=== PATIENT | female | born 1950 | race Caucasian/White ===

== ENCOUNTER 2019-06-26 20:49 | Emergency (ER) | payer MEDICARE, OTHER ==
[~2019-06-26] VITALS: Ht 152.4 cm; Wt 104.5 kg
[2019-06-26] MEDS ORDERED: fentaNYL INJECTION 100 MCG/2 ML AMP IVP STA (21:10)
--- NOTE | 2019-06-26 21:13 | ED Chest Pain ---
General Chief Complaint: Chest Pain Stated Complaint: CP Source: patient History of Present Illness Date Seen by Provider: Jun 26, 2019 Time Seen by Provider: 20:58 Initial Comments 69-year-old female presenting with complaints of epigastric pain going into her back and chest. She states this feels similar to when she has had cardiac symptoms in the past. She had a four-vessel bypass in 2003 and 2 years ago she had 2 stents placed. She denies having any sweating or nausea with this. She had some shortness of breath with exertion. The pain came on at 7:15 and was constant until after arriving here in the emergency department. She tried taking 3 nitroglycerin at home without any effect on the pain. She did not take any additional aspirin she takes it in the morning. She denies doing anything at home when the pain came on. She states that she was just sitting watching TV. She has not been coughing or doing anything strenuous recently. She has had no injury or fall. Nothing made the pain better or worse. Allergies and Home Medications Allergies Coded Allergies: midazolam (Unverified Allergy, Unknown, MAKE PT HYPER AND ANXIOUS, 05/28/14) Patient Home Medication List Home Medication List Reviewed: Yes Review of Systems Review of Systems Constitutional: No chills, No dizziness, No fever, No malaise EENTM: No Symptoms Reported Respiratory: Denies Orthopnea; SOA With Exertion; Denies Stridor, Denies Wheezing Cardiovascular: See HPI, Chest Pain (sharp epigastric pain going into her chest and back); Denies Irregular Heart Rate, Denies Lightheadedness, Denies Palpitations, Denies Syncope Gastrointestinal: Abdominal Pain (epigastric abdominal pain going into her chest and back); Denies Nausea, Denies Vomiting Genitourinary: No Symptoms Reported Musculoskeletal: no symptoms reported Skin: no symptoms reported Psychiatric/Neurological: No Symptoms Reported Past Uhqbkhk-Ykwlvf-Wqtexi Hx Past Med/Social Hx: Reviewed Nursing Past Med/Soc Hx Past Medical History Cardiac (x2 stents placed 2016), CABG (x4 vessel bypass in 2003) Cardiac: Yes Cardiomyopathy, Coronary Artery Disease, High Cholesterol, Hypertension Physical Exam Vital Signs Vital Signs - First Documented Capillary Refill : Height, Weight, BMI Height: 5'1.00" Weight: 245lbs. oz. 111.453107oc; BMI Method: General Appearance: No Apparent Distress, WD/WN, Obese HEENT: Pharynx Normal Neck: Non Tender, Supple; No Carotid Bruit, No JVD Respiratory: Chest Non Tender, Lungs Clear, Normal Breath Sounds, No Accessory Muscle Use, No Respiratory Distress Cardiovascular: Regular Rate, Rhythm, Normal Peripheral Pulses Gastrointestinal: No Pulsatile Mass, Non Tender, Soft Extremity: Normal Capillary Refill, No Calf Tenderness, No Pedal Edema Neurologic/Psychiatric: Alert, Oriented x3, Normal Mood/Affect Skin: Normal Color, Warm/Dry Progress/Results/Core Measures Results/Orders Lab Results Laboratory Tests Test 06/26/19 21:10 06/26/19 23:05 Range/Units White Blood Count 4.4 4.3-11.0 10^3/uL Red Blood Count 3.46 L 4.35-5.85 10^6/uL Hemoglobin 10.8 L 11.5-16.0 G/DL Hematocrit 33 L 35-52 % Mean Corpuscular Volume 95 80-99 FL Mean Corpuscular Hemoglobin 31 25-34 PG Mean Corpuscular Hemoglobin Concent 33 32-36 G/DL Red Cell Distribution Width 14.8 H 10.0-14.5 % Platelet Count 215 130-400 10^3/uL Mean Platelet Volume 9.3 7.4-10.4 FL Neutrophils (%) (Auto) 44 42-75 % Lymphocytes (%) (Auto) 45 H 12-44 % Monocytes (%) (Auto) 9 0-12 % Eosinophils (%) (Auto) 2 0-10 % Basophils (%) (Auto) 1 0-10 % Neutrophils # (Auto) 1.9 1.8-7.8 X 10^3 Lymphocytes # (Auto) 2.0 1.0-4.0 X 10^3 Monocytes # (Auto) 0.4 0.0-1.0 X 10^3 Eosinophils # (Auto) 0.1 0.0-0.3 10^3/uL Basophils # (Auto) 0.0 0.0-0.1 10^3/uL Prothrombin Time 12.7 12.2-14.7 SEC INR Comment 0.9 0.8-1.4 Activated Partial Thromboplast Time 26 24-35 SEC Sodium Level 137 135-145 MMOL/L Potassium Level 4.5 3.6-5.0 MMOL/L Chloride Level 99 98-107 MMOL/L Carbon Dioxide Level 27 21-32 MMOL/L Anion Gap 11 5-14 MMOL/L Blood Urea Nitrogen 23 H 7-18 MG/DL Creatinine 1.52 H 0.60-1.30 MG/DL Estimat Glomerular Filtration Rate 34 BUN/Creatinine Ratio 15 Glucose Level 111 H 70-105 MG/DL Calcium Level 9.3 8.5-10.1 MG/DL Corrected Calcium 9.5 8.5-10.1 MG/DL Total Bilirubin 0.2 0.1-1.0 MG/DL Aspartate Amino Transf (AST/SGOT) 10 5-34 U/L Alanine Aminotransferase (ALT/SGPT) 7 0-55 U/L Alkaline Phosphatase 79 40-136 U/L Troponin I < 0.30 < 0.30 <0.30 NG/ML Pro-B-Type Natriuretic Peptide 855.6 H <75.0 PG/ML Total Protein 6.8 6.4-8.2 GM/DL Albumin 3.7 3.2-4.5 GM/DL My Orders Orders - ASHLEY HESS MD Cbc With Automated Diff (06/26/19 20:56) Comprehensive Metabolic Panel (06/26/19 20:56) Troponin I Fs (06/26/19 20:56) Continuous Ekg Monitoring (06/26/19 20:56) Ekg Tracing (06/26/19 20:56) Ed Iv/Invasive Line Start (06/26/19 20:56) Chest 1 View Ap/Pa Only (06/26/19 20:58) Probnp Fs (06/26/19 21:09) Protime With Inr (06/26/19 21:09) Partial Thromboplastin Time (06/26/19 21:09) Fentanyl Injection (Sublimaze Injection (06/26/19 21:10) Oxygen-Administer 07,19 (06/26/19 21:10) Troponin I Fs (06/26/19 22:53) Vital Signs/I&O 06/26/19 06/26/19 21:09 21:09 Temp 36.3 Pulse 68 Resp 13 B/P (MAP) 169/69 (102) Pulse Ox 95 O2 Delivery Room Air Room Air Progress Progress Note #1: Progress Note Obtain basic labs and chest x-ray with an electrocardiogram. The e lectrocardiogram did not show any acute ST elevation but she did have a right bundle-branch block. There was no prior tracing available for comparison. Will give a dose of fentanyl to try and help with her pain. Since she had already tried nitroglycerin at home and it was not helping as well as she had aspirin will defer using these. Progress Note #2: Progress Note Chest x-ray shows cardiomegaly without effusions or infiltrate. There is signs of chronic renal insufficiency with a creatinine of 1.5 on her chemistry. Her initial troponin is less than 0.3 her BNP is slightly elevated at 855. Her pain was resolved with the fentanyl and rest. Will repeat the troponin at 2 hours and see if there is any change. This would be over 4 hours since initial onset of symptoms. Progress Note #3: Progress Note Repeat troponin is still less than 0.3. Patient continues to be comfortable without any recurrent symptoms. Counseled on options of transfer for cardiology evaluation this weekend versus follow-up with Dr. Powers during the week. This is all provided she has no recurrent symptoms or problems over the weekend. She opted to call Dr. Powers on Saturday and check back with him. If she has further problems or concerns then she will call this weekend about being seen again. Counseled to either call 911 or return immediately if she has recurrent or worsening symptoms. Initial ECG Impression Date: Jun 26, 2019 Initial ECG Impression Time: 20:57 Initial ECG Rate: 63 Initial ECG Rhythm: Normal Sinus Initial ECG Comparisson: No Previous ECG Available Comment Sinus rhythm with a heart rate is 63 bpm. WA interval of 226 ms. There is a right bundle-branch block present. QT interval 478 ms and QT corrected interval 490 ms. There is no acute ST elevation. No prior tracing immediately available for comparison. Diagnostic Imaging Diagonstic Imaging: Xray Plain Films/CT/US/NM/MRI: chest Comments NAME: LORI IRELAND [facility] REC#: [id number] PT STATUS: REG ER : 1950 PHYSICIAN: ASHLEY HESS MD ADMIT DATE: 06/26/19/ER FS Draft POSDate of Exam:06/26/19 CHEST 1 VIEW AP/PA ONLY INDICATION: Chest pain. EXAMINATION: Portable erect AP chest at 9:10 p.m. COMPARISON: There are no prior studies available for comparison. FINDINGS: This exam is less than optimal due to the patient's body habitus. The heart is enlarged and there are sternotomy wires and surgical clips evident. The lungs are generally clear. There is no sign of failure, pneumonia or a pleural effusion. The mediastinum is not widened. The osseous structures are intact. IMPRESSION: There is cardiomegaly and evidence of prior cardiac surgery. There is no sign of an acute cardiopulmonary abnormality, however. Dictated on workstation # [id number] Dict: 06/26/192132 Trans: 06/26/192135 [facility] [id number] Interpreted by: JAJA FARIAS MD Electronically signed by: Departure Impression Primary Impression: Chest pain of unknown etiology Additional Impression: Epigastric pain Disposition: HOME, SELF-CARE Condition: Improved Departure-Patient Inst. Decision time for Depature: 23:56 Referrals: CRUZ WOOD MD (PCP) Primary Care Physician Patient Instructions: Chest Pain (DC), Chest Pain That Is Not Caused by the Heart (DC) Add. Discharge Instructions: Your tests tonight do not show the heart as the cause of the pain. You may need to have other testing with Dr. Powers from [facility] and should call him on Saturday to see if he wants to have you move up your appointment from August. If you have recurrent pain or more problems over the weekend then call 911 or return to the Emergency Department. All discharge instructions reviewed with patient and/or family. Voiced understanding. ASHLEY HESS MD Jun 26, 2019 21:13 POS
[2019-06-26 21:15] LABS: BASOPHILS % (AUTO) 1 % (0-10); EOSINOPHILS # (AUTO) 0.1 10^3/uL (0.0-0.3); EOSINOPHILS % (AUTO) 2 % (0-10); HEMATOCRIT 33 % (35-52); HEMOGLOBIN 10.8 G/DL (11.5-16.0); LYMPHOCYTES % (AUTO) 45 % (12-44); MEAN CORPUSCULAR HEMOGLOBIN 31 PG (25-34); MEAN CORPUSCULAR HGB CONC 33 G/DL (32-36); MEAN CORPUSCULAR VOLUME 95 FL (80-99); MEAN PLATELET VOLUME 9.3 FL (7.4-10.4); MONOCYTES # (AUTO) 0.4 X 10^3 (0.0-1.0); MONOCYTES % (AUTO) 9 % (0-12); NEUTROPHILS # (AUTO) 1.9 X 10^3 (1.8-7.8); NEUTROPHILS % (AUTO) 44 % (42-75); PLATELET COUNT 215 10^3/uL (130-400); RED CELL DISTRIBUTION WIDTH 14.8 % (10.0-14.5); WHITE BLOOD COUNT 4.4 10^3/uL (4.3-11.0)
[2019-06-26 21:35] LABS: INR 0.9 (0.8-1.4); PROTHROMBIN TIME PATIENT 12.7 SEC (12.2-14.7)
[2019-06-26 21:36] LABS: CARBON DIOXIDE 27 MMOL/L (21-32); CHLORIDE 99 MMOL/L (98-107); POTASSIUM 4.5 MMOL/L (3.6-5.0); SODIUM 137 MMOL/L (135-145)
--- NOTE | 2019-06-26 21:36 | Diagnostic Imaging Report ---
INDICATION: Chest pain. EXAMINATION: Portable erect AP chest at 9:10 p.m. COMPARISON: There are no prior studies available for comparison. FINDINGS: This exam is less than optimal due to the patient's body habitus. The heart is enlarged and there are sternotomy wires and surgical clips evident. The lungs are generally clear. There is no sign of failure, pneumonia or a pleural effusion. The mediastinum is not widened. The osseous structures are intact. IMPRESSION: There is cardiomegaly and evidence of prior cardiac surgery. There is no sign of an acute cardiopulmonary abnormality, however. Dictated by: Dictated on workstation # [id number]
[2019-06-26 21:37] LABS: ALANINE AMINOTRANSFERASE 7 U/L (0-55); ALBUMIN 3.7 GM/DL (3.2-4.5); ALKALINE PHOSPHATASE 79 U/L (40-136); BILIRUBIN,TOTAL 0.2 MG/DL (0.1-1.0); BUN/CREATININE RATIO 15; CALCIUM 9.3 MG/DL (8.5-10.1); CREATININE SERUM 1.52 MG/DL (0.60-1.30); GFR ESTIMATED 34; GLUCOSE 111 MG/DL (70-105); TOTAL PROTEIN 6.8 GM/DL (6.4-8.2)
[2019-06-27 00:03] VITALS: BP 120/68
== END 2019-06-27 00:03 | disposition home or self-care (01) ==
LOC: EDUNIT# 20:49 → ER FS 20:51
DX: R07.9 Chest pain, unspecified (principal); R10.13 Epigastric pain; I10 Essential (primary) hypertension; E78.00 Pure hypercholesterolemia, unspecified; I25.10 Atherosclerotic heart disease of native coronary artery without angina pectoris; Z88.8 Allergy status to other drugs, medicaments and biological substances; Z95.1 Presence of aortocoronary bypass graft; Z95.5 Presence of coronary angioplasty implant and graft
CPT/HCPCS: 36415; 71045; 80053; 83880; 84484; 85025; 85610; 85730; 93005; 96374

== ENCOUNTER → 2019-10-19 | Outpatient (CLI) | payer MEDICARE, MEDICAID ==
[2019-10-19 11:08] LABS: BUN/CREATININE RATIO 15; CARBON DIOXIDE 27 MMOL/L (21-32); CHLORIDE 98 MMOL/L (98-107); CREATININE SERUM 1.69 MG/DL (0.60-1.30); POTASSIUM 4.7 MMOL/L (3.6-5.0); SODIUM 137 MMOL/L (135-145)
[2019-10-19 11:09] LABS: ALANINE AMINOTRANSFERASE 7 U/L (0-55); ALKALINE PHOSPHATASE 70 U/L (40-136); BILIRUBIN,TOTAL 0.3 MG/DL (0.1-1.0); CALCIUM 9.8 MG/DL (8.5-10.1); GFR ESTIMATED > 60; GLUCOSE 203 MG/DL (70-105)
[2019-10-19 11:10] LABS: ALBUMIN 3.8 GM/DL (3.2-4.5)
[2019-10-19 11:15] LABS: HEMOGLOBIN 11.4 G/DL (11.5-16.0); MEAN CORPUSCULAR HEMOGLOBIN 33 PG (25-34); WHITE BLOOD COUNT 3.1 10^3/uL (4.3-11.0)
[2019-10-19 11:16] LABS: EOSINOPHILS % (AUTO) 2 % (0-10); HEMATOCRIT 35 % (35-52); LYMPHOCYTES % (AUTO) 40 % (12-44); MEAN CORPUSCULAR HGB CONC 33 G/DL (32-36); MEAN CORPUSCULAR VOLUME 103 FL (80-99); MEAN PLATELET VOLUME 9.3 FL (7.4-10.4); MONOCYTES % (AUTO) 4 % (0-12); NEUTROPHILS % (AUTO) 54 % (42-75); PLATELET COUNT 208 10^3/uL (130-400); RED CELL DISTRIBUTION WIDTH 13.8 % (10.0-14.5)
[2019-10-19 11:17] LABS: BASOPHILS % (AUTO) 0 % (0-10); EOSINOPHILS # (AUTO) 0.1 10^3/uL (0.0-0.3); LYMPHOCYTES # (AUTO) 1.2 X 10^3 (1.0-4.0); MONOCYTES # (AUTO) 0.1 X 10^3 (0.0-1.0); NEUTROPHILS # (AUTO) 1.7 X 10^3 (1.8-7.8)
--- NOTE | 2019-10-19 11:43 | Diagnostic Imaging Report ---
PROCEDURE: CT chest, abdomen, and pelvis without contrast. TECHNIQUE: Multiple contiguous axial images were obtained through the chest, abdomen, and pelvis without the use of intravenous contrast. Auto Exposure Controls were utilized during the CT exam to meet ALARA standards for radiation dose reduction. INDICATION: Hodgkin's lymphoma. COMPARISON: No prior studies are available for comparison. CT CHEST: A right chest wall port has the tip in the SVC. There are changes of median sternotomy. No axillary lymphadenopathy is detected. Mediastinal and hilar evaluation is limited without intravenous contrast, but no gross abnormality is seen. There is no pericardial or pleural fluid identified. No pulmonary infiltrates, nodules, or masses are identified. Kyphoplasty changes in the lower thoracic spine are noted. IMPRESSION: Unremarkable noncontrast CT of the chest. CT ABDOMEN AND PELVIS: No discrete liver mass is detected. Gallbladder appears to be surgically absent. No biliary ductal dilatation is seen. Pancreas and spleen are unremarkable. No adrenal mass is detected. No calculi within the kidneys are identified. There is no hydronephrosis. Aorta is heavily calcified but non-aneurysmal. No central retroperitoneal or mesenteric lymphadenopathy is identified. No definite inguinal or iliac lymphadenopathy is identified. Unopacified bladder is unremarkable. The small and large bowel loops are normal in caliber. There is some diverticulosis of the sigmoid but no evidence of acute diverticulitis. There is no bowel obstruction. No free fluid or fluid collection is identified. There are postop changes of posterior instrumented fusion at the L5-S1 level. There are postop changes in the anterior lower abdominal wall. IMPRESSION: 1. Uncomplicated diverticulosis. 2. No evidence of abdominal or pelvic lymphadenopathy. No acute feature is detected. Dictated by: Dictated on workstation # [id number]
== END ==
LOC: RAD FS 10:20
PROVIDERS: ATTEND Internal Medicine Hematology & Oncology
DX: C81.18 Nodular sclerosis Hodgkin lymphoma, lymph nodes of multiple sites (principal); K57.30 Diverticulosis of large intestine without perforation or abscess without bleeding; Z95.828 Presence of other vascular implants and grafts
CPT/HCPCS: 36415; 71250; 74176; 80053; 83615; 85025

== ENCOUNTER 2019-11-28 07:52 | Emergency (ER) | payer MEDICARE, MEDICAID ==
--- OUTSIDE RECORDS SUMMARY | 2019-11-28 07:58 | XMS REPORT | Continuity of Care Document ---
Author Organization Unknown Address Unknown Phone Unavailable Allergies Active Description Code Type Severity Reaction Onset Reported/Identified Relationship to Patient Clinical Status Yes midazolam [id number] Drug Allergy Unknown MAKE PT HYPER A 05/28/2014 Medications There is no data. Problems Date Dx Coded Attending Type Code Diagnosis Diagnosed By 05/28/2014 JOSE RUFFIN MD Ot 278. 01 MORBID OBESITY 05/28/2014 JOSE RUFFIN MD Ot 721. 3 LUMBOSACRAL SPONDYLOSIS 05/28/2014 JOSE RUFFIN MD Ot V58. 69 OT MED,LT,CURRENT USE 05/28/2014 JOSE RUFFIN MD Ot V85. 42 BODY MASS INDEX 45.0-49.9, ADULT 12/28/2014 JOSE RUFFIN MD Ot 721. 2 12/28/2014 JOSE RUFFIN MD Ot 786. 50 12/29/2014 CONSUELO NAVARRO, KIT Ot 201. 90 06/14/2015 SHAIKH MELANIE, SHEREE Ot N18.3 06/27/2019 ASHLEY HESS MD Ot E78.0 0 PURE HYPERCHOLESTEROLEMIA, UNSPECIFIED 06/27/2019 ASHLEY HESS MD Ot I10 ESSENTIAL (PRIMARY) HYPERTENSION 06/27/2019 ASHLEY HESS MD, Ot I25.1 0 ATHSCL HEART DISEASE OF [place] CORONARY 06/27/2019 ASHLEY HESS MD Ot R07.9 CHEST PAIN, UNSPECIFIED 06/27/2019 ASHLYE HESS MD Ot R10.1 3 EPIGASTRIC PAIN 06/27/2019 ASHLEY HESS MD, Ot Z88.8 ALLERGY STATUS TO OT DRUG/MEDS/BIOL SUB 06/27/2019 ASHLEY HESS MD Ot Z95.1 PRESENCE OF AORTOCORONARY BYPASS GRAFT 06/27/2019 ASHLEY HESS MD, Ot Z95.5 PRESENCE OF CORONARY ANGIOPLASTY IMPLANT 06/27/2019 JOSE RUFFIN MD Ot 721. 2 THORACIC SPONDYLOSIS 06/27/2019 JOSE RUFFIN MD Ot 786. 50 CHEST PAIN NOS 06/27/2019 CONSUELO NAVARRO, KIT Ot 201. 90 [place] DIS UNSPEC EXTRANODAL SOLID O 06/27/2019 SHEREE SANTANA MD Ot N18.3 CHRONIC KIDNEY DISEASE, STAGE 3 (MODERAT 06/29/2019 ASHLEY HESS MD Ot E78.0 0 PURE HYPERCHOLESTEROLEMIA, UNSPECIFIED 06/29/2019 ASHLEY HESS MD Ot I10 ESSENTIAL (PRIMARY) HYPERTENSION 06/29/2019 ASHLEY HESS MD Ot I25.1 0 ATHSCL HEART DISEASE OF [place] CORONARY 06/29/2019 ASHLEY HESS MD Ot R07.9 CHEST PAIN, UNSPECIFIED 06/29/2019 ASHLEY HESS MD Ot R10.1 3 EPIGASTRIC PAIN 06/29/2019 ASHLEY HESS MD Ot Z88.8 ALLERGY STATUS TO OTH DRUG/MEDS/BIOL SUB 06/29/2019 ASHLEY HESS MD Ot Z95.1 PRESENCE OF AORTOCORONARY BYPASS GRAFT 06/29/2019 ASHLEY HESS MD Ot Z95.5 PRESENCE OF CORONARY ANGIOPLASTY IMPLANT 07/01/2019 CONSUELO NAVARRO, KIT Ot 201. 90 [place] DIS UNSPEC EXTRANODAL SOLID O 07/01/2019 OJSE RUFFIN MD Ot 721. 2 THORACIC SPONDYLOSIS 07/01/2019 JOSE RUFFIN MD Ot 786. 50 CHEST PAIN NOS 07/01/2019 CONSUELO NAVARRO, KIT Ot 201. 90 [place] DIS UNSPEC EXTRANODAL SOLID O 07/01/2019 SHEREE SANTANA MD Ot N18.3 CHRONIC KIDNEY DISEASE, STAGE 3 (MODERAT 07/22/2019 JOSE RUFFIN MD Ot 721. 2 THORACIC SPONDYLOSIS 07/22/2019 JOSE RUFFIN MD Ot 786. 50 CHEST PAIN NOS 07/22/2019 CONSUELO NAVARRO, KIT Ot 201. 90 [place] DIS UNSPEC EXTRANODAL SOLID O 07/22/2019 SHEREE SANTANA MD Ot N18.3 CHRONIC KIDNEY DISEASE, STAGE 3 (MODERAT 07/23/2019 ASHLEY HESS MD Ot E78.0 0 PURE HYPERCHOLESTEROLEMIA, UNSPECIFIED 07/23/2019 ASHLEY HESS MD Ot I10 ESSENTIAL (PRIMARY) HYPERTENSION 07/23/2019 ASHLEY HESS MD, Ot I25.1 0 ATHSCL HEART DISEASE OF [place] CORONARY 07/23/2019 ASHLEY HESS MD Ot R07.9 CHEST PAIN, UNSPECIFIED 07/23/2019 ASHLEY HESS MD Ot R10.1 3 EPIGASTRIC PAIN 07/23/2019 ASHLEY HESS MD Ot Z88.8 ALLERGY STATUS TO OT DRUG/MEDS/BIOL SUB 07/23/2019 ASHLEY HESS MD Ot Z95.1 PRESENCE OF AORTOCORONARY BYPASS GRAFT 07/23/2019 ASHLEY HESS MD Ot Z95.5 PRESENCE OF CORONARY ANGIOPLASTY IMPLANT 10/19/2019 CONSUELO NAVARRO, KIT Ot 201. 90 [place] DIS UNSPEC EXTRANODAL SOLID O 10/19/2019 SHAIKH MELANIE, SHEREE Ot N18.3 CHRONIC KIDNEY DISEASE, STAGE 3 (MODERAT 10/19/2019 CONSUELO NAVARRO, KIT Ot 201. 90 [place] DIS UNSPEC EXTRANODAL SOLID O 10/19/2019 SHAIKH MELANIE, SHEREE Ot N18.3 CHRONIC KIDNEY DISEASE, STAGE 3 (MODERAT 10/19/2019 CONSUELO NAVARRO, KIT Ot 201. 90 [place] DIS UNSPEC EXTRANODAL SOLID O 10/19/2019 SHAIKH MELANIE, SHEREE Ot N18.3 CHRONIC KIDNEY DISEASE, STAGE 3 (MODERAT 10/21/2019 DAKOTA CORDERO MDM Ot 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 [place] LYMPHOMA, LYMP 10/21/2019 DAKOTA CORDERO MDM Ot K57. 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 [place] LYMPHOMA, LYMP 11/03/2019 REID CORDERO MDSIM Ot K57. 30 DVRTCLOS OF LG INT W/O PERFORATION OR AB 11/03/2019 REID CORDERO MDSIM Ot Z95.828 PRESENCE OF OTHER VASCULAR IMPLANTS AND Procedures There is no data. Results Test Result Range LIPID PANEL - 10/08/18 09:12 CHOLESTEROL, TOTAL 201 mg/dL <200 HDL CHOLESTEROL 46 mg/dL >50 TRIGLYCERIDES 212 mg/dL <150 LDL-CHOLESTEROL 122 mg/dL (calc) NRG CHOL/HDLC RATIO 4.4 (calc) <5.0 NON HDL CHOLESTEROL 155 mg/dL (calc) <13 0 CMP - 10/08/18 09:12 GLUCOSE 279 mg/dL 65-99 UREA NITROGEN (BUN) 24 mg/dL 7-25 CREATININE 1.45 mg/dL 0.50-0.99 eGFR NON-AFR. [place] R[place] 37 mL/min/1.73m2 > OR = 60 eGFR 43 mL/min/1.73m2 > OR = 60 BUN/CREATININE RATIO 17 (calc) 6-22 SODIUM 135 mmol/L 135-146 POTASSIUM 4.5 mmol/L 3.5-5.3 CHLORIDE 98 mmol/L 98-110 CARBON DIOXIDE 26 mmol/L 20-32 CALCIUM 9.2 mg/dL 8.6-10.4 PROTEIN, TOTAL 6.6 g/dL 6.1-8.1 ALBUMIN 3.8 g/dL 3.6-5.1 GLOBULIN 2.8 g/dL (calc) 1.9-3.7 ALBUMIN/GLOBULIN RATIO 1.4 (calc) 1.0-2. 5 BILIRUBIN, TOTAL 0.3 mg/dL 0.2-1.2 ALKALINE PHOSPHATASE 83 U/L 33-130 AST 9 U/L 10-35 ALT 7 U/L 6-29 A1C - 10/08/18 09:12 HEMOGLOBIN A1c 8.5 % of total Hgb <5.7 SPECIMEN INTEGRITY COMPROMISED - 9 09:12 SPECIMEN INTEGRITY COMPROMISED NR CULTURE, URINE - 11/19/18 13:56 CULTURE, URINE, ROUTINE SEE NOTE NRG A1C - 01/28/19 01:15 HEMOGLOBIN A1c 8.6 % of total Hgb <5.7 A1C - 06/08/19 08:13 HEMOGLOBIN A1c 9.1 % of total Hgb <5.7 Complete blood count (CBC) with automate d white blood cell (WBC) differential - 06/26/19 21:10 Blood leukocytes automated count (number/volume) 4.4 10*3/uL 4.3-11.0 Blood erythrocytes automated count (number/volume) 3.46 10*6/uL 4.35-5.85 Venous blood hemoglobin measurement (mass/volume) 10.8 g/dL 11.5-16.0 Blood hematocrit (volume fraction) 33 % 35-52 Automated erythrocyte mean corpuscular volume 95 [ foz_us] 80-99 Automated erythrocyte mean corpuscular h emoglobin (mass per erythrocyte) 31 pg 25-34 Automated erythrocyte mean corpuscular h emoglobin concentration measurement (mass/volume) 33 g/dL 32-36 Automated erythrocyte distribution width ratio 14. 8 % 10.0- 14.5 Automated blood platelet count (count/volume) 215 10*3/uL 130-400 Automated blood platelet mean volume measurement 9.3 [foz_us] 7.4-10.4 Automated blood neutrophils/100 leukocytes 44 % 42-75 Automated blood lymphocytes/100 leukocytes 45 % 12-44 Blood monocytes/100 leukocytes 9 % 0-12 Automated blood eosinophils/100 leukocytes 2 % 0-10 Automated blood basophils/100 leukocytes 1 % 0-10 Blood neutrophils automated count (number/volume) 1.9 10*3 1.8-7.8 Blood lymphocytes automated count (number/volume) 2.0 10*3 1.0-4.0 Blood monocytes automated count (number/volume) 0. 4 10*3 0.0-1.0 Automated eosinophil count 0.1 10*3/uL 0 .0-0.3 Automated blood basophil count (count/volume) 0.0 10*3/uL 0.0-0.1 PT panel in platelet poor plasma by coag ulation assay - 06/26/19 21:10 Prothrombin time (PT) in platelet poor plasma by coagu lation assay 12.7 s 12.2-14.7 INR in platelet poor plasma or blood by coagulation as say 0.9 0.8-1.4 Activated partial thromboplastin time (a PTT) in platelet poor plasma bycoagulation assay - 06/26/19 21:10 Activated partial thromboplastin time (a PTT) in platelet poor plasma bycoagulation assay 26 s 24-35 Comprehensive metabolic panel - 06/26/19 21:10 Serum or plasma sodium measurement (moles/volume) 137 mmol/L 135-145 Serum or plasma potassium measurement (moles/volume) 4.5 mmol/L 3.6-5.0 Serum or plasma chloride measurement (moles/volume) 99 mmol/L 98-107 Carbon dioxide 27 mmol/L 21-32 Serum or plasma anion gap determination (moles/volume) 11 mmol/L 5-14 Serum or plasma urea nitrogen measurement (mass/volume ) 23 mg/dL 7-18 Serum or plasma creatinine measurement (mass/volume) 1.52 mg/dL 0.60-1.30 Serum or plasma urea nitrogen/creatinine mass ratio 15 NRG Serum or plasma creatinine measurement w ith calculation of estimated glomerular filtration rate 34 NRG Serum or plasma glucose measurement (mass/volume) 111 mg/dL 70-105 Serum or plasma calcium measurement (mass/volume) 9.3 mg/dL 8.5-10.1 Serum or plasma total bilirubin measurement (mass/volu me) 0.2 mg/dL 0.1-1.0 Serum or plasma alkaline phosphatase lachelle surement (enzymatic activity/volume) 79 U/L 40-136 Serum or plasma aspartate aminotransfera se measurement (enzymatic activity/volume) 10 U/L 5-34 Serum or plasma alanine aminotransferase measurement (enzymatic activity/volume) 7 U/L 0-55 Serum or plasma protein measurement (mass/volume) 6.8 g/dL 6.4-8.2 Serum or plasma albumin measurement (mass/volume) 3.7 g/dL 3.2-4.5 CALCIUM CORRECTED 9.5 mg/dL 8.5-10.1 TROPONIN I FS - 06/26/19 21:10 TROPONIN I FS < 0.30 <0.30 PROBNP FS - 06/26/19 21:10 PROBNP FS 855.6 pg/mL <75.0 TROPONIN I FS - 06/26/19 23:05 TROPONIN I FS < 0.30 <0.30 [facility] - 09/09/19 08:09 GLUCOSE 275 mg/dL 65-99 UREA NITROGEN (BUN) 28 mg/dL 7-25 CREATININE 1.56 mg/dL 0.50-0.99 eGFR NON-AFR. [place] R[place] 34 mL/min/1.73m2 > OR = 60 eGFR 39 mL/min/1.73m2 > OR = 60 BUN/CREATININE RATIO 18 (calc) 6-22 SODIUM 135 mmol/L 135-146 POTASSIUM 4.5 mmol/L 3.5-5.3 CHLORIDE 99 mmol/L 98-110 CARBON DIOXIDE 31 mmol/L 20-32 CALCIUM 9.3 mg/dL 8.6-10.4 PROTEIN, TOTAL 6.4 g/dL 6.1-8.1 ALBUMIN 3.8 g/dL 3.6-5.1 GLOBULIN 2.6 g/dL (calc) 1.9-3.7 ALBUMIN/GLOBULIN RATIO 1.5 (calc) 1.0-2. 5 BILIRUBIN, TOTAL 0.4 mg/dL 0.2-1.2 ALKALINE PHOSPHATASE 85 U/L 33-130 AST 9 U/L 10-35 ALT 6 U/L 6-29 C-PEPTIDE, SERUM - 09/24/19 12:17 C-PEPTIDE 1.48 ng/mL 0.80-3.85 Comprehensive metabolic panel - 10/19/19 10:29 Serum or plasma sodium measurement (moles/volume) 137 mmol/L 135-145 Serum or plasma potassium measurement (moles/volume) 4.7 mmol/L 3.6-5.0 Serum or plasma chloride measurement (moles/volume) 98 mmol/L 98-107 Carbon dioxide 27 mmol/L 21-32 Serum or plasma anion gap determination (moles/volume) 12 mmol/L 5-14 Serum or plasma urea nitrogen measurement (mass/volume ) 26 mg/dL 7-18 Serum or plasma creatinine measurement (mass/volume) 1.69 mg/dL 0.60-1.30 Serum or plasma urea nitrogen/creatinine mass ratio 15 NRG Serum or plasma creatinine measurement w ith calculation of estimated glomerular filtration rate > NRG Serum or plasma glucose measurement (mass/volume) 203 mg/dL 70-105 Serum or plasma calcium measurement (mass/volume) 9.8 mg/dL 8.5-10.1 Serum or plasma total bilirubin measurement (mass/volu me) 0.3 mg/dL 0.1-1.0 Serum or plasma alkaline phosphatase lachelle surement (enzymatic activity/volume) 70 U/L 40-136 Serum or plasma aspartate aminotransfera se measurement (enzymatic activity/volume) 9 U/L 5-34 Serum or plasma alanine aminotransferase measurement (enzymatic activity/volume) 7 U/L 0-55 Serum or plasma protein measurement (mass/volume) 7.0 g/dL 6.4-8.2 Serum or plasma albumin measurement (mass/volume) 3.8 g/dL 3.2-4.5 CALCIUM CORRECTED 10.0 mg/dL 8.5-10.1 Complete blood count (CBC) with automate d white blood cell (WBC) differential - 10/19/19 10:29 Blood leukocytes automated count (number/volume) 3.1 10*3/uL 4.3-11.0 Blood erythrocytes automated count (number/volume) 3.41 10*6/uL 4.35-5.85 Venous blood hemoglobin measurement (mass/volume) 11.4 g/dL 11.5-16.0 Blood hematocrit (volume fraction) 35 % 35-52 Automated erythrocyte mean corpuscular volume 103 [foz_us] 80-99 Automated erythrocyte mean corpuscular h emoglobin (mass per erythrocyte) 33 pg 25-34 Automated erythrocyte mean corpuscular h emoglobin concentration measurement (mass/volume) 33 g/dL 32-36 Automated erythrocyte distribution width ratio 13. 8 % 10.0- 14.5 Automated blood platelet count (count/volume) 208 10*3/uL 130-400 Automated blood platelet mean volume measurement 9.3 [foz_us] 7.4-10.4 Automated blood neutrophils/100 leukocytes 54 % 42-75 Automated blood lymphocytes/100 leukocytes 40 % 12-44 Blood monocytes/100 leukocytes 4 % 0-12 Automated blood eosinophils/100 leukocytes 2 % 0-10 Automated blood basophils/100 leukocytes 0 % 0-10 Blood neutrophils automated count (number/volume) 1.7 10*3 1.8-7.8 Blood lymphocytes automated count (number/volume) 1.2 10*3 1.0-4.0 Blood monocytes automated count (number/volume) 0. 1 10*3 0.0-1.0 Automated eosinophil count 0.1 10*3/uL 0 .0-0.3 Automated blood basophil count (count/volume) 0.0 10*3/uL 0.0-0.1 Serum ragweed IgE antibody assay - 10/18 10:29 Serum ragweed IgE antibody assay 237 U/L 125-220 Encounters ACCT No. Visit Date/Time Discharge Status Pt. Type Provider Facility Loc./Unit Complaint [id number] 09/13/2019 11:50:00 09/13/2019 23:59: 59 [facility] Outpatient SHANON STAPLETON [facility] [id number] 09/24/2019 08:30:00 Document Registration [id number] 09/09/2019 08:15:00 Document Registration [id number] 06/08/2019 08:00:00 Document Registration [id number] 01/28/2019 10:20:00 Document Registration [id number] 11/19/2018 13:30:00 Document Registration [id number] 10/08/2018 10:15:00 Document Registration [id number] 10/19/2019 10:20:00 020 23:59:59 CLS Outpatient KIT CORDERO MD [facility] LAB FS 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 [id number] 06/26/2019 20:51:00 019 00:03:00 DIS Emergency JIMENA NAVARRO, ASHLEY Reyes [facility] ER FS CP [id number] 06/01/2015 13:01:00 015 23:59:59 CLS Outpatient SHEREE SANTANA MD [facility] RAD RENAL INSUFFICIENCY STA GE 3 [id number] 12/28/2014 09:19:00 015 23:59:59 CLS Outpatient KIT CORDERO MD [facility] RAD [place] LYMPHOMA [id number] 05/28/2014 10:50:00 014 11:58:00 DIS Outpatient JOSE RUFFIN MD [facility] CARD LUMBAR SPONDOLOYSIS [id number] 04/27/2014 15:10:00 014 23:59:59 CLS Outpatient JOSE RUFFIN MD [facility] RAD THORACIC SPINE PAIN,TEN DERNESS TO PALPATION [place] [id number] 09/29/2018 10:42:07 9 23:59:59 DIS Outpatient KIT CORDERO [facility] ASHLEY RAD [place] lymphoma
[2019-11-28] MEDS ORDERED: NITROGLYCERIN 0.4 MG SL TABS BTL 25'S SL PRN (08:00)
--- NOTE | 2019-11-28 08:13 | ED Cardiac General ---
History of Present Illness General Chief Complaint: Chest Pain Stated Complaint: CHEST PAIN Nursing Triage Note: Brought in by EMS for chest pain that started at 0600 this morning in epigastric area and back. Is also having shortness of breath. Pain is rated at 10/10. Has hx of quadruple bypass and CHF. Did not take nitro prior to arrival. Has been unable to sleep lying flat for the past 2 days. Source: patient, EMS Exam Limitations: no limitations History of Present Illness Date Seen by Provider: Nov 28, 2019 Time Seen by Provider: 08:00 Initial Comments Onset of CP this morning @ 0600. Woke her up from sleep. Pain is sharp and in her lower central chest without radiation. Associated soa without nausea. No recent illness or risk factors for C-19 PMHx signif for CAD w CABG. Occasionally takes a NTG for CP, last about 8 months ago. Cardio care @ [facility] in [place], Dr Powers. Allergies and Home Medications Allergies Coded Allergies: midazolam (Unverified Allergy, Unknown, MAKE PT HYPER AND ANXIOUS, 05/28/14) Patient Home Medication List Home Medication List Reviewed: Yes Review of Systems Review of Systems Constitutional: see HPI; No chills, No diaphoresis, No dizziness, No fever, No malaise, No weakness EENTM: No Symptoms Reported Respiratory: See HPI; Denies Cough, Denies Orthopnea; Shortness of Air; Denies Stridor, Denies Wheezing Cardiovascular: See HPI, Chest Pain; Denies Edema, Denies Irregular Heart Rate, Denies Lightheadedness, Denies Palpitations, Denies Syncope Gastrointestinal: No Symptoms Reported; Denies Abdominal Pain, Denies Nausea, Denies Poor Appetite Musculoskeletal: see HPI; No back pain Past [id number]-Ecmghr Hx Past Med/Social Hx: Reviewed Nursing Past Med/Soc Hx Patient Social History 2nd Hand Smoke Exposure: No Recent Foreign Travel: No Contact w/Someone Who Travel: No Recent Infectious Disease Expo: No Recent Hopitalizations: No Seasonal Allergies Seasonal Allergies: No Past Medical History Surgeries: Yes Cardiac, CABG Respiratory: No Cardiac: Yes Cardiomyopathy, Coronary Artery Disease, High Cholesterol, Hypertension Neurological: No Genitourinary: No Gastrointestinal: No Musculoskeletal: Yes Degenerate Disk Disease Endocrine: Yes Diabetes, Insulin dep HEENT: Yes Cataract Cancer: Yes Lymphoma Psychosocial: No Integumentary: No Blood Disorders: No Physical Exam Vital Signs Vital Signs - First Documented 11/28/19 11/28/19 07:58 09:33 Temp 36.4 Pulse 76 Resp 16 B/P (MAP) 139/58 (85) Pulse Ox 97 Capillary Refill : Less Than 3 Seconds Height, Weight, BMI Height: 5'1.00" Weight: 245lbs. oz. 111.346150qe; 44.00 BMI Method: General Appearance: No Apparent Distress, WD/WN HEENT: Normal ENT Inspection Neck: Normal Inspection, Non Tender, Supple Respiratory: Chest Non Tender, Lungs Clear, Normal Breath Sounds Cardiovascular: Regular Rate, Rhythm, No Edema, No Gallop, No JVD, No Murmur, Normal Peripheral Pulses Gastrointestinal: Normal Bowel Sounds, Non Tender, Soft Extremity: Normal Capillary Refill, Normal Inspection, Non Tender, No Calf Tenderness, No Pedal Edema Neurologic/Psychiatric: Alert, Oriented x3, No Motor/Sensory Deficits, Normal Mood/Affect Skin: Normal Color, Warm/Dry Progress/Results/Core Measures Results/Orders Lab Results Laboratory Tests Test 11/28/19 08:05 Range/Units White Blood Count 1.0 *L 4.3-11.0 10^3/uL Red Blood Count 2.67 L 4.35-5.85 10^6/uL Hemoglobin 9.3 L 11.5-16.0 G/DL Hematocrit 27 L 35-52 % Mean Corpuscular Volume 102 H 80-99 FL Mean Corpuscular Hemoglobin 35 H 25-34 PG Mean Corpuscular Hemoglobin Concent 34 32-36 G/DL Red Cell Distribution Width 14.4 10.0-14.5 % Platelet Count 81 L 130-400 10^3/uL Mean Platelet Volume 9.4 7.4-10.4 FL Neutrophils (%) (Auto) 21 L 42-75 % Lymphocytes (%) (Auto) 75 H 12-44 % Monocytes (%) (Auto) 3 0-12 % Eosinophils (%) (Auto) 1 0-10 % Basophils (%) (Auto) 0 0-10 % Neutrophils # (Auto) 0.2 L 1.8-7.8 X 10^3 Lymphocytes # (Auto) 0.7 L 1.0-4.0 X 10^3 Monocytes # (Auto) 0.0 0.0-1.0 X 10^3 Eosinophils # (Auto) 0.0 0.0-0.3 10^3/uL Basophils # (Auto) 0.0 0.0-0.1 10^3/uL Sodium Level 140 135-145 MMOL/L Potassium Level 4.3 3.6-5.0 MMOL/L Chloride Level 101 98-107 MMOL/L Carbon Dioxide Level 27 21-32 MMOL/L Anion Gap 12 5-14 MMOL/L Blood Urea Nitrogen 24 H 7-18 MG/DL Creatinine 1.51 H 0.60-1.30 MG/DL Estimat Glomerular Filtration Rate 34 BUN/Creatinine Ratio 16 Glucose Level 281 H 70-105 MG/DL Calcium Level 9.2 8.5-10.1 MG/DL Corrected Calcium 9.6 8.5-10.1 MG/DL Total Bilirubin 0.2 0.1-1.0 MG/DL Aspartate Amino Transf (AST/SGOT) 11 5-34 U/L Alanine Aminotransferase (ALT/SGPT) 7 0-55 U/L Alkaline Phosphatase 83 40-136 U/L Troponin I < 0.30 <0.30 NG/ML Pro-B-Type Natriuretic Peptide 901.2 H <75.0 PG/ML Total Protein 6.5 6.4-8.2 GM/DL Albumin 3.5 3.2-4.5 GM/DL My Orders Orders - TAYLORVENSTTOYA POE DO Ed Iv/Invasive Line Start (11/28/19 08:00) Cbc With Automated Diff (11/28/19 08:00) Comprehensive Metabolic Panel (11/28/19 08:00) Troponin I Fs (11/28/19 08:00) Chest 1 View Ap/Pa Only (11/28/19 08:00) Ekg Tracing (11/28/19 08:00) Probnp Fs (11/28/19 08:00) Nitroglycerin 0.4 Mg Btl 25's (Nitrostat (11/28/19 08:00) Ns Iv 1000 Ml (Sodium Chloride 0.9%) (11/28/19 08:45) Acetaminophen Tablet (Tylenol Tablet) (11/28/19 08:45) Medications Given in ED Current Medications Medications Dose Ordered Sig/Matthew Route Start Time Stop Time Status Last Admin Dose Admin Acetaminophen 1,000 mg ONCE ONCE PO 11/28/19 08:45 11/28/19 08:46 DC 11/28/19 08:41 1,000 MG Nitroglycerin 0.4 mg NEEDED PRN SL 11/28/19 08:00 11/28/19 08:10 0.4 MG Vital Signs/I&O 11/28/19 11/28/19 07:58 09:33 Temp 36.4 36.3 Pulse 76 71 Resp 16 16 B/P (MAP) 139/58 (85) 110/55 Pulse Ox 97 Blood Pressure Mean: 85 Progress Progress Note : Time: 08:55 Progress Note CP improved from 05/21 to 02/18 p 2 sl-NTG Initial ECG Impression Time: 08:00 Initial ECG Rhythm: Normal Sinus Initial ECG Intervals: Normal Initial ECG Comparisson: No Previous ECG Available Comment RBBB Diagnostic Imaging Diagonstic Imaging: Xray Plain Films/CT/US/NM/MRI: chest Comments Date of Exam:11/28/19 CHEST 1 VIEW AP/PA ONLY INDICATION: Mid chest pain and epigastric pain. Time of exam 8:12 AM Correlation is made with prior chest 06/26/2019. Changes of median sternotomy and CABG are noted. Lungs appear to be clear. The pulmonary vascularity is normal. No effusion or pneumothorax is identified. IMPRESSION: No acute cardiopulmonary process is detected. Dictated on workstation # [id number] Dict: 11/[birth year]26 Trans: 11/28/19 0831 [facility] [id number] Interpreted by: JORDAN RAWLS MD Electronically signed by: Departure Impression Primary Impression: Chest pain Qualified Codes: R07.9 - Chest pain, unspecified Additional Impressions: Pancytopenia History of lymphoma Disposition: SHT-TRM HOSP Condition: Improved Transfer Transfer Reason: Exceeds level of care Time Spoke to Accepting Phy: 09:00 Transfer Progress Notes Called [facility] @ 0900, spoke to Dr Lopez (Cardio) who accepts for transfer. Plans to take to label remover if still having CP on arrival. Plans to keep briefly due to pancytopenia and high risk of shannon illness. Explain ed Hx of Lymphoma in remission. Sees Hem/Onc from [place], Method of Transfer: EMS Departure-Patient Inst. Referrals: [facility] (PCP) Primary Care Physician SHANON STAPLETON APRN (Family) Primary Care Physician TOYA AVALOS DO Nov 28, 2019 08:13
[2019-11-28 08:20] LABS: BASOPHILS % (AUTO) 0 % (0-10); EOSINOPHILS % (AUTO) 1 % (0-10); HEMATOCRIT 27 % (35-52); HEMOGLOBIN 9.3 G/DL (11.5-16.0); LYMPHOCYTES # (AUTO) 0.7 X 10^3 (1.0-4.0); LYMPHOCYTES % (AUTO) 75 % (12-44); MEAN CORPUSCULAR HEMOGLOBIN 35 PG (25-34); MEAN CORPUSCULAR HGB CONC 34 G/DL (32-36); MEAN CORPUSCULAR VOLUME 102 FL (80-99); MEAN PLATELET VOLUME 9.4 FL (7.4-10.4); MONOCYTES % (AUTO) 3 % (0-12); NEUTROPHILS # (AUTO) 0.2 X 10^3 (1.8-7.8); NEUTROPHILS % (AUTO) 21 % (42-75); PLATELET COUNT 81 10^3/uL (130-400); RED CELL DISTRIBUTION WIDTH 14.4 % (10.0-14.5)
--- NOTE | 2019-11-28 08:31 | Diagnostic Imaging Report ---
INDICATION: Mid chest pain and epigastric pain. Time of exam 8:12 AM Correlation is made with prior chest 06/26/2019. Changes of median sternotomy and CABG are noted. Lungs appear to be clear. The pulmonary vascularity is normal. No effusion or pneumothorax is identified. IMPRESSION: No acute cardiopulmonary process is detected. Dictated by: Dictated on workstation # [id number]
[2019-11-28 08:44] LABS: POTASSIUM 4.3 MMOL/L (3.6-5.0); SODIUM 140 MMOL/L (135-145)
[2019-11-28 08:45] LABS: ALANINE AMINOTRANSFERASE 7 U/L (0-55); ALBUMIN 3.5 GM/DL (3.2-4.5); ALKALINE PHOSPHATASE 83 U/L (40-136); BILIRUBIN,TOTAL 0.2 MG/DL (0.1-1.0); BUN/CREATININE RATIO 16; CALCIUM 9.2 MG/DL (8.5-10.1); CARBON DIOXIDE 27 MMOL/L (21-32); CHLORIDE 101 MMOL/L (98-107); CREATININE SERUM 1.51 MG/DL (0.60-1.30); GFR ESTIMATED 34; GLUCOSE 281 MG/DL (70-105); TOTAL PROTEIN 6.5 GM/DL (6.4-8.2)
[2019-11-28] MEDS ORDERED: ACETAMINOPHEN 500 MG TAB (TYLENOL) PO ONE (08:45)
[2019-11-28] MEDS ORDERED: NS IV 1000 ML 1,000 ML IV SCH (08:45)
[2019-11-28 09:33] VITALS: BP 110/55
== END 2019-11-28 10:17 | disposition short-term general hospital (02) ==
LOC: EDUNIT# 07:52 → ER FS 07:53
DX: R07.89 Other chest pain (principal); D61.818 Other pancytopenia; I11.0 Hypertensive heart disease with heart failure; I50.9 Heart failure, unspecified; E11.9 Type 2 diabetes mellitus without complications; Z85.79 Personal history of other malignant neoplasms of lymphoid, hematopoietic and related tissues; Z88.8 Allergy status to other drugs, medicaments and biological substances; Z95.1 Presence of aortocoronary bypass graft
CPT/HCPCS: 36415; 71045; 80053; 83880; 84484; 85025; 93005

== ENCOUNTER 2020-01-03 13:51 | Observation (INO) | payer MEDICARE, MEDICAID ==
[~2020-01-03] VITALS: Ht 154.9 cm; Wt 100.7 kg
[2020-01-03 14:34] LABS: BASOPHILS % (AUTO) 1 % (0-10); EOSINOPHILS % (AUTO) 1 % (0-10); LYMPHOCYTES % (AUTO) 86 % (12-44); MEAN CORPUSCULAR HGB CONC 36 G/DL (32-36); MEAN CORPUSCULAR VOLUME 95 FL (80-99); MONOCYTES % (AUTO) 6 % (0-12); NEUTROPHILS # (AUTO) 0.1 X 10^3 (1.8-7.8); NEUTROPHILS % (AUTO) 6 % (42-75); RED CELL DISTRIBUTION WIDTH 17.9 % (10.0-14.5)
[2020-01-03 14:35] LABS: LYMPHOCYTES # (AUTO) 1.4 X 10^3 (1.0-4.0); MONOCYTES # (AUTO) 0.1 X 10^3 (0.0-1.0)
[2020-01-03 14:38] LABS: WHITE BLOOD COUNT 1.6 10^3/uL (4.3-11.0)
[2020-01-03 14:39] LABS: HEMATOCRIT 16 % (35-52); HEMOGLOBIN 5.7 G/DL (11.5-16.0); MEAN CORPUSCULAR HEMOGLOBIN 34 PG (25-34); PLATELET COUNT 29 10^3/uL (130-400)
--- NOTE | 2020-01-03 15:00 | NUR ---
Spoke with pt dgt "Mia" with pt's permission. Updated on lab findings and plan for an observation admit. Pt consents to go to [place] [facility] to get blood transfusion and be where she has her oncologist. 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
[2020-01-03 15:04] LABS: BUN/CREATININE RATIO 25; CALCIUM 8.8 MG/DL (8.5-10.1); CARBON DIOXIDE 24 MMOL/L (21-32); CHLORIDE 99 MMOL/L (98-107); CREATININE SERUM 1.89 MG/DL (0.60-1.30); GFR ESTIMATED 27; GLUCOSE 242 MG/DL (70-105); POTASSIUM 4.6 MMOL/L (3.6-5.0); SODIUM 133 MMOL/L (135-145)
[2020-01-03 15:05] LABS: ALANINE AMINOTRANSFERASE 9 U/L (0-55); ALBUMIN 3.3 GM/DL (3.2-4.5); ALKALINE PHOSPHATASE 66 U/L (40-136); BILIRUBIN,TOTAL 0.3 MG/DL (0.1-1.0)
[2020-01-03 15:07] LABS: BACTERIA,URINE TRACE /HPF; BILIRUBIN,URINE NEGATIVE (NEGATIVE); CLARITY,URINE CLEAR; COLOR,URINE YELLOW; GLUCOSE, URINE (UA) TRACE (NEGATIVE); KETONES,URINE NEGATIVE (NEGATIVE); LEUKOCYTE ESTERASE ,URINE NEGATIVE (NEGATIVE); NITRITE,URINE NEGATIVE (NEGATIVE); PROTEIN,URINE NEGATIVE (NEGATIVE); WBC,URINE 0-2 /HPF
[2020-01-03 15:15] LABS: BAND NEUTROPHILS 3 %; BASOPHILS % (MANUAL) 1 %; EOSINOPHILS % (MANUAL) 0 %; LYMPHOCYTES % (MANUAL) 88 %; MICROCYTOSIS 1+; MONOCYTES % (MANUAL) 2 %; NEUTROPHILS % (MANUAL) 6 %; PLATELET ESTIMATE DECREASED
--- NOTE | 2020-01-03 15:26 | ED General ---
General Chief Complaint: General Problems/Pain Stated Complaint: LETHARGY History of Present Illness Date Seen by Provider: January 03, 2020 Time Seen by Provider: 15:21 Initial Comments Patient presenting to emergency department for evaluation of generalized weakness and lethargy and fatigue since getting her last dose of chemotherapy several days ago. She denies any pain fevers chills nausea vomiting or other systemic symptoms. She is being treated by Dr. Miranda with chemotherapy for leukemia. She says she was told that the emotional not make her feel poorly so she is quite surprised that she feels this week and tired. She denies any black or bloody stools. She is in no obvious distress with normal vital signs. Allergies and Home Medications Allergies Coded Allergies: midazolam (Unverified Allergy, Unknown, MAKE PT HYPER AND ANXIOUS, 05/28/14) Patient Home Medication List Home Medication List Reviewed: Yes Review of Systems Review of Systems Constitutional: dizziness, malaise, weakness EENTM: no symptoms reported Respiratory: no symptoms reported Cardiovascular: no symptoms reported Gastrointestinal: no symptoms reported Genitourinary: no symptoms reported Musculoskeletal: no symptoms reported Skin: no symptoms reported Psychiatric/Neurological: No Symptoms Reported All Other Systems Reviewed Negative Unless Noted: Yes Past Wnkjvzb-Fuiuxe-Frsjwd Hx Patient Social History 2nd Hand Smoke Exposure: No Recent Hopitalizations: No Seasonal Allergies Seasonal Allergies: No Past Medical History Surgeries: Yes (heel spur; bartholin cyst; carpal tunnel; hernia; cataract; back) Appendectomy, Cardiac, CABG, Coronary Stent, Gallbladder, Hysterectomy, Orthopedic Respiratory: No Cardiac: Yes (chf; quadruple bypass) Cardiomyopathy, Coronary Artery Disease, High Cholesterol, Hypertension Neurological: No Genitourinary: No Gastrointestinal: Yes Gastroesophageal Reflux Musculoskeletal: Yes Degenerate Disk Disease Endocrine: Yes Diabetes, Insulin dep HEENT: Yes Cataract Cancer: Yes Lymphoma Psychosocial: Yes Anxiety, Depression Integumentary: No Blood Disorders: No Physical Exam Vital Signs Capillary Refill : Height, Weight, BMI Height: 5'1.00" Weight: 245lbs. oz. 111.042937ps; 44.00 BMI Method: General Appearance: No Apparent Distress HEENT: PERRL/EOMI Neck: Supple Respiratory: No Respiratory Distress Cardiovascular: Regular Rate, Rhythm Gastrointestinal: Non Tender, Soft Back: Normal Inspection Extremity: Normal Capillary Refill Neurologic/Psychiatric: Alert, Oriented x3 Skin: Warm/Dry Progress/Results/Core Measures Suspected Sepsis SIRS Temperature: Pulse: Respiratory Rate: Laboratory Tests 01/03/20 14:30: White Blood Count 1.6L Blood Pressure / Mean: Laboratory Tests 01/03/20 14:30: Creatinine 1.89H, Platelet Count 29*L, Total Bilirubin 0.3 Results/Orders Lab Results Laboratory Tests Test 01/03/20 14:30 01/03/20 14:50 Range/Units White Blood Count 1.6 L 4.3-11.0 10^3/uL Red Blood Count 1.67 L 4.35-5.85 10^6/uL Hemoglobin 5.7 #*L 11.5-16.0 G/DL Hematocrit 16 *L 35-52 % Mean Corpuscular Volume 95 80-99 FL Mean Corpuscular Hemoglobin 34 25-34 PG Mean Corpuscular Hemoglobin Concent 36 32-36 G/DL Red Cell Distribution Width 17.9 H 10.0-14.5 % Platelet Count 29 *L 130-400 10^3/uL Mean Platelet Volume 11.0 H 7.4-10.4 FL Neutrophils (%) (Auto) 6 L 42-75 % Lymphocytes (%) (Auto) 86 H 12-44 % Monocytes (%) (Auto) 6 0-12 % Eosinophils (%) (Auto) 1 0-10 % Basophils (%) (Auto) 1 0-10 % Neutrophils # (Auto) 0.1 L 1.8-7.8 X 10^3 Lymphocytes # (Auto) 1.4 1.0-4.0 X 10^3 Monocytes # (Auto) 0.1 0.0-1.0 X 10^3 Eosinophils # (Auto) 0.0 0.0-0.3 10^3/uL Basophils # (Auto) 0.0 0.0-0.1 10^3/uL Neutrophils % (Manual) 6 % Lymphocytes % (Manual) 88 % Monocytes % (Manual) 2 % Eosinophils % (Manual) 0 % Basophils % (Manual) 1 % Band Neutrophils 3 % Platelet Estimate DECREASED Microcytosis 1+ Macrocytosis 1+ Sodium Level 133 L 135-145 MMOL/L Potassium Level 4.6 3.6-5.0 MMOL/L Chloride Level 99 98-107 MMOL/L Carbon Dioxide Level 24 21-32 MMOL/L Anion Gap 10 5-14 MMOL/L Blood Urea Nitrogen 48 H 7-18 MG/DL Creatinine 1.89 H 0.60-1.30 MG/DL Estimat Glomerular Filtration Rate 27 BUN/Creatinine Ratio 25 Glucose Level 242 H 70-105 MG/DL Calcium Level 8.8 8.5-10.1 MG/DL Corrected Calcium 9.4 8.5-10.1 MG/DL Total Bilirubin 0.3 0.1-1.0 MG/DL Aspartate Amino Transf (AST/SGOT) 8 5-34 U/L Alanine Aminotransferase (ALT/SGPT) 9 0-55 U/L Alkaline Phosphatase 66 40-136 U/L Troponin I < 0.30 <0.30 NG/ML Total Protein 6.0 L 6.4-8.2 GM/DL Albumin 3.3 3.2-4.5 GM/DL Urine Color YELLOW Urine Clarity CLEAR Urine pH 6.0 5-9 Urine Specific [place] 1.010 L 1.016-1.022 Urine Protein NEGATIVE NEGATIVE Urine Glucose (UA) TRACE H NEGATIVE Urine Ketones NEGATIVE NEGATIVE Urine Nitrite NEGATIVE NEGATIVE Urine Bilirubin NEGATIVE NEGATIVE Urine Urobilinogen 0.2 < = 1.0 MG/DL Urine Leukocyte Esterase NEGATIVE NEGATIVE Urine RBC (Auto) NEGATIVE NEGATIVE Urine RBC NONE /HPF Urine WBC 0-2 /HPF Urine Squamous Epithelial Cells 10-25 H /HPF Urine Crystals NONE /LPF Urine Bacteria TRACE /HPF Urine Casts NONE /LPF Urine Mucus NEGATIVE /LPF Urine Culture Indicated NO My Orders Orders - ANITA FAY DO Cbc With Automated Diff (01/03/20 14:01) Comprehensive Metabolic Panel (01/03/20 14:01) Ua Culture If Indicated (01/03/20 14:01) Troponin I Fs (01/03/20 14:01) Ekg Tracing (01/03/20 14:01) Iv/Invasive Line Insertion .IV start (01/03/20 14:01) Magnesium (01/03/20 14:01) Manual Differential (01/03/20 14:30) Vital Signs/I&O Capillary Refill : Progress Note : Progress Note Patient has pancytopenia with her white blood cells and platelets near her baseline however her hemoglobin has dropped approximately 2 points from her new baseline around 7.5. Her hemoglobin of 5.7 is likely causing the majority of her symptoms. Patient said she feel poorly so told her the dose immediate treatment option is to have her transferred to [facility] to have her transfused 2 units of blood and have her blood rechecked to make sure her blood counts are improving. She accepted this treatment options she'll be transferred to [facility] in stable condition with 2 units of PRBCs ordered. Departure Impression Primary Impression: Symptomatic anemia Additional Impressions: Pancytopenia Leukemia Disposition: ADMITTED INPATIENT Condition: Stable Transfer Transfer Reason: Exceeds level of care Transfer Facility: [facility], accepted by [facility] Method of Transfer: EMS Departure-Patient Inst. Referrals: [facility] (PCP) Primary Care Physician SHANON STAPLETON APRN (Family) Primary Care Physician ANITA FAY DO January 03, 2020 15:26
--- NOTE | 2020-01-03 16:40 | NUR ---
EMS notified of patient transfer request and this is pending as EMS is already out of county with another transfer. Will be up to ER with the other unit is back in service.
--- NOTE | 2020-01-03 18:20 | NUR ---
LORI IRELAND admitted to room 407-1, with an admitting diagnosis of ANEMIA, on 01/03/20 from [facility] via [facility], accompanied by EMS. LORI IRELAND introduced to surroundings, call light, bed controls, phone, TV, temperature control, lights, meal times, smoking policy, visitor policy, side rail policy, bathrooms and showers. Patient Rights given to patient in the handbook. LORI IRELAND verbalizes understanding that [facility] is not responsible for the loss or damage to any personal effects or valuables that are kept in the patients possession during their hospitalization. The following Patient Care Plans were discussed with the PATIENT: Discharge Planning, ANEMIA and KNOWLEDGE DEFICIT. LORI IRELAND verbalizes understanding of Interdisciplinary Patient Education. Patient and/or family were informed about the Rapid Response Team and its purpose.
--- NOTE | 2020-01-03 18:30 | NUR ---
CALLED [facility]. THE PATIENT'S HOME MEDICATION LIST THAT IS NOT IN THE PAPERWORK PACKET STATED BY ED ROSE DELAROSA. THEY WILL FAX IT TO US.
[2020-01-03 18:33] VITALS: BP 166/74
[2020-01-03] MEDS ORDERED: NS IV 500 ML 500 ML IV SCH (18:45)
--- NOTE | 2020-01-03 19:38 | NUR ---
REPORT GIVEN TO ROSE [facility]. HE WILL RECONCILE THE PATIENT'S HOME MEDICATIONS WHEN HE RECEIVES THE LIST AND RESTART THE MEDICATIONS ORDERED BY DR. NOLAN. HE WILL ALSO CALL TO GET AN ACCUCHECK ORDER.
--- NOTE | 2020-01-03 19:57 | NUR ---
PATIENT HOME MED. LIST RECEIVED. MEDICATIONS UPDATED IN MED. REC.
[2020-01-03 20:08] VITALS: BP 166/74
[2020-01-03] MEDS ORDERED: ACYC400T PO (20:31)
[2020-01-03] MEDS ORDERED: CEFU250T80 PO (20:31)
[2020-01-03] MEDS ORDERED: ISOS20TA73 PO (20:31)
[2020-01-03] MEDS ORDERED: SIMV10TA26 PO (20:31)
[2020-01-03] MEDS ORDERED: CITA20TA9 PO (20:31)
[2020-01-03] MEDS ORDERED: CARV6.252 PO (20:31)
[2020-01-03] MEDS ORDERED: ALPR0.5T7 PO (20:31)
[2020-01-03] MEDS ORDERED: POSA100T2 PO (20:31)
[2020-01-03] MEDS ORDERED: GABA300S2 PO (20:31)
[2020-01-03] MEDS ORDERED: ALLO300T2 PO (20:31)
[2020-01-03] MEDS ORDERED: NF-VITD400 PO (20:32)
[2020-01-03] MEDS ORDERED: ONDA8TAB6 PO (20:32)
[2020-01-03] MEDS ORDERED: CYAN-41 PO (20:32)
[2020-01-03] MEDS ORDERED: VENE100T PO (20:32)
--- NOTE | 2020-01-03 20:39 | NUR ---
HOME MEDICATIONS STARTED PER ORDER, HOLDING ANY ANTICOAGULANTS AND BLOOD THINNERS. ALSO, RECEIVED ORDERS FOR ACHS ACCUCHECKS WITH SLIDING SCALE INSULIN PER DR. NOLAN. PATIENT STATES THAT SHE TAKES LANTUS 21 UNITS IN THE MORNING AND HS. SUBSTITUTED LEVEMIR 21 UNITS BID PER ORDER. DIET CHANGED FROM REGULAR TO 45 CHO PER ORDER.
[2020-01-03] MEDS ORDERED: NON-FORMULARY MEDICATION 1 EA EA (Ondansetron HCl (Zofran) 8 MG) PO PRN (20:45)
[2020-01-03] MEDS ORDERED: ALPRAZolam 0.5 MG (XANAX) TAB PO PRN (20:45)
[2020-01-03] MEDS ORDERED: GABAPENTIN 300 MG PO SCH (21:00)
[2020-01-03] MEDS ORDERED: SIMvastatin 10 MG (ZOCOR) TAB PO SCH (21:00)
[2020-01-03] MEDS ORDERED: NS IV 500 ML 500 ML ONE (21:15)
[2020-01-03 21:36] VITALS: BP 137/63
[2020-01-03] MEDS ORDERED: ONDANSETRON 4 MG (ZOFRAN) ORAL DISSOLVE TAB PO PRN (21:45)
[2020-01-03 21:58] VITALS: BP 132/60
[2020-01-03] MEDS: ACYCLOVIR 400 MG TABLET (ZOVIRAX) PO SCH (22:07)
[2020-01-03] MEDS: CARVEDILOL 6.25 MG (COREG) TAB PO SCH (22:07)
[2020-01-03] MEDS: CEFUROXIME AXETIL 250 MG PO SCH (22:07)
[2020-01-03 23:37] VITALS: BP 148/65
[2020-01-03 23:47] VITALS: BP 148/65
--- NOTE | 2020-01-03 23:53 | NUR ---
FIRST BAG OF PRBCS IS FINISHED. ORDERED H&H PER PROTOCOL BEFORE ADMINISTERING SECOND BAG.
--- NOTE | 2020-01-04 01:10 | NUR ---
HEMOGLOBIN CAME BACK AT 9.0, SECOND BAG OF BLOOD HELD PER LAB PROTOCOL.
[2020-01-04 04:05] VITALS: BP 142/68
[2020-01-04 05:06] LABS: BASOPHILS % (AUTO) 1 % (0-10); EOSINOPHILS % (AUTO) 0 % (0-10); HEMATOCRIT 26 % (35-52); HEMOGLOBIN 8.9 G/DL (11.5-16.0); LYMPHOCYTES # (AUTO) 1.4 X 10^3 (1.0-4.0); LYMPHOCYTES % (AUTO) 81 % (12-44); MEAN CORPUSCULAR HEMOGLOBIN 31 PG (25-34); MEAN CORPUSCULAR HGB CONC 34 G/DL (32-36); MEAN CORPUSCULAR VOLUME 90 FL (80-99); MEAN PLATELET VOLUME 9.5 FL (7.4-10.4); MONOCYTES # (AUTO) 0.2 X 10^3 (0.0-1.0); MONOCYTES % (AUTO) 13 % (0-12); NEUTROPHILS # (AUTO) 0.1 X 10^3 (1.8-7.8); NEUTROPHILS % (AUTO) 5 % (42-75); RED CELL DISTRIBUTION WIDTH 20.4 % (10.0-14.5); WHITE BLOOD COUNT 1.7 10^3/uL (4.3-11.0)
[2020-01-04] MEDS: CEFUROXIME AXETIL 250 MG PO SCH (05:07)
[2020-01-04 05:11] LABS: PLATELET COUNT 29 10^3/uL (130-400)
[2020-01-04 05:21] LABS: ALBUMIN 3.2 GM/DL (3.2-4.5); POTASSIUM 4.5 MMOL/L (3.6-5.0)
[2020-01-04 05:22] LABS: CALCIUM 8.6 MG/DL (8.5-10.1)
[2020-01-04 05:23] LABS: TOTAL PROTEIN 6.4 GM/DL (6.4-8.2)
[2020-01-04 05:25] LABS: BILIRUBIN,TOTAL 0.4 MG/DL (0.1-1.0)
[2020-01-04 05:27] LABS: CREATININE SERUM 1.83 MG/DL (0.60-1.30)
[2020-01-04] MEDS: inSUlin ASPART (NovoLOG) 1 UNIT/0.01 ML (CHARGE PER UNIT) SC SCH ×2 (05:29→11:50)
[2020-01-04 08:00] VITALS: BP 123/74
[2020-01-04] MEDS ORDERED: CEFDINIR 300 MG (OMNICEF) CAP PO SCH (09:00)
[2020-01-04] MEDS ORDERED: POSACONAZOLE 100 MG PO SCH (09:00)
[2020-01-04] MEDS ORDERED: ALLOPURINOL 300 MG (ZYLOPRIM) TAB PO SCH (09:00)
[2020-01-04] MEDS ORDERED: CYANOCOBALAMIN 1,000 MCG (VITAMIN B-12) TABLET PO SCH (09:00)
[2020-01-04] MEDS ORDERED: GABAPENTIN 300 MG (NEURONTIN) CAP PO SCH (09:00)
[2020-01-04] MEDS ORDERED: VENETOCLAX 100 MG PO SCH (09:00)
[2020-01-04] MEDS ORDERED: VITAMIN D3 10 MCG (400 UNITS) TABLET PO SCH (09:00)
[2020-01-04] MEDS ORDERED: ISOSORBIDE MONONITRATE 30 MG (IMDUR) TAB PO SCH (09:00)
[2020-01-04] MEDS: ACYCLOVIR 400 MG TABLET (ZOVIRAX) PO SCH (09:35)
[2020-01-04] MEDS: CARVEDILOL 6.25 MG (COREG) TAB PO SCH (09:35)
[2020-01-04 12:00] VITALS: BP 123/74
--- NOTE | 2020-01-04 15:59 | Short Stay Summary ---
History of Present Illness History of Present Illness Reason for visit/HPI 69 yo female came to ER due to excessive fatigue, hardly able to stay awake. She has leukemia and is undergoing chemotherapy. She has required transfusion previously and was found to have hemoglobin 5.7. She received one unit and felt much better this am, denies dizziness with ambulating to bathroom. She is to see cancer center tomorrow. Date of Admission January 03, 2020 at 15:51 Date of Discharge January 04, 2020 at 12:00 Time Seen by Provider: 10:08 Attending Physician Rajani Ogden MD Admitting Physician [facility] Consult Allergies and Home Medications Allergies Coded Allergies: midazolam (Unverified Allergy, Unknown, MAKE PT HYPER AND ANXIOUS, 05/28/14) Home Medications Acyclovir 400 Mg Tablet, 400 MG PO BID, (Reported) Allopurinol 300 Mg Tablet, 300 MG PO DAILY, (Reported) Alprazolam 0.5 Mg Tablet, 0.5 MG PO TID PRN for ANXIETY, (Reported) Carvedilol 6.25 Mg Tablet, 6.25 MG PO BID, (Reported) Cefuroxime Axetil 250 Mg Tablet, 250 MG PO BID, (Reported) Citalopram Hydrobromide 20 Mg Tablet, 20 MG PO DAILY, (Reported) Cyanocobalamin (Vitamin B-12) 1,000 Mcg Tablet, 1,000 MCG PO DAILY, (Reported) Gabapentin 300 Mg/6 Ml Solution, 300 MG PO BID, (Reported) Isosorbide Mononitrate 20 Mg Tablet, 30 MG PO DAILY, (Reported) Ondansetron HCl 8 Mg Tablet, 8 MG PO Q8H PRN for NAUSEA-1ST LINE, (Reported) Posaconazole 100 Mg Tablet.dr, 100 MG PO DAILY, (Reported) Simvastatin 10 Mg Tablet, 10 MG PO HS, (Reported) Venetoclax 100 Mg Tablet, 100 MG PO DAILY, (Reported) Vitamin D 10 Mcg Tablet, 1,000 UNITS PO DAILY, (Reported) Patient Home Medication List Home Medication List Reviewed: Yes Past Lqluihh-Rwevpi-Burnxg Hx Patient Social History Alcohol Use: Denies Use Recreational Drug Use: No 2nd Hand Smoke Exposure: No Recent Foreign Travel: No Contact w/other who traveled: No Recent Hopitalizations: No Recent Infectious Disease Expo: No Immunizations Up To Date Date of Pneumonia Vaccine: Mar 12, 2019 Seasonal Allergies Seasonal Allergies: No Surgeries Yes (heel spur; bartholin cyst; carpal tunnel; hernia; cataract; back) Appendectomy, Cardiac, CABG, Coronary Stent, Gallbladder, Hysterectomy, Orthopedic Respiratory No Cardiovascular Yes (chf; quadruple bypass) Cardiomyopathy, Coronary Artery Disease, High Cholesterol, Hypertension Neurological No Reproductive System : No Genitourinary No Gastrointestinal Yes Gastroesophageal Reflux Musculoskeletal Yes Degenerate Disk Disease Endocrine History of Endocrine Disorders: Yes Endocrine Disorders: Diabetes, Insulin dep HEENT History of HEENT Disorders: Yes HEENT Disorders: Cataract Cancer Yes Lymphoma Did You Recieve Any Treatments: Yes Type of Treatment: Chemotherapy Psychosocial History of Psychiatric Problem: Yes Behavioral Health Disorders: Anxiety, Depression Integumentary History of Skin or Integumenta: No Blood Transfusions History of Blood Disorders: No Family Medical History Family Hx: Cardiovascular disease 19 FATHER 19 MOTHER G8 BROTHER Diabetes mellitus 19 FATHER G8 BROTHER Hypertension 19 FATHER 19 MOTHER Neoplasm G8 BROTHER (lung cancer- from) Review of Systems Constitutional: No fever EENTM: No nose congestion, No throat pain Respiratory: No cough, No short of breath Cardiovascular: No chest pain Gastrointestinal: No abdominal pain, No constipation, No diarrhea, No nausea, No vomiting Genitourinary: No dysuria Musculoskeletal: No joint pain Skin: No rash Physical Exam Vital Signs Vital Signs - First Documented 01/03/20 01/03/20 13:51 20:00 Temp 37.2 Pulse 83 Resp 20 B/P (MAP) 145/65 (91) Pulse Ox 94 O2 Delivery Room Air O2 Flow Rate 2.00 Capillary Refill : Less Than 3 Seconds Height, Weight, BMI Height: 5'1.00" Weight: 245lbs. oz. 111.895370ow; 41.96 BMI Method: General Appearance: No Apparent Distress, WD/WN Respiratory: Lungs Clear, Normal Breath Sounds Cardiovascular: Regular Rate, Rhythm, No Murmur Gastrointestinal: Normal Bowel Sounds, Non Tender Extremity: No Pedal Edema Neurologic/Psychiatric: Alert, Normal Mood/Affect Skin: Normal Color, Warm/Dry Clinical Quality Measures DVT/VTE Risk/Contraindication: Risk Factor Score Per Nursin RFS Level Per Nursing on Admit: 4+=Very High Contraindications-Pharm: Other *list below* Contraindications-Mechi: Other *list below* Short Stay Diagnosis Discharge Diagnosis-Short Stay Admission Diagnosis: Anemia Pancytopenia Leukemia on chemotherapy Acute on chronic renal insufficiency CAD DMII HTN Final Discharge Diagnosis: Anemia Pancytopenia Leukemia on chemotherapy Acute on chronic renal insufficiency CAD DMII HTN Conclusion Labs Laboratory Tests 01/03/20 21:08: Glucometer 134H 01/04/20 01:14: Hemoglobin 9.0#L, Hematocrit 26L 01/04/20 04:36: Hemoglobin 8.9L, Hematocrit 26L, White Blood Count 1.7L, Red Blood Count 2.90L, Mean Corpuscular Volume 90, Mean Corpuscular Hemoglobin 31, Mean Corpuscular Hemoglobin Concent 34, Red Cell Distribution Width 20.4H, Platelet Count 29*L, Mean Platelet Volume 9.5, Neutrophils (%) (Auto) 5L, Lymphocytes (%) (Auto) 81H, Monocytes (%) (Auto) 13H, Eosinophils (%) (Auto) 0, Basophils (%) (Auto) 1, Neutrophils # (Auto) 0.1L, Lymphocytes # (Auto) 1.4, Monocytes # (Auto) 0.2, Eosinophils # (Auto) 0.0, Basophils # (Auto) 0.0, Sodium Level 135, Potassium Level 4.5, Chloride Level 103, Carbon Dioxide Level 24, Anion Gap 8, Blood Urea Nitrogen 37H, Creatinine 1.83H, Estimat Glomerular Filtration Rate 28, BUN/Creatinine Ratio 20, Glucose Level 115H, Calcium Level 8.6, Corrected Calcium 9.2, Total Bilirubin 0.4, Aspartate Amino Transf (AST/SGOT) 12, Alanine Aminotransferase (ALT/SGPT) 7, Alkaline Phosphatase 56, Total Protein 6.4, Albumin 3.2 01/04/20 11:16: Glucometer 167H Conclusion/Plan Significant improvement after transfusion, will follow up tomorrow with cancer center. Copy Copies To 1: Nina Bhat BETHANY N MD January 04, 2020 15:59
== END 2020-01-04 12:00 | disposition home or self-care (01) ==
LOC: EDUNIT# 13:51 → ER FS 13:51 → 4TH 15:51
PROVIDERS: ADMIT Internal Medicine; ATTEND Family Medicine
DX: D61.818 Other pancytopenia (principal); C85.90 Non-Hodgkin lymphoma, unspecified, unspecified site; E11.22 Type 2 diabetes mellitus with diabetic chronic kidney disease; N18.9 Chronic kidney disease, unspecified; I12.9 Hypertensive chronic kidney disease with stage 1 through stage 4 chronic kidney disease, or unspecified chronic kidney disease; R53.1 Weakness; I25.10 Atherosclerotic heart disease of native coronary artery without angina pectoris; I42.9 Cardiomyopathy, unspecified; E78.00 Pure hypercholesterolemia, unspecified; K21.9 Gastro-esophageal reflux disease without esophagitis; F41.9 Anxiety disorder, unspecified; F32.9 Major depressive disorder, single episode, unspecified; Z79.899 Other long term (current) drug therapy; Z88.8 Allergy status to other drugs, medicaments and biological substances; Z90.89 Acquired absence of other organs; Z95.1 Presence of aortocoronary bypass graft; Z90.710 Acquired absence of both cervix and uterus; Z80.1 Family history of malignant neoplasm of trachea, bronchus and lung
CPT/HCPCS: 36415; 36430; 80053; 81000; 82962; 83735; 84484; 85007; 85014; 85018; 85025; 85027; 86850; 86900; 86901; 86920; 93005; G0378

== ENCOUNTER 2020-01-11 16:10 | Inpatient (IN) | payer MEDICARE, MEDICAID ==
[2020-01-11] VITALS (11 sets, daily range): BP systolic 99–124; BP diastolic 50–79
[~2020-01-11] VITALS: Ht 154.9 cm; Wt 102.5 kg
[~2020-01-11 16:10] MED LIST changes: -ALPR0.5T PO; -INSU100I10 SC; -INSU100I14 SC
[2020-01-11] MEDS ORDERED: NS IV 1000 ML 1,000 ML IV SCH ×2 (16:15→18:45)
--- NOTE | 2020-01-11 16:23 | ED Syncope ---
General Stated Complaint: SINKABLE EPISODE Source of Information: EMS History of Present Illness Date Seen by Provider: Jan 11, 2020 Time Seen by Provider: 16:10 Initial Comments The patient is a 69-year-old female brought in by EMS for evaluation of un responsiveness after a syncopal episode at home. The patient has a history of leukemia (AML), is currently receiving chemotherapy, and received a platelet transfusion earlier today. Her oncologist is Dr. Thurman. When EMS arrived the patient was completely unresponsive and on the way to the hospital she woke up and started answering questions. She has no specific complaints at this time but is still very fatigued. When EMS arrived the patient was saturating approximately 83% on room air which quickly improved with a facemask. Symptoms Prior to Episode: Unknown Loss of Consciousness: Prolonged (Minutes) Allergies and Home Medications Allergies Coded Allergies: midazolam (Unverified Allergy, Unknown, MAKE PT HYPER AND ANXIOUS, 05/28/14) Home Medications Acyclovir 400 Mg Tablet, 400 MG PO BID, (Reported) Allopurinol 300 Mg Tablet, 300 MG PO DAILY, (Reported) Alprazolam 0.5 Mg Tablet, 0.5 MG PO TID PRN for ANXIETY, (Reported) Carvedilol 6.25 Mg Tablet, 6.25 MG PO BID, (Reported) Cefuroxime Axetil 250 Mg Tablet, 250 MG PO BID, (Reported) Citalopram Hydrobromide 20 Mg Tablet, 20 MG PO DAILY, (Reported) Cyanocobalamin (Vitamin B-12) 1,000 Mcg Tablet, 1,000 MCG PO DAILY, (Reported) Gabapentin 300 Mg/6 Ml Solution, 300 MG PO BID, (Reported) Isosorbide Mononitrate 20 Mg Tablet, 30 MG PO DAILY, (Reported) Ondansetron HCl 8 Mg Tablet, 8 MG PO Q8H PRN for NAUSEA-1ST LINE, (Reported) Posaconazole 100 Mg Tablet.dr, 100 MG PO DAILY, (Reported) Simvastatin 10 Mg Tablet, 10 MG PO HS, (Reported) Venetoclax 100 Mg Tablet, 100 MG PO DAILY, (Reported) Vitamin D 10 Mcg Tablet, 1,000 UNITS PO DAILY, (Reported) Patient Home Medication List Home Medication List Reviewed: Yes Review of Systems Constitutional: no symptoms reported EENTM: no symptoms reported Respiratory: no symptoms reported Cardiovascular: syncope Gastrointestinal: no symptoms reported Genitourinary: no symptoms reported Musculoskeletal: no symptoms reported Skin: no symptoms reported Psychiatric/Neurological: No Symptoms Reported All Other Systems Reviewed Negative Unless Noted: Yes Past Vtcmbtv-Iflxra-Mqbozg Hx Past Med/Social Hx: Reviewed Nursing Past Med/Soc Hx Patient Social History 2nd Hand Smoke Exposure: No Recent Hopitalizations: No Immunizations Up To Date Date of Pneumonia Vaccine: Mar 12, 2019 Seasonal Allergies Seasonal Allergies: No Past Medical History Surgeries: Yes (heel spur; bartholin cyst; carpal tunnel; hernia; cataract; back) Appendectomy, Cardiac, CABG, Coronary Stent, Gallbladder, Hysterectomy, Orthopedic Respiratory: No Cardiac: Yes (chf; quadruple bypass) Cardiomyopathy, Coronary Artery Disease, High Cholesterol, Hypertension Neurological: No Genitourinary: No Gastrointestinal: Yes Gastroesophageal Reflux Musculoskeletal: Yes Degenerate Disk Disease Endocrine: Yes Diabetes, Insulin dep HEENT: Yes Cataract Cancer: Yes Lymphoma Did You Recieve Any Treatments: Yes What Type of Treatment Did You: Chemotherapy Psychosocial: Yes Anxiety, Depression Integumentary: No Blood Disorders: No Family Medical History Cardiovascular disease 19 FATHER 19 MOTHER G8 BROTHER Diabetes mellitus 19 FATHER G8 BROTHER Hypertension 19 FATHER 19 MOTHER Neoplasm G8 BROTHER (lung cancer- from) Physical Exam Vital Signs Vital Signs - First Documented 01/11/20 16:20 Temp 36.2 Pulse 119 Resp 31 B/P (MAP) 124/61 (82) Pulse Ox 100 O2 Delivery Non Rebreather O2 Flow Rate 15.00 Capillary Refill : Height, Weight, BMI Height: 5'1.00" Weight: 245lbs. oz. 111.612345nx; 41.96 BMI Method: General Appearance: Obese, Other (opens eyes spontaneously at first, later with commands) HEENT: PERRL/EOMI, Pharynx Normal Neck: Normal Inspection, Supple Cardiovascular: Regular Rate, Rhythm, No Edema, No Murmur, Normal Peripheral Pulses Respiratory: Normal Breath Sounds, No Accessory Muscle Use, No Respiratory Distress Gastrointestinal: Normal Bowel Sounds, Non Tender, Soft Extremities: Normal Capillary Refill, Non Tender Neurologic/Psychiatric: Alert, Oriented x3, No Motor/Sensory Deficits, Normal Mood/Affect Cranial Nerves: PERRL Skin: Warm/Dry, Pallor, Petechia Focused Exam Lactate Level 01/11/20 16:20: Lactic Acid Level 3.42*H Lactic Acid Level Laboratory Tests Test 01/11/20 16:20 Lactic Acid Level 3.42 MMOL/L (0.50-2.00) *H Progress/Results/Core Measures Results/Orders Lab Results Laboratory Tests Test 01/11/20 16:20 01/11/20 16:30 01/11/20 17:12 Range/Units White Blood Count 0.8 *L 4.3-11.0 10^3/uL Red Blood Count 2.28 L 4.35-5.85 10^6/uL Hemoglobin 7.0 L 11.5-16.0 G/DL Hematocrit 21 L 35-52 % Mean Corpuscular Volume 91 80-99 FL Mean Corpuscular Hemoglobin 31 25-34 PG Mean Corpuscular Hemoglobin Concent 34 32-36 G/DL Red Cell Distribution Width 19.5 H 10.0-14.5 % Platelet Count 9 *L 130-400 10^3/uL Mean Platelet Volume 7.4-10.4 FL Neutrophils (%) (Auto) 48 42-75 % Lymphocytes (%) (Auto) 27 12-44 % Monocytes (%) (Auto) 23 H 0-12 % Eosinophils (%) (Auto) 0 0-10 % Basophils (%) (Auto) 2 0-10 % Neutrophils # (Auto) 0.4 L 1.8-7.8 X 10^3 Lymphocytes # (Auto) 0.2 L 1.0-4.0 X 10^3 Monocytes # (Auto) 0.2 0.0-1.0 X 10^3 Eosinophils # (Auto) 0.0 0.0-0.3 10^3/uL Basophils # (Auto) 0.0 0.0-0.1 10^3/uL Prothrombin Time 14.1 12.2-14.7 SEC INR Comment 1.1 0.8-1.4 Activated Partial Thromboplast Time 23 L 24-35 SEC Sodium Level 127 L 135-145 MMOL/L Potassium Level 5.1 H 3.6-5.0 MMOL/L Chloride Level 90 L 98-107 MMOL/L Carbon Dioxide Level 19 L 21-32 MMOL/L Anion Gap 18 H 5-14 MMOL/L Blood Urea Nitrogen 38 H 7-18 MG/DL Creatinine 1.89 H 0.60-1.30 MG/DL Estimat Glomerular Filtration Rate 27 BUN/Creatinine Ratio 20 Glucose Level 245 H 70-105 MG/DL Lactic Acid Level 3.42 *H 0.50-2.00 MMOL/L Calcium Level 8.4 L 8.5-10.1 MG/DL Corrected Calcium 9.4 8.5-10.1 MG/DL Magnesium Level 1.6 1.6-2.4 MG/DL Total Bilirubin 0.5 0.1-1.0 MG/DL Aspartate Amino Transf (AST/SGOT) 14 5-34 U/L Alanine Aminotransferase (ALT/SGPT) 9 0-55 U/L Alkaline Phosphatase 70 40-136 U/L Troponin I < 0.30 <0.30 NG/ML Pro-B-Type Natriuretic Peptide 1037.0 H <75.0 PG/ML Total Protein 5.3 L 6.4-8.2 GM/DL Albumin 2.8 L 3.2-4.5 GM/DL Blood Gas Puncture Site RT RADIAL Blood Gas Patient Temperature 36.2 Arterial Blood pH 7.42 7.37-7.43 Arterial Blood Partial Pressure CO2 32 L 35-45 MMHG Arterial Blood Partial Pressure O2 220 H 79-93 MMHG Arterial Blood HCO3 21 L 23-27 MMOL/L Arterial Blood Total CO2 21.8 21.0-31.0 MMOL/L Arterial Blood Oxygen Saturation 100 94-100 % Arterial Blood Base Excess -2.9 L -2.5-2.5 MMOL/L Mynor Test YES-POS Blood Gas Ventilator Setting NO Blood Gas Inspired Oxygen 15 L O2 - NRB My Orders Orders - JOHN PAUL WEBBER DO Arterial Blood Gas (01/11/20 16:13) Cbc With Automated Diff (01/11/20 16:13) Comprehensive Metabolic Panel (01/11/20 16:13) Magnesium (01/11/20 16:13) Protime With Inr (01/11/20 16:13) Partial Thromboplastin Time (01/11/20 16:13) Ua Culture If Indicated (01/11/20 16:13) Blood Culture (01/11/20 16:13) Probnp Fs (01/11/20 16:13) Lactic Acid Analyzer (01/11/20 16:13) Chest 1 View Ap/Pa Only (01/11/20 16:13) Ct Head Wo (01/11/20 16:13) Ns Iv 1000 Ml (Sodium Chloride 0.9%) (01/11/20 16:15) Ekg Tracing (01/11/20 16:15) Continuous Ekg Monitoring (01/11/20 16:15) Troponin I Fs (01/11/20 16:15) Ammonia (01/11/20 16:20) Creatine Kinase (01/11/20 16:20) Vital Signs/I&O 01/11/20 16:20 Temp 36.2 Pulse 119 Resp 31 B/P (MAP) 124/61 (82) Pulse Ox 100 O2 Delivery Non Rebreather O2 Flow Rate 15.00 Progress Progress Note : Progress Note @1702 - the patient has several critical lab values. Her WBC count is 0.83 down from 2.0. Her hemoglobin is 7.0 down from 8.2. Her platelet count is 9 down from 12. And her lactic acid is 3.4. Explained to the patient by concerns and she agrees with the plan to be admitted. @1725 - Dr. Zhang accepts the ICU admission at [facility] at this time. Comment EKG@1614 - Normal sinus rhythm, rate of 79, left axis deviation is present, right bundle-branch block is present, no acute ischemic findings noted, no STEMI, reviewed and interpreted by myself Diagnostic Imaging Diagonstic Imaging: Xray Comments [facility]. [place], [place] NAME: LORI IRELAND Maria Del Carmen [facility] REC#: [id number] PT STATUS: REG ER : 1950 PHYSICIAN: JOHN PAUL WEBBER DO ADMIT DATE: 01/11/20/ER FS Draft Date of Exam:01/11/20 CHEST 1 VIEW AP/PA ONLY INDICATION: Syncope. Portable chest at 04:35 p.m. FINDINGS: There are postop changes from CABG surgery. There is suboptimal inspiration. Right IJ Port-A-Cath tip projects over the SVC. There is mild vascular congestion. IMPRESSION: Pulmonary vascular congestion may be partly related to shallow inspiration. There are no infiltrates, effusions, or pneumothoraces. Dictated on workstation # [id number] Dict: 01/11/201702 Trans: 01/11/201705 [id number] Interpreted by: STACI IBARRA MD Electronically signed by: Critical Care Note Critical Care Start Time: 17:00 Stop Time: 17:40 Total Time (minutes) 40 Progress Interpretation of lab and imaging tests, cardiopulmonary response to treatments, consultation with other provider, management of hypoxia, management of hyponatremia Departure Communication (Admissions) Time/Spoke to Admitting Phy: 17:30 Dr. Zhang accepts the ICU admission at [facility] Impression Primary Impression: Pancytopenia Additional Impressions: AML (acute myeloid leukemia) Fatigue Syncope Hyponatremia Elevated lactic acid level Symptomatic anemia Disposition: ADMITTED INPATIENT Condition: Critical Admissions Decision to Admit Reason: Admit from ER (General) Decision to Admit/Date: Jan 11, 2020 Time/Decision to Admit Time: 17:35 Departure-Patient Inst. Referrals: [facility] (PCP) Primary Care Physician SHANON STAPLETON APRN (Family) Primary Care Physician JOHN PAUL WEBBER DO Jan 11, 2020 16:22
[2020-01-11 16:56] LABS: INR 1.1 (0.8-1.4); PROTHROMBIN TIME PATIENT 14.1 SEC (12.2-14.7)
[2020-01-11 16:57] LABS: HEMATOCRIT 21 % (35-52); MEAN CORPUSCULAR HEMOGLOBIN 31 PG (25-34); MEAN CORPUSCULAR HGB CONC 34 G/DL (32-36); MEAN CORPUSCULAR VOLUME 91 FL (80-99); PLATELET COUNT 9 10^3/uL (130-400); RED CELL DISTRIBUTION WIDTH 19.5 % (10.0-14.5); WHITE BLOOD COUNT 0.8 10^3/uL (4.3-11.0)
[2020-01-11 16:58] LABS: BASOPHILS % (AUTO) 2 % (0-10); EOSINOPHILS % (AUTO) 0 % (0-10); LYMPHOCYTES # (AUTO) 0.2 X 10^3 (1.0-4.0); LYMPHOCYTES % (AUTO) 27 % (12-44); MONOCYTES # (AUTO) 0.2 X 10^3 (0.0-1.0); MONOCYTES % (AUTO) 23 % (0-12); NEUTROPHILS # (AUTO) 0.4 X 10^3 (1.8-7.8); NEUTROPHILS % (AUTO) 48 % (42-75)
[2020-01-11 17:03] LABS: ABG BASE EXCESS -2.9 MMOL/L (-2.5-2.5); ABG OXYGEN SATURATION 100 % (94-100); ABG PCO2 32 MMHG (35-45); ABG PH 7.42 (7.37-7.43); ABG PO2 220 MMHG (79-93); ABG TCO2 21.8 MMOL/L (21.0-31.0)
[2020-01-11 17:04] LABS: ALLENS TEST YES-POS; INSPIRED O2 15 L O2 - NRB; PATIENT TEMP 36.2; VENTILATOR NO
--- NOTE | 2020-01-11 17:06 | Diagnostic Imaging Report ---
INDICATION: Syncope. Portable chest at 04:35 p.m. FINDINGS: There are postop changes from CABG surgery. There is suboptimal inspiration. Right IJ Port-A-Cath tip projects over the SVC. There is mild vascular congestion. IMPRESSION: Pulmonary vascular congestion may be partly related to shallow inspiration. There are no infiltrates, effusions, or pneumothoraces. Dictated by: Dictated on workstation # [id number]
--- NOTE | 2020-01-11 17:06 | Diagnostic Imaging Report ---
PROCEDURE: CT head without contrast. TECHNIQUE: Multiple contiguous axial images were obtained through the brain without the use of intravenous contrast. Auto Exposure Controls were utilized during the CT exam to meet ALARA standards for radiation dose reduction. DATE: January 11, 2020. COMPARISON: None. INDICATION: 69-year-old female, syncopal episode. FINDINGS: The ventricles and cerebral spinal fluid spaces are of normal size and configuration for the patient's age. There is no mass effect or midline shift. There is no acute intracranial hemorrhage. There is no abnormal extra-axial fluid collection. The visualized portions of the paranasal sinuses, mastoid air cells and middle ears are well aerated. IMPRESSION: 1. No identified acute intracranial abnormality. Dictated by: Dictated on workstation # [id number]
[2020-01-11 17:16] LABS: BUN/CREATININE RATIO 20; CARBON DIOXIDE 19 MMOL/L (21-32); CHLORIDE 90 MMOL/L (98-107); CREATININE SERUM 1.89 MG/DL (0.60-1.30); GFR ESTIMATED 27; GLUCOSE 245 MG/DL (70-105); POTASSIUM 5.1 MMOL/L (3.6-5.0); SODIUM 127 MMOL/L (135-145)
[2020-01-11 17:17] LABS: ALANINE AMINOTRANSFERASE 9 U/L (0-55); ALBUMIN 2.8 GM/DL (3.2-4.5); ALKALINE PHOSPHATASE 70 U/L (40-136); BILIRUBIN,TOTAL 0.5 MG/DL (0.1-1.0); CALCIUM 8.4 MG/DL (8.5-10.1); MAGNESIUM 1.6 MG/DL (1.6-2.4); TOTAL PROTEIN 5.3 GM/DL (6.4-8.2)
[2020-01-11 17:31] LABS: COLOR,URINE YELLOW
[2020-01-11 17:32] LABS: AMORPHOUS SEDIMENT,UR LARGE AMOR URATES /LPF; BACTERIA,URINE NEGATIVE /HPF; BILIRUBIN,URINE NEGATIVE (NEGATIVE); CLARITY,URINE SLIGHTLY CLOUDY; GLUCOSE, URINE (UA) TRACE (NEGATIVE); KETONES,URINE NEGATIVE (NEGATIVE); LEUKOCYTE ESTERASE ,URINE NEGATIVE (NEGATIVE); NITRITE,URINE NEGATIVE (NEGATIVE); PH,URINE 5.5 (5-9); PROTEIN,URINE 1+ (NEGATIVE); RBC,URINE 0-2 /HPF
[2020-01-11] MEDS ORDERED: NS IV 500 ML 500 ML IV SCH (18:21)
[2020-01-11] MEDS ORDERED: diphenhydrAMINE 25 MG TAB (BENADRYL) PO PRN (18:30)
[2020-01-11] MEDS ORDERED: ACETAMINOPHEN 500 MG TAB (TYLENOL) PO PRN (18:30)
[2020-01-11] MEDS ORDERED: MELATONIN 3 MG TABLET PO PRN (18:30)
[2020-01-11] MEDS ORDERED: ACETAMINOPHEN 325 MG TABLET PO PRN (18:30)
[2020-01-11] MEDS ORDERED: ONDANSETRON 4 MG (ZOFRAN) ORAL DISSOLVE TAB PO PRN (18:30)
[2020-01-11] MEDS ORDERED: HYDROcodone/APAP 5 MG/325 MG (LORTAB) TAB PO PRN (18:30)
[2020-01-11] MEDS ORDERED: LOPERAMIDE 2 MG (IMODIUM) TABLET PO PRN (18:30)
[2020-01-11] MEDS ORDERED: diphenhydrAMINE 50 MG/ML INJ (BENADRYL) IVP PRN (18:30)
[2020-01-11] MEDS ORDERED: ALPRAZolam 0.25 MG (XANAX) TAB PO PRN (18:30)
[2020-01-11] MEDS ORDERED: DOCUSATE SODIUM 100 MG (COLACE) CAP PO PRN (18:30)
[2020-01-11] MEDS ORDERED: CALCIUM CARBONATE 500 MG (TUMS) TAB.CHEW PO PRN (18:30)
[2020-01-11] MEDS ORDERED: ONDANSETRON 4 MG/2 ML (SDV) Z0FRAN IVP PRN (18:30)
[2020-01-11] MEDS ORDERED: RT-ALBUTEROL SULF 2.5 MG/3 ML PRE-MIX VIAL INH PRN (19:30)
--- NOTE | 2020-01-11 19:30 | NUR ---
This RN spoke to Patient daughter Mia Servin at this time. Patient daughter reports caring for her mom in her home for the last two weeks. Patient daughter wishes to set up a password at this time. Updated of patient report this RN received from EMS.
--- NOTE | 2020-01-11 19:50 | NUR ---
LORI IRELAND admitted to room CU6-1, with an admitting diagnosis of pancytopenia, symptomatic anemia, syncope, AML, on 01/11/[address] [facility], accompanied by EMS.LORI IRELAND introduced to surroundings, call light, bed controls, phone, TV, temperature control, lights, meal times, smoking policy, visitor policy, side rail policy, bathrooms and showers. Patient Rights given to patient in the handbook. LORI IRELAND verbalizes understanding that [facility] is not responsible for the loss or damage to any personal effects or valuables that are kept in the patients possession during their hospitalization. The following Patient Care Plans were discussed with the patient: Discharge Planning, pain,medication, and room orientation. LORI IRELAND verbalizes understanding of Interdisciplinary Patient Education. Patient and/or family were informed about the Rapid Response Team and its purpose.
[2020-01-11] MEDS ORDERED: CATHETER FLUSH 10 ML SYR IV PRN (20:15)
[2020-01-11] MEDS ORDERED: VANCOMYCIN INJECTION 1,000 MG in NS (IVPB) 250 ML IV SCH (20:45)
[2020-01-11] MEDS: NS IV 1000 ML 1,000 ML IV SCH (20:59)
[2020-01-11] MEDS: SENNA W/DOCUSATE (SENOKOT S) TABLET PO SCH (21:00)
[2020-01-11 21:19] LABS: AMMONIA 38 UMOL/L (11-32)
[2020-01-11] MEDS ORDERED: VANCOMYCIN 1000 MG/VIAL ONE (21:26)
[2020-01-11] MEDS ORDERED: NS (IVPB) 250 ML ONE (21:27)
[2020-01-11 21:28] LABS: CREATINE KINASE 54 U/L (29-168)
[2020-01-11] MEDS: CEFEPIME INJECTION 2,000 MG in WATER (STERILE) FOR INJECTION 20 ML IV SCH (21:47)
--- NOTE | 2020-01-11 22:00 | NUR ---
Patient update given via telephone to patient daughter Annelise Mckeon..
[2020-01-12] VITALS (33 sets, daily range): BP systolic 116–144; BP diastolic 51–79
[2020-01-12] MEDS: NS IV 1000 ML 1,000 ML IV SCH ×3 (01:44→12:07)
[2020-01-12 03:48] LABS: EOSINOPHILS % (AUTO) 0 % (0-10); MEAN CORPUSCULAR HEMOGLOBIN 31 PG (25-34); MEAN CORPUSCULAR HGB CONC 34 G/DL (32-36); MEAN CORPUSCULAR VOLUME 91 FL (80-99); MEAN PLATELET VOLUME 9.5 FL (7.4-10.4); MONOCYTES # (AUTO) 2.2 X 10^3 (0.0-1.0); MONOCYTES % (AUTO) 62 % (0-12); PLATELET COUNT 45 10^3/uL (130-400); RED CELL DISTRIBUTION WIDTH 20.2 % (10.0-14.5); WHITE BLOOD COUNT 3.5 10^3/uL (4.3-11.0)
[2020-01-12 03:53] LABS: HEMATOCRIT 19 % (35-52); HEMOGLOBIN 6.5 G/DL (11.5-16.0)
[2020-01-12 03:54] LABS: BASOPHILS # (AUTO) 0.8 10^3/uL (0.0-0.1); BASOPHILS % (AUTO) 10 % (0-10); LYMPHOCYTES % (AUTO) 28 % (12-44); NEUTROPHILS % (AUTO) 0 % (42-75)
[2020-01-12 04:06] LABS: ALBUMIN 2.7 GM/DL (3.2-4.5)
[2020-01-12 04:07] LABS: CALCIUM 7.5 MG/DL (8.5-10.1)
[2020-01-12 04:08] LABS: TOTAL PROTEIN 5.1 GM/DL (6.4-8.2)
[2020-01-12] MEDS: POTASSIUM CL 10MEQ/50ML IVPB 50 ML IV SCH (04:08)
[2020-01-12] MEDS: KCL 20 MEQ TAB (K-DUR) PO SCH (04:08)
[2020-01-12 04:10] LABS: BILIRUBIN,TOTAL 0.4 MG/DL (0.1-1.0)
[2020-01-12 04:12] LABS: PHOSPHORUS 4.5 MG/DL (2.3-4.7)
[2020-01-12 04:15] LABS: MAGNESIUM 1.7 MG/DL (1.6-2.4)
--- NOTE | 2020-01-12 05:07 | Pulmonary Consultation ---
History of Present Illness History of Present Illness Date Seen by Provider: Jan 12, 2020 Time Seen by Provider: 05:02 Date of Admission History of Present Illness 69yo with hx of AML presented to ED via EMS secondary to syncope. She was found to have severe pancytopenia. She follows with Dr. Thurman. When EMS arrived the patient was completely unresponsive and on the way to the hospital she woke up and started answering questions. She was also found to be hypoxic at 83%. Allergies and Home Medications Allergies Coded Allergies: midazolam (Unverified Allergy, Unknown, MAKE PT HYPER AND ANXIOUS, 05/28/14) Home Medications Acyclovir 400 Mg Tablet, 400 MG PO BID, (Reported) Allopurinol 300 Mg Tablet, 300 MG PO DAILY, (Reported) Alprazolam 0.5 Mg Tablet, 0.5 MG PO TID PRN for ANXIETY, (Reported) Carvedilol 6.25 Mg Tablet, 6.25 MG PO BID, (Reported) Cefuroxime Axetil 250 Mg Tablet, 250 MG PO BID, (Reported) Citalopram Hydrobromide 20 Mg Tablet, 20 MG PO DAILY, (Reported) Cyanocobalamin (Vitamin B-12) 1,000 Mcg Tablet, 1,000 MCG PO DAILY, (Reported) Gabapentin 300 Mg/6 Ml Solution, 300 MG PO BID, (Reported) Isosorbide Mononitrate 20 Mg Tablet, 30 MG PO DAILY, (Reported) Ondansetron HCl 8 Mg Tablet, 8 MG PO Q8H PRN for NAUSEA-1ST LINE, (Reported) Posaconazole 100 Mg Tablet.dr, 100 MG PO DAILY, (Reported) Simvastatin 10 Mg Tablet, 10 MG PO HS, (Reported) Venetoclax 100 Mg Tablet, 100 MG PO DAILY, (Reported) Vitamin D 10 Mcg Tablet, 1,000 UNITS PO DAILY, (Reported) Past Rpjrecq-Bsefha-Sxwvpp Hx Past Med/Social Hx: Reviewed Nursing Past Med/Soc Hx Patient Social History Alcohol Use: Denies Use Recreational Drug Use: No Smoking Status: Never a Smoker 2nd Hand Smoke Exposure: No Recent Foreign Travel: No Contact w/Someone Who Travel: No Recent Infectious Disease Expo: No Recent Hopitalizations: No Physical Abuse: No Sexual Abuse: No Mistreated: No Fear: No Immunizations Up To Date Date of Pneumonia Vaccine: Mar 12, 2019 Seasonal Allergies Seasonal Allergies: No Past Medical History Surgeries: Yes (heel spur; bartholin cyst; carpal tunnel; hernia; cataract; back) Appendectomy, Cardiac, CABG, Coronary Stent, Gallbladder, Hysterectomy, Orthope dic Respiratory: No Cardiac: Yes (chf; quadruple bypass) Cardiomyopathy, Coronary Artery Disease, High Cholesterol, Hypertension Neurological: No : No Genitourinary: No Gastrointestinal: Yes Gastroesophageal Reflux Musculoskeletal: Yes Degenerate Disk Disease Endocrine: Yes Diabetes, Insulin dep HEENT: Yes Cataract Cancer: Yes Lymphoma Did You Recieve Any Treatments: Yes What Type of Treatment Did You: Chemotherapy Psychosocial: Yes Anxiety, Depression Integumentary: No Blood Disorders: No Family Medical History Cardiovascular disease 19 FATHER 19 MOTHER G8 BROTHER Diabetes mellitus 19 FATHER G8 BROTHER Hypertension 19 FATHER 19 MOTHER Neoplasm G8 BROTHER (lung cancer- from) Review of Systems Time Seen by Provider: 05:12 Sepsis Event Evaluation Height, Weight, BMI Height: 5'1.00" Weight: 245lbs. oz. 111.120633ah; 42.17 BMI Method: Exam Exam Vital Signs Date Time Temp Pulse Resp B/P (MAP) Pulse Ox O2 Delivery O2 Flow Rate FiO2 01/12/20 04:48 37.9 77 22 117/58 98 Nasal Cannula 1.00 01/12/20 04:47 Nasal Cannula 1.00 01/12/20 04:34 37.7 79 21 125/60 99 Nasal Cannula 2.00 01/12/20 03:35 37.1 Nasal Cannula 2.00 01/12/20 03:30 98 Nasal Cannula 2.00 01/12/20 01:41 37.6 86 23 137/66 100 Nasal Cannula 2.00 01/12/20 00:30 36.9 92 22 127/73 100 Nasal Cannula 2.00 01/11/20 23:20 100 Nasal Cannula 2.00 01/11/20 23:04 37.2 100 26 104/64 100 Nasal Cannula 2.00 01/11/20 23:02 37.5 Nasal Cannula 2.00 01/11/20 23:00 101 104/64 (77) 92 Nasal Cannula 2.00 01/11/20 22:55 37.5 Nasal Cannula 2.00 01/11/20 22:50 37.5 101 24 121/71 100 Nasal Cannula 2.00 01/11/20 22:00 103 29 124/79 (94) 100 Nasal Cannula 2.00 01/11/20 21:12 01/11/20 21:06 Nasal Cannula 2.00 01/11/20 21:00 105 16 112/50 (70) 98 Nasal Cannula 4.00 01/11/20 20:45 105 12 116/62 (80) 99 Nasal Cannula 4.00 01/11/20 20:30 105 10 122/65 (84) 100 Nasal Cannula 4.00 01/11/20 20:15 106 26 122/61 (81) 100 Nasal Cannula 4.00 01/11/20 20:00 106 27 99/51 (67) 100 Nasal Cannula 4.00 01/11/20 19:56 107 01/11/20 19:55 37.4 106 119/61 (80) 100 Nasal Cannula 4.00 01/11/20 19:50 100 Nasal Cannula 4.00 01/11/20 19:15 38.1 108 25 100/58 98 01/11/20 19:01 36.2 119 100 15 01/11/20 17:43 38.1 01/11/20 16:20 36.2 119 31 124/61 (82) 100 Non Rebreather 15.00 I & O 01/12/20 07:00 Intake Total 3645 ml Output Total 450 ml Balance 3195 ml Height & Weight Height: 5'1.00" Weight: 245lbs. oz. 111.826120ap; 42.17 BMI Method: General Appearance: Obese, Other HEENT: PERRL/EOMI, Pharynx Normal Neck: Normal Inspection, Supple Respiratory: Normal Breath Sounds, No Accessory Muscle Use, No Respiratory Distress Cardiovascular: Regular Rate, Rhythm, No Edema, No Murmur, Normal Peripheral Pulses Capillary Refill: Less Than 3 Seconds Extremity: Normal Capillary Refill, Non Tender Neurologic/Psychiatric: Alert, Oriented x3, No Motor/Sensory Deficits, Normal Mood/Affect Skin: Warm/Dry, Pallor, Petechia Results Lab Laboratory Tests 01/11/20 16:20 01/12/20 03:40 Assessment/Plan Assessment/Plan Sepsis -Continue Vanco cefepime -Waddell cultures are pending -Check urine strep and legionella Ag -MRSA nasal swab is pending -COVID is pending -Influenza negative -check RVP Pancytopenia -Monitor -Oncology is following Anemia -S/P 1unit of PRBC thrombocytopenia -S/p 1 unit of platlets Acute renal failure -Continue IVF at 125NS Hx of AML Hyponatremia Metabolic lactic acidosis -Monitor ZAKI RIVERO DO Jan 12, 2020 05:07
[2020-01-12] MEDS: MAGNESIUM 1 GM/100 ML IVPB 100 ML IV SCH (05:37)
[2020-01-12] MEDS: inSUlin ASPART (NovoLOG) 1 UNIT/0.01 ML (CHARGE PER UNIT) SC SCH ×4 (05:54→20:34)
[2020-01-12] MEDS: PANTOPRAZOLE 40 MG (PROTONIX) VIAL IV SCH ×2 (08:18→20:34)
[2020-01-12] MEDS: CEFEPIME INJECTION 2,000 MG in WATER (STERILE) FOR INJECTION 20 ML IV SCH ×2 (08:18→20:34)
[2020-01-12] MEDS: SENNA W/DOCUSATE (SENOKOT S) TABLET PO SCH ×2 (08:18→20:34)
--- NOTE | 2020-01-12 09:12 | History & Physical-Hospitalist ---
History of Present Illness HPI/Chief Complaint CC: Severe anemia with altered mental status HPI: This is a 69yoWF of [facility] who sees Dr. Thurman for anemia and AML who p resented to the [facility] with altered mental status found to have sodium level of 127, white count 0.9 and Hgb in the 7 range. She was admitted given 1 unit of blood and 1 unit of platelets, she was swabbed for COVID-[address] Garber was notified, creatinine remains at 2.0, sodium level 129, but white count at 3.5. At this current time, Pt is in isolation, all PPE placed before seen by this examiner. Source: patient Exam Limitations: no limitations Date Seen 01/12/20 Time Seen by a Provider: 10:00 Attending Physician Maribel Zhang DO [facility] [place], Referring Physician Date of Admission Jan 11, 2020 at 17:40 Home Medications & Allergies Home Medications Reviewed patient Home Medication Reconciliation performed by pharmacy medication reconciliations spa technician and/or nursing. Patients Allergies have been reviewed. Allergies Allergies Coded Allergies midazolam (Unverified Allergy, Unknown, MAKE PT HYPER AND ANXIOUS, 05/28/14) Past Axyqomj-Gurjqi-Giwmqg Hx Past Med/Social Hx: Reviewed Nursing Past Med/Soc Hx, Reviewed and Corrections made Patient Social History Marrital Status: single Employed/Student: retired Alcohol Use: Denies Use Recreational Drug Use: No Smoking Status: Never a Smoker 2nd Hand Smoke Exposure: No Recent Foreign Travel: No Contact w/other who traveled: No Recent Hopitalizations: No Recent Infectious Disease Expo: No Immunizations Up To Date Date of Pneumonia Vaccine: Mar 12, 2019 Seasonal Allergies Seasonal Allergies: No Past Medical History Surgeries: Appendectomy, Cardiac, CABG, Coronary Stent, Gallbladder, Hysterectomy, Orthopedic Cardiac: Cardiomyopathy, Coronary Artery Disease, High Cholesterol, Hypertension : No Gastrointestinal: Gastroesophageal Reflux Musculoskeletal: Degenerate Disk Disease Endocrine: Diabetes, Insulin dep HEENT: Cataract Cancer: Leukemia, Lymphoma Did You Recieve Any Treatments: Yes What Type of Treatment Did You: Chemotherapy Psychosocial: Anxiety, Depression History of Blood Disorders: No Family History Cardiovascular disease 19 FATHER 19 MOTHER G8 BROTHER Diabetes mellitus 19 FATHER G8 BROTHER Hypertension 19 FATHER 19 MOTHER Neoplasm G8 BROTHER (lung cancer- from) Review of Systems Constitutional: see HPI, malaise, weakness Psychiatric/Neurological: Other (confusion) Physical Exam Physical Exam Vital Signs Vital Signs - First Documented 01/11/20 01/11/20 16:20 19:01 Temp 36.2 Pulse 119 Resp 31 B/P (MAP) 124/61 (82) Pulse Ox 100 O2 Delivery Non Rebreather O2 Flow Rate 15.00 FiO2 15 Capillary Refill : Less Than 3 Seconds Height, Weight, BMI Height: 5'1.00" Weight: 245lbs. oz. 111.200981kw; 42.17 BMI Method: General Appearance: No Apparent Distress, Chronically ill, Obese Eyes: Right Eye Normal Inspection, Right Eye PERRL HEENT: PERRL/EOMI, Normal ENT Inspection, Pharynx Normal, Moist Mucous Membranes Neck: Full Range of Motion, Normal Inspection, Non Tender Respiratory: Chest Non Tender, Lungs Clear, No Respiratory Distress, Decreased Breath Sounds Cardiovascular: Regular Rate, Rhythm, No Edema, No Gallop, No JVD, No Murmur, Normal Peripheral Pulses Gastrointestinal: Normal Bowel Sounds, No Organomegaly, No Pulsatile Mass, Non Tender, Soft Back: Normal Inspection, No CVA Tenderness, No Vertebral Tenderness Extremity: Normal Capillary Refill, Normal Inspection, Normal Range of Motion, Non Tender, No Calf Tenderness, No Pedal Edema Neurologic/Psychiatric: Alert, Oriented x3, No Motor/Sensory Deficits, Normal Mood/Affect, Disoriented Skin: Normal Color, Warm/Dry Lymphatic: No Adenopathy Results Results/Procedures Labs Laboratory Tests 01/11/20 16:20 01/12/20 03:40 01/12/20 17:55 Patient resulted labs reviewed. Assessment/Plan Admission Diagnosis Assessment: AMS Severe anemia requiring transfusions Severe thrombocytopenia requiring platelet transfusion AML Hyponatremia Plan: Supportive care COVID-[address] Thurman Admission Status: Inpatient Order (span 2 midnights) Reason for Inpatient Admission: severe anemia with aml Diagnosis/Problems Diagnosis/Problems (1) Symptomatic anemia Status: Acute (2) AML (acute myeloid leukemia) Status: Acute (3) Elevated lactic acid level Status: Acute (4) Syncope Status: Acute (5) Pancytopenia Status: Acute (6) Hyponatremia Status: Acute (7) History of lymphoma Status: Acute Clinical Quality Measures DVT/VTE Risk/Contraindication: Risk Factor Score Per Nursin RFS Level Per Nursing on Admit: 4+=Very High Contraindications-Pharm: Other *list below* Other: low platelets MARIBEL ZHANG DO Jan 12, 2020 09:12
[2020-01-12] MEDS ORDERED: VANCOMYCIN INJECTION 0.1 MG in NS (IVPB) 250 ML IV SCH (11:15)
--- NOTE | 2020-01-12 11:29 | NUR ---
PTD VANCOMYCIN LABS: SCR 2 PLAN: PATIENT RECEIVED VANCOMYCIN 1 GRAM DOSE ON 01/10 @ 0517, WE WILL GIVE VANCOMYCIN 15MG/KG (1,500MG) [id number] AND CHECK A TROUGH LEVEL PRIOR TO 3RD DOSE 01/12 @ 1600. HOLD IF LEVEL IS GREATER THAN 20.
--- NOTE | 2020-01-12 11:35 | NUR ---
Spoke with pts RN who stated she would advise of Supervising Producer availability for pt via telephone and also for pts family.
--- NOTE | 2020-01-12 12:13 | Diagnostic Imaging Report ---
INDICATION: PICC line placement. TECHNIQUE/COMPARISON: A frontal chest was obtained at 11:47 AM and compared to 01/11/2020. FINDINGS: There is cardiomegaly and post sternotomy change. There is no focal infiltrate, pneumothorax, or pleural fluid. The Port-A-Cath is unchanged. There is a new right-sided PICC line with the tip overlying the right atrium. I would suggest pulling it back about 4 cm for distal SVC placement. IMPRESSION: Cardiomegaly with post sternotomy change and no focal infiltrate. New right-sided PICC line tip overlies the right atrium, recommend pulling it back about 4 cm for distal SVC placement. Previous Port-A-Cath is unchanged. Dictated by: Dictated on workstation # [id number]
[2020-01-12] MEDS ORDERED: CEFU250T80 PO (14:57)
[2020-01-12] MEDS ORDERED: ALPR0.5T PO (14:57)
[2020-01-12] MEDS ORDERED: INSU100I10 SC (14:57)
[2020-01-12] MEDS ORDERED: INSU100I14 SC (14:57)
--- NOTE | 2020-01-12 15:13 | NUR ---
Received social service consult from Dr. Zhang as pt's two daughters wanting to discuss continued care options as their Mom has been living with Mia but she works two jobs and is now recognizing that pt needs 23 hour supervision. Discussed Home and Community Based Services, [facility] home, Home Health care options and assisted living options. Pt's daughter would like DPOA for health care decsions discussed with pt and paper work completed. Will follow.
--- NOTE | 2020-01-12 15:36 | NUR ---
SPOKE WITH THE PATIENTS DAUGHTER FABIENNE- THERE WAS A MED LIST ATTACHED TO THE CHART ALSO, WE WENT THRU THE LIST AND THE EXT MED HISTORY OVER THE PHONE TO COMPLETE THE MED REC CLOPIDOGREL 75MG - PT IS NO LONGER TAKING THIS MEDICATION OTC MEDS: VIT D VIT B12 FABIENNE WAS CONCERNED ABOUT THE PT CONTINUING THE VENCLEXTA 100MG. I LET HER KNOW WE DID NOT CARRY THAT MEDICATION BUT THAT I WOULD FIND OUT WHAT THE PLAN IS FROM HER NURSE. I SPOKE WITH JAMES AND SHE INDICATED TO HAVE FABIENNE BRING IT IN THEN WE CAN GET ORDERS TO CONTINUE THE HOME MED. I REACHED BACK OUT TO FABIENNE TO LET HER KNOW SHE SHOULD BRING IT IN
[2020-01-12] MEDS ORDERED: VANCOMYCIN 1500 MG/NS 500 ML IVPB IV SCH ×2 (17:00)
[2020-01-12 18:04] LABS: HEMOGLOBIN 7.2 G/DL (11.5-16.0)
[2020-01-13] VITALS (19 sets, daily range): BP systolic 129–177; BP diastolic 46–99
[2020-01-13] MEDS: NS IV 1000 ML 1,000 ML IV SCH (01:58)
[2020-01-13 03:44] LABS: HEMATOCRIT 23 % (35-52); MEAN CORPUSCULAR HEMOGLOBIN 31 PG (25-34); MEAN CORPUSCULAR HGB CONC 34 G/DL (32-36); MEAN CORPUSCULAR VOLUME 89 FL (80-99); MEAN PLATELET VOLUME 11.2 FL (7.4-10.4); RED CELL DISTRIBUTION WIDTH 17.1 % (10.0-14.5)
[2020-01-13 03:45] LABS: POTASSIUM 4.2 MMOL/L (3.6-5.0)
[2020-01-13 03:46] LABS: CALCIUM 7.3 MG/DL (8.5-10.1)
[2020-01-13 03:50] LABS: PLATELET COUNT 22 10^3/uL (130-400); WHITE BLOOD COUNT 1.1 10^3/uL (4.3-11.0)
[2020-01-13 03:51] LABS: CREATININE SERUM 1.52 MG/DL (0.60-1.30)
[2020-01-13 03:54] LABS: MAGNESIUM 1.7 MG/DL (1.6-2.4)
[2020-01-13] MEDS: inSUlin ASPART (NovoLOG) 1 UNIT/0.01 ML (CHARGE PER UNIT) SC SCH ×4 (03:57→21:21)
[2020-01-13] MEDS: MAGNESIUM 1 GM/100 ML IVPB 100 ML IV SCH ×3 (03:57→07:56)
[2020-01-13] MEDS: KCL 20 MEQ TAB (K-DUR) PO SCH (03:57)
[2020-01-13] MEDS: POTASSIUM CL 10MEQ/50ML IVPB 50 ML IV SCH (03:57)
[2020-01-13 04:13] LABS: ANISOCYTOSIS SLIGHT; ATYPICAL LYMPHOCYTES 16 %; LYMPHOCYTES % (MANUAL) 42 %; MONOCYTES % (MANUAL) 34 %; NEUTROPHILS % (MANUAL) 8 %
--- NOTE | 2020-01-13 05:22 | Pulmonary Progress Note ---
Subjective Date Seen by a Provider: Jan 13, 2020 Time Seen by a Provider: 05:20 Subjective/Events-last exam Pt appears to be doing better. Sepsis Event Evaluation Height, Weight, BMI Height: 5'1.00" Weight: 245lbs. oz. 111.279193vr; 42.17 BMI Method: Focused Exam Lactate Level 01/11/20 16:20: Lactic Acid Level 3.42*H 01/11/20 18:40: Lactic Acid Level 1.55 Exam Exam Vital Signs Date Time Temp Pulse Resp B/P (MAP) Pulse Ox O2 Delivery O2 Flow Rate FiO2 01/13/20 04:00 Nasal Cannula 1.00 01/13/20 03:26 36.4 67 22 157/72 100 Nasal Cannula 1.00 01/13/20 02:08 36.4 70 21 140/59 100 Nasal Cannula 1.00 01/13/20 01:54 36.4 69 18 133/55 100 Nasal Cannula 1.00 01/13/20 01:00 67 01/13/20 00:00 Nasal Cannula 1.00 01/12/20 23:00 36.9 65 24 143/56 100 Nasal Cannula 1.00 01/12/20 21:08 95 Nasal Cannula 2.00 01/12/20 20:56 36.8 68 16 131/55 Nasal Cannula 1.00 01/12/20 20:39 36.0 67 19 137/59 100 Nasal Cannula 1.00 01/12/20 20:00 Nasal Cannula 1.00 01/12/20 19:00 69 01/12/20 18:00 68 12 130/62 (84) 100 Nasal Cannula 1.00 01/12/20 17:00 67 14 138/73 (94) 100 Nasal Cannula 1.00 01/12/20 16:00 67 24 134/65 (88) 100 Nasal Cannula 1.00 01/12/20 16:00 97 Nasal Cannula 1.00 01/12/20 15:00 68 28 128/59 (82) 99 Nasal Cannula 1.00 01/12/20 14:00 73 18 133/76 (95) 100 Nasal Cannula 1.00 01/12/20 13:00 75 01/12/20 13:00 74 26 130/54 (79) 100 Nasal Cannula 1.00 01/12/20 12:00 67 28 132/79 (96) 99 Nasal Cannula 1.00 01/12/20 12:00 97 Nasal Cannula 1.00 01/12/20 11:00 72 20 135/64 (87) 98 Nasal Cannula 1.00 01/12/20 10:00 73 20 138/63 (88) 98 Nasal Cannula 1.00 01/12/20 09:00 75 20 138/63 (88) 98 Nasal Cannula 1.00 01/12/20 08:00 97 Nasal Cannula 1.00 01/12/20 08:00 75 23 116/55 (75) 97 Nasal Cannula 1.00 01/12/20 07:52 37.7 75 14 131/62 96 Nasal Cannula 1.00 01/12/20 07:30 37.7 01/12/20 07:25 76 01/12/20 07:00 74 39 131/62 (85) 98 Nasal Cannula 1.00 01/12/20 06:50 98 Nasal Cannula 1.00 01/12/20 06:00 78 24 125/57 (79) 97 Nasal Cannula 1.00 01/12/20 05:30 37.5 78 22 123/58 98 Nasal Cannula 1.00 I & O 01/13/20 07:00 Intake Total 2120 ml Output Total 2750 ml Balance -630 ml Height & Weight Height: 5'1.00" Weight: 245lbs. oz. 111.965172ox; 42.17 BMI Method: General Appearance: No Apparent Distress, Chronically ill, Obese HEENT: PERRL/EOMI, Normal ENT Inspection, Pharynx Normal, Moist Mucous Membranes Neck: Full Range of Motion, Normal Inspection, Non Tender Respiratory: Chest Non Tender, Lungs Clear, No Respiratory Distress, Decreased Breath Sounds Cardiovascular: Regular Rate, Rhythm, No Edema, No Gallop, No JVD, No Murmur, Normal Peripheral Pulses Capillary Refill: Less Than 3 Seconds Extremity: Normal Capillary Refill, Normal Inspection, Normal Range of Motion, Non Tender, No Calf Tenderness, No Pedal Edema Neurologic/Psychiatric: Alert, Oriented x3, No Motor/Sensory Deficits, Normal Mood/Affect, Disoriented Skin: Normal Color, Warm/Dry Lymphatic: No Adenopathy Results Lab Laboratory Tests 01/11/20 16:20 01/12/20 03:40 01/12/20 17:55 01/13/20 03:28 Assessment/Plan Assessment/Plan Sepsis -Continue Vanco cefepime -[place] cultures are pending -Check urine strep and legionella Ag -MRSA nasal swab is pending -COVID is neg -D/C isolation -Influenza negative -check RVP Pancytopenia -Monitor -Oncology is following Anemia -S/P 1unit of PRBC thrombocytopenia -S/p 1 unit of platlets Acute renal failure - IVF Hx of AML Hyponatremia Metabolic lactic acidosis -Monitor ZAKI RIVERO DO Jan 13, 2020 05:22
--- NOTE | 2020-01-13 07:12 | Diagnostic Imaging Report ---
INDICATION: Dyspnea. Comparison with 01/12/2020. FINDINGS: Cardiomegaly with postsurgical changes again noted. Right jugular line remains unchanged in position. Right PICC line has been repositioned with tip at the cavoatrial junction. The lungs are well-aerated and clear. Heart is mildly enlarged with median sternotomy changes. No pneumothorax or pleural effusion. IMPRESSION: Satisfactory repositioning of right PICC line. Chest is otherwise unchanged Dictated by: Dictated on workstation # [id number]
[2020-01-13] MEDS: SENNA W/DOCUSATE (SENOKOT S) TABLET PO SCH ×2 (07:56→21:22)
[2020-01-13] MEDS: CEFEPIME INJECTION 2,000 MG in WATER (STERILE) FOR INJECTION 20 ML IV SCH ×2 (07:56→21:20)
[2020-01-13] MEDS: PANTOPRAZOLE 40 MG (PROTONIX) VIAL IV SCH (07:56)
--- NOTE | 2020-01-13 09:24 | Progress Note - Hospitalist ---
Subjective HPI/CC On Admission Date Seen by Provider: Jan 13, 2020 Time Seen by Provider: 09:00 CC: Severe anemia with altered mental status HPI: This is a 69yoWF of [facility] who sees Dr. Thurman for anemia and AML who presented to the [place] ER with altered mental status found to have sodium level of 127, white count 0.9 and Hgb in the 7 range. She was admitted given 1 unit of blood and 1 unit of platelets, she was swabbed for COVID-[address] Garber was notified, creatinine remains at 2.0, sodium level 129, but white count at 3.5. At this current time, Pt is in isolation, all PPE placed before seen by this examiner. Subjective/Events-last exam Pt doing pretty well Dr. Thurman will see her today WC 1.1, Hgb 8.0, Platelet count 22 Pt received 1 unit of blood and 1 unit of platelets last night Transferring to 4th floor PT and OT and rehab will be put in Creatinine down to 1.5 from 2 Sodium level 134 Social work consult for additional care at home Syncopal episodes could very well continue considering her AML status Covid-19 swab was negative Doesn't have much of an appetite for nutrition Review of Systems General: Fatigue Pulmonary: Dyspnea Neurological: Weakness Focused Exam Lactate Level 01/11/20 16:20: Lactic Acid Level 3.42*H 01/11/20 18:40: Lactic Acid Level 1.55 Objective Exam Vital Signs Vital Signs Date Time Temp Pulse Resp B/P (MAP) Pulse Ox O2 Delivery O2 Flow Rate FiO2 01/13/20 15:54 36.2 67 20 177/75 (109) 100 Nasal Cannula 1.00 01/11/20 19:01 15 Capillary Refill : Less Than 3 Seconds General Appearance: No Apparent Distress, WD/WN, Chronically ill, Obese Respiratory: Chest Non Tender, Lungs Clear, Normal Breath Sounds, No Accessory Muscle Use, No Respiratory Distress Gastrointestinal: Normal Bowel Sounds, No Organomegaly, No Pulsatile Mass, Non Tender, Soft Neurologic/Psychiatric: Alert, Oriented x3, No Motor/Sensory Deficits, Normal Mood/Affect, Motor Weakness (generalized weakness all extremities) Results/Procedures Lab Laboratory Tests 01/13/20 03:28 Patient resulted labs reviewed. Assessment/Plan Assessment and Plan Assess & Plan/Chief Complaint Assessment: AMS Severe anemia requiring transfusions Severe thrombocytopenia requiring platelet transfusion AML Hyponatremia Neutropenia requiring broad spectrum abx now DC Lorna Plan: Supportive care COVID-[address] Olman ASKEW Vanc PT OT IRF Diagnosis/Problems Diagnosis/Problems (1) Symptomatic anemia Status: Acute (2) AML (acute myeloid leukemia) Status: Acute (3) Elevated lactic acid level Status: Acute (4) Syncope Status: Acute (5) Pancytopenia Status: Acute (6) Hyponatremia Status: Acute (7) History of lymphoma Status: Acute Clinical Quality Measures DVT/VTE Risk/Contraindication: Risk Factor Score Per Nursin RFS Level Per Nursing on Admit: 4+=Very High Contraindications-Pharm: Other *list below* Other: low platelets MONTSERRAT HUANG DO Jan 13, 2020 09:24
[2020-01-13] MEDS ORDERED: ALPRAZolam 0.5 MG (XANAX) TAB PO PRN (10:00)
[2020-01-13] MEDS ORDERED: ONDANSETRON 4 MG (ZOFRAN) ORAL DISSOLVE TAB PO PRN (10:30)
--- NOTE | 2020-01-13 11:09 | Physical Therapy Evaluation ---
PT Evaluation-General Medical Diagnosis Admission Date Jan 11, 2020 at 17:40 Medical Diagnosis: weakness Onset Date: Jan 11, 2020 Therapy Diagnosis Therapy Diagnosis: impaired mobility, strength, endurance Height/Weight Height (Feet): 5 Height (Inches): 1.00 Weight (Pounds): 245 Precautions Precautions/Isolations: Chemo Precautions, Fall Prevention, Standard Precautions Referral Physician: Maribel Zhang DO Reason for Referral: Evaluation/Treatment Medical History Additional Medical History Past Medical History Surgeries: Appendectomy, Cardiac, CABG, Coronary Stent, Gallbladder, Hysterectomy, Orthopedic Cardiac: Cardiomyopathy, Coronary Artery Disease, High Cholesterol, Hypertension : No Gastrointestinal: Gastroesophageal Reflux Musculoskeletal: Degenerate Disk Disease Endocrine: Diabetes, Insulin dep HEENT: Cataract Cancer: Leukemia, Lymphoma Did You Recieve Any Treatments: Yes What Type of Treatment Did You: Chemotherapy Psychosocial: Anxiety, Depression Reviewed History: Yes Social History Current Living Status: Children Entry Into Home: Stairs With Railing PT Steps Into Home: 4 Prior Prior Level of Function SCALE: Activities may be completed with or without assistive devices. 6-Cbwywulmyd-kqykuld completes the activity by him/herself with no assistance from a helper. 5-Set-up or Clean-up Assistance-helper sets up or cleans up; patient completes activity. [place] assists only prior to or following the activity. 4-Supervision or Touching Assistance-helper provides verbal cues and/or touching/steadying and/or contact guard assistance as patient completes activity. Assistance may be provided throughout the activity or intermittently. 3-Partial/Moderate Assistance-helper does LESS THAN HALF the effort. [place] lifts, holds or supports trunk or limbs, but provides less than half the effort. 2-Substantial/Maximal Assistance-helper does MORE THAN HALF the effort. [place] lifts or holds trunk or limbs and provides more than half the effort. 0-Ysfwurqzo-rkqozv does ALL the effort. Patient does none of the effort to complete the activity. Or, the assistance of 2 or more helpers is required for the patient to complete the activity. If activity was not attempted, code reason: 7-Patient Refused. 9-Not Applicable-not attempted and the patient did not perform the activity before the current illness, exacerbation or injury. 10-Not Attempted due to Environmental Limitations-(lack of equipment, weather restraints, etc.). 88-Not Attempted due to Medical Conditions or Safety Concerns. Bed Mobility: 6 Transfers (B,C,W/C): 6 Gait: 6 Stairs: 6 Indoor Mobility (Ambulation): Independent Stairs: Independent PT Evaluation-Current Subjective Patient in bed pre tx, agrees to PT, has no complaints of pain. Patient has had a BM in bed and requires max assist for cleaning. Pt/Family Goals to be independent at home Objective Patient Orientation: Person, Place, Situation Attachments: Oxygen, Banks Catheter, IV ROM/Strength ROM Lower Extremities WNL Strength Lower Extremities 4+/5 gross BLE Sensory Hearing: Functional Sensation Right Lower Extremit: Intact Sensation Left Lower Extremity: Intact Transfers Roll Left to Right (QC): 6 Lying to Sitting/Side of Bed(Q: 4 Sit to Stand (QC): 4 Chair/Tkk-rm-Gjaes Xfer(QC): 4 CGA Gait Does the Patient Walk?: Yes Mode of Locomotion: Walk Anticipated Mode of Locomotion: Walk Walk 10 feet (QC): 4 Distance: 20' Gait Assistive Device: FWW Comments/Gait Description CGA, slow but steady ambulation Balance Sitting Static: Normal Sitting Dynamic: Normal Standing Static: Normal Standing Dynamic: Normal Treatment BLE seated exercises x20 (AP, LAQ), patient educated on the use of ankle pumps for DVT prevention Assessment/Needs Patient has impaired mobility, strength, endurance. Patient in recliner post tx with nurse call, phone, tray, legs elevated, daughter in room. Rehab Potential: Fair PT Detention Goals Adoption Specialist Goals PT Adoption Specialist Goals Time Frame: Jan 20, 2020 Roll Left & Right (QC): 6 Sit to Lying (QC): 6 Lying-Sitting on Side/Bed(QC): 6 Sit to Stand (QC): 6 Chair/Ohj-md-Qinyn Xfer(QC): 6 Walk 10 feet (QC): 6 Walk 50ft with 2 Turns (QC): 6 Walk 150 ft (QC): 6 1 Step (curb) (QC): 6 4 Steps (QC): 6 PT Plan Problem List Problem List: Activity Tolerance, Functional Strength, Safety, Balance, Gait, Transfer, Bed Mobility Treatment/Plan Treatment Plan: Continue Plan of Care Treatment Plan: Bed Mobility, Education, Functional Activity Chiara, Functional Strength, Gait, Safety, Therapeutic Exercise, Transfers Treatment Duration: Jan 20, 2020 Frequency: 6 times per week Estimated Hrs Per Day: .25 hour per day Patient and/or Family Agrees t: Yes Safety Risks/Education Patient Education: Gait Training, Transfer Techniques, Correct Positioning, Safety Issues Teaching Recipient: Patient Teaching Methods: Demonstration, Discussion Response to Teaching: Reinforcement Needed Discharge Recommendations Plan Patient will perform bed mobility and transfer training, balance and endurance training, functional strengthening, stair training, gait training, and edu cation, to improve functional mobility and independence at home. Therapy Discharge Recommendati: Home & Family Time/GCodes Time In: 1036 Time Out: 1056 Total Billed Treatment Time: 20 Total Billed Treatment 1 visit NITIN Howard' RASTA WEBSTER PT Jan 13, 2020 11:09
--- NOTE | 2020-01-13 11:15 | Occupational Therapy Eval ---
OT Evaluation-General/PLF Medical Diagnosis Admission Date Jan 11, 2020 at 17:40 Medical Diagnosis: AMS/severe anemia Onset Date: Jan 11, 2020 Therapy Diagnosis Therapy Diagnosis: Weakness Height/Weight Height (Feet): 5 Height (Inches): 1.00 Weight (Pounds): 245 Precautions Precautions/Isolations: Chemo Precautions, Fall Prevention, Standard Precautions Weight Bear Status Weight Bearing Restriction: Weight Bearing/Tolerated Referral Physician: Dr. Zhang Referral Reason: Activity Tolerance, Self Care, Evaluation/Treatment, Strengthening/ROM Medical History Pertinent Medical History: CAD Additional Medical History Anemia, AML, CABG. coronary stent, hysterectomy Reviewed History: Yes Social History Home: Single Level Current Living Status: Children Entry Into Home: Stairs With Railing Steps Into Home: 3 ADL-Prior Level of Function SCALE: Activities may be completed with or without assistive devices. 2-Jyyslbdoeo-cszaojv completes the activity by him/herself with no assistance from a helper. 5-Set-up or Clean-up Assistance-helper sets up or cleans up; patient completes activity. [place] assists only prior to or following the activity. 4-Supervision or Touching Assistance-helper provides verbal cues and/or touching/steadying and/or contact guard assistance as patient completes activity. Assistance may be provided throughout the activity or intermittently. 3-Partial/Moderate Assistance-helper does LESS THAN HALF the effort. [place] lifts, holds or supports trunk or limbs, but provides less than half the effort. 2-Substantial/Maximal Assistance-helper does MORE THAN HALF the effort. [place] lifts or holds trunk or limbs and provides more than half the effort. 5-Oddsnpaqo-gtmovw does ALL the effort. Patient does none of the effort to com plete the activity. Or, the assistance of 2 or more helpers is required for the patient to complete the activity. If activity was not attempted, code reason: 7-Patient Refused. 9-Not Applicable-not attempted and the patient did not perform the activity before the current illness, exacerbation or injury. 10-Not Attempted due to Environmental Limitations-(lack of equipment, weather restraints, etc.). 88-Not Attempted due to Medical Conditions or Safety Concerns. ADL PLOF Comments Pt. currently lives with daughter. States that she is independent with daily tasks prior to this hospitalization. Pt. uses a walker at home. Self Care: Independent Functional Cognition: Independent DME/Equipment: Shower DME/Equipment Comments Pt. uses walker OT Current Status Subjective No pain reported. Pt. states that she feels "good" after she gets up in the chair. Appearance Pt. in bed. Daughter in room. Pt. agrees to work with therapy. Mental Status/Objective Patient Orientation: Person, Place, Time, Situation Current Glasses/Contacts: Yes Upper Extremity ROM WFL ADL-Treatment On/Off Footwear (QC): 4 (SBA seated on side of bed.) Toileting Hygiene (QC): 1 Other Treatments Pt. seen by OT/PT due to need of skilled assist x 2. Pt. has been in bed due to anemia and while awaiting testing results. Pt. is cleared to work with therapy by nursing. Pt. transfers supine-sit with min assist. PT facilitates transfers while OT facilitates ADL skills. Pt. able to don slipper socks while seated. Pt. stands at bedside with CGA and is incontinent of bowel. Pt. unaware that she is incontinent. OT facilitates pt. cleansing gallito area herself. Pt. unable to reach and clean effectively. OT does this for her and changes padding. Pt. is able to ambulate to door and back to bed with walker and CGA. Pt. agrees to transfer to chair and is able to sit with CGA. All needs met. Education OT Patient Education: Correct positioning, Modified ADL techniques, Progress toward Goal/Update tx plan, Purpose of tx/functional activities, Reviewed precautions, Rehab process, Transfer techniques Teaching Recipient: Patient Teaching Methods: Demonstration, Discussion Response to Teaching: Verbalize Understanding, Return Demonstration OT Crew Leader/Control Room Operator Goals Longterm Goals Time Frame: Jan 27, 2020 Eating (QC): 6 Oral Hygiene (QC): 6 Toileting Hygiene (QC): 4 Shower/Bathe Self (QC): 4 Upper Body Dressing (QC): 5 Lower Body Dressing (QC): 4 On/Off Footwear (QC): 4 Additional Goals: 1-Demonstrate ADL Tasks, 2-Verbalize Understanding, 3-ImproveStrength/Chiara 1=Demonstrate adherence to instructed precautions during ADL tasks. 2=Patient will verbalize/demonstrate understanding of assistive devices/modifications for ADL. 3=Patient will improve strength/tolerance for activity to enable patient to perform ADL's. OT Education/Plan Problem List/Assessment Assessment: Decreased Activ Tolerance, Impaired I ADL's, Impaired Self-Care Skills Discharge Recommendations Plan/Recommendations: Continue POC Therapy Discharge Recommendati: Home & Family Treatment Plan/Plan of Care Treatment,Training & Education: Yes Patient would benefit from OT for education, treatment and training to promote independence in ADL's, mobility, safety and/or upper extremity function for ADL's. Plan of Care: ADL Retraining, Functional Mobility, UE Funct Exercise/Act Treatment Duration: Jan 27, 2020 Frequency: 5 times per week Estimated Hrs Per Day: .25 hour per day Agreement: Yes Rehab Potential: Good Time/GCodes Start Time: 10:36 Stop Time: 10:56 Total Time Billed (hr/min): 20 Billed Treatment Time 1, EVM Co-treatment with PT. Please see above note for designated roles. Untimed leandra. JILLIAN WISDOM OT Jan 13, 2020 11:14
[2020-01-13] MEDS: VITAMIN D3 10 MCG (400 UNITS) TABLET PO SCH (11:16)
[2020-01-13] MEDS: GABAPENTIN 300 MG (NEURONTIN) CAP PO SCH ×2 (11:16→21:20)
[2020-01-13] MEDS: ACYCLOVIR 400 MG TABLET (ZOVIRAX) PO SCH ×2 (11:16→21:20)
[2020-01-13] MEDS: CYANOCOBALAMIN 1,000 MCG (VITAMIN B-12) TABLET PO SCH (11:17)
[2020-01-13] MEDS: ALLOPURINOL 300 MG (ZYLOPRIM) TAB PO SCH (11:17)
[2020-01-13] MEDS: CARVEDILOL 6.25 MG (COREG) TAB PO SCH ×2 (11:17→21:20)
[2020-01-13] MEDS: ISOSORBIDE MONONITRATE 30 MG (IMDUR) TAB PO SCH (11:17)
--- NOTE | 2020-01-13 11:54 | NUR ---
IRF Evaluation Order received to evaluate patient for the ARU. Chart review complete and findings discussed with Dr. Zhang - patient accepted. It is noted patient's primary insurance provider is [facility]; therefore, prior authorization will need to be obtained prior to admission. Prior authorization process initiated and clinical information submitted to [facility], for determination. Will continue to follow. Thank you for this referral.
--- NOTE | 2020-01-13 12:29 | Progress Note ---
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 Patient was seen at [facility] and recommended treatment with Vidaza and Venetoclax. Patient started first cycle in mid December 2019 and is continuing on daily Venetoclax at 100 mg. She is also on prophylactic antiviral and antifungal medications daily. Patient admitted to the hospital with the sudden weakness and near passing out spell. Workup negative so far with all cultures negative. She has pancytopenia and is transfusion dependent for PRBCs and platelets. 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 GFR has improved with hydration after hospitalization. I advised her to push oral fluids while at home and to measure how much she is drinking daily. Continue current care as you're doing and discharged home when stable from medical standpoint. Continue outpatient labs on MWF schedule with transfusion as needed. Patient is scheduled for repeat bone marrow examination on 01/27/2020 at [facility]. She has a follow-up visit at the cancer center on 02/01/2020 and was instructed to keep this. Focused Exam Lactate Level 01/11/20 16:20: Lactic Acid Level 3.42*H 01/11/20 18:40: Lactic Acid Level 1.55 WILVER ESTRELLA Jan 13, 2020 12:29
[2020-01-13] MEDS ORDERED: PATIENT MAY USE OWN MED,SINGLE MED PO SCH (12:45)
--- NOTE | 2020-01-13 13:30 | NUR ---
TRANSFERRED FROM ICU TO ROOM 402. ALERT AND COOPERATIVE. SKIN PALE AND DRY. O2 ON AT 1 L PER N/C. SALINE LOCK TO RIGHT HAND. RIGHT UPPER PICC LINE WITH MOD AMT DRIED BLOODY DRAIANGE NOTED. MULTIPLE BRUISES SCATTERED.
--- NOTE | 2020-01-13 14:05 | NUR ---
RD ASSESSMENT PMHx: cardiomyopathy; CAD; HTN; hypercholesterolemia; GERD; DM; CA(leukemia,lymphoma) PT INTERACTION: Pt was awake and pleasant during nutrition assessment. Pt states current appetite is not good, and has been this way for about a month. Note avg PO intake 38% x2meal, per chart review. Pt states trying to follow a low-CHO diet at home, and has no issues with chewing/swallowing food. Pt states no recent issues with nausea, vomiting, or constipation. Pt states some recent issues with diarrhea, and that she is unsure of last BM. Note pt currently on bowel regimen of senna BID, per chart review. Pt states no recent wt changes. Note unable to determine recent wt hx, per chart review. Pt states currently poor control of DM management, "mainly due to steroids and chemotherapy causing my blood glucose levels to rise." Note unable to determine recent HbA1c, per chart review. ABNORMAL NUTRITION-RELATED LAB VALUES LOW: Na 134; Ca 7.3 HIGH: BUN 27; cr 1.52; glu 115 Est. kcal needs: 7448-7574 kcal | 15-18 kcal/kg Est. Pro needs: 92-103 g Pro | 0.8-1.0 g Pro/kg PES STATEMENT: Inadequate oral intake (NI-2.1) related to loss of appetite | diarrhea as evidenced by pt interview | avg PO intake 38% x2meal INTERVENTION: Continue with current diet order of Regular diet. Pt may benefit from consistent CHO restriction if blood glucose levels become elevated. Add Glucerna (vary) to meals TID, for increased kcal intake. Provies 220 kcal and 10 g Pro per serving. Offered DM education, but pt declined at this time. Will attempt to offer again prior to discharge. Will continue to follow and reassess as pt needs, intake, and status change. MONITOR/EVALUATE: PO Intake; Plan of Care; Hydration Status; Weight Status; Lab Values Lisandra Campa, MS, RD, LD
--- NOTE | 2020-01-13 15:34 | Physician Query Clarification ---
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 Mccollum? If you agree, please document in Progress Notes or Discharge Summary. 1. Yes; will document Sepsis present on admission in the Progress Notes 2. No; will continue to document Symptomatic anemia in the Progress Notes 3. Other; will document explanation of clinical findings 4. Clinically undetermined; no explanation for clinical findings Please remember a lack of response to the above will prompt a phone page by CDI/coding staff In responding to this query, please exercise your independent professional judgment. The purpose of this communication is to more accurately reflect the complexity of your patients condition. The fact that a question is asked does not imply that any particular answer is desired or expected. Thank you for timely response to this clarification. Kristel Cordero, MSN, RN RN Specialist-Clinical Doc Improvement CD -Health Info Mgmt Operations [address] [facility] t: [phone] | f: [phone] If you are unable to reach me at my extension, I may be working from home. Please contact me at [phone] PHYSICIAN RESPONSE: Based on the clinical findings in the record, please respond to the query above on this document as an addendum. Physician Response: Physician Response yes If you have questions please contact: Counter Tacker: Ext: Thank you for your time and cooperation. Clinical Animal Trainer/Counter Tacker This is a permanent part of the medical record KRISTEL CORDERO Jan 13, 2020 15:34 MONTSERRAT HUANG DO Jan 13, 2020 19:19"
--- NOTE | 2020-01-13 15:38 | Physician Query Clarification ---
"Physician Query-General Query to Physician: The medical record reflects the following clinical scenario: History/Risk factors: AML, Anemia Clinical Findings: Admission RR 31 remained 20-30s, On !5L 02 on admission Treatment: Continuous 02, Titrating and Breathing RX Question: What condition best reflects the above clinical scenario? Please document response in the Progress notes or Discharge Summary. 1. Acute Respiratory Failure 2. Symptomatic anemia (as currently documented) 3. Other , with explanation of the clinical findings 4. Clinically undetermined, no explanation for the clinical findings Please remember a lack of response to the above will prompt a phone page by CDI/coding staff In responding to this query, please exercise your independent professional judgment. The purpose of this communication is to more accurately reflect the complexity of your patients condition. The fact that a question is asked does not imply that any particular answer is desired or expected. Thank you for timely response to this clarification. Kristel Brady, MSN, RN RN Specialist-Clinical Doc Improvement CD -Health Info Mgmt Operations [address] [facility] t: [phone] | f: [phone] If you are unable to reach me at my extension, I may be working from home. Please contact me at [phone] PHYSICIAN RESPONSE: Based on the clinical findings in the record, please respond to the query above on this document as an addendum. Physician Response: Physician Response 2 If you have questions please contact: Blind Slat Stapling Machine Operator: Ext: Thank you for your time and cooperation. Clinical Purification Director/Blind Slat Stapling Machine Operator This is a permanent part of the medical record KRISTEL BRADY Jan 13, 2020 15:38 MONTSERRAT HUANG DO Jan 13, 2020 19:19"
--- NOTE | 2020-01-13 15:40 | Physician Query Clarification ---
"Physician Query-General Query to Physician: The medical record reflects the following clinical scenario: History/Risk factors: AML, Recent Chemo(list no more than 2) Clinical Findings: pancytopenia Treatment: Infusion of 4 blood products since admission, Monitoring Question: What condition best reflects the above clinical scenario? Please document response in the Progress notes or Discharge Summary. 1. Pancytopenia due to chemotherapy 2. Pancytopenia (as currently documented) 3. Other , with explanation of the clinical findings 4. Clinically undetermined, no explanation for the clinical findings Please remember a lack of response to the above will prompt a phone page by CDI/coding staff In responding to this query, please exercise your independent professional judgment. The purpose of this communication is to more accurately reflect the complexity of your patients condition. The fact that a question is asked does not imply that any particular answer is desired or expected. Thank you for timely response to this clarification. Kristel Brady, MSN, RN RN Specialist-Clinical Doc Improvement CD -Health Info Mgmt Operations [address] [facility] t: [phone] | f: [phone] If you are unable to reach me at my extension, I may be working from home. Please contact me at [phone] PHYSICIAN RESPONSE: Based on the clinical findings in the record, please respond to the query above on this document as an addendum. Physician Response: Physician Response 2 If you have questions please contact: Card Painter: Ext: Thank you for your time and cooperation. Clinical Outside Repairer Special/Card Painter This is a permanent part of the medical record KRISTEL BRADY Jan 13, 2020 15:40 MONTSERRAT HUANG DO Jan 13, 2020 19:20"
--- NOTE | 2020-01-13 15:46 | NUR ---
Pt signed DPOA for Healthcare paperwork giving her daughter Mia primary DPOA and her sister Annelise bryan. Family working on obtaining [facility] Community [facility] to assist in care at home.Copy of DPOA for health care decisions placed in pt chart and copies given to Annelise.
[2020-01-13] MEDS ORDERED: TROUGH ORDER-PHARMACY XX ONE ×2 (16:00)
[2020-01-13] MEDS: VENETOCLAX PO SCH (16:17)
--- NOTE | 2020-01-13 16:31 | NUR ---
C/O OF PAIN IN RIGHT UPPER PICC LINE. RATES PAIN 05/21. STATES "IT'S HURT EVER SINCE THEY PUT IT IN." [facility] GIVEN PO. ICE PACK TO RIGHT UPPER ARM AND PUT RIGHT ARM ON A PILLOW. SL. BLOODY DRAINAGE ON PICC LINE DRESSING. NO FIRMNESS OR REDNESS AT SITE OF PICC LINE.
--- NOTE | 2020-01-13 17:30 | NUR ---
PT. STATES HER RIGHT ARM ARM IS FEELING BETTER. NO ACTIVE BLEEDING NOTED.
[2020-01-13] MEDS ORDERED: CEFEPIME 2 GM (MAXIPIME) VIAL ONE (21:09)
[2020-01-13] MEDS ORDERED: WATER (STERILE) FOR INJECTION 20 ML ONE (21:09)
[2020-01-13] MEDS: SIMvastatin 10 MG (ZOCOR) TAB PO SCH (21:20)
[2020-01-14] VITALS (11 sets, daily range): BP systolic 146–180; BP diastolic 64–79
[2020-01-14] MEDS: inSUlin ASPART (NovoLOG) 1 UNIT/0.01 ML (CHARGE PER UNIT) SC SCH ×4 (05:29→21:14)
[2020-01-14] MEDS: ISOSORBIDE MONONITRATE 30 MG (IMDUR) TAB PO SCH (06:24)
[2020-01-14 06:34] LABS: HEMATOCRIT 23 % (35-52); HEMOGLOBIN 7.8 G/DL (11.5-16.0); MEAN CORPUSCULAR HEMOGLOBIN 30 PG (25-34); MEAN CORPUSCULAR HGB CONC 34 G/DL (32-36); MEAN CORPUSCULAR VOLUME 88 FL (80-99); RED CELL DISTRIBUTION WIDTH 16.7 % (10.0-14.5)
[2020-01-14 06:38] LABS: WHITE BLOOD COUNT 0.9 10^3/uL (4.3-11.0)
[2020-01-14 06:42] LABS: PLATELET COUNT 9 10^3/uL (130-400)
--- NOTE | 2020-01-14 06:53 | NUR ---
NOTIFIED DR ESTRELLA OF CRITICAL LAB RESULTS. ORDERED ONE UNIT OF PLATELETS
--- NOTE | 2020-01-14 06:56 | Progress Note - Hospitalist ---
Subjective HPI/CC On Admission Date Seen by Provider: Jan 14, 2020 Time Seen by Provider: 09:30 CC: Severe anemia with altered mental status HPI: This is a 69yoWF of [facility] who sees Dr. Thurman for anemia and AML who presented to the [place] ER with altered mental status found to have sodium level of 127, white count 0.9 and Hgb in the 7 range. She was admitted given 1 unit of blood and 1 unit of platelets, she was swabbed for COVID-[address] Garber was notified, creatinine remains at 2.0, sodium level 129, but white count at 3.5. At this current time, Pt is in isolation, all PPE placed before seen by this examiner. Subjective/Events-last exam White count 0.9 Hgb 7.8 Platelet count 9,000 Awaiting insurance approval from [employer] for inpatient rehab Will discontinue catheter today Bowels are moving Eating and drinking Overall doing much better but still very weak Has an appointment at on January 26 to evaluate bone marrow to see if the chemotherapy is working Review of Systems General: Fatigue Focused Exam Lactate Level Objective Exam Vital Signs Vital Signs Date Time Temp Pulse Resp B/P (MAP) Pulse Ox O2 Delivery O2 Flow Rate FiO2 01/14/20 20:06 36.8 79 18 180/70 (106) 100 Nasal Cannula 2.00 01/14/20 10:56 21 Capillary Refill : Less Than 3 Seconds General Appearance: No Apparent Distress, WD/WN, Chronically ill, Obese Respiratory: Chest Non Tender, Lungs Clear, Normal Breath Sounds, No Accessory Muscle Use, No Respiratory Distress Cardiovascular: Regular Rate, Rhythm, No Edema, No Gallop, No JVD, No Murmur, Normal Peripheral Pulses Neurologic/Psychiatric: Alert, Oriented x3, No Motor/Sensory Deficits, Normal Mood/Affect Results/Procedures Lab Laboratory Tests 01/14/20 06:23 Patient resulted labs reviewed. Assessment/Plan Assessment and Plan Assess & Plan/Chief Complaint Assessment: AMS Severe anemia requiring transfusions Severe thrombocytopenia requiring platelet transfusion AML Hyponatremia Neutropenia requiring broad spectrum abx s/p DC Vanc Plan: Supportive care COVID-19 swab negative Transfuse prn Consult Dr Thurman appreciated DC Vanc PT OT IRF? Diagnosis/Problems Diagnosis/Problems (1) Symptomatic anemia Status: Acute (2) AML (acute myeloid leukemia) Status: Acute (3) Elevated lactic acid level Status: Acute (4) Syncope Status: Acute (5) Pancytopenia Status: Acute (6) Hyponatremia Status: Acute (7) History of lymphoma Status: Acute Clinical Quality Measures DVT/VTE Risk/Contraindication: Risk Factor Score Per Nursin RFS Level Per Nursing on Admit: 4+=Very High Contraindications-Pharm: Other *list below* Other: low platelets MONTSERRAT HUANG DO Jan 14, 2020 06:56
[2020-01-14 06:59] LABS: ALBUMIN 2.5 GM/DL (3.2-4.5); BILIRUBIN,TOTAL 0.5 MG/DL (0.1-1.0); CALCIUM 7.6 MG/DL (8.5-10.1); CREATININE SERUM 1.28 MG/DL (0.60-1.30); POTASSIUM 4.3 MMOL/L (3.6-5.0)
[2020-01-14] MEDS ORDERED: NS IV 500 ML 500 ML IV PRN (07:45)
[2020-01-14 08:14] LABS: LYMPHOCYTES % (MANUAL) 61 %; MONOCYTES % (MANUAL) 22 %; NEUTROPHILS % (MANUAL) 5 %
[2020-01-14 08:15] LABS: ANISOCYTOSIS SLIGHT; ATYPICAL LYMPHOCYTES 12 %; BASOPHILS % (MANUAL) 0 %; EOSINOPHILS % (MANUAL) 0 %
[2020-01-14] MEDS ORDERED: POSACONAZOLE 300 MG PO SCH (09:00)
[2020-01-14] MEDS: CARVEDILOL 6.25 MG (COREG) TAB PO SCH ×2 (10:23→21:13)
[2020-01-14] MEDS: GABAPENTIN 300 MG (NEURONTIN) CAP PO SCH ×2 (10:23→21:13)
[2020-01-14] MEDS: ALLOPURINOL 300 MG (ZYLOPRIM) TAB PO SCH (10:23)
[2020-01-14] MEDS: VITAMIN D3 10 MCG (400 UNITS) TABLET PO SCH (10:23)
[2020-01-14] MEDS: SENNA W/DOCUSATE (SENOKOT S) TABLET PO SCH ×3 (10:23→21:16)
[2020-01-14] MEDS: VENETOCLAX PO SCH (10:24)
[2020-01-14] MEDS: CYANOCOBALAMIN 1,000 MCG (VITAMIN B-12) TABLET PO SCH (10:24)
[2020-01-14] MEDS: ACYCLOVIR 400 MG TABLET (ZOVIRAX) PO SCH ×2 (10:24→21:13)
[2020-01-14] MEDS: CEFEPIME INJECTION 2,000 MG in WATER (STERILE) FOR INJECTION 20 ML IV SCH ×2 (10:45→21:13)
--- NOTE | 2020-01-14 11:18 | Physical Therapy Daily Note ---
PT Daily Note-Current Subjective Patient states she feels she is at her baseline and agrees to PT. Patient reports she desires to return to home this week. Pain Numeric Pain Scale: 0-No Pain Location: No Pain Reported Mental Status Patient Orientation: Normal For Age Attachments: IV Transfers SCALE: Activities may be completed with or without assistive devices. 1-Hqgtbjzvdj-odrcyxv completes the activity by him/herself with no assistance f rom a helper. 5-Set-up or Clean-up Assistance-helper sets up or cleans up; patient completes activity. Redford assists only prior to or following the activity. 4-Supervision or Touching Assistance-helper provides verbal cues and/or touching/steadying and/or contact guard assistance as patient completes activity. Assistance may be provided throughout the activity or intermittently. 3-Partial/Moderate Assistance-helper does LESS THAN HALF the effort. Redford lifts, holds or supports trunk or limbs, but provides less than half the effort. 2-Substantial/Maximal Assistance-helper does MORE THAN HALF the effort. Redford lifts or holds trunk or limbs and provides more than half the effort. 0-Ohpixquys-mlgknn does ALL the effort. Patient does none of the effort to complete the activity. Or, the assistance of 2 or more helpers is required for the patient to complete the activity. If activity was not attempted, code reason: 7-Patient Refused. 9-Not Applicable-not attempted and the patient did not perform the activity before the current illness, exacerbation or injury. 10-Not Attempted due to Environmental Limitations-(lack of equipment, weather restraints, etc.). 88-Not Attempted due to Medical Conditions or Safety Concerns. Roll Left & Right (QC): 6 Lying to Sitting/Side of Bed(Q: 6 Sit to Stand (QC): 6 Chair/Tcy-ee-Cptyo Xfer(QC): 6 Gait Training Does the Patient Walk?: Yes Distance: 800' Walk 10 feet (QC): 6 Walk 50 ft with 2 Turns(QC): 6 Walk 150 ft (QC): 6 Gait Assistive Device: FWW safe and functional with no deviation Assessment Daughter present end of treatment and states patient is at her PLOF. Patient has FWW at home for use PRN. Patient is highly motivated with progress and feeling better. PT Longterm Goals Imaging Engineer Goals PT Imaging Engineer Goals Time Frame: Jan 20, 2020 Roll Left & Right (QC): 6 Sit to Lying (QC): 6 Lying-Sitting on Side/Bed(QC): 6 Sit to Stand (QC): 6 Chair/Xyv-tl-Wlxuf Xfer(QC): 6 Walk 10 feet (QC): 6 Walk 50ft with 2 Turns (QC): 6 Walk 150 ft (QC): 6 1 Step (curb) (QC): 6 4 Steps (QC): 6 PT Plan Treatment/Plan Treatment Plan: Continue Plan of Care Treatment Plan: Bed Mobility, Education, Functional Activity Chiara, Functional Strength, Gait, Safety, Therapeutic Exercise, Transfers Treatment Duration: Jan 20, 2020 Frequency: 6 times per week Estimated Hrs Per Day: .25 hour per day Patient and/or Family Agrees t: Yes Discharge Recommendations Therapy Discharge Recommendati: Home & Family Time/GCodes Time In: 1025 Time Out: 1036 Total Billed Treatment Time: 11 Total Billed Treatment 1 visit FA 11 min ARELIS POWERS PT Jan 14, 2020 11:18
--- NOTE | 2020-01-14 14:04 | NUR ---
IRF Received denial for admission from [facility]. Dr. Thurman unavailable to complete jgyg-wc-saju, if willing. Notified BRENDA Swartz of denial. Sheridan states patient likely interested in appealing the determination. Kenna in UR notified of patient's wishes. [facility] called to confirm option to appeal - this sports book writer provided confirmation. According to [facility] [place], a letter will be faxed with appeal instructions. Will continue to follow. Addendum: 01/14/20 at 1609 by MITA ZELAYA SS Met with patient and daughter to discuss appeal process. Denial letter provided. Daughter called the "fast appeal" line as this sports book writer was in the room. [facility] sales representative jewelry stated patient/patient's daughter will receive a call within 48 hours to complete appeal process. Will continue to follow.
--- NOTE | 2020-01-14 14:29 | Occupational Ther Daily Note ---
OT Current Status-Daily Note Subjective No pain reported. Appearance Pt. up in chair. Agrees to work with OT. Mental Status/Objective Patient Orientation: Person, Place, Time, Situation ADL-Treatment Therapy Code Descriptions/Definitions Functional Jessamine Measure: 0=Not Assessed/NA 4=Minimal Assistance 1=Total Assistance 5=Supervision or Setup 2=Maximal Assistance 6=Modified Jessamine 3=Moderate Assistance 7=Complete IndependenceSCALE: Activities may be completed with or without assistive devices. 1-Zzvmyafuma-ovpoiew completes the activity by him/herself with no assistance from a helper. 5-Set-up or Clean-up Assistance-helper sets up or cleans up; patient completes activity. Sandwich assists only prior to or following the activity. 4-Supervision or Touching Assistance-helper provides verbal cues and/or touching/steadying and/or contact guard assistance as patient completes activity. Assistance may be provided throughout the activity or intermittently. 3-Partial/Moderate Assistance-helper does LESS THAN HALF the effort. Sandwich lifts, holds or supports trunk or limbs, but provides less than half the effort. 2-Substantial/Maximal Assistance-helper does MORE THAN HALF the effort. Sandwich lifts or holds trunk or limbs and provides more than half the effort. 5-Zpmvzfmaz-vlawrj does ALL the effort. Patient does none of the effort to complete the activity. Or, the assistance of 2 or more helpers is required for the patient to complete the activity. If activity was not attempted, code reason: 7-Patient Refused. 9-Not Applicable-not attempted and the patient did not perform the activity before the current illness, exacerbation or injury. 10-Not Attempted due to Environmental Limitations-(lack of equipment, weather restraints, etc.). 88-Not Attempted due to Medical Conditions or Safety Concerns. On/Off Footwear: 5 Toileting Hygiene (QC): 1 Toilet Transfer (QC): 4 (SBA) Other Treatment Pt. up in chair. Daughter in room. Pt. agrees to work with OT. Pt. has already had shower this date, and states that it fatigued her. Pt. is able to doff/don slipper socks after set up. Pt. stood at side of chair with SBA for approximately 4 minutes. Pt. began to become incontinent of stool. Pt. ambulated to toilet in bathroom. Pt. attempted to cleanse gallito area, but unable to do so due to toilet hat. OT cleanse pt. Pt. able to ambulate approximately 800 feet with walker and SBA. Ambulated back to room. Transferred to chair and all needs met. Daughter conveys that she is concerned about pt going home due to steps. This was reported to PT. Education OT Patient Education: Correct positioning, Modified ADL techniques, Progress toward Goal/Update tx plan, Purpose of tx/functional activities, Reviewed precautions, Rehab process, Transfer techniques Teaching Recipient: Patient, Family Teaching Methods: Demonstration, Discussion Response to Teaching: Verbalize Understanding, Return Demonstration OT Teacher Private Goals Teacher Private Goals Time Frame: Jan 27, 2020 Eating (QC): 6 Oral Hygiene (QC): 6 Toileting Hygiene (QC): 4 Shower/Bathe Self (QC): 4 Upper Body Dressing (QC): 5 Lower Body Dressing (QC): 4 On/Off Footwear (QC): 4 Additional Goals: 1-Demonstrate ADL Tasks, 2-Verbalize Understanding, 3- ImproveStrength/Chiara 1=Demonstrate adherence to instructed precautions during ADL tasks. 2=Patient will verbalize/demonstrate understanding of assistive devices/modifications for ADL. 3=Patient will improve strength/tolerance for activity to enable patient to perform ADL's. OT Education/Plan Problem List/Assessment Assessment: Decreased Activ Tolerance, Impaired I ADL's, Impaired Self-Care Skills Discharge Recommendations Plan/Recommendations: Continue POC Therapy Discharge Recommendati: Post Acute OT Treatment Plan/Plan of Care Treatment,Training & Education: Yes Patient would benefit from OT for education, treatment and training to promote independence in ADL's, mobility, safety and/or upper extremity function for ADL's. Plan of Care: ADL Retraining, Functional Mobility, UE Funct Exercise/Act Treatment Duration: Jan 27, 2020 Frequency: 5 times per week Estimated Hrs Per Day: .25 hour per day Agreement: Yes Rehab Potential: Good Time/GCodes Start Time: 13:35 Stop Time: 14:04 Total Time Billed (hr/min): 29 Billed Treatment Time 1, ADL x 15minutes, FA x 14minutes JILLIAN WISDOM OT Jan 14, 2020 14:29
--- NOTE | 2020-01-14 16:36 | NUR ---
Pt's appeal of insurance denial for transfer to our Acute Rehab is pending. Met with pt and her daughter Mia who is also her DPOA. They will pursue intermediate home placement if denial stands as pt would be unable to manage in her home alone nor does she feel that her family can provide her adequate care at this time. will follow and assist.
--- NOTE | 2020-01-14 17:32 | NUR ---
PATIENT HAVING SHARP HEADACHE PAINS THAT ARE NOT LASTING LONG - DAUGHTER REQUESTED FOR THIS NURSE TO NOTIFY PHYSICIAN
[2020-01-14] MEDS: SIMvastatin 10 MG (ZOCOR) TAB PO SCH (21:13)
[2020-01-14] MEDS: ZINC OXIDE 40% (Butt Paste MAX/Desitin) 57 gm TOP SCH (21:14)
[2020-01-15] VITALS (9 sets, daily range): BP systolic 138–184; BP diastolic 67–83
[2020-01-15 05:57] LABS: HEMATOCRIT 23 % (35-52); MEAN CORPUSCULAR HEMOGLOBIN 31 PG (25-34); MEAN CORPUSCULAR HGB CONC 35 G/DL (32-36); MEAN CORPUSCULAR VOLUME 89 FL (80-99); RED CELL DISTRIBUTION WIDTH 16.4 % (10.0-14.5)
[2020-01-15 06:10] LABS: PLATELET COUNT 10 10^3/uL (130-400); WHITE BLOOD COUNT 0.8 10^3/uL (4.3-11.0)
[2020-01-15 06:19] LABS: ALBUMIN 2.7 GM/DL (3.2-4.5); BILIRUBIN,TOTAL 0.4 MG/DL (0.1-1.0); CALCIUM 8.4 MG/DL (8.5-10.1); CREATININE SERUM 1.21 MG/DL (0.60-1.30); POTASSIUM 4.1 MMOL/L (3.6-5.0); TOTAL PROTEIN 5.4 GM/DL (6.4-8.2)
[2020-01-15] MEDS: ISOSORBIDE MONONITRATE 30 MG (IMDUR) TAB PO SCH (06:40)
[2020-01-15] MEDS: inSUlin ASPART (NovoLOG) 1 UNIT/0.01 ML (CHARGE PER UNIT) SC SCH ×4 (06:40→20:39)
[2020-01-15 06:52] LABS: ATYPICAL LYMPHOCYTES 10 %; LYMPHOCYTES % (MANUAL) 55 %; METAMYELOCYTES % 10 %; MONOCYTES % (MANUAL) 15 %; NEUTROPHILS % (MANUAL) 10 %; PLATELET ESTIMATE 10
[2020-01-15 06:53] LABS: ANISOCYTOSIS MODERATE; POLYCHROMASIA SLIGHT
[2020-01-15] MEDS: GABAPENTIN 300 MG (NEURONTIN) CAP PO SCH ×2 (08:53→21:22)
[2020-01-15] MEDS: VENETOCLAX PO SCH (08:53)
[2020-01-15] MEDS: ACYCLOVIR 400 MG TABLET (ZOVIRAX) PO SCH ×2 (08:53→21:22)
[2020-01-15] MEDS: VITAMIN D3 10 MCG (400 UNITS) TABLET PO SCH (08:53)
[2020-01-15] MEDS: CEFEPIME INJECTION 2,000 MG in WATER (STERILE) FOR INJECTION 20 ML IV SCH ×2 (08:53→21:22)
[2020-01-15] MEDS: ALLOPURINOL 300 MG (ZYLOPRIM) TAB PO SCH (08:53)
[2020-01-15] MEDS: ZINC OXIDE 40% (Butt Paste MAX/Desitin) 57 gm TOP SCH ×2 (08:54→21:22)
[2020-01-15] MEDS: CYANOCOBALAMIN 1,000 MCG (VITAMIN B-12) TABLET PO SCH (08:59)
[2020-01-15] MEDS: CARVEDILOL 6.25 MG (COREG) TAB PO SCH ×2 (08:59→21:23)
[2020-01-15] MEDS: SENNA W/DOCUSATE (SENOKOT S) TABLET PO SCH ×2 (09:14→20:59)
--- NOTE | 2020-01-15 11:08 | Occupational Ther Daily Note ---
OT Current Status-Daily Note Subjective Pt seen in recliner chair, nursing and daughter present. Pt agrees to OT tx session, states already walked this date. pt states no pain, good amount of energy. Pt's daughter reports post-therapy and showering yesterday pt had limited energy. Mental Status/Objective Patient Orientation: Normal For Age ADL-Treatment Therapy Code Descriptions/Definitions Functional [place] Measure: 0=Not Assessed/NA 4=Minimal Assistance 1=Total Assistance 5=Supervision or Setup 2=Maximal Assistance 6=Modified [place] 3=Moderate Assistance 7=Complete IndependenceSCALE: Activities may be completed with or without assistive devices. 1-Sxenszmiof-lviejwf completes the activity by him/herself with no assistance from a helper. 5-Set-up or Clean-up Assistance-helper sets up or cleans up; patient completes activity. [place] assists only prior to or following the activity. 4-Supervision or Touching Assistance-helper provides verbal cues and/or touching/steadying and/or contact guard assistance as patient completes activity. Assistance may be provided throughout the activity or intermittently. 3-Partial/Moderate Assistance-helper does LESS THAN HALF the effort. [place] lifts, holds or supports trunk or limbs, but provides less than half the effort. 2-Substantial/Maximal Assistance-helper does MORE THAN HALF the effort. [place] lifts or holds trunk or limbs and provides more than half the effort. 0-Eixbpocaa-vuypxc does ALL the effort. Patient does none of the effort to complete the activity. Or, the assistance of 2 or more helpers is required for the patient to complete the activity. If activity was not attempted, code reason: 7-Patient Refused. 9-Not Applicable-not attempted and the patient did not perform the activity before the current illness, exacerbation or injury. 10-Not Attempted due to Environmental Limitations-(lack of equipment, weather restraints, etc.). 88-Not Attempted due to Medical Conditions or Safety Concerns. Eating (QC): 6 Shower/Bathe Self (QC): 7 Other Treatment Pt denies ADLs on this date. Agrees to theraband ex in sit/ stance. Pt educated on energy conservation and maintenance of energy. Pt completes HEP with min cues and demonstration of exercises. Pt stands to complete exercises at 2WW level with good energy and no LOB. Completes 5/5 exercises with 10-15 reps bilaterally. Pt then agrees to walking halls, walks up/ down [place] with 2WW with fair energy and no LOB/ breaks. pt returns to room, all needs met, call light in reach, returns to recliner with legs elevated. Daughter present. Education OT Patient Education: Correct positioning, Exercise program, Home exercise program, Progress toward Goal/Update tx plan, Purpose of tx/functional activities Teaching Recipient: Patient Teaching Methods: Demonstration, Handout, Discussion Response to Teaching: Verbalize Understanding, Return Demonstration OT Examination Scorer Goals Examination Scorer Goals Time Frame: Jan 27, 2020 Eating (QC): 6 Oral Hygiene (QC): 6 Toileting Hygiene (QC): 4 Shower/Bathe Self (QC): 4 Upper Body Dressing (QC): 5 Lower Body Dressing (QC): 4 On/Off Footwear (QC): 4 Additional Goals: 1-Demonstrate ADL Tasks, 2-Verbalize Understanding, 3- ImproveStrength/Chiara 1=Demonstrate adherence to instructed precautions during ADL tasks. 2=Patient will verbalize/demonstrate understanding of assistive devices/modifications for ADL. 3=Patient will improve strength/tolerance for activity to enable patient to perform ADL's. OT Education/Plan Problem List/Assessment Assessment: Decreased Activ Tolerance, Impaired I ADL's, Impaired Self-Care Skills Discharge Recommendations Plan/Recommendations: Continue POC Therapy Discharge Recommendati: Scheduled Assistance, Post Acute OT Treatment Plan/Plan of Care Treatment,Training & Education: Yes Patient would benefit from OT for education, treatment and training to promote independence in ADL's, mobility, safety and/or upper extremity function for ADL's. Plan of Care: ADL Retraining, Functional Mobility, UE Funct Exercise/Act Treatment Duration: Jan 27, 2020 Frequency: 5 times per week Estimated Hrs Per Day: .25 hour per day Agreement: Yes Rehab Potential: Good Time/GCodes Start Time: 09:15 Stop Time: 09:42 Total Time Billed (hr/min): 27 Billed Treatment Time 1, EX 2 (27) MARIAELENA URIBE OTR Jan 15, 2020 11:08
[2020-01-15 11:28] LABS: RSV PCR TEST Not Detected (Not Detected)
--- NOTE | 2020-01-15 11:38 | Physical Therapy Daily Note ---
PT Daily Note-Current Subjective Pt is up in the bedside chair, agreeable to treatment. Mental Status Patient Orientation: Person, Place, Time, Situation Transfers SCALE: Activities may be completed with or without assistive devices. 2-Oikrzqoiem-znrvkda completes the activity by him/herself with no assistance from a helper. 5-Set-up or Clean-up Assistance-helper sets up or cleans up; patient completes activity. [place] assists only prior to or following the activity. 4-Supervision or Touching Assistance-helper provides verbal cues and/or touching/steadying and/or contact guard assistance as patient completes activity. Assistance may be provided throughout the activity or intermittently. 3-Partial/Moderate Assistance-helper does LESS THAN HALF the effort. [place] lifts, holds or supports trunk or limbs, but provides less than half the effort. 2-Substantial/Maximal Assistance-helper does MORE THAN HALF the effort. [place] lifts or holds trunk or limbs and provides more than half the effort. 0-Xqtbxeuvq-asmnaw does ALL the effort. Patient does none of the effort to complete the activity. Or, the assistance of 2 or more helpers is required for the patient to complete the activity. If activity was not attempted, code reason: 7-Patient Refused. 9-Not Applicable-not attempted and the patient did not perform the activity before the current illness, exacerbation or injury. 10-Not Attempted due to Environmental Limitations-(lack of equipment, weather restraints, etc.). 88-Not Attempted due to Medical Conditions or Safety Concerns. Roll Left & Right (QC): 6 Sit to Lying (QC): 6 Lying to Sitting/Side of Bed(Q: 6 Sit to Stand (QC): 6 Chair/Xyx-yp-Ealgf Xfer(QC): 6 Gait Training Does the Patient Walk?: Yes Distance: 400ft Walk 10 feet (QC): 6 Walk 50 ft with 2 Turns(QC): 6 Walk 150 ft (QC): 6 Gait Assistive Device: FWW Stair Training #of Steps: 12 1 Step (curb) (QC): 6 4 Steps (QC): 6 12 Steps (QC): 6 Stairs: Pattern: Reciprocal Treatments Performed stair training, including managing the door to/from the stairwell. She used the (R) hand rail on ascent and the (L) on descent to replicate her home situation. Assessment Current Status: Good Progress Excellent stability and safety awareness throughout the treatment today. 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 Residential Goals 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 Time Frame: Jan 20, 2020 Roll Left & Right (QC): 6 Sit to Lying (QC): 6 Lying-Sitting on Side/Bed(QC): 6 Sit to Stand (QC): 6 Chair/Gap-mc-Cggxa Xfer(QC): 6 Walk 10 feet (QC): 6 Walk 50ft with 2 Turns (QC): 6 Walk 150 ft (QC): 6 1 Step (curb) (QC): 6 4 Steps (QC): 6 PT Plan Treatment/Plan Treatment Plan: Continue Plan of Care Treatment Plan: Bed Mobility, Education, Functional Activity Chiara, Functional Strength, Gait, Safety, Therapeutic Exercise, Transfers Treatment Duration: Jan 20, 2020 Frequency: 6 times per week Estimated Hrs Per Day: .25 hour per day Patient and/or Family Agrees t: Yes Time/GCodes Time In: 0825 Time Out: 0840 Total Billed Treatment Time: 15 Total Billed Treatment 1, gt 15 MICKEY LATHAM PT Jan 15, 2020 11:38
[2020-01-15] MEDS ORDERED: NS IV 500 ML 500 ML IV NR (12:13)
--- NOTE | 2020-01-15 12:25 | Progress Note - Hospitalist ---
Subjective HPI/CC On Admission Date Seen by Provider: Jan 15, 2020 Time Seen by Provider: 12:00 CC: Severe anemia with altered mental status HPI: This is a 69yoWF of [facility] who sees Dr. Thurman for anemia and AML who presented to the [place] ER with altered mental status found to have sodium level of 127, white count 0.9 and Hgb in the 7 range. She was admitted given 1 unit of blood and 1 unit of platelets, she was swabbed for COVID-[address] Garber was notified, creatinine remains at 2.0, sodium level 129, but white count at 3.5. At this current time, Pt is in isolation, all PPE placed before seen by this examiner. Subjective/Events-last exam Patient says she feels a little bit better today. platelet count is 10,000. She has multiple petechiae but no new sites of bleeding other than a slightly bloody nose. Discussed with Dr. Miranda who requests continued transfusion. Review of Systems Neurological: Weakness Objective Exam Vital Signs Vital Signs Date Time Temp Pulse Resp B/P (MAP) Pulse Ox O2 Delivery O2 Flow Rate FiO2 01/15/20 19:48 37.2 84 18 184/73 (110) 100 Nasal Cannula 01/15/20 10:26 2.00 01/14/20 10:56 21 Capillary Refill : Less Than 3 Seconds General Appearance: Chronically ill HEENT: Pale Conjunctivae (R) Neck: Non Tender, Limited Range of Motion Respiratory: Chest Non Tender, Lungs Clear, Normal Breath Sounds, No Accessory Muscle Use, No Respiratory Distress Cardiovascular: Regular Rate, Rhythm, No Gallop, No Murmur Gastrointestinal: Soft Extremity: Pedal Edema Results/Procedures Lab Laboratory Tests 01/15/20 05:50 Patient resulted labs reviewed. Assessment/Plan Assessment and Plan Assess & Plan/Chief Complaint Pancytopenia Severe thrombocytopenia requiring platelet transfusion AML Hyponatremia-resolved Neutropenia requiring antibiotic antiviral and antifungal prophylaxis Dehydration resolved Clinical Quality Measures DVT/VTE Risk/Contraindication: Risk Factor Score Per Nursin RFS Level Per Nursing on Admit: 4+=Very High Contraindications-Pharm: Other *list below* Other: low platelets SALO MARIE MD Jan 15, 2020 12:25
--- NOTE | 2020-01-15 13:51 | NUR ---
IRF In partnership with patient and daughter, call made to [employer] to check status of fast appeal. According to [employer] territory service representative the appeal has yet to be processed. The territory service representative stated she would place the fast appeal into a "critical" status; meaning as soon as the claim number is calculated they will process the fast appeal. CM/SS notified. Will continue to follow.
--- NOTE | 2020-01-15 20:45 | NUR ---
Dr Oseguera notified of concerns of HS dose of Levermir with running lower tonight and her am low results this am. 12 units of Levermir to be given instead ordered for tonight
[2020-01-15] MEDS: SIMvastatin 10 MG (ZOCOR) TAB PO SCH (21:22)
[2020-01-16 04:55] VITALS: BP 160/65
[2020-01-16 05:26] LABS: HEMATOCRIT 21 % (35-52); HEMOGLOBIN 7.1 G/DL (11.5-16.0); MEAN CORPUSCULAR HEMOGLOBIN 30 PG (25-34); MEAN CORPUSCULAR HGB CONC 33 G/DL (32-36); MEAN CORPUSCULAR VOLUME 89 FL (80-99); RED CELL DISTRIBUTION WIDTH 16.6 % (10.0-14.5)
[2020-01-16 05:28] LABS: PLATELET COUNT 6 10^3/uL (130-400); WHITE BLOOD COUNT 0.7 10^3/uL (4.3-11.0)
[2020-01-16 05:39] LABS: POTASSIUM 4.3 MMOL/L (3.6-5.0)
[2020-01-16 05:40] LABS: CALCIUM 8.6 MG/DL (8.5-10.1)
[2020-01-16 05:45] LABS: CREATININE SERUM 1.32 MG/DL (0.60-1.30)
[2020-01-16] MEDS: inSUlin ASPART (NovoLOG) 1 UNIT/0.01 ML (CHARGE PER UNIT) SC SCH ×2 (06:13→11:14)
[2020-01-16] MEDS: ISOSORBIDE MONONITRATE 30 MG (IMDUR) TAB PO SCH (06:31)
[2020-01-16 07:11] VITALS: BP 146/64
--- NOTE | 2020-01-16 07:22 | NUR ---
PT IS IN NO RESPIRATORY DISTRESS. PT DENIES ANY SOB. WILL CONTINUE TO MONITOR Addendum: 01/16/20 at 0723 by GABY LOPEZ RT Amended: Links added.
[2020-01-16] MEDS: VITAMIN D3 10 MCG (400 UNITS) TABLET PO SCH (08:59)
[2020-01-16] MEDS: VENETOCLAX PO SCH (08:59)
[2020-01-16] MEDS: ALLOPURINOL 300 MG (ZYLOPRIM) TAB PO SCH (08:59)
[2020-01-16] MEDS: GABAPENTIN 300 MG (NEURONTIN) CAP PO SCH (08:59)
[2020-01-16] MEDS: CARVEDILOL 6.25 MG (COREG) TAB PO SCH (08:59)
[2020-01-16] MEDS: CEFEPIME INJECTION 2,000 MG in WATER (STERILE) FOR INJECTION 20 ML IV SCH (08:59)
[2020-01-16] MEDS: CYANOCOBALAMIN 1,000 MCG (VITAMIN B-12) TABLET PO SCH (08:59)
[2020-01-16] MEDS: ACYCLOVIR 400 MG TABLET (ZOVIRAX) PO SCH (09:00)
[2020-01-16] MEDS: ZINC OXIDE 40% (Butt Paste MAX/Desitin) 57 gm TOP SCH (09:00)
[2020-01-16] MEDS: SENNA W/DOCUSATE (SENOKOT S) TABLET PO SCH (09:01)
[2020-01-16 12:10] VITALS: BP 146/64
--- NOTE | 2020-01-16 12:15 | NUR ---
IRF Received notification from patient's daughter, Mia, that the fast appeal was completed and the denial overturned. Mia has provided this verse writer with the authorization number established by [employer]. Patient to admit to ARU, 01/16/20.
[2020-01-16 12:25] VITALS: BP 183/86
--- NOTE | 2020-01-16 12:51 | Discharge Summary ---
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 Garber Discharge Physical Exam Allergies: Coded Allergies: midazolam (Unverified Allergy, Unknown, MAKE PT HYPER AND ANXIOUS, 05/28/14) Vitals & I&Os Vital Signs Date Time Temp Pulse Resp B/P (MAP) Pulse Ox O2 Delivery O2 Flow Rate FiO2 01/16/20 12:10 36.7 71 18 146/64 96 Room Air 01/16/20 07:32 2.00 01/14/20 10:56 21 General Appearance: Obese HEENT: Normal ENT Inspection Respiratory: Chest Non Tender, Lungs Clear, Normal Breath Sounds, No Accessory Muscle Use, No Respiratory Distress Cardiovascular: Regular Rate, Rhythm, No Edema, No Gallop, No JVD, No Murmur, Normal Peripheral Pulses Gastrointestinal: Normal Bowel Sounds, Non Tender, Soft Extremity: Normal Inspection, Non Tender, Other (multiple ecchymosis) Skin: Ecchymosis, Pallor Neurologic/Psychiatric: Alert, Oriented x3, No Motor/Sensory Deficits, Normal Mood/Affect Hospital Course Was the Problem List Reviewed?: Yes patient was admitted with a syncopal episode and pancytopenia. She was found to have a low sodium and a slightly elevated potassium. The patient had recently had chemotherapy for her AML and has had persistent pancytopenia and is transfusion dependent on platelets. The patient has been maintained on this hospitalization on antibacterial medications antifungal and antiviral. She has been somewhat weak and is being transferred to rehabilitation for physical therapy and strengthening. COVID-19 was negative and blood cultures were negative as well. Labs (last 24 hrs) Laboratory Tests 01/15/20 15:27: Glucometer 227H 01/15/20 20:31: Glucometer 147H 01/16/20 04:55: White Blood Count 0.7*L, Red Blood Count 2.40L, Hemoglobin 7.1L, Hematocrit 21L, Mean Corpuscular Volume 89, Mean Corpuscular Hemoglobin 30, Mean Corpuscular Hemoglobin Concent 33, Red Cell Distribution Width 16.6H, Platelet Count 6*L, Mean Platelet Volume , Neutrophils (%) (Auto) , Lymphocytes (%) (Auto) , Monocytes (%) (Auto) , Eosinophils (%) (Auto) , Basophils (%) (Auto) , Neutrophils # (Auto) , Lymphocytes # (Auto) , Monocytes # (Auto) , Eosinophils # (Auto) , Basophils # (Auto) , Sodium Level 137, Potassium Level 4.3, Chloride Level 105, Carbon Dioxide Level 23, Anion Gap 9, Blood Urea Nitrogen 23H, Creatinine 1.32H, Estimat Glomerular Filtration Rate 40, BUN/Creatinine Ratio 17, Glucose Level 155H, Calcium Level 8.6 01/16/20 10:28: Glucometer 346H Microbiology 01/11/20 Blood Culture - Preliminary, Resulted No growth 01/11/20 MRSA Screen - Final, Complete MRSA not isolated Patient resulted labs reviewed. Pending Labs Laboratory Tests 01/16/20 04:55: White Blood Count 0.7, Red Blood Count 2.40, Hemoglobin 7.1, Hematocrit 21, Mean Corpuscular Volume 89, Mean Corpuscular Hemoglobin 30, Mean Corpuscular Hemoglobin Concent 33, Red Cell Distribution Width 16.6, Platelet Count 6, Mean Platelet Volume , Neutrophils (%) (Auto) , Lymphocytes (%) (Auto) , Monocytes (%) (Auto) , Eosinophils (%) (Auto) , Basophils (%) (Auto) , Neutrophils # (Auto) , Lymphocytes # (Auto) , Monocytes # (Auto) , Eosinophils # (Auto) , Basophils # (Auto) , Sodium Level 137, Potassium Level 4.3, Chloride Level 105, Carbon Dioxide Level 23, Anion Gap 9, Blood Urea Nitrogen 23, Creatinine 1.32, Estimat Glomerular Filtration Rate 40, BUN/Creatinine Ratio 17, Glucose Level 155, Calcium Level 8.6 01/16/20 10:28: Glucometer 346 Imaging: Reviewed Imaging Report Discussion & Recommendations Discharge Planning: <30 minutes discharge planning Discharge Home Medications: Active Scripts Active Reported Novolog Flexpen (Insulin Aspart) 300 Units/3 Ml Solution Units SC PER SLIDING SCALE Lantus Solostar (Insulin Glargine,Hum.rec.anlog) 100 Unit/1 Ml Insuln.pen 24 Units SC BID Xanax (Alprazolam) 0.5 Mg Tablet 0.5 Mg PO TID PRN Cefuroxime (Cefuroxime Axetil) 250 Mg Tablet 250 Mg PO BID Zofran (Ondansetron HCl) 8 Mg Tablet 8 Mg PO Q8H PRN Venclexta (Venetoclax) 100 Mg Tablet 100 Mg PO DAILY TAKE WITH FOOD Vitamin D3 (Vitamin D) 10 Mcg Tablet 1,000 Units PO DAILY Vitamin B-12 (Cyanocobalamin (Vitamin B-12)) 1,000 Mcg Tablet 1,000 Mcg PO DAILY Citalopram HBr (Citalopram Hydrobromide) 20 Mg Tablet 20 Mg PO DAILY Isosorbide Mononitrate 20 Mg Tablet 30 Mg PO DAILY Carvedilol 6.25 Mg Tablet 6.25 Mg PO BID Acyclovir 400 Mg Tablet 400 Mg PO BID Posaconazole 100 Mg Tablet.dr 300 Mg PO DAILY TAKE WITH FOOD TAKES 3 (100MG) TABS Allopurinol 300 Mg Tablet 300 Mg PO DAILY Simvastatin 10 Mg Tablet 10 Mg PO HS Gabapentin 300 Mg/6 Ml Solution 300 Mg PO BID Condition at discharge guarded Instructions to patient/family Please see electronic discharge instructions given to patient. Clinical Quality Measures DVT/VTE Risk/Contraindication: Risk Factor Score Per Nursin RFS Level Per Nursing on Admit: 4+=Very High Contraindications-Pharm: Other *list below* Other: low platelets Copy Copies To 1: [facility]/SALO LEYVA MD Jan 16, 2020 12:51
--- NOTE | 2020-01-16 13:36 | NUR ---
DISCHARGED TO IRF REPORT GIVEN TO RAHEL ROSE
[2020-01-16 14:56] VITALS: BP 156/81
== END 2020-01-16 13:35 | DRG 872 ==
LOC: EDUNIT# 16:10 → ER FS 16:11 → ICU 17:40 → 4TH 01-13 13:23
PROVIDERS: ADMIT Internal Medicine; ATTEND Internal Medicine
DX: A41.9 Sepsis, unspecified organism (principal); D61.818 Other pancytopenia; C92.00 Acute myeloblastic leukemia, not having achieved remission; E87.2 Acidosis; N17.9 Acute kidney failure, unspecified; E87.1 Hypo-osmolality and hyponatremia; I42.9 Cardiomyopathy, unspecified; C85.90 Non-Hodgkin lymphoma, unspecified, unspecified site; Z68.41 Body mass index [BMI] 40.0-44.9, adult; R09.02 Hypoxemia; I11.0 Hypertensive heart disease with heart failure; I50.9 Heart failure, unspecified; I25.10 Atherosclerotic heart disease of native coronary artery without angina pectoris; E11.9 Type 2 diabetes mellitus without complications; E78.00 Pure hypercholesterolemia, unspecified; D69.6 Thrombocytopenia, unspecified; E86.0 Dehydration; K21.9 Gastro-esophageal reflux disease without esophagitis; E66.9 Obesity, unspecified; F41.9 Anxiety disorder, unspecified; F32.9 Major depressive disorder, single episode, unspecified; Z95.5 Presence of coronary angioplasty implant and graft; Z95.1 Presence of aortocoronary bypass graft; Z79.4 Long term (current) use of insulin; Z79.899 Other long term (current) drug therapy; Z20.828 Contact with and (suspected) exposure to other viral communicable diseases
CPT/HCPCS: 36415; 36569; 70450; 71045; 76937; 80048; 80053; 81000; 82140; 82550; 82805; 82962; 83605; 83735; 83880; 84100; 84484; 85007; 85014; 85018; 85025; 85027; 85049; 85610; 85730; 86769; 86850; 86900; 86901; 86920; 87040; 87081; 87449; 87631; 87635; 87804; 87899; 93005; 94760; 96360; 96361

== ENCOUNTER → 2020-01-11 | Outpatient (CLI) | payer MEDICARE, MEDICAID ==
[~2020-01-11] MED LIST: ACYC400T PO; ALLO300T2 PO; ALPR0.5T PO; ALPR0.5T7 PO; CARV6.252 PO; CEFU250T80 PO; CITA20TA9 PO; CYAN-41 PO; GABA300S2 PO; INSU100I10 SC; INSU100I14 SC; ISOS20TA73 PO; NF-VITD400 PO; ONDA8TAB6 PO; POSA100T2 PO; SIMV10TA26 PO; VENE100T PO
[2020-01-11 09:11] LABS: HEMATOCRIT 25 % (35-52); HEMOGLOBIN 8.2 G/DL (11.5-16.0); MEAN CORPUSCULAR HEMOGLOBIN 31 PG (25-34); MEAN CORPUSCULAR VOLUME 95 FL (80-99)
[2020-01-11 09:12] LABS: MEAN CORPUSCULAR HGB CONC 33 G/DL (32-36); RED CELL DISTRIBUTION WIDTH 19.6 % (10.0-14.5)
[2020-01-11 09:14] LABS: PLATELET COUNT 12 10^3/uL (130-400)
[2020-01-11 09:15] LABS: BASOPHILS % (AUTO) 0 % (0-10); EOSINOPHILS % (AUTO) 1 % (0-10); LYMPHOCYTES % (AUTO) 32 % (12-44); MONOCYTES % (AUTO) 48 % (0-12); NEUTROPHILS # (AUTO) 0.1 X 10^3 (1.8-7.8)
[2020-01-11 09:16] LABS: LYMPHOCYTES # (AUTO) 0.7 X 10^3 (1.0-4.0); NEUTROPHILS % (AUTO) 4 % (42-75)
[2020-01-11 09:36] LABS: CREATININE SERUM 1.83 MG/DL (0.60-1.30); POTASSIUM 4.8 MMOL/L (3.6-5.0)
[2020-01-11 09:38] LABS: ALBUMIN 2.6 GM/DL (3.2-4.5); BILIRUBIN,TOTAL 0.3 MG/DL (0.1-1.0); CALCIUM 8.7 MG/DL (8.5-10.1); TOTAL PROTEIN 5.4 GM/DL (6.4-8.2)
[2020-01-11 15:32] LABS: URIC ACID 2.7 MG/DL (2.6-7.2)
== END ==
LOC: LAB FS 08:25
PROVIDERS: ATTEND Internal Medicine Hematology & Oncology
DX: C92.00 Acute myeloblastic leukemia, not having achieved remission (principal)
CPT/HCPCS: 36415; 80053; 84550; 85025

== ENCOUNTER 2020-01-16 12:12 | Inpatient (IN) | payer MEDICARE, MEDICAID ==
[~2020-01-16] VITALS: Ht 154.9 cm; Wt 102.8 kg
[~2020-01-16 12:12] MED LIST changes: +ALPR0.5T PO; +INSU100I10 SC; +INSU100I14 SC
[2020-01-16] MEDS ORDERED: guaiFENesin/CODEINE (ROBITUSSIN AC) 10ML UDC PO PRN (12:45)
[2020-01-16] MEDS ORDERED: BISACODYL 10 MG SUPP (DULCOLAX) PR PRN (12:45)
[2020-01-16] MEDS ORDERED: CALCIUM CARBONATE 500 MG (TUMS) TAB.CHEW PO PRN ×2 (12:45→14:45)
[2020-01-16] MEDS ORDERED: ONDANSETRON 4 MG (ZOFRAN) ORAL DISSOLVE TAB PO PRN ×2 (12:45→14:45)
[2020-01-16] MEDS ORDERED: diphenhydrAMINE 25 MG TAB (BENADRYL) PO PRN ×2 (12:45→14:45)
[2020-01-16] MEDS ORDERED: MELATONIN 3 MG TABLET PO PRN ×2 (12:45→14:45)
[2020-01-16] MEDS ORDERED: ALPRAZolam 0.25 MG (XANAX) TAB PO PRN (12:45)
[2020-01-16] MEDS ORDERED: FLEET ENEMA ADULT 1 EA BTL PR PRN (12:45)
[2020-01-16] MEDS ORDERED: LOPERAMIDE 2 MG (IMODIUM) TABLET PO PRN (12:45)
[2020-01-16] MEDS ORDERED: DOCUSATE SODIUM 100 MG (COLACE) CAP PO PRN ×2 (12:45→14:45)
[2020-01-16] MEDS ORDERED: LACTULOSE SYRUP 10GM/15ML (ENULOSE) 30ML UDC PO PRN (12:45)
--- NOTE | 2020-01-16 13:50 | NUR ---
LORI IRELAND admitted to room 230, with an admitting diagnosis of CHEMOTHERAPY NEUROPATHY, on 01/16/20 from [facility]TH FLOOR via WHEELCHAIR, accompanied by THERAPY. LORI IRELAND introduced to surroundings, call light, bed controls, phone, TV, temperature control, lights, meal times, smoking policy, visitor policy, side rail policy, bathrooms and showers. Patient Rights given to patient in the handbook. LORI IRELAND verbalizes understanding that [facility] is not responsible for the loss or damage to any personal effects or valuables that are kept in the patient's possession during their hospitalization. The following Patient Care Plans were discussed with the PATIENT: Discharge Planning, SELF CARE DEFICIT, ACTIVITY INTOLERANCE, and KNOWLEDGE DEFICIT: ANEMIA. LORI IRELAND verbalizes understanding of Interdisciplinary Patient Education. Patient received Patient Rights Booklet, which includes Privacy Act Statement and Data Collection Information Summary.
--- OUTSIDE RECORDS SUMMARY | 2020-01-16 14:10 | XMS REPORT | Continuity of Care Document ---
Author Organization Unknown Address Unknown Phone Unavailable Allergies Active Description Code Type Severity Reaction Onset Reported/Identified Relationship to Patient Clinical Status Yes midazolam [id number] Drug Allergy Unknown MAKE PT HYPER A [...] Ot I25.1 0 ATHSCL HEART DISEASE OF [place] CORONARY 06/27/2019 ASHLEY HESS MD Ot R07.9 CHEST PAIN, UNSPECIFIED 06/27/2019 ASHLEY HESS MD Ot R10.1 3 EPIGASTRIC [...] Ot I25.1 0 ATHSCL HEART DISEASE OF [place] CORONARY 06/29/2019 ASHLEY HESS MD Ot R07.9 [...] [place] DIS UNSPEC EXTRANODAL SOLID O 07/01/2019 JOSE RUFFIN MD Ot 721. 2 THORACIC [...] Ot I25.1 0 ATHSCL HEART DISEASE OF [place] CORONARY 07/23/2019 ASHLEY HESS MD Ot R07.9 [...] CHRONIC KIDNEY DISEASE, STAGE 3 (MODERAT 10/21/2019 REID CORDERO MDSIM Ot 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 [place] LYMPHOMA, LYMP 10/21/2019 CONSUELO NAVARRO KIT Ot K57. 30 DVRTCLOS OF LG INT W/O PERFORATION OR AB 10/21/2019 CONSUELO NAVARRO KIT Ot Z95.828 PRESENCE OF OTHER VASCULAR IMPLANTS AND 11/03/2019 CONSUELO NAVARRO KIT Ot 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/O PERFORATION OR AB 11/03/2019 CONSUELO NAVARRO KIT Ot Z95.828 PRESENCE OF OTHER VASCULAR IMPLANTS AND 11/28/2019 ROVENSTINE DOTOYA Ot D61.818 OTHER PANCYTOPENIA 11/28/2019 ROVENSTINE DO, TOYA L Ot E11.9 TYPE 2 DIABETES MELLITUS WITHOUT COMPLIC 11/28/2019 ROVENSTINE DO, TOYA L Ot I11.0 HYPERTENSIVE HEART DISEASE WITH HEART FA 11/28/2019 ROVENSTINE DO, TOYA L Ot I50.9 HEART FAILURE, UNSPECIFIED 11/28/2019 ROVENSTINE DO, TOYA L Ot R07.89 OTHER CHEST PAIN 11/28/2019 ROVENSTINE DO, TOYA L Ot R07.9 CHEST PAIN, UNSPECIFIED 11/28/2019 ROVENSTINE DO, TOYA L Ot Z85.79 PRSNL HX OF MALIG NEOPLM OF [place], HE 11/28/2019 ROVENSTINE DO, TOYA L Ot Z88.8 ALLERGY STATUS TO OTH DRUG/MEDS/BIOL SUB 11/28/2019 ROVENSTINE DO, TOYA L Ot Z95.1 PRESENCE OF AORTOCORONARY BYPASS GRAFT 12/01/2019 ROVENSTINE DO, TOYA L Ot D61.818 OTHER PANCYTOPENIA 12/01/2019 ROVENSTINE DO, TOYA L Ot E11.9 TYPE 2 DIABETES MELLITUS WITHOUT COMPLIC 12/01/2019 ROVENSTINE DO, TOYA L Ot I11.0 HYPERTENSIVE HEART DISEASE WITH HEART FA 12/01/2019 ROVENSTINE DO, TOYA L Ot I50.9 HEART FAILURE, UNSPECIFIED 12/01/2019 ROVENSTINE DO, TOYA L Ot R07.89 OTHER CHEST PAIN 12/01/2019 ROVENSTINE DO, TOYA L Ot R07.9 CHEST PAIN, UNSPECIFIED 12/01/2019 ROVENSTINE DO, TOYA L Ot Z85.79 PRSNL HX OF MALIG NEOPLM OF [place], HE 12/01/2019 ROVENSTINE DO, TOYA L Ot Z88.8 ALLERGY STATUS TO OTH DRUG/MEDS/BIOL SUB 12/01/2019 ROVENSTINE DO, TOYA L Ot Z95.1 PRESENCE OF AORTOCORONARY BYPASS GRAFT 12/01/2019 ROVENSTINE DO, TOYA L Ot D61.818 OTHER PANCYTOPENIA 12/01/2019 ROVENSTINE DO, TOYA L Ot E11.9 TYPE 2 DIABETES MELLITUS WITHOUT COMPLIC 12/01/2019 ROVENSTINE DO, TOYA L Ot I11.0 HYPERTENSIVE HEART DISEASE WITH HEART FA 12/01/2019 ROVENSTINE DO, TOYA Lock Ot I50.9 HEART FAILURE, UNSPECIFIED 12/01/2019 ROVENSTINE DO, TOYA Lock Ot R07.89 OTHER CHEST PAIN 12/01/2019 ROVENSTINE DO, TOYA Lock Ot R07.9 CHEST PAIN, UNSPECIFIED 12/01/2019 ROVENSTINE DO, TOYA Lock Ot Z85.79 PRSNL HX OF MALIG NEOPLM OF [place], HE 12/01/2019 ROVENSTINE DO, TOYA Lock Ot Z88.8 ALLERGY STATUS TO OT DRUG/MEDS/BIOL SUB 12/01/2019 ROVENSTINE DO, TOYA Lock Ot Z95.1 PRESENCE OF AORTOCORONARY BYPASS GRAFT 12/31/2019 WILVER ESTRELLA Ot C92.00 ACUTE MYELOBLASTIC LEUKEMIA, NOT HAVING 12/31/2019 WILVER ESTRELLA Ot D61.818 OTHER PANCYTOPENIA 12/31/2019 WILVER ESTRELLA Ot D64.9 ANEMIA, UNSPECIFIED 12/31/2019 WILVER ESTRELLA Ot 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 90 [place] DIS UNSPEC EXTRANODAL SOLID O 01/03/2020 SHAIKH MELANIE, SHEREE Ot N18.3 CHRONIC KIDNEY DISEASE, STAGE 3 (MODERAT 01/03/2020 CONSUELO NAVARRO, KIT Ot 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 [place] LYMPHOMA, LYMP 01/03/2020 CONSUELO NAVARRO, KIT Ot K57. 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 90 [place] DIS UNSPEC EXTRANODAL SOLID O 01/03/2020 SHAIKH MELANIE, SHEREE Ot N18.3 CHRONIC KIDNEY DISEASE, STAGE 3 (MODERAT 01/03/2020 CONSUELO NAVARRO, KIT Ot 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 [place] LYMPHOMA, LYMP 01/03/2020 CONSUELO NAVARRO, KIT Ot K57. 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 90 [place] DIS UNSPEC EXTRANODAL SOLID O 01/04/2020 SHAIKH MELANIE, SHEREE Ot N18.3 CHRONIC KIDNEY DISEASE, STAGE 3 (MODERAT 01/04/2020 CONSUELO NAVARRO, KIT Ot 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 [place]MPHOMA, LYMP 01/04/2020 CONSUELO NAVARRO, KIT Ot K57. 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 01/04/2020 WILVER ESTRELLA Ot E66.9 OBESITY, UNSPECIFIED 01/04/2020 WILVER ESTRELLA Ot I12.9 HYPERTENSIVE CHRONIC KIDNEY DISEASE W ST 01/04/2020 WILVER ESTRELLA Ot I25.10 ATHSCL HEART DISEASE OF [place] CORONARY 01/04/2020 WILVER ESTRELLA Ot N18.3 CHRONIC KIDNEY DISEASE, STAGE 3 (MODERAT 01/04/2020 WILVER ESTRELLA Ot Z85.71 PERSONAL HISTORY OF [place] LYMPHOMA 01/04/2020 IRAJ DE LA TORRE MD, Ot C85.90 NON-[place] LYMPHOMA, UNSPECIFIED, UNSPE 01/04/2020 IRAJ DE LA TORRE MD Ot D61.818 OTHER PANCYTOPENIA 01/04/2020 IRAJ DE LA TORRE MD Ot 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 01/04/2020 IRAJ DE LA TORRE MD Ot E78.00 PURE HYPERCHOLESTEROLEMIA, UNSPECIFIED 01/04/2020 IRAJ DE LA TORRE MD Ot F32 .9 MAJOR DEPRESSIVE DISORDER, SINGLE EPISOD 01/04/2020 IRAJ DE LA TORRE MD, Ot F41 .9 ANXIETY DISORDER, UNSPECIFIED 01/04/2020 IRAJ DE LA TORRE MD, Ot I12 .9 HYPERTENSIVE CHRONIC KIDNEY DISEASE W ST 01/04/2020 IRAJ DE LA TORRE MD, Ot I25.10 ATHSCL HEART DISEASE OF [place] CORONARY 01/04/2020 IRAJ DE LA TORRE MD, Ot I42 .9 CARDIOMYOPATHY, UNSPECIFIED 01/04/2020 IRAJ DE LA TORRE MD, Ot K21 .9 GASTRO-ESOPHAGEAL REFLUX DISEASE WITHOUT 01/04/2020 IRAJ DE LA TORRE MD, Ot N18 .9 CHRONIC KIDNEY DISEASE, UNSPECIFIED 01/04/2020 IRAJ DE LA TORRE MD Ot R53 .1 WEAKNESS 01/04/2020 IRAJ DE LA TORRE MD, Ot Z79.899 OTHER ASSOCIATE PROFESSOR OF COMMUNICATION (CURRENT) DRUG THERAPY 01/04/2020 IRAJ DE LA TORRE MD, Ot Z80 .1 FAMILY HISTORY OF MALIG NEOPLASM OF [place] 01/04/2020 IRAJ DE LA TORRE MD, Ot Z88 .8 ALLERGY STATUS TO OT DRUG/MEDS/BIOL SUB 01/04/2020 IRAJ DE LA TORRE MD, Ot Z90.710 ACQUIRED ABSENCE OF BOTH CERVIX AND UTER 01/04/2020 IRAJ DE LA TORRE MD Ot Z90.89 ACQUIRED ABSENCE OF OTHER ORGANS 01/04/2020 IRAJ DE LA TORRE MD Ot Z95 .1 PRESENCE OF AORTOCORONARY BYPASS GRAFT 01/13/2020 SALO MARIE MD Ot A41.9 SEPSIS, UNSPECIFIED ORGANISM 01/13/2020 ASLO MARIE MD Ot C85.90 NON-[place] LYMPHOMA, UNSPECIFIED, UNSPE 01/13/2020 SALO MARIE MD Ot C92.00 ACUTE MYELOBLASTIC LEUKEMIA, NOT HAVING 01/13/2020 SALO MARIE MD Ot D61.818 OTHER PANCYTOPENIA 01/13/2020 SALO MARIE MD Ot E11.9 TYPE 2 DIABETES MELLITUS WITHOUT COMPLIC 01/13/2020 SALO MARIE MD Ot E66.9 OBESITY, UNSPECIFIED 01/13/2020 SALO MARIE MD Ot E78.00 PURE HYPERCHOLESTEROLEMIA, UNSPECIFIED 01/13/2020 SALO MARIE MD Ot E87.1 HYPO-OSMOLALITY AND HYPONATREMIA 01/13/2020 SALO MARIE MD Ot E87.2 ACIDOSIS 01/13/2020 SALO MARIE MD Ot F32.9 MAJOR DEPRESSIVE DISORDER, SINGLE EPISOD 01/13/2020 SALO MARIE MD Ot F41.9 ANXIETY DISORDER, UNSPECIFIED 01/13/2020 SALO MARIE MD Ot I11.0 HYPERTENSIVE HEART DISEASE WITH HEART FA 01/13/2020 SALO MARIE MD Ot I25.10 ATHSCL HEART DISEASE OF [place] CORONARY 01/13/2020 SALO MARIE MD Ot I42.9 CARDIOMYOPATHY, UNSPECIFIED 01/13/2020 SALO MARIE MD, Ot I50.9 HEART FAILURE, UNSPECIFIED 01/13/2020 SALO MARIE MD Ot K21.9 GASTRO-ESOPHAGEAL REFLUX DISEASE WITHOUT 01/13/2020 SALO MARIE MD Ot N17.9 ACUTE KIDNEY FAILURE, UNSPECIFIED 01/13/2020 SALO MARIE MD Ot R09.02 HYPOXEMIA 01/13/2020 SALO MARIE MD Ot Z68.41 BODY MASS INDEX (BMI) 40.0-44.9, ADULT 01/13/2020 SALO MARIE MD Ot Z79.4 CARE HOME (CURRENT) USE OF INSULIN 01/13/2020 SALO MARIE MD Ot Z79.899 OTHER ASSOCIATE PROFESSOR OF COMMUNICATION (CURRENT) DRUG THERAPY 01/13/2020 SALO AMRIE MD Ot Z95.1 PRESENCE OF AORTOCORONARY BYPASS GRAFT 01/13/2020 SALO MARIE MD Ot Z95.5 PRESENCE OF CORONARY ANGIOPLASTY IMPLANT 01/13/2020 SALO MARIE MD Ot A41.9 SEPSIS, UNSPECIFIED ORGANISM 01/13/2020 SALO MARIE MD Ot C85.90 NON-[place] LYMPHOMA, UNSPECIFIED, UNSPE 01/13/2020 SALO MARIE MD, Ot C92.00 ACUTE MYELOBLASTIC LEUKEMIA, NOT HAVING 01/13/2020 SALO MARIE MD Ot D61.818 OTHER PANCYTOPENIA 01/13/2020 SALO MARIE MD Ot E11.9 TYPE 2 DIABETES MELLITUS WITHOUT COMPLIC 01/13/2020 SALO MARIE MD Ot E66.9 OBESITY, UNSPECIFIED 01/13/2020 SALO MARIE MD Ot E78.00 PURE HYPERCHOLESTEROLEMIA, UNSPECIFIED 01/13/2020 SALO MARIE MD Ot E87.1 HYPO-OSMOLALITY AND HYPONATREMIA 01/13/2020 SALO MARIE MD Ot E87.2 ACIDOSIS 01/13/2020 SALO MARIE MD Ot F32.9 MAJOR DEPRESSIVE DISORDER, SINGLE EPISOD 01/13/2020 SALO MARIE MD Ot F41.9 ANXIETY DISORDER, UNSPECIFIED 01/13/2020 SALO MARIE MD Ot I11.0 HYPERTENSIVE HEART DISEASE WITH HEART FA 01/13/2020 SALO MARIE MD Ot I25.10 ATHSCL HEART DISEASE OF [place] CORONARY 01/13/2020 SALO MARIE MD Ot I42.9 CARDIOMYOPATHY, UNSPECIFIED 01/13/2020 SALO MARIE MD Ot I50.9 HEART FAILURE, UNSPECIFIED 01/13/2020 SALO MARIE MD Ot K21.9 GASTRO-ESOPHAGEAL REFLUX DISEASE WITHOUT 01/13/2020 SALO MARIE MD Ot N17.9 ACUTE KIDNEY FAILURE, UNSPECIFIED 01/13/2020 SALO MARIE MD Ot R09.02 HYPOXEMIA 01/13/2020 SALO MARIE MD Ot Z68.41 BODY MASS INDEX (BMI) 40.0-44.9, ADULT 01/13/2020 SALO MARIE MD Ot Z79.4 ASSOCIATE PROFESSOR OF COMMUNICATION (CURRENT) USE OF INSULIN 01/13/2020 SALO MARIE MD Ot Z79.899 OTHER CARE HOME (CURRENT) DRUG THERAPY 01/13/2020 SALO MARIE MD Ot Z95.1 PRESENCE OF AORTOCORONARY BYPASS GRAFT 01/13/2020 SALO MARIE MD Ot Z95.5 PRESENCE OF CORONARY ANGIOPLASTY IMPLANT 01/14/2020 SALO MARIE MD Ot A41.9 SEPSIS, UNSPECIFIED ORGANISM 01/14/2020 SALO MARIE MD Ot C85.90 NON-[place] LYMPHOMA, UNSPECIFIED, UNSPE 01/14/2020 SALO MARIE MD, Ot C92.00 ACUTE MYELOBLASTIC LEUKEMIA, NOT HAVING 01/14/2020 SALO MARIE MD Ot D61.818 OTHER PANCYTOPENIA 01/14/2020 SAOL MARIE MD Ot E11.9 TYPE 2 DIABETES MELLITUS WITHOUT COMPLIC 01/14/2020 SALO MARIE MD Ot E66.9 OBESITY, UNSPECIFIED 01/14/2020 SALO MARIE MD Ot E78.00 PURE HYPERCHOLESTEROLEMIA, UNSPECIFIED 01/14/2020 SALO MARIE MD Ot E87.1 HYPO-OSMOLALITY AND HYPONATREMIA 01/14/2020 SALO MARIE MD Ot E87.2 ACIDOSIS 01/14/2020 SALO MARIE MD Ot F32.9 MAJOR DEPRESSIVE DISORDER, SINGLE EPISOD 01/14/2020 SALO MARIE MD, Ot F41.9 ANXIETY DISORDER, UNSPECIFIED 01/14/2020 SALO MARIE MD Ot I11.0 HYPERTENSIVE HEART DISEASE WITH HEART FA 01/14/2020 SALO MARIE MD Ot I25.10 ATHSCL HEART DISEASE OF [place] CORONARY 01/14/2020 SALO MARIE MD Ot I42.9 CARDIOMYOPATHY, UNSPECIFIED 01/14/2020 SALO MARIE MD Ot I50.9 HEART FAILURE, UNSPECIFIED 01/14/2020 SALO MARIE MD Ot K21.9 GASTRO-ESOPHAGEAL REFLUX DISEASE WITHOUT 01/14/2020 SALO MARIE MD Ot N17.9 ACUTE KIDNEY FAILURE, UNSPECIFIED 01/14/2020 SALO MARIE MD Ot R09.02 HYPOXEMIA 01/14/2020 SALO MARIE MD Ot Z68.41 BODY MASS INDEX (BMI) 40.0-44.9, ADULT 01/14/2020 SALO MARIE MD Ot Z79.4 CARE HOME (CURRENT) USE OF INSULIN 01/14/2020 SALO MARIE MD Ot Z79.899 OTHER ASSOCIATE PROFESSOR OF COMMUNICATION (CURRENT) DRUG THERAPY 01/14/2020 SALO MARIE MD Ot Z95.1 PRESENCE OF AORTOCORONARY BYPASS GRAFT 01/14/2020 SALO MARIE MD Ot Z95.5 PRESENCE OF CORONARY ANGIOPLASTY IMPLANT 01/15/2020 SALO MARIE MD Ot A41.9 SEPSIS, UNSPECIFIED ORGANISM 01/15/2020 SALO MARIE MD Ot C85.90 NON-[place] LYMPHOMA, UNSPECIFIED, UNSPE 01/15/2020 SALO MARIE MD Ot C92.00 ACUTE MYELOBLASTIC LEUKEMIA, NOT HAVING 01/15/2020 SALO MARIE MD Ot D61.818 OTHER PANCYTOPENIA 01/15/2020 SALO MARIE MD Ot E11.9 TYPE 2 DIABETES MELLITUS WITHOUT COMPLIC 01/15/2020 SALO MARIE MD Ot E66.9 OBESITY, UNSPECIFIED 01/15/2020 SALO MARIE MD Ot E78.00 PURE HYPERCHOLESTEROLEMIA, UNSPECIFIED 01/15/2020 SALO MARIE MD Ot E87.1 HYPO-OSMOLALITY AND HYPONATREMIA 01/15/2020 SALO MARIE MD Ot E87.2 ACIDOSIS 01/15/2020 SALO MARIE MD Ot F32.9 MAJOR DEPRESSIVE DISORDER, SINGLE EPISOD 01/15/2020 SALO MARIE MD Ot F41.9 ANXIETY DISORDER, UNSPECIFIED 01/15/2020 SALO MARIE MD Ot I11.0 HYPERTENSIVE HEART DISEASE WITH HEART FA 01/15/2020 SALO MARIE MD Ot I25.10 ATHSCL HEART DISEASE OF [place] CORONARY 01/15/2020 SALO MARIE MD Ot I42.9 CARDIOMYOPATHY, UNSPECIFIED 01/15/2020 SALO MARIE MD Ot I50.9 HEART FAILURE, UNSPECIFIED 01/15/2020 SALO MARIE MD Ot K21.9 GASTRO-ESOPHAGEAL REFLUX DISEASE WITHOUT 01/15/2020 SALO MARIE MD Ot N17.9 ACUTE KIDNEY FAILURE, UNSPECIFIED 01/15/2020 SALO MARIE MD Ot R09.02 HYPOXEMIA 01/15/2020 SALO MARIE MD Ot Z68.41 BODY MASS INDEX (BMI) 40.0-44.9, ADULT 01/15/2020 SALO MARIE MD Ot Z79.4 CARE HOME (CURRENT) USE OF INSULIN 01/15/2020 SALO MARIE MD Ot Z79.899 OTHER CARE HOME (CURRENT) DRUG THERAPY 01/15/2020 SALO MARIE MD Ot Z95.1 PRESENCE OF AORTOCORONARY BYPASS GRAFT 01/15/2020 ASLO MARIE MD Ot Z95.5 PRESENCE OF CORONARY ANGIOPLASTY IMPLANT 01/15/2020 SALO MARIE MD Ot A41.9 SEPSIS, UNSPECIFIED ORGANISM 01/15/2020 SALO MARIE MD Ot C85.90 NON-[place] LYMPHOMA, UNSPECIFIED, UNSPE 01/15/2020 SALO MARIE MD Ot C92.00 ACUTE MYELOBLASTIC LEUKEMIA, NOT HAVING 01/15/2020 SALO MARIE MD Ot D61.818 OTHER PANCYTOPENIA 01/15/2020 SALO MARIE MD Ot E11.9 TYPE 2 DIABETES MELLITUS WITHOUT COMPLIC 01/15/2020 SALO MARIE MD Ot E66.9 OBESITY, UNSPECIFIED 01/15/2020 SALO MARIE MD Ot E78.00 PURE HYPERCHOLESTEROLEMIA, UNSPECIFIED 01/15/2020 SALO MARIE MD Ot E87.1 HYPO-OSMOLALITY AND HYPONATREMIA 01/15/2020 SALO MARIE MD Ot E87.2 ACIDOSIS 01/15/2020 SALO MARIE MD Ot F32.9 MAJOR DEPRESSIVE DISORDER, SINGLE EPISOD 01/15/2020 SALO MARIE MD Ot F41.9 ANXIETY DISORDER, UNSPECIFIED 01/15/2020 SALO MARIE MD Ot I11.0 HYPERTENSIVE HEART DISEASE WITH HEART FA 01/15/2020 SALO MARIE MD Ot I25.10 ATHSCL HEART DISEASE OF [place] CORONARY 01/15/2020 SALO MARIE MD Ot I42.9 CARDIOMYOPATHY, UNSPECIFIED 01/15/2020 SALO MARIE MD Ot I50.9 HEART FAILURE, UNSPECIFIED 01/15/2020 SALO MARIE MD Ot K21.9 GASTRO-ESOPHAGEAL REFLUX DISEASE WITHOUT 01/15/2020 SALO MARIE MD Ot N17.9 ACUTE KIDNEY FAILURE, UNSPECIFIED 01/15/2020 ASLO MARIE MD Ot R09.02 HYPOXEMIA 01/15/2020 SALO MARIE MD Ot Z68.41 BODY MASS INDEX (BMI) 40.0-44.9, ADULT 01/15/2020 SALO MARIE MD, Ot Z79.4 CARE HOME (CURRENT) USE OF INSULIN 01/15/2020 SALO MARIE MD, Ot Z79.899 OTHER CARE HOME (CURRENT) DRUG THERAPY 01/15/2020 SALO MARIE MD, Ot Z95.1 PRESENCE OF AORTOCORONARY BYPASS GRAFT 01/15/2020 SALO MARIE MD, Ot Z95.5 PRESENCE OF CORONARY ANGIOPLASTY IMPLANT Procedures There is no data. Results Test [...] 7-25 CREATININE 1.45 mg/dL 0.50-0.99 eGFR NON-AFR. BULGARIAN 37 mL/min/1.73m2 > OR = 60 eGFR [...] COMPROMISED - 9 09:12 SPECIMEN INTEGRITY COMPROMISED NRG CULTURE, URINE - 11/19/18 13:56 CULTURE, URINE, [...] 23:05 TROPONIN I FS < 0.30 <0.30 CMP - 09/09/19 08:09 GLUCOSE 275 mg/dL 65-99 UREA NITROGEN (BUN) 28 mg/dL 7-25 CREATININE 1.56 mg/dL 0.50-0.99 eGFR NON-AFR. BULGARIAN 34 mL/min/1.73m2 > OR = 60 eGFR [...] ragweed IgE antibody assay 237 U/L 125-220 Complete blood count (CBC) with automate d white blood cell (WBC) differential - 11/28/19 08:05 Blood leukocytes automated count (number/volume) 1.0 10*3/uL 4.3-11.0 Blood erythrocytes automated count (number/volume) 2.67 10*6/uL 4.35-5.85 Venous blood hemoglobin measurement (mass/volume) 9.3 g/dL 11.5-16.0 Blood hematocrit (volume fraction) 27 % 35-52 Automated erythrocyte mean corpuscular volume 102 [foz_us] 80-99 Automated erythrocyte mean corpuscular h emoglobin (mass per erythrocyte) 35 pg 25-34 Automated erythrocyte mean corpuscular h emoglobin concentration measurement (mass/volume) 34 g/dL 32-36 Automated erythrocyte distribution width ratio 14. 4 % 10.0- 14.5 Automated blood platelet count (count/volume) 81 1 0*3/uL 130-400 Automated blood platelet mean volume measurement 9.4 [foz_us] 7.4-10.4 Automated blood neutrophils/100 leukocytes 21 % 42-75 Automated blood lymphocytes/100 leukocytes 75 % 12-44 Blood monocytes/100 leukocytes 3 % 0-12 Automated blood eosinophils/100 leukocytes 1 % 0-10 Automated blood basophils/100 leukocytes 0 % 0-10 Blood neutrophils automated count (number/volume) 0.2 10*3 1.8-7.8 Blood lymphocytes automated count (number/volume) 0.7 10*3 1.0-4.0 Blood monocytes automated count (number/volume) 0. 0 10*3 0.0-1.0 Automated eosinophil count 0.0 10*3/uL 0 .0-0.3 Automated blood basophil count (count/volume) 0.0 10*3/uL 0.0-0.1 Comprehensive metabolic panel - 11/28/19 08:05 Serum or plasma sodium measurement (moles/volume) 140 mmol/L 135-145 Serum or plasma potassium measurement (moles/volume) 4.3 mmol/L 3.6-5.0 Serum or plasma chloride measurement (moles/volume) 101 mmol/L 98-107 Carbon dioxide 27 mmol/L 21-32 Serum or plasma anion gap determination (moles/volume) 12 mmol/L 5-14 Serum or plasma urea nitrogen measurement (mass/volume ) 24 mg/dL 7-18 Serum or plasma creatinine measurement (mass/volume) 1.51 mg/dL 0.60-1.30 Serum or plasma urea nitrogen/creatinine mass ratio 16 NRG Serum or plasma creatinine measurement w ith calculation of estimated glomerular filtration rate 34 NRG Serum or plasma glucose measurement (mass/volume) 281 mg/dL 70-105 Serum or plasma calcium measurement (mass/volume) 9.2 mg/dL 8.5-10.1 Serum or plasma total bilirubin measurement (mass/volu me) 0.2 mg/dL 0.1-1.0 Serum or plasma alkaline phosphatase lachelle surement (enzymatic activity/volume) 83 U/L 40-136 Serum or plasma aspartate aminotransfera se measurement (enzymatic activity/volume) 11 U/L 5-34 Serum or plasma alanine aminotransferase measurement (enzymatic activity/volume) 7 U/L 0-55 Serum or plasma protein measurement (mass/volume) 6.5 g/dL 6.4-8.2 Serum or plasma albumin measurement (mass/volume) 3.5 g/dL 3.2-4.5 CALCIUM CORRECTED 9.6 mg/dL 8.5-10.1 TROPONIN I FS - 11/28/19 08:05 TROPONIN I FS < 0.30 <0.30 PROBNP FS - 11/28/19 08:05 PROBNP FS 901.2 pg/mL <75.0 Complete blood count (CBC) with automate d white blood cell (WBC) differential - 01/03/20 14:30 Blood leukocytes automated count (number/volume) 1.6 10*3/uL 4.3-11.0 Blood erythrocytes automated count (number/volume) 1.67 10*6/uL 4.35-5.85 Venous blood hemoglobin measurement (mass/volume) 5.7 g/dL 11.5-16.0 Blood hematocrit (volume fraction) 16 % 35-52 Automated erythrocyte mean corpuscular volume 95 [ foz_us] 80-99 Automated erythrocyte mean corpuscular h emoglobin (mass per erythrocyte) 34 pg 25-34 Automated erythrocyte mean corpuscular h emoglobin concentration measurement (mass/volume) 36 g/dL 32-36 Automated erythrocyte distribution width ratio 17. 9 % 10.0- 14.5 Automated blood platelet count (count/volume) 29 1 0*3/uL 130-400 Automated blood platelet mean volume measurement 11.0 [foz_us] 7.4-10.4 Automated blood neutrophils/100 leukocytes 6 % 42-75 Automated blood lymphocytes/100 leukocytes 86 % 12-44 Blood monocytes/100 leukocytes 6 % 0-12 Automated blood eosinophils/100 leukocytes 1 % 0-10 Automated blood basophils/100 leukocytes 1 % 0-10 Blood neutrophils automated count (number/volume) 0.1 10*3 1.8-7.8 Blood lymphocytes automated count (number/volume) 1.4 10*3 1.0-4.0 Blood monocytes automated count (number/volume) 0. 1 10*3 0.0-1.0 Automated eosinophil count 0.0 10*3/uL 0 .0-0.3 Automated blood basophil count (count/volume) 0.0 10*3/uL 0.0-0.1 Comprehensive metabolic panel - 01/03/20 14:30 Serum or plasma sodium measurement (moles/volume) 133 mmol/L 135-145 Serum or plasma potassium measurement (moles/volume) 4.6 mmol/L 3.6-5.0 Serum or plasma chloride measurement (moles/volume) 99 mmol/L 98-107 Carbon dioxide 24 mmol/L 21-32 Serum or plasma anion gap determination (moles/volume) 10 mmol/L 5-14 Serum or plasma urea nitrogen measurement (mass/volume ) 48 mg/dL 7-18 Serum or plasma creatinine measurement (mass/volume) 1.89 mg/dL 0.60-1.30 Serum or plasma urea nitrogen/creatinine mass ratio 25 NRG Serum or plasma creatinine measurement w ith calculation of estimated glomerular filtration rate 27 NRG Serum or plasma glucose measurement (mass/volume) 242 mg/dL 70-105 Serum or plasma calcium measurement (mass/volume) 8.8 mg/dL 8.5-10.1 Serum or plasma total bilirubin measurement (mass/volu me) 0.3 mg/dL 0.1-1.0 Serum or plasma alkaline phosphatase lachelle surement (enzymatic activity/volume) 66 U/L 40-136 Serum or plasma aspartate aminotransfera se measurement (enzymatic activity/volume) 8 U/L 5-34 Serum or plasma alanine aminotransferase measurement (enzymatic activity/volume) 9 U/L 0-55 Serum or plasma protein measurement (mass/volume) 6.0 g/dL 6.4-8.2 Serum or plasma albumin measurement (mass/volume) 3.3 g/dL 3.2-4.5 CALCIUM CORRECTED 9.4 mg/dL 8.5-10.1 Magnesium - 01/03/20 14:30 Magnesium 2.0 mg/dL 1.6-2.4 Manual absolute plasma cell count - 12/11 11/29 14:30 Blood monocytes/100 leukocytes 2 % NRG Manual blood segmented neutrophils/100 leukocytes 6 % NRG Blood band neutrophils/100 leukocytes 3 % NRG Manual blood lymphocytes/100 leukocytes 88 % NRG Manual eosinophils/100 leukocytes in nose 0 % NRG Manual blood basophils/100 leukocytes 1 % NRG Blood macrocytes detection by light microscopy 1+ NRG Blood microcytes detection by light microscopy 1+ NRG Blood platelet adequacy detection by light microscopy DECREASED NRG TROPONIN I FS - 01/03/20 14:30 TROPONIN I FS < 0.30 <0.30 Complete urinalysis with reflex to cultu re - 01/03/20 14:50 Urine color determination YELLOW NRG Urine clarity determination CLEAR NR G Urine pH measurement by test strip 6.0 5-9 Specific gravity of urine by test strip 1.010 1.016-1.022 Urine protein assay by test strip, semi-quantitative NEGATIVE NEGATIVE Urine glucose detection by automated test strip TR ESMER NEGATIVE Erythrocytes detection in urine sediment by light micr oscopy NEGATIVE NEGATIVE Urine ketones detection by automated test strip NE GATIVE NEGATIVE Urine nitrite detection by test strip NEGATIVE NEGATIVE Urine total bilirubin detection by test strip NEGA TIVE NEGATIVE Urine urobilinogen measurement by automated test strip (mass/volume) 0.2 mg/dL < = 1.0 Urine leukocyte esterase detection by dipstick NEG ATIVE NEGATIVE Automated urine sediment erythrocyte cou nt by microscopy (number/high power field) NONE NRG Automated urine sediment leukocyte count by microscopy (number/high power field) [HPF] NRG Bacteria detection in urine sediment by light microsco py TRACE NRG Squamous epithelial cells detection in u rine sediment by light microscopy 10-25 NRG Crystals detection in urine sediment by light microsco py NONE NRG Casts detection in urine sediment by light microscopy NONE NRG Mucus detection in urine sediment by light microscopy NEGATIVE NRG Complete urinalysis with reflex to culture NO NRG RED CELLS LEUKO REDUCED AS1 - 01/03/20 1 9:05 RED CELLS LEUKO REDUCED AS1 T RANSFUSED 01/03/202127 NRG Blood type T Indirect antibody screen [facility] - 01/03/20 19:05 WRISTBAND NUMBER [id number] NRG ABO+Rh group BP NRG Blood group antibody screen NEGATIVE NR G Capillary blood glucose measurement by g lucometer (mass/volume) - 01/03/20 21:08 Capillary blood glucose measurement by glucometer (mas s/volume) 134 mg/dL 70-110 Whole blood hemoglobin and hematocrit [facility] - 01/04/20 01:14 Venous blood hemoglobin measurement (mass/volume) 9.0 g/dL 11.5-16.0 Blood hematocrit (volume fraction) 26 % 35-52 Complete blood count (CBC) with automate d white blood cell (WBC) differential - 01/04/20 04:36 Blood leukocytes automated count (number/volume) 1.7 10*3/uL 4.3-11.0 Blood erythrocytes automated count (number/volume) 2.90 10*6/uL 4.35-5.85 Venous blood hemoglobin measurement (mass/volume) 8.9 g/dL 11.5-16.0 Blood hematocrit (volume fraction) 26 % 35-52 Automated erythrocyte mean corpuscular volume 90 [ foz_us] 80-99 Automated erythrocyte mean corpuscular h emoglobin (mass per erythrocyte) 31 pg 25-34 Automated erythrocyte mean corpuscular h emoglobin concentration measurement (mass/volume) 34 g/dL 32-36 Automated erythrocyte distribution width ratio 20. 4 % 10.0- 14.5 Automated blood platelet count (count/volume) 29 1 0*3/uL 130-400 Automated blood platelet mean volume measurement 9.5 [foz_us] 7.4-10.4 Automated blood neutrophils/100 leukocytes 5 % 42-75 Automated blood lymphocytes/100 leukocytes 81 % 12-44 Blood monocytes/100 leukocytes 13 % 0-12 Automated blood eosinophils/100 leukocytes 0 % 0-10 Automated blood basophils/100 leukocytes 1 % 0-10 Blood neutrophils automated count (number/volume) 0.1 10*3 1.8-7.8 Blood lymphocytes automated count (number/volume) 1.4 10*3 1.0-4.0 Blood monocytes automated count (number/volume) 0. 2 10*3 0.0-1.0 Automated eosinophil count 0.0 10*3/uL 0 .0-0.3 Automated blood basophil count (count/volume) 0.0 10*3/uL 0.0-0.1 Comprehensive metabolic panel - 01/04/20 04:36 Serum or plasma sodium measurement (moles/volume) 135 mmol/L 135-145 Serum or plasma potassium measurement (moles/volume) 4.5 mmol/L 3.6-5.0 Serum or plasma chloride measurement (moles/volume) 103 mmol/L 98-107 Carbon dioxide 24 mmol/L 21-32 Serum or plasma anion gap determination (moles/volume) 8 mmol/L 5-14 Serum or plasma urea nitrogen measurement (mass/volume ) 37 mg/dL 7-18 Serum or plasma creatinine measurement (mass/volume) 1.83 mg/dL 0.60-1.30 Serum or plasma urea nitrogen/creatinine mass ratio 20 NRG Serum or plasma creatinine measurement w ith calculation of estimated glomerular filtration rate 28 NRG Serum or plasma glucose measurement (mass/volume) 115 mg/dL 70-105 Serum or plasma calcium measurement (mass/volume) 8.6 mg/dL 8.5-10.1 Serum or plasma total bilirubin measurement (mass/volu me) 0.4 mg/dL 0.1-1.0 Serum or plasma alkaline phosphatase lachelle surement (enzymatic activity/volume) 56 U/L 40-136 Serum or plasma aspartate aminotransfera se measurement (enzymatic activity/volume) 12 U/L 5-34 Serum or plasma alanine aminotransferase measurement (enzymatic activity/volume) 7 U/L 0-55 Serum or plasma protein measurement (mass/volume) 6.4 g/dL 6.4-8.2 Serum or plasma albumin measurement (mass/volume) 3.2 g/dL 3.2-4.5 CALCIUM CORRECTED 9.2 mg/dL 8.5-10.1 Capillary blood glucose measurement by g lucometer (mass/volume) - 01/04/20 11:16 Capillary blood glucose measurement by glucometer (mas s/volume) 167 mg/dL 70-110 PT panel in platelet poor plasma by coag ulation assay - 01/11/20 16:20 Prothrombin time (PT) in platelet poor plasma by coagu lation assay 14.1 s 12.2-14.7 INR in platelet poor plasma or blood by coagulation as say 1.1 0.8-1.4 Activated partial thromboplastin time (a PTT) in platelet poor plasma bycoagulation assay - 01/11/20 16:20 Activated partial thromboplastin time (a PTT) in platelet poor plasma bycoagulation assay 23 s 24-35 Complete blood count (CBC) with automate d white blood cell (WBC) differential - 01/11/20 16:20 Blood leukocytes automated count (number/volume) 0.8 10*3/uL 4.3-11.0 Blood erythrocytes automated count (number/volume) 2.28 10*6/uL 4.35-5.85 Venous blood hemoglobin measurement (mass/volume) 7.0 g/dL 11.5-16.0 Blood hematocrit (volume fraction) 21 % 35-52 Automated erythrocyte mean corpuscular volume 91 [ foz_us] 80-99 Automated erythrocyte mean corpuscular h emoglobin (mass per erythrocyte) 31 pg 25-34 Automated erythrocyte mean corpuscular h emoglobin concentration measurement (mass/volume) 34 g/dL 32-36 Automated erythrocyte distribution width ratio 19. 5 % 10.0- 14.5 Automated blood platelet count (count/volume) 9 10 *3/uL 130- 400 Automated blood neutrophils/100 leukocytes 48 % 42-75 Automated blood lymphocytes/100 leukocytes 27 % 12-44 Blood monocytes/100 leukocytes 23 % 0-12 Automated blood eosinophils/100 leukocytes 0 % 0-10 Automated blood basophils/100 leukocytes 2 % 0-10 Blood neutrophils automated count (number/volume) 0.4 10*3 1.8-7.8 Blood lymphocytes automated count (number/volume) 0.2 10*3 1.0-4.0 Blood monocytes automated count (number/volume) 0. 2 10*3 0.0-1.0 Automated eosinophil count 0.0 10*3/uL 0 .0-0.3 Automated blood basophil count (count/volume) 0.0 10*3/uL 0.0-0.1 Blood lactic acid measurement (moles/vol ume) - 01/11/20 16:20 Blood lactic acid measurement (moles/volume) 3.42 mmol/L 0.50-2.00 Comprehensive metabolic panel - 01/11/20 16:20 Serum or plasma sodium measurement (moles/volume) 127 mmol/L 135-145 Serum or plasma potassium measurement (moles/volume) 5.1 mmol/L 3.6-5.0 Serum or plasma chloride measurement (moles/volume) 90 mmol/L 98-107 Carbon dioxide 19 mmol/L 21-32 Serum or plasma anion gap determination (moles/volume) 18 mmol/L 5-14 Serum or plasma urea nitrogen measurement (mass/volume ) 38 mg/dL 7-18 Serum or plasma creatinine measurement (mass/volume) 1.89 mg/dL 0.60-1.30 Serum or plasma urea nitrogen/creatinine mass ratio 20 NRG Serum or plasma creatinine measurement w ith calculation of estimated glomerular filtration rate 27 NRG Serum or plasma glucose measurement (mass/volume) 245 mg/dL 70-105 Serum or plasma calcium measurement (mass/volume) 8.4 mg/dL 8.5-10.1 Serum or plasma total bilirubin measurement (mass/volu me) 0.5 mg/dL 0.1-1.0 Serum or plasma alkaline phosphatase lachelle surement (enzymatic activity/volume) 70 U/L 40-136 Serum or plasma aspartate aminotransfera se measurement (enzymatic activity/volume) 14 U/L 5-34 Serum or plasma alanine aminotransferase measurement (enzymatic activity/volume) 9 U/L 0-55 Serum or plasma protein measurement (mass/volume) 5.3 g/dL 6.4-8.2 Serum or plasma albumin measurement (mass/volume) 2.8 g/dL 3.2-4.5 CALCIUM CORRECTED 9.4 mg/dL 8.5-10.1 Magnesium - 01/11/20 16:20 Magnesium 1.6 mg/dL 1.6-2.4 TROPONIN I FS - 01/11/20 16:20 TROPONIN I FS < 0.30 <0.30 PROBNP FS - 01/11/20 16:20 PROBNP FS 1037.0 pg/mL <75.0 Serum or plasma creatine kinase measurem ent (enzymatic activity/volume) - 01/11/20 16:20 Serum or plasma creatine kinase measurem ent (enzymatic activity/volume) 54 U/L 29-168 Ammonia - 01/11/20 16:20 Ammonia 38 umol/L 11-32 Bacterial blood culture - 01/11/20 16:20 Bacterial blood culture NG NRG Arterial blood gas measurement - 0 16:30 Blood pCO2 32 mm[Hg] 35-45 Blood pO2 220 mm[Hg] 79-93 Arterial blood bicarbonate measurement (moles/volume) 21 mmol/L 23-27 Arterial blood base excess by calculation -2.9 mmo l/L -2.5-2.5 Arterial blood oxygen saturation measurement 100 % 94-100 * Inhaled oxygen flow rate 15 L O2 - NRB NRG Arterial blood pH measurement with patient temperature correction 7.42 7.37-7.43 Arterial blood carbon dioxide, total measurement (mole s/volume) 21.8 mmol/L 21.0-31.0 Body site RT RADIAL NRG Assessment of wrist artery patency prior to arterial p uncture YES-POS NRG Setting of ventilation mode NO NR G Measurement of body temperature 36.2 NRG Complete urinalysis with reflex to cultu re - 01/11/20 17:12 Urine color determination YELLOW NRG Urine clarity determination SLIGHTLY CLOUDY NRG Urine pH measurement by test strip 5.5 5-9 Specific gravity of urine by test strip 1.020 1.016-1.022 Urine protein assay by test strip, semi-quantitative 1+ NEGATIVE Urine glucose detection by automated test strip TR ESMER NEGATIVE Erythrocytes detection in urine sediment by light micr oscopy TRACE NEGATIVE Urine ketones detection by automated test strip NE GATIVE NEGATIVE Urine nitrite detection by test strip NEGATIVE NEGATIVE Urine total bilirubin detection by test strip NEGA TIVE NEGATIVE Urine urobilinogen measurement by automated test strip (mass/volume) 0.2 mg/dL < = 1.0 Urine leukocyte esterase detection by dipstick NEG ATIVE NEGATIVE Automated urine sediment erythrocyte cou nt by microscopy (number/high power field) [HPF] NRG Automated urine sediment leukocyte count by microscopy (number/high power field) NONE NRG Bacteria detection in urine sediment by light microsco py NEGATIVE NRG Squamous epithelial cells detection in u rine sediment by light microscopy 5-10 NRG Crystals detection in urine sediment by light microsco py PRESENT NRG Casts detection in urine sediment by light microscopy PRESENT NRG Mucus detection in urine sediment by light microscopy SMALL NRG Complete urinalysis with reflex to culture NO NRG Amorphous sediment detection in urine sediment by ligh t microscopy LARGE KANDACE URATES NRG Granular casts detection in urine sediment by light mi croscopy 5-10 NRG Influenza virus A and B antigen detectio n - 01/11/20 17:55 FLU RESULT NEGATIVE FOR INFLUENZA A AND B ANTIGENS BY IA NRG Coronavirus SARS-CoV-2 SO 2019 - 0 17:55 Coronavirus Ab [Units/volume] in Serum Negative Negative Serum or plasma lactate measurement (mol es/volume) - 01/11/20 18:40 Serum or plasma lactate measurement (moles/volume) 1.55 mmol/L 0.50-2.00 Bacterial blood culture - 01/11/20 18:40 Bacterial blood culture NG NRG PLATELET PHERESIS LR - 01/11/20 20:15 PLATELET PHERESIS LR TRANSFUS ED 01/11/20 2242 NRG RED CELLS LEUKO REDUCED AS1 - 01/11/20 2 0:15 RED CELLS LEUKO REDUCED AS1 T RANSFUSED 01/12/20 0425 NRG Blood type T Indirect antibody screen [facility] - 01/11/20 20:15 WRISTBAND NUMBER [id number] NRG ABO+Rh group BP NRG Blood group antibody screen NEGATIVE NR G Methicillin resistant Staphylococcus aur eus (MRSA) screening culture - 01/11/20 20:15 Methicillin resistant Staphylococcus aureus (MRSA) scr eening culture NEG NRG PLATELET PHERESIS LR - 01/11/20 20:15 PLATELET PHERESIS LR TRANSFUS ED 01/14/20 0816 NRG RED CELLS LEUKO REDUCED AS1 - 01/11/20 2 0:15 RED CELLS LEUKO REDUCED AS1 T RANSFUSED 01/12/20 0425 NRG Blood type T Indirect antibody screen [facility] - 01/11/20 20:15 WRISTBAND NUMBER [id number] NRG ABO+Rh group BP NRG Blood group antibody screen NEGATIVE NR G Bacterial blood culture - 01/11/20 20:57 Bacterial blood culture NG NRG Bacterial blood culture - 01/11/20 21:12 Bacterial blood culture NG NRG Complete blood count (CBC) with automate d white blood cell (WBC) differential - 01/12/20 03:40 Blood leukocytes automated count (number/volume) 3.5 10*3/uL 4.3-11.0 Blood erythrocytes automated count (number/volume) 2.13 10*6/uL 4.35-5.85 Venous blood hemoglobin measurement (mass/volume) 6.5 g/dL 11.5-16.0 Blood hematocrit (volume fraction) 19 % 35-52 Automated erythrocyte mean corpuscular volume 91 [ foz_us] 80-99 Automated erythrocyte mean corpuscular h emoglobin (mass per erythrocyte) 31 pg 25-34 Automated erythrocyte mean corpuscular h emoglobin concentration measurement (mass/volume) 34 g/dL 32-36 Automated erythrocyte distribution width ratio 20. 2 % 10.0- 14.5 Automated blood platelet count (count/volume) 45 1 0*3/uL 130-400 Automated blood platelet mean volume measurement 9.5 [foz_us] 7.4-10.4 Automated blood neutrophils/100 leukocytes 0 % 42-75 Automated blood lymphocytes/100 leukocytes 28 % 12-44 Blood monocytes/100 leukocytes 62 % 0-12 Automated blood eosinophils/100 leukocytes 0 % 0-10 Automated blood basophils/100 leukocytes 10 % 0-10 Blood neutrophils automated count (number/volume) 0.0 10*3 1.8-7.8 Blood lymphocytes automated count (number/volume) 1.0 10*3 1.0-4.0 Blood monocytes automated count (number/volume) 2. 2 10*3 0.0-1.0 Automated eosinophil count 0.0 10*3/uL 0 .0-0.3 Automated blood basophil count (count/volume) 0.8 10*3/uL 0.0-0.1 Comprehensive metabolic panel - 01/12/20 03:40 Serum or plasma sodium measurement (moles/volume) 129 mmol/L 135-145 Serum or plasma potassium measurement (moles/volume) 5.0 mmol/L 3.6-5.0 Serum or plasma chloride measurement (moles/volume) 101 mmol/L 98-107 Carbon dioxide 18 mmol/L 21-32 Serum or plasma anion gap determination (moles/volume) 10 mmol/L 5-14 Serum or plasma urea nitrogen measurement (mass/volume ) 38 mg/dL 7-18 Serum or plasma creatinine measurement (mass/volume) 2.00 mg/dL 0.60-1.30 Serum or plasma urea nitrogen/creatinine mass ratio 19 NRG Serum or plasma creatinine measurement w ith calculation of estimated glomerular filtration rate 25 NRG Serum or plasma glucose measurement (mass/volume) 194 mg/dL 70-105 Serum or plasma calcium measurement (mass/volume) 7.5 mg/dL 8.5-10.1 Serum or plasma total bilirubin measurement (mass/volu me) 0.4 mg/dL 0.1-1.0 Serum or plasma alkaline phosphatase lachelle surement (enzymatic activity/volume) 54 U/L 40-136 Serum or plasma aspartate aminotransfera se measurement (enzymatic activity/volume) 250 U/L 5-34 Serum or plasma alanine aminotransferase measurement (enzymatic activity/volume) 161 U/L 0-55 Serum or plasma protein measurement (mass/volume) 5.1 g/dL 6.4-8.2 Serum or plasma albumin measurement (mass/volume) 2.7 g/dL 3.2-4.5 CALCIUM CORRECTED 8.5 mg/dL 8.5-10.1 Serum or plasma phosphate measurement (m ass/volume) - 01/12/20 03:40 Serum or plasma phosphate measurement (mass/volume) 4.5 mg/dL 2.3-4.7 Magnesium - 01/12/20 03:40 Magnesium 1.7 mg/dL 1.6-2.4 COVID-19 IgG Only SO - 01/12/20 05:16 Coronavirus Ab [Units/volume] in Serum Negative Negative Urine Legionella pneumophila antigen ass ay - 01/12/20 05:35 Urine Legionella pneumophila antigen assay Negativ e NRG Streptococcus pneumoniae antigen detecti on - 01/12/20 05:35 Streptococcus pneumoniae antigen detection Negativ e NRG Capillary blood glucose measurement by g lucometer (mass/volume) - 01/12/20 12:01 Capillary blood glucose measurement by glucometer (mas s/volume) 201 mg/dL 70-110 Capillary blood glucose measurement by g lucometer (mass/volume) - 01/12/20 17:27 Capillary blood glucose measurement by glucometer (mas s/volume) 179 mg/dL 70-110 Whole blood hemoglobin and hematocrit pa dilshad - 01/12/20 17:55 Venous blood hemoglobin measurement (mass/volume) 7.2 g/dL 11.5-16.0 Blood hematocrit (volume fraction) 21 % 35-52 Automated blood platelet count (count/vo lume) - 01/12/20 17:55 Automated blood platelet count (count/volume) 6 10 *3/uL 130- 400 Capillary blood glucose measurement by g lucometer (mass/volume) - 01/12/20 20:27 Capillary blood glucose measurement by glucometer (mas s/volume) 229 mg/dL 70-110 Whole blood basic metabolic panel - 10/29 03:28 Serum or plasma sodium measurement (moles/volume) 134 mmol/L 135-145 Serum or plasma potassium measurement (moles/volume) 4.2 mmol/L 3.6-5.0 Serum or plasma chloride measurement (moles/volume) 107 mmol/L 98-107 Carbon dioxide 19 mmol/L 21-32 Serum or plasma anion gap determination (moles/volume) 8 mmol/L 5-14 Serum or plasma urea nitrogen measurement (mass/volume ) 27 mg/dL 7-18 Serum or plasma creatinine measurement (mass/volume) 1.52 mg/dL 0.60-1.30 Serum or plasma urea nitrogen/creatinine mass ratio 18 NRG Serum or plasma creatinine measurement w ith calculation of estimated glomerular filtration rate 34 NRG Serum or plasma glucose measurement (mass/volume) 115 mg/dL 70-105 Serum or plasma calcium measurement (mass/volume) 7.3 mg/dL 8.5-10.1 Serum or plasma phosphate measurement (m ass/volume) - 01/13/20 03:28 Serum or plasma phosphate measurement (mass/volume) 3.0 mg/dL 2.3-4.7 Magnesium - 01/13/20 03:28 Magnesium 1.7 mg/dL 1.6-2.4 Complete blood count (CBC) with automate d white blood cell (WBC) differential - 01/13/20 03:28 Blood leukocytes automated count (number/volume) 1.1 10*3/uL 4.3-11.0 Blood erythrocytes automated count (number/volume) 2.61 10*6/uL 4.35-5.85 Venous blood hemoglobin measurement (mass/volume) 8.0 g/dL 11.5-16.0 Blood hematocrit (volume fraction) 23 % 35-52 Automated erythrocyte mean corpuscular volume 89 [ foz_us] 80-99 Automated erythrocyte mean corpuscular h emoglobin (mass per erythrocyte) 31 pg 25-34 Automated erythrocyte mean corpuscular h emoglobin concentration measurement (mass/volume) 34 g/dL 32-36 Automated erythrocyte distribution width ratio 17. 1 % 10.0- 14.5 Automated blood platelet count (count/volume) 22 1 0*3/uL 130-400 Automated blood platelet mean volume measurement 11.2 [foz_us] 7.4-10.4 Automated blood neutrophils/100 leukocytes TNP 42-75 Automated blood lymphocytes/100 leukocytes TNP 12-44 Blood monocytes/100 leukocytes TNP 0-12 Automated blood eosinophils/100 leukocytes TNP 0-10 Automated blood basophils/100 leukocytes TNP 0-10 Blood neutrophils automated count (number/volume) TNP 1.8- 7.8 Blood lymphocytes automated count (number/volume) TNP 1.0- 4.0 Blood monocytes automated count (number/volume) TN P 0.0-1.0 Automated eosinophil count TNP 0.0 -0.3 Automated blood basophil count (count/volume) TNP 0.0-0.1 Manual absolute plasma cell count - 10/29 03:28 Blood monocytes/100 leukocytes 34 % NRG Manual blood segmented neutrophils/100 leukocytes 8 % NRG Manual blood lymphocytes/100 leukocytes 42 % NRG Manual blood lymphocytes variant/100 leukocytes 16 % NRG Blood anisocytosis detection by light microscopy S LIGHT NRG Capillary blood glucose measurement by g lucometer (mass/volume) - 01/13/20 11:16 Capillary blood glucose measurement by glucometer (mas s/volume) 284 mg/dL 70-110 Capillary blood glucose measurement by g lucometer (mass/volume) - 01/13/20 15:16 Capillary blood glucose measurement by glucometer (mas s/volume) 343 mg/dL 70-110 Capillary blood glucose measurement by g lucometer (mass/volume) - 01/13/20 20:28 Capillary blood glucose measurement by glucometer (mas s/volume) 305 mg/dL 70-110 Capillary blood glucose measurement by g lucometer (mass/volume) - 01/14/20 05:24 Capillary blood glucose measurement by glucometer (mas s/volume) 65 mg/dL 70-110 Complete blood count (CBC) with automate d white blood cell (WBC) differential - 01/14/20 06:23 Blood leukocytes automated count (number/volume) 0.9 10*3/uL 4.3-11.0 Blood erythrocytes automated count (number/volume) 2.58 10*6/uL 4.35-5.85 Venous blood hemoglobin measurement (mass/volume) 7.8 g/dL 11.5-16.0 Blood hematocrit (volume fraction) 23 % 35-52 Automated erythrocyte mean corpuscular volume 88 [ foz_us] 80-99 Automated erythrocyte mean corpuscular h emoglobin (mass per erythrocyte) 30 pg 25-34 Automated erythrocyte mean corpuscular h emoglobin concentration measurement (mass/volume) 34 g/dL 32-36 Automated erythrocyte distribution width ratio 16. 7 % 10.0- 14.5 Automated blood platelet count (count/volume) 9 10 *3/uL 130- 400 Automated blood platelet mean volume measurement T [employer] 7.4- 10.4 Automated blood neutrophils/100 leukocytes TNP 42-75 Automated blood lymphocytes/100 leukocytes TNP 12-44 Blood monocytes/100 leukocytes TNP 0-12 Automated blood eosinophils/100 leukocytes TNP 0-10 Automated blood basophils/100 leukocytes TNP 0-10 Blood neutrophils automated count (number/volume) TNP 1.8- 7.8 Blood lymphocytes automated count (number/volume) TNP 1.0- 4.0 Blood monocytes automated count (number/volume) TN P 0.0-1.0 Automated eosinophil count TNP 0.0 -0.3 Automated blood basophil count (count/volume) TNP 0.0-0.1 Comprehensive metabolic panel - 01/14/20 06:23 Serum or plasma sodium measurement (moles/volume) 135 mmol/L 135-145 Serum or plasma potassium measurement (moles/volume) 4.3 mmol/L 3.6-5.0 Serum or plasma chloride measurement (moles/volume) 107 mmol/L 98-107 Carbon dioxide 23 mmol/L 21-32 Serum or plasma anion gap determination (moles/volume) 5 mmol/L 5-14 Serum or plasma urea nitrogen measurement (mass/volume ) 21 mg/dL 7-18 Serum or plasma creatinine measurement (mass/volume) 1.28 mg/dL 0.60-1.30 Serum or plasma urea nitrogen/creatinine mass ratio 16 NRG Serum or plasma creatinine measurement w ith calculation of estimated glomerular filtration rate 42 NRG Serum or plasma glucose measurement (mass/volume) 85 mg/dL 70-105 Serum or plasma calcium measurement (mass/volume) 7.6 mg/dL 8.5-10.1 Serum or plasma total bilirubin measurement (mass/volu me) 0.5 mg/dL 0.1-1.0 Serum or plasma alkaline phosphatase lachelle surement (enzymatic activity/volume) 49 U/L 40-136 Serum or plasma aspartate aminotransfera se measurement (enzymatic activity/volume) 35 U/L 5-34 Serum or plasma alanine aminotransferase measurement (enzymatic activity/volume) 107 U/L 0-55 Serum or plasma protein measurement (mass/volume) 5.0 g/dL 6.4-8.2 Serum or plasma albumin measurement (mass/volume) 2.5 g/dL 3.2-4.5 CALCIUM CORRECTED 8.8 mg/dL 8.5-10.1 Manual absolute plasma cell count - 11/29 06:23 Blood monocytes/100 leukocytes 22 % NRG Manual blood segmented neutrophils/100 leukocytes 5 % NRG Manual blood lymphocytes/100 leukocytes 61 % NRG Manual eosinophils/100 leukocytes in nose 0 % NRG Manual blood basophils/100 leukocytes 0 % NRG Manual blood lymphocytes variant/100 leukocytes 12 % NRG Blood anisocytosis detection by light microscopy S LIGHT NRG Capillary blood glucose measurement by g lucometer (mass/volume) - 01/14/20 10:49 Capillary blood glucose measurement by glucometer (mas s/volume) 174 mg/dL 70-110 Capillary blood glucose measurement by g lucometer (mass/volume) - 01/14/20 15:30 Capillary blood glucose measurement by glucometer (mas s/volume) 319 mg/dL 70-110 Capillary blood glucose measurement by g lucometer (mass/volume) - 01/14/20 19:59 Capillary blood glucose measurement by glucometer (mas s/volume) 279 mg/dL 70-110 Encounters ACCT No. Visit Date/Time Discharge Status Pt. Type Provider Facility Loc./Unit Complaint [id number] 09/13/2019 11:50:00 09/13/2019 23:59: 59 [facility] Outpatient SHANON STAPLETON [facility] [id number] 09/24/2019 08:30:00 Document Registration [id number] 09/09/2019 08:15:00 Document Registration [id number] 06/08/2019 08:00:00 Document Registration [id number] 01/28/2019 10:20:00 Document Registration [id number] 11/19/2018 13:30:00 Document Registration [id number] 10/08/2018 10:15:00 Document Registration [id number] 01/11/2020 13:24:00 06/01/2 020 23:59:59 CLS Outpatient DELORES WILVER Mai [facility] ONC [id number] 01/11/2020 08:25:00 23:59:59 CLS Outpatient WILVER ESTRELLA V [facility] LAB FS ACUTE MYELOCYTIC LEUKEM IA [id number] 01/03/2020 15:51:00 12:00:00 DIS Outpatient IRAJ DE LA TORRE MD [facility] 4TH ANEMIC [id number] 11/28/2019 07:53:00 10:17:00 DIS Emergency TOYA AVALOS DO [facility] ER FS CHEST PAIN [id number] 10/19/2019 10:20:00 23:59:59 CLS Outpatient KIT CORDERO MD [facility] LAB FS 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 06/26/2019 20:51:00 019 00:03:00 DIS Emergency JIMENA NAVARRO, ASHLEY Reyes [facility] ER FS CP [id number] 06/01/2015 13:01:00 015 23:59:59 CLS Outpatient SHEREE SANTANA MD [facility] RAD RENAL INSUFFICIENCY STA GE 3 [id number] 12/28/2014 09:19:00 015 23:59:59 CLS Outpatient KIT CORDERO MD [facility] RAD HODGKINS LYMPHOMA [id number] 05/28/2014 10:50:00 014 11:58:00 DIS Outpatient JOSE RUFFIN MD [facility] CARD LUMBAR SPONDOLOYSIS [id number] 04/27/2014 15:10:00 014 23:59:59 CLS Outpatient JOSE RUFFIN MD [facility] RAD THORACIC SPINE PAIN,TEN DERNESS TO PALPATION [place] [id number] 01/11/2020 17:40:[address] Inpatient SALO MARIE MD [facility] 4TH PANCYTOPENIA,SYMPTOMATIC ANE RAUL,SYNCOPE,AML [id number] 09/29/2018 10:42:07 9 23:59:59 DIS Outpatient KIT CORDERO [facility] ASHLEY RAD radhika lymphoma
--- NOTE | 2020-01-16 14:11 | Physical Therapy Evaluation ---
PT Evaluation-General Medical Diagnosis Admission Date Jan 11, 2020 at 17:40 Medical Diagnosis: AMS/severe anemia Onset Date: Jan 11, 2020 Therapy Diagnosis Therapy Diagnosis: Impaired mobility Height/Weight Height (Feet): 5 Height (Inches): 1.00 Weight (Pounds): 245 Precautions Precautions/Isolations: Standard Precautions Referral Physician: Dr. Zhang Reason for Referral: Evaluation/Treatment Medical History Pertinent Medical History: CAD, DM Additional Medical History lumbar fusion Current History Admit due to low hemoglobin, currently receiving platelets. Reviewed History: Yes Social History Home: Single Level Current Living Status: Children Entry Into Home: Stairs With Railing PT Steps Into Home: 3 Prior Prior Level of Function SCALE: Activities may be completed with or without assistive devices. 5-Ddtckeivue-nqbkbcg completes the activity by him/herself with no assistance from a helper. 5-Set-up or Clean-up Assistance-helper sets up or cleans up; patient completes activity. Ola assists only prior to or following the activity. 4-Supervision or Touching Assistance-helper provides verbal cues and/or dwayne sharda/steadying and/or contact guard assistance as patient completes activity. Assistance may be provided throughout the activity or intermittently. 3-Partial/Moderate Assistance-helper does LESS THAN HALF the effort. Ola lifts, holds or supports trunk or limbs, but provides less than half the effort. 2-Substantial/Maximal Assistance-helper does MORE THAN HALF the effort. Ola lifts or holds trunk or limbs and provides more than half the effort. 0-Fzeoyecmg-yxeeix does ALL the effort. Patient does none of the effort to complete the activity. Or, the assistance of 2 or more helpers is required for the patient to complete the activity. If activity was not attempted, code reason: 7-Patient Refused. 9-Not Applicable-not attempted and the patient did not perform the activity before the current illness, exacerbation or injury. 10-Not Attempted due to Environmental Limitations-(lack of equipment, weather restraints, etc.). 88-Not Attempted due to Medical Conditions or Safety Concerns. Bed Mobility: 6 Transfers (B,C,W/C): 6 Gait: 6 Stairs: 6 Wheelchair Mobility: 9 Indoor Mobility (Ambulation): Independent Stairs: Independent Prior Devices Use: None PT Evaluation-Current Subjective No pain or complaints on arrival or during the evaluation. Objective Patient Orientation: Person, Place, Time, Situation Attachments: IV ROM/Strength ROM Upper Extremities WFL ROM Lower Extremities WFL Strength Upper Extremities WFL Strength Lower Extremities WFL Integumentary/Posture Bowel Incontinence: No Bladder Incontinence: No Neuromuscular (Tone, Coordination, Reflexes) Normal (B) UE and LE reflexes. Pt notes occasional altered sensation in feet. Prefers to wear shoes at all times due to altered sensation in feet. Sensory Vision: Wears Glasses Hearing: Functional Sensation Right Upper Extremit: Intact Sensation Left Upper Extremity: Intact Sensation Right Lower Extremit: Impaired Sensation Left Lower Extremity: Intact Sensation Lower Extremities Pt was able to identify sharp and dull stimuli, but reports intermittent altered sensation in the plantar surface of the (R) foot. Described as "walking on marbles." Transfers Roll Left to Right (QC): 6 Sit to Lying (QC): 6 Lying to Sitting/Side of Bed(Q: 6 Sit to Stand (QC): 6 Chair/Srm-et-Tplap Xfer(QC): 6 Toilet Transfer (QC): 6 Car Transfer (QC): 6 Gait Does the Patient Walk?: Yes Mode of Locomotion: Walk Anticipated Mode of Locomotion: Walk Walk 10 feet (QC): 6 Walk 50 ft with 2 Turns(QC): 6 Walk 150 ft (QC): 6 Walking 10ft/uneven surface-QC: 6 Distance: 250ft Gait Assistive Device: FWW Wheelchair Training Does the Pt Use a Wheelchair?: No Wheel 50 ft with 2 turns (QC): 9 Wheel 150 ft (QC): 9 Type of Wheelchair: N/A Stairs #of Steps: 1 1 Step (curb) (QC): 6 4 Steps (QC): 88 12 Steps (QC): 88 Walking Assistive Device: Walker Performed ascent/descent of 12 steps using 1 rail yesterday without assistance. Balance Sitting Static: Normal Sitting Dynamic: Normal Standing Static: Normal Standing Dynamic: Normal Picking up an Object (QC): 6 Special Test Comments Performed eyes closed on level and uneven surfaces with pt able to maintain balance (I). Assessment/Needs Pt is very high functioning with all activity. She remained stable through all activity. No signs of fatigue or instability. Rehab Potential: Good PT Building Drafter Goals Building Drafter Goals PT Correction Goals Time Frame: Jan 20, 2020 Roll Left & Right (QC): 6 Sit to Lying (QC): 6 Lying-Sitting on Side/Bed(QC): 6 Sit to Stand (QC): 6 Chair/Hey-qa-Mmslo Xfer(QC): 6 Toilet Transfer (QC): 6 Car Transfer (QC): 6 Does the Patient Walk: Yes Walk 10 feet (QC): 6 Walk 50ft with 2 Turns (QC): 6 Walk 150 ft (QC): 6 Walking 10ft on Uneven Surface: 6 1 Step (curb) (QC): 6 4 Steps (QC): 6 12 Steps (QC): 6 Picking up an Object (QC): 6 Does the Pt use WC or Scooter?: No Wheel 50 feet with 2 turns (QC: 9 Type: N/A Wheel 150 feet: 9 Type: N/A PT Plan Problem List Problem List: Activity Tolerance, Functional Strength, Balance, Gait Treatment/Plan Treatment Plan: Continue Plan of Care Treatment Plan: Bed Mobility, Education, Functional Activity Chiara, Functional Strength, Gait, Safety, Therapeutic Exercise, Transfers Treatment Duration: Jan 30, 2020 Frequency: At least 5 of 7 days/Wk (IRF) Estimated Hrs Per Day: 1.5 hours per day Patient and/or Family Agrees t: Yes Time/GCodes Time In: 1345 Time Out: 1415 Total Billed Treatment Time: 30 Total Billed Treatment 1, chuy 15, gt 15 MICKEY LATHAM PT Jan 16, 2020 14:11
[2020-01-16 14:19] VITALS: BP 199/74
--- NOTE | 2020-01-16 14:37 | PM&R Post Admission Assessment ---
PM&R HP Date of Visit: Jan 16, 2020 Time of Visit: 14:20 History of Present Illness CC: Debility from chemotherapy induced myopathy HPI: This is a very complicated 69yoWF who lives with her daughter who presents to the IRF in need of strengthening due to chemotherapy induced myopathy. She was admitted on 01/12/20 to ICU for AMS and AML flare with severe neutropenia with thrombocytopenia and anemia requiring multiple transfusions of blood and platelets since admitted by Dr Thurman direction and recs. Patient has a bone marrow scheduled with Oncology at on 01/27/20. Her insurance had denied the IRF admit and family appealed the decision and the denial was overturned so she was admitted to IRF today. BM++. Labs remain abnormal and Dr Thurman has been ordering platelets and transfusions per his expertise. She has received 2 units of blood and 4 units of platelets. see previous med-surg H&P/DC note: CC: Severe anemia with altered mental status (admit 01/12/20) HPI: This is a 69yoWF of [facility] who sees Dr. Thurman for anemia and AML who presented to the [place] ER with altered mental status found to have sodium level of 127, white count 0.9 and Hgb in the 7 range. She was admitted given 1 unit of blood and 1 unit of platelets, she was swabbed for COVID-[address] Garber was notified, creatinine remains at 2.0, sodium level 129, but white count at 3.5. At this current time, Pt is in isolation, all PPE placed before seen by this examiner. Assessment: AMS Severe anemia requiring transfusions Severe thrombocytopenia requiring platelet transfusion AML Hyponatremia Neutropenia requiring broad spectrum abx s/p DC Vanc Plan: Supportive care COVID-19 swab negative Transfuse prn Consult Dr Thurman appreciated DC Vanc and Zosyn PT OT IRF Past Hxpwywn-Uolvmp-Eibxbb Hx Past Med/Social Hx: Reviewed Nursing Past Med/Soc Hx, Reviewed and Corrections made Patient Social History Marrital Status: single Employed/Student: retired Alcohol Use: Denies Use Smoking Status: Never a Smoker 2nd Hand Smoke Exposure: No Recent Foreign Travel: No Contact w/other who traveled: No Recent Hopitalizations: No Recent Infectious Disease Expo: No Immunizations Up To Date Date of Pneumonia Vaccine: Mar 12, 2019 Seasonal Allergies Seasonal Allergies: No Past Medical History Surgeries: Appendectomy, Cardiac, CABG, Coronary Stent, Gallbladder, Hysterectomy, Orthopedic Cardiac: Cardiomyopathy, Coronary Artery Disease, High Cholesterol, Hypertension Gastrointestinal: Gastroesophageal Reflux Musculoskeletal: Degenerate Disk Disease Endocrine: Diabetes, Insulin dep HEENT: Cataract Cancer: Leukemia, Lymphoma Did You Recieve Any Treatments: Yes What Type of Treatment Did You: Chemotherapy Psychosocial: Anxiety, Depression History of Blood Disorders: No Family History Cardiovascular disease 19 FATHER 19 MOTHER G8 BROTHER Diabetes mellitus 19 FATHER G8 BROTHER Hypertension 19 FATHER 19 MOTHER Neoplasm G8 BROTHER (lung cancer- from) PM&R Allergy/Meds/Data Review Allergies Coded Allergies: midazolam (Unverified Allergy, Unknown, MAKE PT HYPER AND ANXIOUS, 05/28/14) Home Medications Scheduled Acyclovir (Acyclovir), 400 MG PO BID, (Reported) Allopurinol (Allopurinol), 300 MG PO DAILY, (Reported) Carvedilol (Carvedilol), 6.25 MG PO BID, (Reported) Cefuroxime Axetil (Cefuroxime), 250 MG PO BID, (Reported) Citalopram Hydrobromide (Citalopram HBr), 20 MG PO DAILY, (Reported) Cyanocobalamin (Vitamin B-12) (Vitamin B-12), 1,000 MCG PO DAILY, (Reported) Gabapentin (Gabapentin), 300 MG PO BID, (Reported) Insulin Aspart (Novolog Flexpen), UNITS SC PER SLIDING SCALE, (Reported) Insulin Glargine,Hum.rec.anlog (Lantus Solostar), 24 UNITS SC BID, (Reported) Isosorbide Mononitrate (Isosorbide Mononitrate), 30 MG PO DAILY, (Reported) Posaconazole (Posaconazole), 300 MG PO DAILY, (Reported) Simvastatin (Simvastatin), 10 MG PO HS, (Reported) Venetoclax (Venclexta), 100 MG PO DAILY, (Reported) Vitamin D (Vitamin D3), 1,000 UNITS PO DAILY, (Reported) Scheduled PRN Alprazolam (Xanax), 0.5 MG PO TID PRN for ANXIETY, (Reported) Ondansetron HCl (Zofran), 8 MG PO Q8H PRN for NAUSEA-1ST LINE, (Reported) Discontinued Medications Alprazolam (Alprazolam), 0.5 MG PO TID PRN for ANXIETY, (Reported) Discontinued Reason: No Longer Taking Cefuroxime Axetil (Cefuroxime), 250 MG PO BID, (Reported) Discontinued Reason: No Longer Taking Current Medications Current Medications Reviewed Review of Systems Constitutional: see HPI, malaise, weakness EENTM: no symptoms reported Respiratory: no symptoms reported Cardiovascular: no symptoms reported Gastrointestinal: no symptoms reported Genitourinary: no symptoms reported Musculoskeletal: no symptoms reported Skin: no symptoms reported Psychiatric/Neurological: Depressed All Other Systems Reviewed Negative Unless Noted: Yes Physical Exam Physical Exam Vital Signs Vital Signs - First Documented 01/16/20 14:19 Temp 36.6 Pulse 80 Resp 18 B/P (MAP) 199/74 O2 Delivery Room Air Capillary Refill : Height, Weight, BMI Height: 5'1.00" Weight: 245lbs. oz. 111.355714fe; 43.67 BMI Method: General Appearance: No Apparent Distress, WD/WN, Chronically ill, Obese Eyes: Bilateral Eye Normal Inspection, Bilateral Eye PERRL HEENT: PERRL/EOMI, Normal ENT Inspection, Pharynx Normal Neck: Full Range of Motion, Normal Inspection, Non Tender, Supple, Carotid Bruit Respiratory: Chest Non Tender, Lungs Clear, No Accessory Muscle Use, No Respiratory Distress, Decreased Breath Sounds Cardiovascular: Regular Rate, Rhythm, No Edema, No Gallop, No JVD, No Murmur, Normal Peripheral Pulses Gastrointestinal: Normal Bowel Sounds, No Organomegaly, No Pulsatile Mass, Non Tender, Soft Back: Normal Inspection, No CVA Tenderness, No Vertebral Tenderness Extremity: Normal Capillary Refill, Normal Inspection, Normal Range of Motion, Non Tender, No Calf Tenderness, No Pedal Edema Neurologic/Psychiatric: Alert, Oriented x3, No Motor/Sensory Deficits, Normal Mood/Affect, Motor Weakness (generalized all extremities) Skin: Normal Color, Warm/Dry Lymphatic: No Adenopathy PM&R Medical Assessment & Plan REHAB/MEDICAL ASSESSMENT AND PLAN: REHAB IMPAIRMENT GROUP: Chemotherapy induced myopathy ETIOLOGIC DIAGNOSIS: Chemotherapy induced myopathy The comorbidities that impact the patients function and/or functional outcome by: active and decompensated AML requiring multiple platelets transfusions along with blood transfusions, volume overload, obesity, DM REHAB PLAN: The patient is being admitted to our comprehensive inpatient rehabilitation facility and can tolerate the intensity of service consisting of at least: 180 minutes of therapy a day, 5 out of 7 days a week Rehab treatment will consist of: PT OT will focus on regaining strength from chemotherapy while platelet and blood transfusion will be required along with fall prevention in order to safely return home The patient/family has a good understanding of our discharge process and will benefit from an interdisciplinary inpatient rehabilitation program. The patient has potential to make improvement and is in need of at least two of the following multidisciplinary therapies including but not limited to physical, occupational, speech, and prosthetics and orthotics. Additionally the patient will need services from respiratory, nutritional services, wound care, psychology, etc. (Customize this to each patient). Given the patients complex condition and risk of further medical complications, rehabilitation services cannot be safely or effectively provided at a lower level of care such as a correction facility. BARRIERS TO DISCHARGE: Platelet and hemoglobin critical low levels ESTIMATED LOS: 10 days DISPOSITION: Home RELEVANT CHANGES SINCE PREADMISSION SCREENING: I have compared the patients medical and functional status at the time of the preadmission screening and there are: no changes PROGNOSIS: Good REHABILITATION GOALS: 1. PT OT will focus on regaining strength from chemotherapy while platelet and blood transfusion will be required along with fall prevention in order to safely return home All the above goals were reviewed with the patient and he/she is in agreement. By signing this document, I acknowledge that I have personally performed a full physical examination on this patient within 24 hours of admission to this inpatient rehabilitation facility and have determined the patient to be able to tolerate the above course of treatment at an intensive level for a reasonable period of time. I will be completing a detailed individualized Plan of Care for this patient by day #4 of the patients stay based upon the Preadmission Screen, the Post-Admission Evaluation, and the therapy evaluations. Admission Dx/Comorbidities: (1) Complication of chemotherapy ICD Codes: T45.1X5A - Adverse effect of antineoplastic and immunosuppressive drugs, initial encounter (2) Diabetes mellitus ICD Codes: E11.9 - Type 2 diabetes mellitus without complications (3) Hypertension ICD Codes: I10 - Essential (primary) hypertension (4) Volume overload ICD Codes: E87.70 - Fluid overload, unspecified (5) BMI 40.0-44.9, adult ICD Codes: Z68.41 - Body mass index (BMI) 40.0-44.9, adult (6) History of lymphoma Status: Acute ICD Codes: Z85.79 - Personal history of other malignant neoplasms of lymphoid, hematopoietic and related tissues (7) Pancytopenia Status: Acute ICD Codes: D61.818 - Other pancytopenia (8) anemia (9) Syncope Status: Acute ICD Codes: R55 - Syncope and collapse (10) Symptomatic anemia Status: Acute ICD Codes: D64.9 - Anemia, unspecified (11) Fatigue Status: Acute ICD Codes: R53.83 - Other fatigue (12) AML (acute myeloid leukemia) Status: Acute ICD Codes: C92.00 - Acute myeloblastic leukemia, not having achieved remission Assessment/Plan Assessment and Plan Assess & Plan/Chief Complaint Assessment: Chemotherapy induced myopathy s/p AMS due to encephalopathy admitted ICU 01/12/20 Severe anemia requiring multiple transfusions Severe thrombocytopenia requiring multiple platelet transfusions AML on chemotherapy KU Hyponatremia Neutropenia requiring broad spectrum abx s/p DC Vanc and Zosyn now COVID-19 swab negative HTN DM Obesity CAD previous CABG CRI Plan: Supportive care Transfuse prn Consult Dr Thurman appreciated PT OT IRF protocol HTN meds MONTSERRAT HUANG DO Jan 16, 2020 14:37
[2020-01-16] MEDS ORDERED: amLODIPine 5 MG (NORVASC) TAB PO NR (14:45)
[2020-01-16] MEDS ORDERED: ONDANSETRON 4 MG/2 ML (SDV) Z0FRAN IVP PRN (14:45)
[2020-01-16] MEDS ORDERED: ACETAMINOPHEN 325 MG TABLET PO PRN (14:45)
[2020-01-16] MEDS ORDERED: ACETAMINOPHEN 500 MG TAB (TYLENOL) PO PRN (14:45)
[2020-01-16] MEDS ORDERED: NS IV 500 ML 500 ML IV PRN (14:45)
[2020-01-16] MEDS ORDERED: PATIENT MAY USE OWN MED,SINGLE MED PO SCH (14:45)
[2020-01-16] MEDS ORDERED: HYDROcodone/APAP 5 MG/325 MG (LORTAB) TAB PO PRN (14:45)
[2020-01-16] MEDS ORDERED: RT-ALBUTEROL SULF 2.5 MG/3 ML PRE-MIX VIAL INH PRN (14:45)
[2020-01-16] MEDS ORDERED: cloNIDine 0.1 MG (CATAPRES) TAB PO PRN (14:45)
[2020-01-16] MEDS ORDERED: FUROSEMIDE 40 MG/4 ML INJ (LASIX) IVP NR (16:15)
[2020-01-16 16:30] VITALS: BP 145/77
[2020-01-16] MEDS: inSUlin ASPART (NovoLOG) 1 UNIT/0.01 ML (CHARGE PER UNIT) SC SCH ×2 (17:04→20:56)
--- NOTE | 2020-01-16 17:27 | NUR ---
DAUGHTER WILL BRING POSACONAZOLE FROM HOME.
[2020-01-16] MEDS: DOCUSATE SODIUM 100 MG (COLACE) CAP PO SCH (20:55)
[2020-01-16] MEDS: polyethylene glycoL POWDER 17 GM (MIRALAX) PACK PO SCH (20:56)
[2020-01-16] MEDS: SENNA W/DOCUSATE (SENOKOT S) TABLET PO SCH (20:56)
[2020-01-16] MEDS: GABAPENTIN 300 MG (NEURONTIN) CAP PO SCH (20:57)
[2020-01-16] MEDS: SIMvastatin 10 MG (ZOCOR) TAB PO SCH (20:57)
[2020-01-16] MEDS: ACYCLOVIR 400 MG TABLET (ZOVIRAX) PO SCH (20:57)
[2020-01-16] MEDS: CARVEDILOL 6.25 MG (COREG) TAB PO SCH (20:57)
[2020-01-16] MEDS: ZINC OXIDE 40% (Butt Paste MAX/Desitin) 57 gm TOP SCH (20:58)
[2020-01-16 21:00] VITALS: BP 134/74
[2020-01-16] MEDS ORDERED: SENNA W/DOCUSATE (SENOKOT S) TABLET PO SCH (21:00)
[2020-01-16] MEDS: CATHETER FLUSH 10 ML SYR IV SCH (22:00)
[2020-01-17 06:00] VITALS: BP 141/76
[2020-01-17] MEDS: CATHETER FLUSH 10 ML SYR IV SCH ×3 (06:34→20:47)
[2020-01-17] MEDS: ISOSORBIDE MONONITRATE 30 MG (IMDUR) TAB PO SCH (06:34)
[2020-01-17] MEDS: inSUlin ASPART (NovoLOG) 1 UNIT/0.01 ML (CHARGE PER UNIT) SC SCH ×4 (06:34→20:45)
[2020-01-17 06:46] LABS: HEMATOCRIT 23 % (35-52); MEAN CORPUSCULAR HEMOGLOBIN 31 PG (25-34); MEAN CORPUSCULAR HGB CONC 35 G/DL (32-36); MEAN CORPUSCULAR VOLUME 89 FL (80-99)
[2020-01-17 06:49] LABS: PLATELET COUNT 4 10^3/uL (130-400); WHITE BLOOD COUNT 0.6 10^3/uL (4.3-11.0)
[2020-01-17 07:06] LABS: ALBUMIN 2.9 GM/DL (3.2-4.5); BILIRUBIN,TOTAL 0.3 MG/DL (0.1-1.0); CALCIUM 8.7 MG/DL (8.5-10.1); CREATININE SERUM 1.37 MG/DL (0.60-1.30); POTASSIUM 3.8 MMOL/L (3.6-5.0); TOTAL PROTEIN 5.5 GM/DL (6.4-8.2)
--- NOTE | 2020-01-17 07:42 | NUR ---
BLOOD BANK STATES THAT NO PLATELETS ARE IN HOUSE. WILL BE HERE BETWEEN 10-11 AM.
[2020-01-17] MEDS: VITAMIN D3 10 MCG (400 UNITS) TABLET PO SCH (08:28)
[2020-01-17] MEDS: amLODIPine 5 MG (NORVASC) TAB PO SCH (08:29)
[2020-01-17] MEDS: CARVEDILOL 6.25 MG (COREG) TAB PO SCH ×2 (08:29→20:44)
[2020-01-17] MEDS: ACYCLOVIR 400 MG TABLET (ZOVIRAX) PO SCH ×2 (08:29→20:44)
[2020-01-17] MEDS: GABAPENTIN 300 MG (NEURONTIN) CAP PO SCH ×2 (08:29→20:44)
[2020-01-17] MEDS: ALLOPURINOL 300 MG (ZYLOPRIM) TAB PO SCH (08:29)
[2020-01-17] MEDS: DOCUSATE SODIUM 100 MG (COLACE) CAP PO SCH ×2 (08:30→21:37)
[2020-01-17] MEDS: polyethylene glycoL POWDER 17 GM (MIRALAX) PACK PO SCH ×2 (08:30→21:37)
[2020-01-17] MEDS: SENNA W/DOCUSATE (SENOKOT S) TABLET PO SCH ×2 (08:30→21:37)
[2020-01-17] MEDS: CYANOCOBALAMIN 1,000 MCG (VITAMIN B-12) TABLET PO SCH (08:30)
[2020-01-17] MEDS: VENCLEXTA 100 MG PO SCH (08:30)
[2020-01-17] MEDS: ZINC OXIDE 40% (Butt Paste MAX/Desitin) 57 gm TOP SCH ×2 (08:32→20:46)
[2020-01-17 08:33] VITALS: BP 143/75
--- NOTE | 2020-01-17 11:34 | PM&R Progress Note ---
Subjective HPI/CC On Admission Date Seen by Provider: Jan 17, 2020 Time Seen by Provider: 11:45 Subjective/Events-last exam Patient settling in well since arriving to IRF Daughter at the bedside today BM loose 1 unit of platelets given today as she had yesterday WBC 0.6 and hgb 8.0 and platelets 4k Creat 1.37 Lasix given 20mg once IV yesterday BP much improved today since IV Lasix yesterday and Norvasc ordered Conferred with RN Reviewed therapy notes Checked meds and labs Review of Systems General: Fatigue Pulmonary: Dyspnea Cardiovascular: Edema Objective Exam Vital Signs Vital Signs Date Time Temp Pulse Resp B/P (MAP) Pulse Ox O2 Delivery O2 Flow Rate FiO2 01/17/20 09:43 Room Air 01/17/20 09:20 93 01/17/20 08:33 98 143/75 (97) 01/17/20 06:00 36.5 18 3.00 Capillary Refill : Less Than 3 Seconds General Appearance: No Apparent Distress, WD/WN, Chronically ill, Obese HEENT: PERRL/EOMI, Normal ENT Inspection, Pharynx Normal Neck: Full Range of Motion, Normal Inspection, Non Tender, Supple, Carotid Bruit Respiratory: Chest Non Tender, Lungs Clear, No Accessory Muscle Use, No Respiratory Distress, Decreased Breath Sounds Cardiovascular: Regular Rate, Rhythm, No Edema, No Gallop, No JVD, No Murmur, Normal Peripheral Pulses Gastrointestinal: Normal Bowel Sounds, No Organomegaly, No Pulsatile Mass, Non Tender, Soft Back: Normal Inspection, No CVA Tenderness, No Vertebral Tenderness Extremity: Normal Capillary Refill, Normal Inspection, Normal Range of Motion, Non Tender, No Calf Tenderness, No Pedal Edema Neurologic/Psychiatric: Alert, Oriented x3, No Motor/Sensory Deficits, Normal Mood/Affect, Motor Weakness (generalized all extremities) Skin: Normal Color, Warm/Dry Lymphatic: No Adenopathy Results/Procedures Lab Laboratory Tests 01/17/20 06:30 Patient resulted labs reviewed. FIM Transfers Therapy Code Descriptions/Definitions Functional [place] Measure: 0=Not Assessed/NA 4=Minimal Assistance 1=Total Assistance 5=Supervision or Setup 2=Maximal Assistance 6=Modified [place] 3=Moderate Assistance 7=Complete IndependenceSCALE: Activities may be completed with or without assistive devices. 8-Urfbzvcjwt-kyxmska completes the activity by him/herself with no assistance from a helper. 5-Set-up or Clean-up Assistance-helper sets up or cleans up; patient completes activity. [place] assists only prior to or following the activity. 4-Supervision or Touching Assistance-helper provides verbal cues and/or dwayne sharda/steadying and/or contact guard assistance as patient completes activity. Assistance may be provided throughout the activity or intermittently. 3-Partial/Moderate Assistance-helper does LESS THAN HALF the effort. [place] lifts, holds or supports trunk or limbs, but provides less than half the effort. 2-Substantial/Maximal Assistance-helper does MORE THAN HALF the effort. [place] lifts or holds trunk or limbs and provides more than half the effort. 0-Iokbofffw-wtxsbu does ALL the effort. Patient does none of the effort to complete the activity. Or, the assistance of 2 or more helpers is required for the patient to complete the activity. If activity was not attempted, code reason: 7-Patient Refused. 9-Not Applicable-not attempted and the patient did not perform the activity b efore the current illness, exacerbation or injury. 10-Not Attempted due to Environmental Limitations-(lack of equipment, weather restraints, etc.). 88-Not Attempted due to Medical Conditions or Safety Concerns. Assessment/Plan Assessment and Plan Assess & Plan/Chief Complaint Assessment: Chemotherapy induced myopathy s/p AMS due to encephalopathy admitted ICU 01/12/20 Severe anemia requiring multiple transfusions Severe thrombocytopenia requiring multiple platelet transfusions AML on chemotherapy KU Hyponatremia Neutropenia requiring broad spectrum abx s/p DC Vanc and Zosyn now COVID-19 swab negative HTN DM Obesity CAD previous CABG CRI Plan: Supportive care Transfuse prn Consult Dr Thurman appreciated PT OT IRF protocol HTN meds (1) Complication of chemotherapy (2) Diabetes mellitus (3) Hypertension (4) Volume overload (5) BMI 40.0-44.9, adult (6) History of lymphoma Status: Acute (7) Pancytopenia Status: Acute (8) anemia (9) Syncope Status: Acute (10) Symptomatic anemia Status: Acute (11) Fatigue Status: Acute (12) AML (acute myeloid leukemia) Status: Acute MONTSERRAT HUANG DO Jan 17, 2020 11:34
[2020-01-17] MEDS ORDERED: NS IV 500 ML 500 ML ONE (11:40)
[2020-01-17 12:23] VITALS: BP 152/72
[2020-01-17] MEDS ORDERED: PATIENT MAY USE OWN MED,SINGLE MED PO SCH (12:45)
--- NOTE | 2020-01-17 12:59 | NUR ---
UNABLE TO USE TAR SINCE BLOOD BANK ID BRACELET WAS PUT ON ON FOURTH FLOOR. BLOOD BANK SAYS THIS IS OK AND JUST VERIFY AT BEDSIDE WITH SECOND RN. PLATELETS VERIFIED WITH ROSE MARCANO.
[2020-01-17] MEDS: POSACONAZOLE 100 MG TABLET PO SCH (13:07)
--- NOTE | 2020-01-17 14:22 | NUR ---
REDDENED SCABS NOTED ON CHEST THAT PATIENT STATES ARE FROM TAPE. DR. HUANG NOTIFIED WITH NEW ORDER FOR TRIPLE ANTIBIOTIC OINTMENT TO SCABS.
[2020-01-17 17:09] VITALS: BP 147/70
[2020-01-17] MEDS: SIMvastatin 10 MG (ZOCOR) TAB PO SCH (20:44)
[2020-01-17] MEDS: NEO/POLY/BAC (NEOSPORIN) OINT 15 GM TUBE TOP SCH (20:46)
[2020-01-18 05:18] VITALS: BP 126/54
[2020-01-18] MEDS: inSUlin ASPART (NovoLOG) 1 UNIT/0.01 ML (CHARGE PER UNIT) SC SCH ×4 (06:12→20:25)
[2020-01-18] MEDS: ISOSORBIDE MONONITRATE 30 MG (IMDUR) TAB PO SCH (06:35)
[2020-01-18] MEDS: CATHETER FLUSH 10 ML SYR IV SCH ×3 (06:35→20:18)
[2020-01-18 07:00] LABS: HEMATOCRIT 21 % (35-52); HEMOGLOBIN 7.4 G/DL (11.5-16.0); MEAN CORPUSCULAR HGB CONC 35 G/DL (32-36); MEAN CORPUSCULAR VOLUME 88 FL (80-99); RED CELL DISTRIBUTION WIDTH 16.3 % (10.0-14.5)
[2020-01-18 07:01] LABS: MEAN CORPUSCULAR HEMOGLOBIN 30 PG (25-34)
[2020-01-18 07:02] LABS: WHITE BLOOD COUNT 0.5 10^3/uL (4.3-11.0)
[2020-01-18 07:03] LABS: PLATELET COUNT 6 10^3/uL (130-400)
[2020-01-18 07:13] LABS: POTASSIUM 4.1 MMOL/L (3.6-5.0)
[2020-01-18 07:15] LABS: TOTAL PROTEIN 5.7 GM/DL (6.4-8.2)
[2020-01-18 07:17] LABS: BILIRUBIN,TOTAL 0.6 MG/DL (0.1-1.0)
[2020-01-18 07:19] LABS: CREATININE SERUM 1.18 MG/DL (0.60-1.30)
--- NOTE | 2020-01-18 08:42 | Physical Therapy Daily Note ---
PT Daily Note-Current Subjective Pt. in bed, getting ready to be set up on plasma IV, agrees to TRF training and in bed LE exercises. States she did not sleep well but never really does Pain Location: No Pain Reported Mental Status Patient Orientation: Normal For Age Attachments: IV flat affect , more communicative toward end of Rx Transfers SCALE: Activities may be completed with or without assistive devices. 8-Igwnunkcmi-fdqckbc completes the activity by him/herself with no assistance from a helper. 5-Set-up or Clean-up Assistance-helper sets up or cleans up; patient completes activity. [place] assists only prior to or following the activity. 4-Supervision or Touching Assistance-helper provides verbal cues and/or touching/steadying and/or contact guard assistance as patient completes activity. Assistance may be provided throughout the activity or intermittently. 3-Partial/Moderate Assistance-helper does LESS THAN HALF the effort. [place] lifts, holds or supports trunk or limbs, but provides less than half the effort. 2-Substantial/Maximal Assistance-helper does MORE THAN HALF the effort. [place] lifts or holds trunk or limbs and provides more than half the effort. 2-Tvwpynrzq-bqqujd does ALL the effort. Patient does none of the effort to complete the activity. Or, the assistance of 2 or more helpers is required for the patient to complete the activity. If activity was not attempted, code reason: 7-Patient Refused. 9-Not Applicable-not attempted and the patient did not perform the activity before the current illness, exacerbation or injury. 10-Not Attempted due to Environmental Limitations-(lack of equipment, weather restraints, etc.). 88-Not Attempted due to Medical Conditions or Safety Concerns. Roll Left & Right (QC): 6 Sit to Lying (QC): 6 Lying to Sitting/Side of Bed(Q: 6 Exercises Supine Ex: Bridging, Ankle pumps, Quad Set, Rolling, Glut sets, Lower trunk rotation, Heel Slides, Short Arc Quads, Scooting, Straight leg raise, Hip abd/add Supine Reps: 15 (x2) Seated Therapy Exercises: Ankle pumps, Long arc quads Seated Reps: 10 (x2) Treatments TRFs, rolling and ther in supine as nursing is present starting plasma etc Assessment Current Status: Good Progress pt. 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 PT Waterworks Pump Station Operator Goals Time Frame: Jan 30, 2020 Roll Left & Right (QC): 6 Sit to Lying (QC): 6 Lying-Sitting on Side/Bed(QC): 6 Sit to Stand (QC): 6 Chair/Nxh-fu-Ozfng Xfer(QC): 6 Toilet Transfer (QC): 6 Car Transfer (QC): 6 Does the Patient Walk: Yes Walk 10 feet (QC): 6 Walk 50ft with 2 Turns (QC): 6 Walk 150 ft (QC): 6 Walking 10ft on Uneven Surface: 6 1 Step (curb) (QC): 6 4 Steps (QC): 6 12 Steps (QC): 6 Picking up an Object (QC): 6 Does the Pt use WC or Scooter?: No Wheel 50 feet with 2 turns (QC: 9 Type: N/A Wheel 150 feet: 9 Type: N/A PT Plan Treatment/Plan Treatment Plan: Continue Plan of Care Treatment Duration: Jan 30, 2020 Frequency: At least 5 of 7 days/Wk (IRF) Safety Risks/Education Patient Education: Transfer Techniques, Correct Positioning, Disease Process, Safety Issues Teaching Recipient: Patient Teaching Methods: Demonstration, Discussion Response to Teaching: Verbalize Understanding, Return Demonstration Time/GCodes Time In: 800 Time Out: 845 Total Billed Treatment Time: 45 Total Billed Treatment 1,EX35m,FA10m ROBERT BUTTS SURGICAL SCHEDULER Jan 18, 2020 08:42
[2020-01-18 08:45] VITALS: BP 159/82
[2020-01-18 09:00] VITALS: BP 179/79
--- NOTE | 2020-01-18 09:00 | NUR ---
unable to use TAR, blood bank aware. platelets verified with second RN, Brice, RN
[2020-01-18] MEDS: VENCLEXTA 100 MG PO SCH (09:09)
[2020-01-18] MEDS: POSACONAZOLE 100 MG TABLET PO SCH (09:09)
[2020-01-18] MEDS: ALLOPURINOL 300 MG (ZYLOPRIM) TAB PO SCH (09:11)
[2020-01-18] MEDS: CARVEDILOL 6.25 MG (COREG) TAB PO SCH ×2 (09:11→20:17)
[2020-01-18] MEDS: ACYCLOVIR 400 MG TABLET (ZOVIRAX) PO SCH ×2 (09:11→20:17)
[2020-01-18] MEDS: amLODIPine 5 MG (NORVASC) TAB PO SCH (09:12)
[2020-01-18] MEDS: GABAPENTIN 300 MG (NEURONTIN) CAP PO SCH ×2 (09:12→20:17)
[2020-01-18] MEDS: CYANOCOBALAMIN 1,000 MCG (VITAMIN B-12) TABLET PO SCH (09:12)
[2020-01-18] MEDS: VITAMIN D3 10 MCG (400 UNITS) TABLET PO SCH (09:12)
[2020-01-18] MEDS: ZINC OXIDE 40% (Butt Paste MAX/Desitin) 57 gm TOP SCH ×2 (09:14→20:48)
[2020-01-18] MEDS: NS IV 1000 ML 1,000 ML IV SCH (09:14)
[2020-01-18] MEDS: DOCUSATE SODIUM 100 MG (COLACE) CAP PO SCH ×2 (09:14→20:16)
[2020-01-18] MEDS: polyethylene glycoL POWDER 17 GM (MIRALAX) PACK PO SCH ×2 (09:14→20:16)
[2020-01-18] MEDS: SENNA W/DOCUSATE (SENOKOT S) TABLET PO SCH ×2 (09:14→20:16)
[2020-01-18] MEDS: NEO/POLY/BAC (NEOSPORIN) OINT 15 GM TUBE TOP SCH ×2 (09:15→20:18)
[2020-01-18 09:30] VITALS: BP 153/83
--- NOTE | 2020-01-18 09:30 | NUR ---
pt voices frustration about diagnosis. voices, "I'm just going to go back to ! I wanted to come here to be closer to my kids while I did this, but I'm going to go back to ." Dr. Garber notified of pt status, he will visit @ lunchtime. will con't to monitor. Addendum: 01/18/20 at 1521 by LIANNA PURDY RN Dr Miranda discusses with pt et daughter. family trying to reach for earlier appointment than 01/27/20 appt. Pt/Family to let RN know if earlier appt made, so Dr. Miranda can discharge on appropriate day. Family to take pt to appt.
--- NOTE | 2020-01-18 09:38 | PM&R Progress Note ---
Subjective HPI/CC On Admission Date Seen by Provider: Jan 18, 2020 Time Seen by Provider: 09:45 Subjective/Events-last exam Pt very discouraged and frustrated Angry about why she can't go to so will talk to Dr. Garber in-depth White count 0.5, Hgb 7.4, PLT 6.0 Receiving one unit of platelets today Doesn't understand why she can't use her port that was placed five years ago by the doctor up in [place] that is no longer there Denies any other significant pain Buttock wound will be assessed by Dr. Omalley Conferred with RN Reviewed therapy notes Checked meds and labs Review of Systems General: Fatigue Pulmonary: Dyspnea Objective Exam Vital Signs Vital Signs Date Time Temp Pulse Resp B/P (MAP) Pulse Ox O2 Delivery O2 Flow Rate FiO2 01/18/20 18:34 Room Air 01/18/20 18:03 36.4 82 18 153/79 (103) 100 01/18/20 09:00 2.00 Capillary Refill : Less Than 3 Seconds General Appearance: No Apparent Distress, WD/WN, Chronically ill, Obese HEENT: PERRL/EOMI, Normal ENT Inspection, Pharynx Normal Neck: Full Range of Motion, Normal Inspection, Non Tender, Supple, Carotid Bruit Respiratory: Chest Non Tender, Lungs Clear, No Accessory Muscle Use, No Respiratory Distress, Decreased Breath Sounds Cardiovascular: Regular Rate, Rhythm, No Edema, No Gallop, No JVD, No Murmur, Normal Peripheral Pulses Gastrointestinal: Normal Bowel Sounds, No Organomegaly, No Pulsatile Mass, Non Tender, Soft Back: Normal Inspection, No CVA Tenderness, No Vertebral Tenderness Extremity: Normal Capillary Refill, Normal Inspection, Normal Range of Motion, Non Tender, No Calf Tenderness, No Pedal Edema Neurologic/Psychiatric: Alert, Oriented x3, No Motor/Sensory Deficits, Normal Mood/Affect, Motor Weakness (generalized all extremities) Skin: Normal Color, Warm/Dry Lymphatic: No Adenopathy Results/Procedures Lab Laboratory Tests 01/18/20 06:45 Patient resulted labs reviewed. FIM Transfers Therapy Code Descriptions/Definitions Functional Cades Measure: 0=Not Assessed/NA 4=Minimal Assistance 1=Total Assistance 5=Supervision or Setup 2=Maximal Assistance 6=Modified Cades 3=Moderate Assistance 7=Complete IndependenceSCALE: Activities may be completed with or without assistive devices. 9-Wwcjjfluwx-ouglbuu completes the activity by him/herself with no assistance f rom a helper. 5-Set-up or Clean-up Assistance-helper sets up or cleans up; patient completes activity. Mobile assists only prior to or following the activity. 4-Supervision or Touching Assistance-helper provides verbal cues and/or touching/steadying and/or contact guard assistance as patient completes activity. Assistance may be provided throughout the activity or intermittently. 3-Partial/Moderate Assistance-helper does LESS THAN HALF the effort. Mobile lifts, holds or supports trunk or limbs, but provides less than half the effort. 2-Substantial/Maximal Assistance-helper does MORE THAN HALF the effort. Mobile lifts or holds trunk or limbs and provides more than half the effort. 8-Zkkzbwcnv-tjattw does ALL the effort. Patient does none of the effort to complete the activity. Or, the assistance of 2 or more helpers is required for the patient to complete the activity. If activity was not attempted, code reason: 7-Patient Refused. 9-Not Applicable-not attempted and the patient did not perform the activity before the current illness, exacerbation or injury. 10-Not Attempted due to Environmental Limitations-(lack of equipment, weather restraints, etc.). 88-Not Attempted due to Medical Conditions or Safety Concerns. 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 admitted ICU 01/12/20 Severe anemia requiring multiple transfusions Severe thrombocytopenia requiring multiple platelet transfusions AML on chemotherapy [facility] Hyponatremia Neutropenia requiring broad spectrum abx s/p DC Vanc and Zosyn now COVID-19 swab negative HTN DM Obesity CAD previous CABG CRI Plan: Supportive care Transfuse prn Consult Dr Thurman appreciated PT OT IRF protocol HTN meds (1) Complication of chemotherapy (2) Diabetes mellitus (3) Hypertension (4) Volume overload (5) BMI 40.0-44.9, adult (6) History of lymphoma Status: Acute (7) Pancytopenia Status: Acute (8) anemia (9) Syncope Status: Acute (10) Symptomatic anemia Status: Acute (11) Fatigue Status: Acute (12) AML (acute myeloid leukemia) Status: Acute MONTSERRAT HUANG DO Jan 18, 2020 09:38
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
[2020-01-18 11:59] VITALS: BP 158/74
--- NOTE | 2020-01-18 13:12 | NUR ---
CM/SS ADMISSION Patient admitted to ARU from [facility] 01/16/20 for Chemotherapy Neuropathy. Patient and her daughter Annelise Mckeon indicate she was diagnosed in November with AML/Acute Myeloid Leukemia at [facility] and that her team there has prescribed her chemotherapy plan. Other comorbidities, in part, are history of lymphoma, DM, HTN, CAD/hx CABG, CRI. Patient has been residing with her daughter Mia Servin in [facility] since diagnosed with AML. She will return there at discharge. PCP: JAYLEEN ARREOLA [facility], Nina Bhat APRN PHARMACY: [facility] INSURANCE: [employer] DME: Has [employer]. Therapy team has recommended grab bars in shower, this will be a private pay item. BARRIERS TO DISCHARGE: Patient plans to ask Dr. Sara Thurman, Oncologist, about transferring back to [facility]. Hopeful a discussion between patient and Dr. Thurman will clear a path that physicians and patient both agree upon. Patient's journey has been difficult since November, her unrest about current care plan is distracting from ARU participation until resolved. CONTACTS: Mia Servin, Daughter [address] [place] [address] Annelise Mckeon, Daughter [address] [place] [address] Patient and daughter Annelise understand the purpose and process of the weekly patient care conference and that patient's first review will be Saturday, January 20, 2020.
[2020-01-18] MEDS: LOPERAMIDE 2 MG (IMODIUM) TABLET PO PRN (14:39)
--- NOTE | 2020-01-18 14:42 | ST Cognitive Linguistic Eval ---
Speech Evaluation-General Medical Diagnosis Chemotherapy induced myopathy; debility Onset Date: Jan 12, 2020 Therapy Diagnosis Therapy Diagnosis: Cognitive-communication Referral Referring Physician: Dr. Zhang Medical History Pertinent Medical History: CAD Reviewed History: Yes Social History Current Living Status: Children Speech PLF-Current Status Prior Level of Function Patient lived with her children where she received support as needed with her daily needs. Subjective Patient was pleasant and cooperative with the cognitive assessment. Language Eval: Auditory Comprehends Simple Yes/No Ques: Functional Indent/Objects Multiple [place]: Functional Ident/Pics in Multiple [place]: Functional Follows 1-Step Commands: Functional Follows Complex Directions: Functional Follows General Conversations: Functional Language Eval: Verbal Language Completes Spontaneous Greeting: Functional Produces Auto, Serial Info: Functional Imitates Simple Words/Phrases: Functional Word Finding: Functional Requests Basic Needs: Functional States Basic Personal Info: Functional Expresses Complex Ideas: Functional Objective Cognitive Domain Attention: WNL Memory: Mild Problem Solving: Functional Executive Functions: WNL Visuospatial Skills: WNL Composite Severity Rating: WNL Clock Drawing Severity Rating: WNL Objective Formal/Standardized Tests [facility] Status ([facility] [place]) Results 27/30, within normal range of function Oral Motor/Speech Production Within Normal Limits Impression Patient is a pleasant 69 y/o female who was admitted to the ARU due to debility secondary to chemo. Patient was given the SLUMS with a score of 27/30 obtained. This score is within the normal range of function. Patient does not require further ST services at this time. Speech Patient Assess Expression of Ideas/Wants: Expression (4) Understanding Verbal Content: Understands (4) Brief Interview-Mental Status: Yes Repetition of Three Words: Three (3) Temporal Orientation: Year: Correct (3) Temporal Orientation: Month: Accurate within 5 days(2) Temporal Orientation: Day: Correct (1) Recall : Wear to say "Sock": Yes, no cue required (2) Recall : Color: Yes, no cue required (2) Recall : Bed: Yes,after cueing (1) Memory/Recall Ability: Current season, Location of own room, That he or she is in a hsp/hsp unit Speech-Plan Patient/Family Goals Patient/Family Goals: Patient plans on returning to her prior living situation post rehab. Treatment Plan Speech Therapy Treatment Plan: Discontinue ST Treatment Duration: Jan 18, 2020 Frequency: 1 time per week Estimated Hrs Per Day: .25 hour per day Rehab Potential: Good Barriers to Learning: None identified Pt/Family Agrees to Plan: Yes Safety Risks/Education Teaching Recipient: Patient, Family Teaching Methods: Discussion Response to Teaching: Verbalize Understanding Education Topics Provided: Safety within her room and communication of wants/needs Time Speech Therapy Time In: 11:30 Speech Therapy Time Out: 11:45 Total Billed Time: 15 Billed Treatment Time 1, FRANC Melgar Jan 18, 2020 14:42
--- NOTE | 2020-01-18 14:45 | NUR ---
pt c/o loose stools X3. 1 immodium given po. will con't to monitor.
--- NOTE | 2020-01-18 14:52 | NUR ---
Pt has no advent preference. She states she is "not a quitter" and seems to be coping well. Her dtr is visiting. Nuclear Physicist offered blessing.
--- NOTE | 2020-01-18 14:57 | Occupational Ther Daily Note ---
OT Current Status-Daily Note Subjective Pt seen in recliner post-lunch. Daughter present. Pt declines pain, agrees to OT tx session Mental Status/Objective Patient Orientation: Normal For Age ADL-Treatment Therapy Code Descriptions/Definitions Functional [place] Measure: 0=Not Assessed/NA 4=Minimal Assistance 1=Total Assistance 5=Supervision or Setup 2=Maximal Assistance 6=Modified [place] 3=Moderate Assistance 7=Complete IndependenceSCALE: Activities may be completed with or without assistive devices. 3-Plyenkmanf-pmwcbsm completes the activity by him/herself with no assistance from a helper. 5-Set-up or Clean-up Assistance-helper sets up or cleans up; patient completes activity. [place] assists only prior to or following the activity. 4-Supervision or Touching Assistance-helper provides verbal cues and/or touching/steadying and/or contact guard assistance as patient completes activity. Assistance may be provided throughout the activity or intermittently. 3-Partial/Moderate Assistance-helper does LESS THAN HALF the effort. [place] lifts, holds or supports trunk or limbs, but provides less than half the effort. 2-Substantial/Maximal Assistance-helper does MORE THAN HALF the effort. [place] lifts or holds trunk or limbs and provides more than half the effort. 1-Ktsvodelx-aoyvqb does ALL the effort. Patient does none of the effort to complete the activity. Or, the assistance of 2 or more helpers is required for the patient to complete the activity. If activity was not attempted, code reason: 7-Patient Refused. 9-Not Applicable-not attempted and the patient did not perform the activity before the current illness, exacerbation or injury. 10-Not Attempted due to Environmental Limitations-(lack of equipment, weather restraints, etc.). 88-Not Attempted due to Medical Conditions or Safety Concerns. Eating (QC): 6 Lower Body Dressing (QC): 4 (SBA post-toielting.) On/Off Footwear: 5 (s/u shoe donning in recliner.) Toileting Hygiene (QC): 3 (min A post-BM hygiene. Pt able to attempt and complete without complete thorouoghness (utilizes gb to twist completely)Due to wound on bottom and butt paste application, min A required.) Toilet Transfer (QC): 4 (SUP, use of walker.) Other Treatment Pt completes sit to stand with SBA. Ambulates to gym to complete 7 min mod resistance arm bike without rest break. Pt stands at tabletop to complete bimanual UE/ reaching activity to address UE movement, endurance, and balance while reaching across body and with BUEs. Pt completes all tasks with good balance and strength. Pt agrees to walk halls/ down on 1st floor to address functional balance and endurance for ADL/ IADL tasks (nursing referred to and agrees). Pt utilizes walker throughout, walks on flat and carpeted surfaces. Requires one rest break. Pt ambulates with fair endurance, good safety. When questioned pt states she is at her baseline. Pt returns to room, utilizes bathroom- completes as above. All needs met, call light in reach, sits in recliner with daughter present. Education OT Patient Education: Correct positioning, Exercise program, Progress toward Goal/Update tx plan, Purpose of tx/functional activities, Rehab process, Safety issues Teaching Recipient: Patient Teaching Methods: Demonstration, Discussion Response to Teaching: Verbalize Understanding, Return Demonstration OT Longterm Goals Longterm Goals Time Frame: Feb 01, 2020 Eating (QC): 6 Oral Hygiene (QC): 6 Toileting Hygiene (QC): 6 Shower/Bathe Self (QC): 6 Upper Body Dressing (QC): 6 Lower Body Dressing (QC): 6 On/Off Footwear (QC): 6 Additional Goals: 1-Demonstrate ADL Tasks, 2-Verbalize Understanding, 3- ImproveStrength/Chiara 1=Demonstrate adherence to instructed precautions during ADL tasks. 2=Patient will verbalize/demonstrate understanding of assistive devices/modifications for ADL. 3=Patient will improve strength/tolerance for activity to enable patient to perform ADL's. OT Education/Plan Problem List/Assessment Assessment: Decreased Activ Tolerance, Impaired I ADL's, Impaired Self-Care Skills Discharge Recommendations Plan/Recommendations: Continue POC Therapy Discharge Recommendati: Home & Family Treatment Plan/Plan of Care Treatment,Training & Education: Yes Patient would benefit from OT for education, treatment and training to promote independence in ADL's, mobility, safety and/or upper extremity function for ADL's. Plan of Care: ADL Retraining, Caregiver Training, Functional Mobility, Group Ex ercise/Act as Ind, UE Funct Exercise/Act Treatment Duration: Feb 01, 2020 Frequency: At least 5 of 7 days/Wk (IRF) Estimated Hrs Per Day: 1.5 hours per day Agreement: Yes Rehab Potential: Good Time/GCodes Start Time: 13:30 Stop Time: 14:23 Total Time Billed (hr/min): 53 Billed Treatment Time 1, ADL, EX 3 (53) MARIAELENA URIBE OTR Jan 18, 2020 14:57
--- NOTE | 2020-01-18 15:18 | Physical Therapy Daily Note ---
PT Daily Note-Current Subjective Patient agrees to PT. She states, "I just want to go home." Mental Status Patient Orientation: Normal For Age Transfers SCALE: Activities may be completed with or without assistive devices. 1-Zibeshnvld-hcvxtwx completes the activity by him/herself with no assistance from a helper. 5-Set-up or Clean-up Assistance-helper sets up or cleans up; patient completes activity. [place] assists only prior to or following the activity. 4-Supervision or Touching Assistance-helper provides verbal cues and/or touching/steadying and/or contact guard assistance as patient completes activity. Assistance may be provided throughout the activity or intermittently. 3-Partial/Moderate Assistance-helper does LESS THAN HALF the effort. [place] lifts, holds or supports trunk or limbs, but provides less than half the effort. 2-Substantial/Maximal Assistance-helper does MORE THAN HALF the effort. [place] lifts or holds trunk or limbs and provides more than half the effort. 7-Jspfusdje-qcqlpm does ALL the effort. Patient does none of the effort to complete the activity. Or, the assistance of 2 or more helpers is required for the patient to complete the activity. If activity was not attempted, code reason: 7-Patient Refused. 9-Not Applicable-not attempted and the patient did not perform the activity before the current illness, exacerbation or injury. 10-Not Attempted due to Environmental Limitations-(lack of equipment, weather restraints, etc.). 88-Not Attempted due to Medical Conditions or Safety Concerns. Chair/Vyh-kr-Ussjv Xfer(QC): 6 Gait Training Does the Patient Walk?: Yes Distance: 800' Walk 10 feet (QC): 6 Walk 50 ft with 2 Turns(QC): 6 Walk 150 ft (QC): 6 Gait Assistive Device: FWW safe and functional with no deviation Stair Training Stair Training: Handrails/: 2 handrails #of Steps: 12 1 Step (curb) (QC): 6 4 Steps (QC): 6 12 Steps (QC): 6 Stairs: Pattern: Reciprocal (up and step to down) Assessment Patient returned to recliner with needs met. Patient is currently at independent PLOF with all gross motor skills safely and is safe to be in room ad estephanie. PT Riffler Tender Goals Longterm Goals PT Longterm Goals Time Frame: Feb 06, 2020 Roll Left & Right (QC): 6 Sit to Lying (QC): 6 Lying-Sitting on Side/Bed(QC): 6 Sit to Stand (QC): 6 Chair/Maz-tm-Mbfwn Xfer(QC): 6 Toilet Transfer (QC): 6 Car Transfer (QC): 6 Does the Patient Walk: Yes Walk 10 feet (QC): 6 Walk 50ft with 2 Turns (QC): 6 Walk 150 ft (QC): 6 Walking 10ft on Uneven Surface: 6 1 Step (curb) (QC): 6 4 Steps (QC): 6 12 Steps (QC): 6 Picking up an Object (QC): 6 Does the Pt use WC or Scooter?: No Wheel 50 feet with 2 turns (QC: 9 Wheel 150 feet: 9 PT Plan Treatment/Plan Treatment Plan: Continue Plan of Care Treatment Duration: Feb 06, 2020 Frequency: At least 5 of 7 days/Wk (IRF) Estimated Hrs Per Day: 1.5 hours per day Patient and/or Family Agrees t: Yes Time/GCodes Time In: 1500 Time Out: 151 Total Billed Treatment Time: 12 Total Billed Treatment 1 visit FA 12 min ARELIS POWERS PT Jan 18, 2020 15:18
--- NOTE | 2020-01-18 15:43 | NUR ---
"RD ASSESSMENT PMHx: cardiomyopathy; CAD; HTN; hypercholesterolemia; GERD; DM; CA(leukemia;lymphoma) PT INTERACTION: Pt was awake and pleasant during nutrition follow-up. Pt states she has been eating poorly since last assessment. Note avg PO intake 100% x2d, per chart review. Pt states no issues with nausea, vomiting, or constipation since last assessment. Pt states some issues with diarrhea since last assessment. Note last BM was 6/7, and pt currently on bowel regimen of colace BID; senna BID; and miralax BID, per chart review. Note presence of wound (gluteal cleft), per chart review. ABNORMAL NUTRITION-RELATED LAB VALUES LOW: Pro 5.7; alb 3.0 HIGH: BUN 25; glu 141 Est. kcal needs: 8552-7756 kcal | 15-18 kcal/kg Est. Pro needs: 105-126 g Pro | 1.0-1.2 g Pro/kg PES STATEMENT: Inadequate protein intake (NI-5.6.1) related to increased protein needs as evidenced by presence of wound (gluteal cleft) INTERVENTION: Continue with current diet order of Regular diet. Pt may benefit from consistent CHO restriction if blood glucose levels become elevated. Switch current nutrition supplementation order from Glucerna (vary) with meals to Ensure HP (vary) with meals TID. Ensure HP provides 160 kcal and 16 g Pro per serving, for perceived benefit to wound healing. Will continue to follow and reassess as pt needs, intake, and status change. MONITOR/EVALUATE: PO Intake; Plan of Care; Hydration Status; Weight Status; Lab Values Lisandra Campa, , RD, LD"
[2020-01-18 18:03] VITALS: BP 153/79
--- NOTE | 2020-01-18 18:27 | Progress Note ---
Standard Progress Note Progress Notes/Assess & Plan Date Seen by a Provider: Jan 18, 2020 Time Seen by a Provider: 18:21 Progress/Assessment & Plan 69-year-old female with therapy induced secondary AML diagnosed recently. She was started on chemotherapy with Vidaza and Venetoclax regimen approximately 3 weeks ago. She is taking Venetoclax 100 mg daily because of concurrent antifungal therapy as well as chronic kidney disease. She has developed significant cytopenias and is transfusion dependent for platelets and packed red blood cells. She was admitted to the hospital with a near passing out spell at home. [place] cultures were negative but she was on broad-spectrum antibiotics because of grade 4 neutropenia. This has been discontinued. She is requiring platelet transfusion almost daily. She is scheduled for a repeat bone marrow evaluation and office visit at [facility] next week. She is undergoing rehabilitation because of generalized weakness and significantly diminished performance status. Continue transfusion support as needed. Monitor CBC daily. Renal function is stable with GFR in the 40s. Will follow patient with you. WILVER ESTRELLA Jan 18, 2020 18:27
[2020-01-18] MEDS: SIMvastatin 10 MG (ZOCOR) TAB PO SCH (20:17)
[2020-01-18] MEDS: ALPRAZolam 0.5 MG (XANAX) TAB PO PRN (20:17)
[2020-01-19] VITALS (9 sets, daily range): BP systolic 114–173; BP diastolic 66–89
[2020-01-19] MEDS: ISOSORBIDE MONONITRATE 30 MG (IMDUR) TAB PO SCH (05:26)
[2020-01-19] MEDS: CATHETER FLUSH 10 ML SYR IV SCH ×3 (05:27→21:12)
[2020-01-19] MEDS: inSUlin ASPART (NovoLOG) 1 UNIT/0.01 ML (CHARGE PER UNIT) SC SCH ×4 (05:40→21:11)
--- NOTE | 2020-01-19 06:25 | PM&R Progress Note ---
Subjective HPI/CC On Admission Date Seen by Provider: Jan 19, 2020 Time Seen by Provider: 09:45 Subjective/Events-last exam Blood and platelet transfusion through picc line Port is simply not working will need replaced Bowels are moving okay Blood pressure is 113 systolic Overall doing pretty well otherwise Conferred with RN Reviewed therapy notes Checked meds and labs Review of Systems General: Fatigue Objective Exam Vital Signs Vital Signs Date Time Temp Pulse Resp B/P (MAP) Pulse Ox O2 Delivery O2 Flow Rate FiO2 01/19/20 19:23 85 157/78 (104) 01/19/20 18:36 Room Air 01/19/20 17:48 36.8 18 100 01/18/20 09:00 2.00 Capillary Refill : Less Than 3 Seconds General Appearance: No Apparent Distress, WD/WN, Chronically ill, Obese HEENT: PERRL/EOMI, Normal ENT Inspection, Pharynx Normal Neck: Full Range of Motion, Normal Inspection, Non Tender, Supple, Carotid Bruit Respiratory: Chest Non Tender, Lungs Clear, No Accessory Muscle Use, No Respiratory Distress, Decreased Breath Sounds Cardiovascular: Regular Rate, Rhythm, No Edema, No Gallop, No JVD, No Murmur, Normal Peripheral Pulses Gastrointestinal: Normal Bowel Sounds, No Organomegaly, No Pulsatile Mass, Non Tender, Soft Back: Normal Inspection, No CVA Tenderness, No Vertebral Tenderness Extremity: Normal Capillary Refill, Normal Inspection, Normal Range of Motion, Non Tender, No Calf Tenderness, No Pedal Edema Neurologic/Psychiatric: Alert, Oriented x3, No Motor/Sensory Deficits, Normal Mood/Affect, Motor Weakness (generalized all extremities) Skin: Normal Color, Warm/Dry Lymphatic: No Adenopathy Results/Procedures Lab Laboratory Tests 01/19/20 06:42 Patient resulted labs reviewed. FIM Transfers Therapy Code Descriptions/Definitions Functional [place] Measure: 0=Not Assessed/NA 4=Minimal Assistance 1=Total Assistance 5=Supervision or Setup 2=Maximal Assistance 6=Modified [place] 3=Moderate Assistance 7=Complete IndependenceSCALE: Activities may be completed with or without assistive devices. 9-Rvgrepbzft-pvjkahs completes the activity by him/herself with no assistance from a helper. 5-Set-up or Clean-up Assistance-helper sets up or cleans up; patient completes activity. [place] assists only prior to or following the activity. 4-Supervision or Touching Assistance-helper provides verbal cues and/or touching/steadying and/or contact guard assistance as patient completes activity. Assistance may be provided throughout the activity or intermittently. 3-Partial/Moderate Assistance-helper does LESS THAN HALF the effort. [place] lifts, holds or supports trunk or limbs, but provides less than half the effort. 2-Substantial/Maximal Assistance-helper does MORE THAN HALF the effort. [place] lifts or holds trunk or limbs and provides more than half the effort. 4-Qyxafyctt-duqocb does ALL the effort. Patient does none of the effort to complete the activity. Or, the assistance of 2 or more helpers is required for the patient to complete the activity. If activity was not attempted, code reason: 7-Patient Refused. 9-Not Applicable-not attempted and the patient did not perform the activity before the current illness, exacerbation or injury. 10-Not Attempted due to Environmental Limitations-(lack of equipment, weather restraints, etc.). 88-Not Attempted due to Medical Conditions or Safety Concerns. Roll Left to Right (QC): 6 Sit to Lying (QC): 6 Chair/Vgw-im-Qbfsg Xfer(QC): 6 Gait Training Does the Patient Walk?: Yes Distance: 800' Walk 10 feet (QC): 6 Walk 50 ft with 2 Turns(QC): 6 Walk 150 ft (QC): 6 Gait Assistive Device: FWW Stair Training Stair Training: Handrails/: 2 handrails #of Steps: 12 1 Step (curb) (QC): 6 4 Steps (QC): 6 12 Steps (QC): 6 Stairs: Pattern: Reciprocal (up and step to down) ADL-Treatment Eating (QC): 6 Oral Hygiene (QC): 4 Shower/Bathe Self (QC): 3 Upper Body Dressing (QC): 5 Lower Body Dressing (QC): 4 (SBA post-toielting.) On/Off Footwear (QC): 5 (s/u shoe donning in recliner.) Toileting Hygiene (QC): 3 (min A post-BM hygiene. 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 [facility] Hyponatremia Neutropenia requiring broad spectrum abx s/p DC Vanc and Zosyn now COVID-19 swab negative HTN DM Obesity CAD previous CABG CRI Port dysfunction Plan: Supportive care Transfuse prn Consult Dr Thurman appreciated PT OT IRF protocol HTN meds Replaced port (1) Complication of chemotherapy (2) Diabetes mellitus (3) Hypertension (4) Volume overload (5) BMI 40.0-44.9, adult (6) History of lymphoma Status: Acute (7) Pancytopenia Status: Acute (8) anemia (9) Syncope Status: Acute (10) Symptomatic anemia Status: Acute (11) Fatigue Status: Acute (12) AML (acute myeloid leukemia) Status: Acute MONTSERRAT HUANG DO Jan 19, 2020 06:25
--- NOTE | 2020-01-19 06:25 | Individualized Plan of Care ---
Individualized Plan of Care Rehab Nursing IPOC Order Admission Date Jan 16, 2020 at 13:55 Current Orders Orders Admission Order(Inpt,Obs,Sdc) (01/16/20 12:37) Vital Signs: Per Unit Policy ( 08,16,00 (01/16/20 12:37) Chad Jimenez 09,21 (01/16/20 12:37) Sequential Compression Device Q4H (01/16/20 12:37) Process Environmental Technician-Inpt Rehab Con (01/16/20 12:37) Rehab Nursing Orders-Ipoc (01/16/20 12:37) Physical Therapy Rehab Orders (01/16/20 12:37) Occupational Therapy Rehab Ord (01/16/20 12:37) Speech Therapy Rehab Orders (01/16/20 12:37) Cbc With Automated Diff (01/17/20 06:00) Comprehensive Metabolic Panel (01/17/20 06:00) Intake & Output 06,14,22 (01/16/20 12:37) Precautions (Aru) (01/16/20 12:37) Weekly Weight WEEK (01/16/20 12:37) Rehab-Intensity Of Therapy (01/16/20 12:37) Initiate Admission Nursing Pro .admission (01/16/20 12:37) Alprazolam Tablet (Xanax Tablet) (01/16/20 12:45) Calcium Carbonate Chew Tablet (Antacid C (01/16/20 12:45) Diphenhydramine Tablet (Benadryl Tablet) (01/16/20 12:45) Docusate Sodium Capsule (Colace Capsule) (01/16/20 21:00) Docusate Sodium Capsule (Colace Capsule) (01/16/20 12:45) Bisacodyl Suppository (Dulcolax Supposit (01/16/20 12:45) Lactulose Oral Solution (Enulose Oral So (01/16/20 12:45) Na Phos/Na Biphos Enema (Fleet Enema Patrick (01/16/20 12:45) Guaifenesin/Codeine Syrup (Robitussin Ac (01/16/20 12:45) Loperamide Tablet (Imodium Tablet) (01/16/20 12:45) Melatonin Tablet (Melatonin Tablet) (01/16/20 12:45) Polyethylene Glycol Powder Pkt (Miralax (01/16/20 21:00) Ondansetron Oral Dissolve Tab (Zofran (01/16/20 12:45) Senna S Tablet (Senokot S Tablet) (01/16/20 21:00) Vte Contraindication (01/16/20 12:37) Initiate Admission Nursing Pro .admission (01/16/20 12:37) Admission Arrival Bed Request (01/16/20 13:55) Patient Visit (01/16/20 ) Pt Eval Low Complexity (01/16/20 ) Gait Training, Ea 15 Min (01/16/20 ) Ambulate ,, (01/16/20 14:34) Sequential Compression Device Q4H (01/16/20 14:34) Dvt/Vte Risk - Notifiy Physici Q4H (01/16/20 14:34) Code/Resuscitation (01/16/20 14:31) Accucheck Achs ACHS (01/16/20 14:31) Chad Hose , (01/16/20 14:31) Vte Contraindication (01/16/20 14:31) General/Regular (01/16/20 Dinner) Glucerna (01/16/20 Dinner) (Nf) Posaconazole (01/17/20 13:00) (Nf) Venetoclax (Venclexta) (01/17/20 08:00) Alprazolam Tablet (Xanax Tablet) (01/16/20 14:45) Acetaminophen Tablet (Tylenol Tablet) (01/16/20 14:45) Acyclovir Capsule/Tablet (Zovirax Caps (01/16/20 21:00) Albuterol Pre-Mix Nebs (Rt) (Proventil (01/16/20 14:45) Allopurinol Tablet (Zyloprim Tablet) (01/17/20 09:00) Citalopram Tablet (Celexa Tablet) (01/17/20 09:00) Calcium Carbonate Chew Tablet (Antacid C (01/16/20 14:45) Carvedilol Tablet (Coreg Tablet) (01/16/20 21:00) Cholecalciferol Capsule/Tablet (Vitamin (01/17/20 09:00) Cyanocobalamin Tablet (Vitamin B-12 Tabl (01/17/20 09:00) Docusate Sodium Capsule (Colace Capsule) (01/16/20 14:45) Gabapentin Capsule/Tablet (Neurontin Cap (01/16/20 21:00) Hydrocodone/Apap 5/325 Tablet (Lortab 5 (01/16/20 14:45) Isosorbide Mononitrate Tablet (Imdur Tab (01/17/20 06:30) Loperamide Tablet (Imodium Tablet) (01/16/20 14:45) Melatonin Tablet (Melatonin Tablet) (01/16/20 14:45) Ns Iv 500 Ml (Sodium Chloride 0.9%) (01/16/20 14:45) Ondansetron Injection (Zofran Injectio (01/16/20 14:45) Ondansetron Oral Dissolve Tab (Zofran (01/16/20 14:45) Patient May Use Own Med,Single (Patient (01/16/20 14:45) Senna S Tablet (Senokot S Tablet) (01/16/20 21:00) Simvastatin Tablet (Zocor Tablet) (01/16/20 21:00) Acetaminophen Tablet/Caplet (Tylenol T (01/16/20 14:45) Diphenhydramine Tablet (Benadryl Tablet) (01/16/20 14:45) Insulin Aspart (Novolog) (Novolog (Charg (01/16/20 16:00) Insulin Determir (Per Unit) (Levemir (Pe (01/16/20 21:00) Consult Oncology/Medical (01/16/20 14:31) Mat Initiate Protocol (01/16/20 14:31) Svn Small Volume Nebulizer (01/16/20 14:31) Amlodipine Tablet (Norvasc Tablet) (01/16/20 14:45) Amlodipine Tablet (Norvasc Tablet) (01/17/20 09:00) Clonidine Tablet (Catapres Tablet) (01/16/20 14:45) Acetaminophen Tablet/Caplet (Tylenol T (01/16/20 14:45) Furosemide Injection (Lasix Injection) (01/16/20 16:15) Zinc Oxide 40% Oint 57 Gm (Mat Bu (01/16/20 21:00) Sodium Chloride Flush (Catheter Flush Sy (01/16/20 22:00) Platelet Pheresis Lr (01/17/20 07:08) Ns Iv 500 Ml (Sodium Chloride 0.9%) (01/17/20 11:40) Patient May Use Own Med,Single (Patient (01/17/20 12:45) Nursing Communication (Order) (01/17/20 13:01) Rambo/Poly/Angelic Topical Ointment (Neosporin (01/17/20 21:00) Cbc With Automated Diff (01/18/20 09:00) Comprehensive Metabolic Panel (01/18/20 09:00) Platelet Pheresis Lr (01/18/20 07:43) Ns Iv 1000 Ml (Sodium Chloride 0.9%) (01/18/20 08:15) Patient Visit (01/18/20 ) Exercise Therap, Ea 15 Min (01/18/20 ) Functional Activities, Ea 15 (01/18/20 ) Patient Visit (01/18/20 ) Patient Visit (01/18/20 ) Speech Sound Lang Comp (01/18/20 ) Ensure High Protein (01/18/20 Dinner) Cbc With Automated Diff (01/19/20 06:24) Comprehensive Metabolic Panel (01/19/20 06:24) Rehab Nursing Orders: Ongoing Assess. of Cognitive Status, Ongoing Assess. of Function Status, Bladder Management, Bladder Scan, Bladder Training, Bowel Management, Bowel Training, Disease Management & Educaiton, DVT Prophylaxis, Fall Prevention, Fluid/Electrolyte/Nutrition Mgmt, Infection Prevention, Medication Management & Education, Management of Risks & Complications, Management of Skin Intergrity, Nutrition Management, Pain Management, Patient/Family Support, Safety Management, Swallow Precautions Intensity of Therapy to be met Patient to be seen: Min.3h per day/5 of 7d PT IPOC Problem List: Activity Tolerance, Functional Strength, Safety, Balance, Gait, ROM Treatment Plan: Continue Plan of Care Treatment Duration: Feb 06, 2020 Frequency: At least 5 of 7 days/Wk (IRF) Estimated Hrs Per Day: 1.5 hours per day OT IPOC Problems: Decreased Activ Tolerance, Impaired I ADL's, Impaired Self-Care Skills OT Treatment, Training and Edu: Yes Plan of Care: ADL Retraining, Caregiver Training, Functional Mobility, Group Exercise/Act as Ind, UE Funct Exercise/Act Treatment Duration: Feb 01, 2020 Frequency: At least 5 of 7 days/Wk (IRF) Estimated Hrs Per Day: 1.[address] IPOC Speech Therapy Treatment Plan: Discontinue ST Treatment Duration: Jan 18, 2020 Frequency: 1 time per week Estimated Hrs Per Day: .25 hour per day Process Environmental Technician/Case Mgmt Process Environmental Technician/Case Managemen: Discharge Planning Dietitian/Salvage Grinder Dietitian/Salvage Grinder to monitor nutritional status and make changes and/or recommendations as needed and work with speech pathology on dietary upgrades as the occur. Physician IPOC Medical Issues being managed closely and that require the 24 hour availability of a physician: Severe AML condition requires close monitoring and frequent platelet and blood transfusions which are required for clinical stability Medical Issues: Bowel/Bladder Function, DVT Prophylaxis, Falls Precautions, Fluid/Electrolyte/Nutrition Balance, Infection Protection, Pain Management Brief Synthesis of Preadmission Screen, Post-Admission Evaluation, and Therapy Evaluations: PT OT will focus on regaining strength while receiving transfusions in order to maintain stability wile on chemotherapy in order to ultimately report in to for CA check and then DC home Medical Prognosis: Fair Anticipated Length of Stay: 7 days MONTSERRAT HUANG DO Jan 19, 2020 06:25
[2020-01-19 06:50] LABS: MEAN CORPUSCULAR HEMOGLOBIN 31 PG (25-34); MEAN CORPUSCULAR HGB CONC 34 G/DL (32-36); MEAN CORPUSCULAR VOLUME 89 FL (80-99)
[2020-01-19 06:58] LABS: HEMATOCRIT 18 % (35-52); HEMOGLOBIN 6.2 G/DL (11.5-16.0); PLATELET COUNT 7 10^3/uL (130-400)
[2020-01-19 06:59] LABS: WHITE BLOOD COUNT 0.6 10^3/uL (4.3-11.0)
[2020-01-19 07:10] LABS: BILIRUBIN,TOTAL 0.6 MG/DL (0.1-1.0); CALCIUM 9.1 MG/DL (8.5-10.1); CREATININE SERUM 1.15 MG/DL (0.60-1.30); POTASSIUM 4.3 MMOL/L (3.6-5.0); TOTAL PROTEIN 5.8 GM/DL (6.4-8.2)
[2020-01-19] MEDS ORDERED: NS IV 500 ML 500 ML IV SCH ×2 (07:30→08:00)
--- NOTE | 2020-01-19 09:46 | Physical Therapy Daily Note ---
PT Daily Note-Current Subjective Pt sitting in recliner upon arrival. Pt agrees to PT. Pt is concerned about her port not working correctly, Nurse is aware. Pain Location: No Pain Reported Mental Status Patient Orientation: Person, Place, Time, Situation Transfers SCALE: Activities may be completed with or without assistive devices. 7-Lccutlwnxv-ucxxgof completes the activity by him/herself with no assistance from a helper. 5-Set-up or Clean-up Assistance-helper sets up or cleans up; patient completes activity. [place] assists only prior to or following the activity. 4-Supervision or Touching Assistance-helper provides verbal cues and/or touching/steadying and/or contact guard assistance as patient completes activity. Assistance may be provided throughout the activity or intermittently. 3-Partial/Moderate Assistance-helper does LESS THAN HALF the effort. [place] lifts, holds or supports trunk or limbs, but provides less than half the effort. 2-Substantial/Maximal Assistance-helper does MORE THAN HALF the effort. [place] lifts or holds trunk or limbs and provides more than half the effort. 1-Lyweeaszk-aujufa does ALL the effort. Patient does none of the effort to complete the activity. Or, the assistance of 2 or more helpers is required for the patient to complete the activity. If activity was not attempted, code reason: 7-Patient Refused. 9-Not Applicable-not attempted and the patient did not perform the activity before the current illness, exacerbation or injury. 10-Not Attempted due to Environmental Limitations-(lack of equipment, weather restraints, etc.). 88-Not Attempted due to Medical Conditions or Safety Concerns. Sit to Stand (QC): 6 Toilet Transfer (QC): 6 Weight Bearing Full Weight Bearing Full Weight Bearing Gait Training Does the Patient Walk?: Yes Distance: 250' Walk 10 feet (QC): 6 Walk 50 ft with 2 Turns(QC): 6 Walk 150 ft (QC): 6 Gait Persons Needed: 1 Gait Assistive Device: FWW Wheelchair Training Does the Pt Use a Wheelchair?: No Stair Training Stair Training: Handrails/: 2 handrails #of Steps: 8 1 Step (curb) (QC): 6 4 Steps (QC): 6 Stairs: Pattern: Reciprocal Exercises Seated Therapy Exercises: Ankle pumps, Long arc quads, Hip flexion, Kicking activity, Glut set Seated Reps: 20 Treatments Pt transfers from recliner to standing then uses restroom. Pt uses restroom then ambulates in hallway. Pt ambulates 2 sets of 4 stairs as well as Seated Ex. Oncology Nurse sees pt for short time to examine port for accessibility. Pt ambulates in hallway before returning to room to rest in recliner. Pt has all needs met, call light in hand at end of Rx. Assessment Current Status: Good Progress Pt is concerned with port not being accessible. Pt seems down during Rx but is able to complete Rx well. PT Senior Clinical Data Analyst Goals Residential Goals PT Senior Clinical Data Analyst Goals Time Frame: Feb 06, 2020 Roll Left & Right (QC): 6 Sit to Lying (QC): 6 Lying-Sitting on Side/Bed(QC): 6 Sit to Stand (QC): 6 Chair/Yug-li-Uuqwu Xfer(QC): 6 Toilet Transfer (QC): 6 Car Transfer (QC): 6 Does the Patient Walk: Yes Walk 10 feet (QC): 6 Walk 50ft with 2 Turns (QC): 6 Walk 150 ft (QC): 6 Walking 10ft on Uneven Surface: 6 1 Step (curb) (QC): 6 4 Steps (QC): 6 12 Steps (QC): 6 Picking up an Object (QC): 6 Does the Pt use WC or Scooter?: No Wheel 50 feet with 2 turns (QC: 9 Wheel 150 feet: 9 PT Plan Problem List Problem List: Activity Tolerance Treatment/Plan Treatment Plan: Continue Plan of Care Treatment Duration: Feb 06, 2020 Frequency: At least 5 of 7 days/Wk (IRF) Estimated Hrs Per Day: 1.5 hours per day Patient and/or Family Agrees t: Yes Safety Risks/Education Patient Education: Correct Positioning, Safety Issues Teaching Recipient: Patient Teaching Methods: Discussion Response to Teaching: Verbalize Understanding Time/GCodes Time In: 845 Time Out: 945 Total Billed Treatment Time: 60 Total Billed Treatment 1, GT (15m), FA x2 (25m) & EX (20m) WERNER MARCOS CONE MARKER Jan 19, 2020 09:46
[2020-01-19] MEDS: ZINC OXIDE 40% (Butt Paste MAX/Desitin) 57 gm TOP SCH ×2 (10:39→19:28)
[2020-01-19] MEDS: NEO/POLY/BAC (NEOSPORIN) OINT 15 GM TUBE TOP SCH ×2 (10:39→19:28)
[2020-01-19] MEDS: NS IV 1000 ML 1,000 ML IV SCH (10:41)
[2020-01-19] MEDS: polyethylene glycoL POWDER 17 GM (MIRALAX) PACK PO SCH ×2 (10:41→19:27)
[2020-01-19] MEDS: SENNA W/DOCUSATE (SENOKOT S) TABLET PO SCH ×2 (10:41→19:27)
[2020-01-19] MEDS: DOCUSATE SODIUM 100 MG (COLACE) CAP PO SCH ×2 (10:42→19:27)
[2020-01-19] MEDS: VENCLEXTA 100 MG PO SCH (10:42)
[2020-01-19] MEDS: POSACONAZOLE 100 MG TABLET PO SCH (10:43)
[2020-01-19] MEDS: ALLOPURINOL 300 MG (ZYLOPRIM) TAB PO SCH (10:46)
[2020-01-19] MEDS: amLODIPine 5 MG (NORVASC) TAB PO SCH (10:46)
[2020-01-19] MEDS: ACYCLOVIR 400 MG TABLET (ZOVIRAX) PO SCH ×2 (10:47→19:26)
[2020-01-19] MEDS: CYANOCOBALAMIN 1,000 MCG (VITAMIN B-12) TABLET PO SCH (10:47)
[2020-01-19] MEDS: GABAPENTIN 300 MG (NEURONTIN) CAP PO SCH ×2 (10:47→19:26)
[2020-01-19] MEDS: VITAMIN D3 10 MCG (400 UNITS) TABLET PO SCH (10:47)
[2020-01-19] MEDS: CARVEDILOL 6.25 MG (COREG) TAB PO SCH ×2 (10:47→19:25)
--- NOTE | 2020-01-19 12:01 | Occupational Ther Daily Note ---
OT Current Status-Daily Note Subjective [id number]: Pt seen in bed, agrees to therapy. Nursing states low hemiglobin with no sx, pt states good energy and agrees. 120-1150 (30): Pt seen in recliner, states fatigue. Pt agrees to ex in room. Denies pain. Mental Status/Objective Patient Orientation: Normal For Age Attachments: IV ADL-Treatment Therapy Code Descriptions/Definitions Functional [place] Measure: 0=Not Assessed/NA 4=Minimal Assistance 1=Total Assistance 5=Supervision or Setup 2=Maximal Assistance 6=Modified [place] 3=Moderate Assistance 7=Complete IndependenceSCALE: Activities may be completed with or without assistive devices. 1-Zlfawvdgci-zgmgmlg completes the activity by him/herself with no assistance from a helper. 5-Set-up or Clean-up Assistance-helper sets up or cleans up; patient completes activity. [place] assists only prior to or following the activity. 4-Supervision or Touching Assistance-helper provides verbal cues and/or touching/steadying and/or contact guard assistance as patient completes activity. Assistance may be provided throughout the activity or intermittently. 3-Partial/Moderate Assistance-helper does LESS THAN HALF the effort. [place] l ifts, holds or supports trunk or limbs, but provides less than half the effort. 2-Substantial/Maximal Assistance-helper does MORE THAN HALF the effort. [place] lifts or holds trunk or limbs and provides more than half the effort. 1-Mcehanqlh-ykjioi does ALL the effort. Patient does none of the effort to complete the activity. Or, the assistance of 2 or more helpers is required for t he patient to complete the activity. If activity was not attempted, code reason: 7-Patient Refused. 9-Not Applicable-not attempted and the patient did not perform the activity before the current illness, exacerbation or injury. 10-Not Attempted due to Environmental Limitations-(lack of equipment, weather restraints, etc.). 88-Not Attempted due to Medical Conditions or Safety Concerns. Eating (QC): 6 Oral Hygiene (QC): 4 (SUP at sink.) Shower/Bathe Self (QC): 7 Upper Body Dressing (QC): 6 Lower Body Dressing (QC): 4 (SBA) On/Off Footwear: 6 (IND EOB) Other Treatment 0745: Pt completes ADLs as above EOB. Pt then ambulates to therapy gym to complete ther ex/ strengthening/ endurance ex to increase fx during ADL tasks. Pt sits EOM to complete 10# weighted bar exercises, focuse on torso and UEs. Pt stands to complete 15 min arm bike ex with min resistance to increase fx endurance. Pt able to monitor energy throughout and state desire for rest break 2x during arm bike. Pt returns to room, denies bathroom. Pt sits in recliner with all needs met, call light in reach. 1120: Pt agrees to ther ex in chair, completes 10-15 reps of UE theraband ex bilaterally to focus on functional strength/ endurance. Pt able to monitor energy, though demonstrates fatigue at end of reps, rest break taken between. Pt sits to complete in hand manipuation/ appeals board referee/ pinch strength activity with RUE shoulder movement. Pt completes for 15 min without rest break. Able to translate items between hands and reach in above-shoulder level planes to returns pegs to box. Pt left in recliner with all needs met, call light in reach. Education OT Patient Education: Correct positioning, Exercise program, Home exercise program, Modified ADL techniques, Progress toward Goal/Update tx plan Teaching Recipient: Patient Teaching Methods: Demonstration, Discussion Response to Teaching: Verbalize Understanding, Return Demonstration OT Chcf Goals Chcf Goals Time Frame: Feb 01, 2020 Eating (QC): 6 Oral Hygiene (QC): 6 Toileting Hygiene (QC): 6 Shower/Bathe Self (QC): 6 Upper Body Dressing (QC): 6 Lower Body Dressing (QC): 6 On/Off Footwear (QC): 6 Additional Goals: 1-Demonstrate ADL Tasks, 2-Verbalize Understanding, 3- ImproveStrength/[place] 1=Demonstrate adherence to instructed precautions during ADL tasks. 2=Patient will verbalize/demonstrate understanding of assistive devices/modifications for ADL. 3=Patient will improve strength/tolerance for activity to enable patient to perform ADL's. OT Education/Plan Problem List/Assessment Assessment: Decreased Activ Tolerance, Impaired I ADL's, Impaired Self-Care Skills Discharge Recommendations Plan/Recommendations: Continue POC Therapy Discharge Recommendati: Intermittent Supervision, Home & Family Treatment Plan/Plan of Care Treatment,Training & Education: Yes Patient would benefit from OT for education, treatment and training to promote independence in ADL's, mobility, safety and/or upper extremity function for ADL 's. Plan of Care: ADL Retraining, Caregiver Training, Functional Mobility, Group Exercise/Act as Ind, UE Funct Exercise/Act Treatment Duration: Feb 01, 2020 Frequency: At least 5 of 7 days/Wk (IRF) Estimated Hrs Per Day: 1.5 hours per day Agreement: Yes Rehab Potential: Good Time/GCodes Start Time: 07:45 (1120) Stop Time: 08:45 (1150) Total Time Billed (hr/min): 90 (60+30) Billed Treatment Time 0745: 1, ADL 2, EX 2 (60) 1120: 1, EX 2 (30) Total: 90 MARIAELENA URIBE OTR Jan 19, 2020 12:01
--- NOTE | 2020-01-19 14:57 | NUR ---
I COMPLETED THE MED REC ON 01-12-2020 WHEN THE PT WAS ON 4TH FLOOR NO CHANGES, NEW MEDS OR DISCONTINUATIONS AT THIS TIME
--- NOTE | 2020-01-19 15:09 | Physical Therapy Daily Note ---
PT Daily Note-Current Subjective Pt sitting in recliner upon arrival. Pt agrees to PT. Pain Location: No Pain Reported Mental Status Patient Orientation: Person, Place, Time, Situation Attachments: IV Transfers SCALE: Activities may be completed with or without assistive devices. 6-Sdgbhyudbm-uuidklz completes the activity by him/herself with no assistance from a helper. 5-Set-up or Clean-up Assistance-helper sets up or cleans up; patient completes activity. [place] assists only prior to or following the activity. 4-Supervision or Touching Assistance-helper provides verbal cues and/or touching/steadying and/or contact guard assistance as patient completes activity. Assistance may be provided throughout the activity or intermittently. 3-Partial/Moderate Assistance-helper does LESS THAN HALF the effort. [place] lifts, holds or supports trunk or limbs, but provides less than half the effort. 2-Substantial/Maximal Assistance-helper does MORE THAN HALF the effort. [place] lifts or holds trunk or limbs and provides more than half the effort. 4-Hmivcfryb-mjugxh does ALL the effort. Patient does none of the effort to complete the activity. Or, the assistance of 2 or more helpers is required for the patient to complete the activity. If activity was not attempted, code reason: 7-Patient Refused. 9-Not Applicable-not attempted and the patient did not perform the activity before the current illness, exacerbation or injury. 10-Not Attempted due to Environmental Limitations-(lack of equipment, weather restraints, etc.). 88-Not Attempted due to Medical Conditions or Safety Concerns. Weight Bearing Full Weight Bearing Full Weight Bearing Exercises Supine Ex: Ankle pumps, Quad Set, Glut sets, Heel Slides, Straight leg raise, Hip abd/add Supine Reps: 15 Seated Therapy Exercises: Ankle pumps, Long arc quads, Hip flexion, Kicking activity Seated Reps: 15 Treatments Pt completes Seated & Supine Ex from written HEP PHYSICAL CHEMISTRY TEACHER gives pt. Pt asks to transfer back to bed at end of Rx. Pt resting R sidelying at end of Rx with all needs met, call light in hand. Assessment Current Status: Good Progress Pt agains seems down about health and wants to get home. PHYSICAL CHEMISTRY TEACHER advises if needed [place] may be called. Pt declines at this time. PT Prison Goals Prison Goals PT Internet Sales Associate Goals Time Frame: Feb 06, 2020 Roll Left & Right (QC): 6 Sit to Lying (QC): 6 Lying-Sitting on Side/Bed(QC): 6 Sit to Stand (QC): 6 Chair/Hej-rk-Qrygy Xfer(QC): 6 Toilet Transfer (QC): 6 Car Transfer (QC): 6 Does the Patient Walk: Yes Walk 10 feet (QC): 6 Walk 50ft with 2 Turns (QC): 6 Walk 150 ft (QC): 6 Walking 10ft on Uneven Surface: 6 1 Step (curb) (QC): 6 4 Steps (QC): 6 12 Steps (QC): 6 Picking up an Object (QC): 6 Does the Pt use WC or Scooter?: No Wheel 50 feet with 2 turns (QC: 9 Wheel 150 feet: 9 PT Plan Problem List Problem List: Activity Tolerance Treatment/Plan Treatment Plan: Continue Plan of Care Treatment Duration: Feb 06, 2020 Frequency: At least 5 of 7 days/Wk (IRF) Estimated Hrs Per Day: 1.5 hours per day Patient and/or Family Agrees t: Yes Safety Risks/Education Patient Education: Issued Written HEP, Correct Positioning, Safety Issues Teaching Recipient: Patient Teaching Methods: Discussion Response to Teaching: Verbalize Understanding Time/GCodes Time In: 1400 Time Out: 1430 Total Billed Treatment Time: 30 Total Billed Treatment 1, EX x2 (30m) WERNER MARCOS PTA Jan 19, 2020 15:09
[2020-01-19] MEDS: ALPRAZolam 0.5 MG (XANAX) TAB PO PRN (19:26)
[2020-01-19] MEDS: SIMvastatin 10 MG (ZOCOR) TAB PO SCH (19:26)
[2020-01-20] VITALS (12 sets, daily range): BP systolic 88–153; BP diastolic 54–78
[2020-01-20] MEDS: ISOSORBIDE MONONITRATE 30 MG (IMDUR) TAB PO SCH (05:31)
[2020-01-20] MEDS: inSUlin ASPART (NovoLOG) 1 UNIT/0.01 ML (CHARGE PER UNIT) SC SCH ×4 (05:31→22:06)
[2020-01-20] MEDS: CATHETER FLUSH 10 ML SYR IV SCH ×3 (05:31→22:07)
--- NOTE | 2020-01-20 07:23 | PM&R Progress Note ---
Subjective HPI/CC On Admission Date Seen by Provider: Jan 20, 2020 Time Seen by Provider: 10:00 Subjective/Events-last exam One unit of platelets given every day Port is going to be replaced by Dr. Dorsey after he talks to Dr. Garber due to severity of her thrombocytopenia WBC 0.7, Hgb 7.2, PLT 6,000 DC planned for later this week Conferred with RN Reviewed therapy notes Checked meds and labs Review of Systems General: Fatigue Neurological: Incoordination Focused Exam Lactate Level 01/20/20 17:00: Lactic Acid Level 1.44 Lactic Acid Level Laboratory Tests Test 01/20/20 17:00 Lactic Acid Level 1.44 MMOL/L (0.50-2.00) Objective Exam Vital Signs Vital Signs Date Time Temp Pulse Resp B/P (MAP) Pulse Ox O2 Delivery O2 Flow Rate FiO2 01/20/20 18:46 Nasal Cannula 2.00 01/20/20 18:28 36.8 98 18 88/54 100 Capillary Refill : Less Than 3 Seconds General Appearance: No Apparent Distress, WD/WN, Chronically ill, Obese HEENT: PERRL/EOMI, Normal ENT Inspection, Pharynx Normal Neck: Full Range of Motion, Normal Inspection, Non Tender, Supple, Carotid Bruit Respiratory: Chest Non Tender, Lungs Clear, No Accessory Muscle Use, No Respiratory Distress, Decreased Breath Sounds Cardiovascular: Regular Rate, Rhythm, No Edema, No Gallop, No JVD, No Murmur, Normal Peripheral Pulses Gastrointestinal: Normal Bowel Sounds, No Organomegaly, No Pulsatile Mass, Non Tender, Soft Back: Normal Inspection, No CVA Tenderness, No Vertebral Tenderness Extremity: Normal Capillary Refill, Normal Inspection, Normal Range of Motion, Non Tender, No Calf Tenderness, No Pedal Edema Neurologic/Psychiatric: Alert, Oriented x3, No Motor/Sensory Deficits, Normal Mood/Affect, Motor Weakness (generalized all extremities) Skin: Normal Color, Warm/Dry Lymphatic: No Adenopathy Results/Procedures Lab Laboratory Tests 01/20/20 07:40 01/20/20 15:35 Patient resulted labs reviewed. FIM Transfers Therapy Code Descriptions/Definitions Functional [place] Measure: 0=Not Assessed/NA 4=Minimal Assistance 1=Total Assistance 5=Supervision or Setup 2=Maximal Assistance 6=Modified [place] 3=Moderate Assistance 7=Complete IndependenceSCALE: Activities may be completed with or without assistive devices. 1-Ptbmqutsbc-qdcgqfr completes the activity by him/herself with no assistance from a helper. 5-Set-up or Clean-up Assistance-helper sets up or cleans up; patient completes activity. [place] assists only prior to or following the activity. 4-Supervision or Touching Assistance-helper provides verbal cues and/or touching/steadying and/or contact guard assistance as patient completes activity. Assistance may be provided throughout the activity or intermittently. 3-Partial/Moderate Assistance-helper does LESS THAN HALF the effort. [place] lifts, holds or supports trunk or limbs, but provides less than half the effort. 2-Substantial/Maximal Assistance-helper does MORE THAN HALF the effort. [place] lifts or holds trunk or limbs and provides more than half the effort. 9-Rfimrbnpe-eisnlr does ALL the effort. Patient does none of the effort to complete the activity. Or, the assistance of 2 or more helpers is required for the patient to complete the activity. If activity was not attempted, code reason: 7-Patient Refused. 9-Not Applicable-not attempted and the patient did not perform the activity before the current illness, exacerbation or injury. 10-Not Attempted due to Environmental Limitations-(lack of equipment, weather restraints, etc.). 88-Not Attempted due to Medical Conditions or Safety Concerns. Roll Left to Right (QC): 6 Sit to Lying (QC): 6 Sit to Stand (QC): 6 Chair/Ubg-yz-Pmpmi Xfer(QC): 6 Gait Training Does the Patient Walk?: Yes Distance: 250' Walk 10 feet (QC): 6 Walk 50 ft with 2 Turns(QC): 6 Walk 150 ft (QC): 6 Gait Persons Needed: 1 Gait Assistive Device: FWW Wheelchair Training Does the Pt Use a Wheelchair?: No Stair Training Stair Training: Handrails/: 2 handrails #of Steps: 8 1 Step (curb) (QC): 6 4 Steps (QC): 6 12 Steps (QC): 6 Stairs: Pattern: Reciprocal ADL-Treatment Eating (QC): 6 Oral Hygiene (QC): 4 (SUP at sink.) Shower/Bathe Self (QC): 7 Upper Body Dressing (QC): 6 Lower Body Dressing (QC): 4 (SBA) On/Off Footwear (QC): 6 (IND EOB) Toileting Hygiene (QC): 3 (min A post-BM hygiene. 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 [facility] Hyponatremia Neutropenia requiring broad spectrum abx s/p DC Vanc and Zosyn now COVID-19 swab negative HTN DM Obesity CAD previous CABG CRI Port dysfunction Plan: Supportive care Transfuse prn Consult Dr Thurman appreciated PT OT IRF protocol HTN meds Replaced port (1) Complication of chemotherapy (2) Diabetes mellitus (3) Hypertension (4) Volume overload (5) BMI 40.0-44.9, adult (6) History of lymphoma Status: Acute (7) Pancytopenia Status: Acute (8) anemia (9) Syncope Status: Acute (10) Symptomatic anemia Status: Acute (11) Fatigue Status: Acute (12) AML (acute myeloid leukemia) Status: Acute MONTSERRAT HUANG DO Jan 20, 2020 07:23
[2020-01-20 07:49] LABS: HEMOGLOBIN 7.2 G/DL (11.5-16.0); MEAN CORPUSCULAR HEMOGLOBIN 31 PG (25-34); MEAN CORPUSCULAR HGB CONC 36 G/DL (32-36); MEAN CORPUSCULAR VOLUME 87 FL (80-99)
[2020-01-20 07:50] LABS: HEMATOCRIT 20 % (35-52); PLATELET COUNT 6 10^3/uL (130-400)
[2020-01-20 07:51] LABS: WHITE BLOOD COUNT 0.7 10^3/uL (4.3-11.0)
--- NOTE | 2020-01-20 09:09 | Occupational Ther Daily Note ---
OT Current Status-Daily Note Subjective Pt seen in bed, eyes closed. Pt easily wakes upon entry. Pt agrees to OT though states she showered with daughter last night with SBA. Pt denies pain, stating she is very fatigued this date. Mental Status/Objective Patient Orientation: Normal For Age Attachments: Oxygen (2L through night.) ADL-Treatment Therapy Code Descriptions/Definitions Functional [place] Measure: 0=Not Assessed/NA 4=Minimal Assistance 1=Total Assistance 5=Supervision or Setup 2=Maximal Assistance 6=Modified [place] 3=Moderate Assistance 7=Complete IndependenceSCALE: Activities may be completed with or without assistive devices. 3-Kluhazacys-dtqeqoq completes the activity by him/herself with no assistance from a helper. 5-Set-up or Clean-up Assistance-helper sets up or cleans up; patient completes activity. [place] assists only prior to or following the activity. 4-Supervision or Touching Assistance-helper provides verbal cues and/or touching/steadying and/or contact guard assistance as patient completes activity. Assistance may be provided throughout the activity or intermittently. 3-Partial/Moderate Assistance-helper does LESS THAN HALF the effort. [place] lifts, holds or supports trunk or limbs, but provides less than half the effort. 2-Substantial/Maximal Assistance-helper does MORE THAN HALF the effort. [place] lifts or holds trunk or limbs and provides more than half the effort. 6-Kbfvigrkx-asxhfg does ALL the effort. Patient does none of the effort to complete the activity. Or, the assistance of 2 or more helpers is required for the patient to complete the activity. If activity was not attempted, code reason: 7-Patient Refused. 9-Not Applicable-not attempted and the patient did not perform the activity before the current illness, exacerbation or injury. 10-Not Attempted due to Environmental Limitations-(lack of equipment, weather restraints, etc.). 88-Not Attempted due to Medical Conditions or Safety Concerns. Eating (QC): 6 Oral Hygiene (QC): 6 Shower/Bathe Self (QC): 7 Upper Body Dressing (QC): 6 Lower Body Dressing (QC): 4 (SUP- demonstrates good safety and balance. ) On/Off Footwear: 6 (completes with good balance EOB.) Toileting Hygiene (QC): 3 (min A for thoroughness due to wound.) Toilet Transfer (QC): 6 (IND with walker.) Other Treatment Pt bed mob with SUP. Completes dressing EOB with good dynamic sitting/ standing balance. Pt completes toileting/ oral hygiene. Pt ambulates through [place] with walker and SUP. Pt vocalizes frustration with oncologist and port. Active listening utilized and pt expresses decreased energy. Rest break provided in gym. Energy conservation educated upon with handout and in depth conversation of pt's daily tasks, pt nods in understanding and discussion furthered with skilled cues/ energy conservation examples provided as pt states her Ca dx "really drains (her)." Pt completes UE movement with 1# weights donned bilaterally both in stance and in sitting per pt's request. Pt completes with fair energy and good balance. Pt expresses she is at baseline, though she is fatigued. Pt returns to room with SUP, sits in recliner with all needs met, call light in re ach. Education OT Patient Education: Correct positioning, Energy conservation, Exercise progra m, Home exercise program, Progress toward Goal/Update tx plan, Purpose of tx/functional activities, Safety issues, Use of adapted equipment (for energy conservation) Teaching Recipient: Patient Teaching Methods: Demonstration, Handout, Discussion Response to Teaching: Verbalize Understanding, Return Demonstration OT [facility] Goals Fashion Journalist Goals Time Frame: Feb 01, 2020 Eating (QC): 6 Oral Hygiene (QC): 6 Toileting Hygiene (QC): 6 Shower/Bathe Self (QC): 6 Upper Body Dressing (QC): 6 Lower Body Dressing (QC): 6 On/Off Footwear (QC): 6 Additional Goals: 1-Demonstrate ADL Tasks, 2-Verbalize Understanding, 3- ImproveStrength/[place] 1=Demonstrate adherence to instructed precautions during ADL tasks. 2=Patient will verbalize/demonstrate understanding of assistive devices/modifications for ADL. 3=Patient will improve strength/tolerance for activity to enable patient to perform ADL's. OT Education/Plan Problem List/Assessment Assessment: Decreased Activ Tolerance, Impaired I ADL's, Impaired Self-Care Skills Discharge Recommendations Plan/Recommendations: Continue POC Therapy Discharge Recommendati: Intermittent Supervision, Home & Family Treatment Plan/Plan of Care Treatment,Training & Education: Yes Patient would benefit from OT for education, treatment and training to promote independence in ADL's, mobility, safety and/or upper extremity function for ADL's. Plan of Care: ADL Retraining, Caregiver Training, Functional Mobility, Group Exercise/Act as Ind, UE Funct Exercise/Act Treatment Duration: Feb 01, 2020 Frequency: At least 5 of 7 days/Wk (IRF) Estimated Hrs Per Day: 1.5 hours per day Agreement: Yes Rehab Potential: Good Time/GCodes Start Time: 08:00 Stop Time: 09:00 Total Time Billed (hr/min): 60 Billed Treatment Time 1, ADL (15), EX (15), FA 2 (30)= 60 MARIAELENA URIBE OTR Jan 20, 2020 09:09
[2020-01-20] MEDS: POSACONAZOLE 100 MG TABLET PO SCH (09:10)
[2020-01-20] MEDS: VENCLEXTA 100 MG PO SCH (09:11)
[2020-01-20] MEDS: CARVEDILOL 6.25 MG (COREG) TAB PO SCH ×2 (09:11→22:04)
[2020-01-20] MEDS: VITAMIN D3 10 MCG (400 UNITS) TABLET PO SCH (09:11)
[2020-01-20] MEDS: ACYCLOVIR 400 MG TABLET (ZOVIRAX) PO SCH ×2 (09:11→22:05)
[2020-01-20] MEDS: ALLOPURINOL 300 MG (ZYLOPRIM) TAB PO SCH (09:11)
[2020-01-20] MEDS: GABAPENTIN 300 MG (NEURONTIN) CAP PO SCH ×2 (09:11→22:05)
[2020-01-20] MEDS: CYANOCOBALAMIN 1,000 MCG (VITAMIN B-12) TABLET PO SCH (09:12)
[2020-01-20] MEDS: amLODIPine 5 MG (NORVASC) TAB PO SCH (09:12)
[2020-01-20] MEDS: ALPRAZolam 0.5 MG (XANAX) TAB PO PRN ×2 (09:12→22:05)
[2020-01-20] MEDS: DOCUSATE SODIUM 100 MG (COLACE) CAP PO SCH ×2 (09:16→22:06)
[2020-01-20] MEDS: NEO/POLY/BAC (NEOSPORIN) OINT 15 GM TUBE TOP SCH ×2 (09:16→22:07)
[2020-01-20] MEDS: SENNA W/DOCUSATE (SENOKOT S) TABLET PO SCH ×2 (09:17→22:06)
[2020-01-20] MEDS: polyethylene glycoL POWDER 17 GM (MIRALAX) PACK PO SCH ×2 (09:17→22:06)
[2020-01-20] MEDS: ZINC OXIDE 40% (Butt Paste MAX/Desitin) 57 gm TOP SCH ×2 (09:17→22:07)
--- NOTE | 2020-01-20 10:16 | Physical Therapy Daily Note ---
PT Daily Note-Current Subjective Pt sitting in recliner upon arrival. Pt agrees to PT. Pain Numeric Pain Scale: 3 Location: Dorsal Location Body Site: Thigh Pain Description: Tightness Mental Status Patient Orientation: Person, Place, Time, Situation Transfers SCALE: Activities may be completed with or without assistive devices. 0-Ypdanutfjq-nyjlcxj completes the activity by him/herself with no assistance from a helper. 5-Set-up or Clean-up Assistance-helper sets up or cleans up; patient completes activity. [place] assists only prior to or following the activity. 4-Supervision or Touching Assistance-helper provides verbal cues and/or touching/steadying and/or contact guard assistance as patient completes activity. Assistance may be provided throughout the activity or intermittently. 3-Partial/Moderate Assistance-helper does LESS THAN HALF the effort. [place] lifts, holds or supports trunk or limbs, but provides less than half the effort. 2-Substantial/Maximal Assistance-helper does MORE THAN HALF the effort. [place] lifts or holds trunk or limbs and provides more than half the effort. 2-Lpucofcpw-jtrcsf does ALL the effort. Patient does none of the effort to complete the activity. Or, the assistance of 2 or more helpers is required for the patient to complete the activity. If activity was not attempted, code reason: 7-Patient Refused. 9-Not Applicable-not attempted and the patient did not perform the activity before the current illness, exacerbation or injury. 10-Not Attempted due to Environmental Limitations-(lack of equipment, weather restraints, etc.). 88-Not Attempted due to Medical Conditions or Safety Concerns. Roll Left & Right (QC): 6 Sit to Lying (QC): 6 Lying to Sitting/Side of Bed(Q: 6 Sit to Stand (QC): 6 Chair/Reo-wq-Bffya Xfer(QC): 6 Toilet Transfer (QC): 6 Car Transfer (QC): 6 Weight Bearing Full Weight Bearing Full Weight Bearing Gait Training Does the Patient Walk?: Yes Distance: 400', 100' Walk 10 feet (QC): 6 Walk 50 ft with 2 Turns(QC): 6 Walk 150 ft (QC): 6 Walking 10ft/uneven surface-QC: 6 Gait Persons Needed: 1 Gait Assistive Device: None Pt does not use AD at home although has FWW. Pt walked well w/o AD but takes RB as needed for fatigue. Wheelchair Training Does the Pt Use a Wheelchair?: No Stair Training Stair Training: Handrails/: 2 handrails #of Steps: 8 1 Step (curb) (QC): 6 4 Steps (QC): 6 12 Steps (QC): 9 Stairs: Pattern: Step to Pt ascends stairs in reciprocal gait but descends step to gait pattern. Balance Picking up an Object (QC): 6 Exercises Seated Therapy Exercises: Ankle pumps, Long arc quads, Hip flexion, Kicking activity, Glut set Seated Reps: 15 NuStep Minutes: 10 NuStep Workload: 4 Treatments Pt transfers from sitting to standing then ambulates in hallway. Pt uses NuStep for 10m at WL 4 as well as completes Seated Ex in chair. See QC scoring items above. Pt returns to room at end of Rx with all needs met, call light in hand. Assessment Current Status: Good Progress Pt reports wanting to DC MEKHI. Pt needs encouragement on benefits of Therapy. Pt tolerates Rx well though. 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 PT Jail Goals Time Frame: Feb 06, 2020 Roll Left & Right (QC): 6 Sit to Lying (QC): 6 Lying-Sitting on Side/Bed(QC): 6 Sit to Stand (QC): 6 Chair/Xuz-mz-Ndpcy Xfer(QC): 6 Toilet Transfer (QC): 6 Car Transfer (QC): 6 Does the Patient Walk: Yes Walk 10 feet (QC): 6 Walk 50ft with 2 Turns (QC): 6 Walk 150 ft (QC): 6 Walking 10ft on Uneven Surface: 6 1 Step (curb) (QC): 6 4 Steps (QC): 6 12 Steps (QC): 6 Picking up an Object (QC): 6 Does the Pt use WC or Scooter?: No Wheel 50 feet with 2 turns (QC: 9 Wheel 150 feet: 9 PT Plan Problem List Problem List: Activity Tolerance Treatment/Plan Treatment Plan: Continue Plan of Care Treatment Duration: Feb 06, 2020 Frequency: At least 5 of 7 days/Wk (IRF) Estimated Hrs Per Day: 1.5 hours per day Patient and/or Family Agrees t: Yes Safety Risks/Education Patient Education: Gait Training, Safety Issues Teaching Recipient: Patient Teaching Methods: Discussion Response to Teaching: Verbalize Understanding Time/GCodes Time In: 915 Time Out: 1015 Total Billed Treatment Time: 60 Total Billed Treatment 1, GT x2 (30m) & EX x2 (30m) WERNER MARCOS BRINE PROCESS OPERATOR Jan 20, 2020 10:16
[2020-01-20] MEDS ORDERED: NS IV 1000 ML 1,000 ML IV ONE (10:30)
--- NOTE | 2020-01-20 13:14 | Consultation - Surgery ---
History of Present Illness History of Present Illness Patient Consulted On(laz/time) 01/20/20 13:09 Time Seen by Provider: 12:51 History of Present Illness Surgery asked to consult regarding Venous Insufficiency and need for mcfp IV access. HPI per PM&R: HPI: This is a very complicated 69yoWF who lives with her daughter who presents to the IRF in need of strengthening due to chemotherapy induced myopathy. She was admitted on 01/12/20 to ICU for AMS and AML flare with severe neutropenia with thrombocytopenia and anemia requiring multiple transfusions of blood and platelets since admitted by Dr Thurman direction and recs. Patient has a bone marrow scheduled with Oncology at on 01/27/20. Her insurance had denied the IRF admit and family appealed the decision and the denial was overturned so she was admitted to IRF today. BM++. Labs remain abnormal and Dr Thurman has been ordering platelets and transfusions per his expertise. She has received 2 units of blood and 4 units of platelets. see previous med-surg H&P/DC note: CC: Severe anemia with altered mental status (admit 01/12/20) HPI: This is a 69yoWF of [facility] who sees Dr. Thurman for anemia and AML who presen demetrius to the [place] ER with altered mental status found to have sodium level of 127, white count 0.9 and Hgb in the 7 range. She was admitted given 1 unit of blood and 1 unit of platelets, she was swabbed for COVID-[address] Garber was notified, creatinine remains at 2.0, sodium level 129, but white count at 3.5. At this current time, Pt is in isolation, all PPE placed before seen by this examiner. When I saw the pt this afternoon she was getting Platelet transfusion. She states the Oncology center nurses came up to try and access her old port, but were unable to use it all. She denied any pain while they were trying to flush. She has had the port on the right side for 5 years. She cannot remember if she has had a CXR recently. Allergies and Home Medications Allergies Coded Allergies: midazolam (Unverified Allergy, Unknown, MAKE PT HYPER AND ANXIOUS, 05/28/14) Home Medications Acyclovir 400 Mg Tablet, 400 MG PO BID, (Reported) Allopurinol 300 Mg Tablet, 300 MG PO DAILY, (Reported) Alprazolam 0.5 Mg Tablet, 0.5 MG PO TID PRN for ANXIETY, (Reported) Carvedilol 6.25 Mg Tablet, 6.25 MG PO BID, (Reported) Cefuroxime Axetil 250 Mg Tablet, 250 MG PO BID, (Reported) Citalopram Hydrobromide 20 Mg Tablet, 20 MG PO DAILY, (Reported) Cyanocobalamin (Vitamin B-12) 1,000 Mcg Tablet, 1,000 MCG PO DAILY, (Reported) Gabapentin 300 Mg/6 Ml Solution, 300 MG PO BID, (Reported) Insulin Aspart 300 Units/3 Ml Solution, UNITS SC PER SLIDING SCALE, (Reported) Insulin Glargine,Hum.rec.anlog 100 Unit/1 Ml Insuln.pen, 24 UNITS SC BID, (Reported) Isosorbide Mononitrate 20 Mg Tablet, 30 MG PO DAILY, (Reported) Ondansetron HCl 8 Mg Tablet, 8 MG PO Q8H PRN for NAUSEA-1ST LINE, (Reported) Posaconazole 100 Mg Tablet.dr, 300 MG PO DAILY, (Reported) TAKE WITH FOOD TAKES 3 (100MG) TABS Simvastatin 10 Mg Tablet, 10 MG PO HS, (Reported) Venetoclax 100 Mg Tablet, 100 MG PO DAILY, (Reported) TAKE WITH FOOD Vitamin D 10 Mcg Tablet, 1,000 UNITS PO DAILY, (Reported) Patient Home Medication List Home Medication List Reviewed: Yes Past Jbqoond-Lauyfg-Ohluhz Hx Patient Social History Alcohol Use: Denies Use Recreational Drug Use: No Smoking Status: Never a Smoker 2nd Hand Smoke Exposure: No Recent Foreign Travel: No Contact w/Someone Who Travel: No Recent Infectious Disease Expo: No Recent Hopitalizations: No Immunizations Up To Date Date of Pneumonia Vaccine: Mar 12, 2019 Seasonal Allergies Seasonal Allergies: No Surgeries History of Surgeries: Yes (heel spur; bartholin cyst; carpal tunnel; hernia; cataract; back) Surgeries: Appendectomy, Cardiac, CABG, Coronary Stent, Gallbladder, Hysterectomy, Orthopedic Respiratory History of Respiratory Disorde: No Cardiovascular History of Cardiac Disorders: Yes (chf; quadruple bypass) Cardiac Disorders: Cardiomyopathy, Coronary Artery Disease, High Cholesterol, Hypertension Neurological History of Neurological Disord: No Genitourinary History of Genitourinary Disor: Yes (CHRONIC KIDNEY DX; UTI) Gastrointestinal History of Gastrointestinal Di: Yes Gastrointestinal Disorders: Gastroesophageal Reflux Musculoskeletal History of Musculoskeletal Dis: Yes Musculoskeletal Disorders: Degenerate Disk Disease Endocrine History of Endocrine Disorders: Yes Endocrine Disorders: Diabetes, Insulin dep HEENT History of HEENT Disorders: No (CATARACTS REMOVED; WEARS GLASSES) HEENT Disorders: Cataract Cancer History of Cancer: Yes Cancer: Leukemia, Lymphoma Psychosocial History of Psychiatric Problem: Yes Behavioral Health Disorders: Anxiety, Depression Integumentary History of Skin or Integumenta: No Blood Transfusions History of Blood Disorders: No Adverse Reaction to a Blood Tr: No Family Medical History Significant Family History: Heart Disease, Cancer, Diabetes, Hypertension Family Medial History: Cardiovascular disease 19 FATHER 19 MOTHER G8 BROTHER Diabetes mellitus 19 FATHER G8 BROTHER Hypertension 19 FATHER 19 MOTHER Neoplasm G8 BROTHER (lung cancer- from) Review of Systems-General Constitutional: No diaphoresis; malaise, weakness EENTM: No blurred vision, No double vision, No mouth pain, No mouth swelling, No epistaxis Respiratory: No cough, No dyspnea on exertion, No hemoptysis Cardiovascular: No chest pain; Hx of Intervention; No palpitations Gastrointestinal: No abdominal pain, No nausea, No vomiting Genitourinary: No dysuria, No frequency, No hematuria Musculoskeletal: joint pain, joint swelling, muscle stiffness Skin: No change in color, No change in hair/nails Psychiatric/Neurological: Anxiety, Depressed; Denies Seizure, Denies Tremors Other Pt states she has been anemic with low platelets for a long time and bruises and bleed easily Physical Exam-General Problems Physical Exam Vital Signs Vital Signs - First Documented 01/16/20 01/16/20 01/17/20 14:19 16:30 06:00 Temp 36.6 Pulse 80 Resp 18 B/P (MAP) 199/74 Pulse Ox 98 O2 Delivery Room Air O2 Flow Rate 3.00 Capillary Refill : Less Than 3 Seconds General Appearance: WD/WN, no apparent distress Eyes: Bilateral Eye PERRL, Bilateral Eye EOMI HEENT: pharynx normal; No scleral icterus (R), No scleral icterus (L) Respiratory: chest non-tender, lungs clear, normal breath sounds, no respiratory distress, no accessory muscle use Cardiovascular: regular rate, rhythm, no murmur Gastrointestinal: normal bowel sounds, non tender, soft, no organomegaly Back: no CVA tenderness, no vertebral tenderness Extremities: no pedal edema, no calf tenderness, normal capillary refill Neurologic/Psychiatric: 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 as tested, no motor/sensory deficits, alert, normal mood/affect, oriented x 3 Skin: normal color, warm/dry Lymphatic: no adenopathy (neck, axilla or groin) Data Review Labs Laboratory Tests 01/19/20 15:31: Glucometer 319H 01/19/20 20:33: Glucometer 315H 01/20/20 05:27: Glucometer 38*L 01/20/20 05:30: Glucometer 84 01/20/20 07:40: White Blood Count 0.7*L, Red Blood Count 2.31L, Hemoglobin 7.2L, Hematocrit 20*L , Mean Corpuscular Volume 87, Mean Corpuscular Hemoglobin 31, Mean Corpuscular Hemoglobin Concent 36, Red Cell Distribution Width 16.0H, Platelet Count 6*L, Mean Platelet Volume 01/20/20 11:21: Glucometer 253H Radiology Date of Exam:01/13/20 CHEST 1 VIEW, AP/PA ONLY INDICATION: Dyspnea. Comparison with 01/12/2020. FINDINGS: Cardiomegaly with postsurgical changes again noted. Right jugular line remains unchanged in position. Right PICC line has been repositioned with tip at the cavoatrial junction. The lungs are well-aerated and clear. Heart is mildly enlarged with median sternotomy changes. No pneumothorax or pleural effusion. IMPRESSION: Satisfactory repositioning of right PICC line. Chest is otherwise unchanged Dictated by: Dictated on workstation # [id number] Dict: 01/13/20 0635 Trans: 01/13/20 1130 [facility] [id number] Interpreted by: XIMENA FOSTER MD Electronically signed by: XIMENA FOSTER MD 01/13/20 1130 Assessment/Plan Assessment/Plan Assessment/Plan Venous Insufficiency AML Pancytopenia with Severe Thrombocytopenia Malfunctioning Henny-cath Pt needs a Henny-cath placed because of Venous Insufficiency, AML and need for mcfp chemotherapy. Pt has severe thrombocytopenia; it is so low she can actually have spontaneous bleeds and is currently receiving transfusions. I will plan on Henny-cath placement Saturday afternoon; but this will be contigent on her Platelets coming up. I spoke with anesthesia and they would like platelets around 60k. I discussed risks and complications of procedure, not limited to pain, bleeding, infection and scar. I will place the port on the left side. I checked her CXR from 01/12 and it appears to show catheter still attached to port. I will check her labs tomorrow. Clinical Quality Measures DVT/VTE Risk/Contraindication: Risk Factor Score Per Nursin RFS Level Per Nursing on Admit: 4+=Very High Contraindications-Pharm: Other *list below* Other: low platelets XIMENA ESPINO DO Jan 20, 2020 13:14
[2020-01-20] MEDS: ACETAMINOPHEN 325 MG TABLET PO PRN ×2 (14:36→16:04)
--- NOTE | 2020-01-20 14:58 | Therapy Group Daily Note ---
Therapy Daily Group Note Patient Education Topic Home Safety, Exercises Session Ratio (pt:therapist): 4:1 Goal of Session: Home Safety Strategies, Memory Strategies, UE/LE Strengthing, Safety with Transfers, Use of Adaptive Equipment Goal Met for this Session: Yes Pt Benefit of Group: Contributions to Others, F/U Use of Strategies @Home, Increased Functional Safety, Increased Functional Strength, Improved Cognition, Recognition of Peers, Socialization Other/Notes Pt transfers to standing then ambulates to PT Group. Pt participates Group including Introductions (Name, Where from? & Favorite Summertime Activity), as well as focus on Home Safety & ways to improves it and UE/LE Ex using household items. Pt actively participated in Group giving personal examples of safety techniques and hazard pt has experienced. Pt is able to complete Ex well and returns to room at end of Rx to rest R sidelying, with all needs met. Start Time: 13:00 Stop Time: 14:00 Total Billed Treatment Time: 60 Total Billed Treatment 1, GRP (60m) WERNER MARCOS STATUS CONTROLLER Jan 20, 2020 14:57
[2020-01-20 15:56] LABS: MEAN CORPUSCULAR HEMOGLOBIN 31 PG (25-34); MEAN CORPUSCULAR HGB CONC 34 G/DL (32-36); MEAN CORPUSCULAR VOLUME 89 FL (80-99); RED CELL DISTRIBUTION WIDTH 15.8 % (10.0-14.5)
[2020-01-20 15:59] LABS: HEMATOCRIT 17 % (35-52); HEMOGLOBIN 5.8 G/DL (11.5-16.0); PLATELET COUNT 7 10^3/uL (130-400)
[2020-01-20 16:02] LABS: WHITE BLOOD COUNT 0.2 10^3/uL (4.3-11.0)
[2020-01-20] MEDS: LOPERAMIDE 2 MG (IMODIUM) TABLET PO PRN (16:02)
[2020-01-20] MEDS ORDERED: NS IV 500 ML 500 ML IV SCH (17:45)
--- NOTE | 2020-01-20 19:45 | NUR ---
Called Dr. Thurman about pts vitals during blood transfusion. Order given to continue transfusion. New orders to get cbc 30 mins. after platelets were transfused and to call him with results. Passed information on to night nurse.
[2020-01-20] MEDS: SIMvastatin 10 MG (ZOCOR) TAB PO SCH (22:05)
[2020-01-21 00:29] LABS: HEMOGLOBIN 7.4 G/DL (11.5-16.0); MEAN PLATELET VOLUME 10.3 FL (7.4-10.4); RED CELL DISTRIBUTION WIDTH 15.7 % (10.0-14.5)
[2020-01-21 00:37] LABS: WHITE BLOOD COUNT 0.5 10^3/uL (4.3-11.0)
--- NOTE | 2020-01-21 00:46 | NUR ---
Notified Dr. Thurman of patient's cbc results. New order to check cbc in the morning.
[2020-01-21 05:42] VITALS: BP 125/74
[2020-01-21] MEDS: inSUlin ASPART (NovoLOG) 1 UNIT/0.01 ML (CHARGE PER UNIT) SC SCH ×4 (06:17→20:55)
[2020-01-21] MEDS: ISOSORBIDE MONONITRATE 30 MG (IMDUR) TAB PO SCH (06:21)
[2020-01-21] MEDS: CATHETER FLUSH 10 ML SYR IV SCH ×3 (06:21→20:54)
--- NOTE | 2020-01-21 06:32 | PM&R Progress Note ---
Subjective HPI/CC On Admission Date Seen by Provider: Jan 21, 2020 Time Seen by Provider: 10:00 Subjective/Events-last exam Platelet transfusion will be up to Dr. Thurman Picc line maintained so port will not be placed at [facility] due to low platelet count and too high risk Talked to both Dr. Dorsey and Dr. Thurman [place] will hopefully be approved for tomorrow since she is requiring daily platelet transfusion Had a platelet reaction yesterday but has done well thus far Doesn't want to be in inpatient rehab but she will require close monitoring from Dr. Thurman until her appointment up at and they will deal with the port placement Conferred with RN Reviewed therapy notes Checked meds and labs Review of Systems General: Fatigue Neurological: Weakness Focused Exam Lactate Level 01/20/20 17:00: Lactic Acid Level 1.44 Objective Exam Vital Signs Vital Signs Date Time Temp Pulse Resp B/P (MAP) Pulse Ox O2 Delivery O2 Flow Rate FiO2 01/21/20 16:00 37.2 81 20 117/65 (82) 98 Nasal Cannula 2.00 Capillary Refill : Less Than 3 Seconds General Appearance: No Apparent Distress, WD/WN, Chronically ill, Obese HEENT: PERRL/EOMI, Normal ENT Inspection, Pharynx Normal Neck: Full Range of Motion, Normal Inspection, Non Tender, Supple, Carotid Bruit Respiratory: Chest Non Tender, Lungs Clear, No Accessory Muscle Use, No Respiratory Distress, Decreased Breath Sounds Cardiovascular: Regular Rate, Rhythm, No Edema, No Gallop, No JVD, No Murmur, Normal Peripheral Pulses Gastrointestinal: Normal Bowel Sounds, No Organomegaly, No Pulsatile Mass, Non Tender, Soft Back: Normal Inspection, No CVA Tenderness, No Vertebral Tenderness Extremity: Normal Capillary Refill, Normal Inspection, Normal Range of Motion, Non Tender, No Calf Tenderness, No Pedal Edema Neurologic/Psychiatric: Alert, Oriented x3, No Motor/Sensory Deficits, Normal Mood/Affect, Motor Weakness (generalized all extremities) Skin: Normal Color, Warm/Dry Lymphatic: No Adenopathy Results/Procedures Lab Laboratory Tests 01/21/20 06:25 01/21/20 17:10 Patient resulted labs reviewed. FIM Transfers Therapy Code Descriptions/Definitions Functional [place] Measure: 0=Not Assessed/NA 4=Minimal Assistance 1=Total Assistance 5=Supervision or Setup 2=Maximal Assistance 6=Modified [place] 3=Moderate Assistance 7=Complete IndependenceSCALE: Activities may be completed with or without assistive devices. 5-Mpujqaoprh-rtgqiou completes the activity by him/herself with no assistance from a helper. 5-Set-up or Clean-up Assistance-helper sets up or cleans up; patient completes activity. [place] assists only prior to or following the activity. 4-Supervision or Touching Assistance-helper provides verbal cues and/or touching/steadying and/or contact guard assistance as patient completes activity. Assistance may be provided throughout the activity or intermittently. 3-Partial/Moderate Assistance-helper does LESS THAN HALF the effort. [place] lifts, holds or supports trunk or limbs, but provides less than half the effort. 2-Substantial/Maximal Assistance-helper does MORE THAN HALF the effort. [place] lifts or holds trunk or limbs and provides more than half the effort. 4-Vrwwoihwk-kucyza does ALL the effort. Patient does none of the effort to complete the activity. Or, the assistance of 2 or more helpers is required for the patient to complete the activity. If activity was not attempted, code reason: 7-Patient Refused. 9-Not Applicable-not attempted and the patient did not perform the activity before the current illness, exacerbation or injury. 10-Not Attempted due to Environmental Limitations-(lack of equipment, weather restraints, etc.). 88-Not Attempted due to Medical Conditions or Safety Concerns. Roll Left to Right (QC): 6 Sit to Lying (QC): 6 Sit to Stand (QC): 6 Chair/Qpb-fo-Usqgh Xfer(QC): 6 Car Transfer (QC): 6 Gait Training Does the Patient Walk?: Yes Distance: 400', 100' Walk 10 feet (QC): 6 Walk 50 ft with 2 Turns(QC): 6 Walk 150 ft (QC): 6 Walking 10ft/uneven surface-QC: 6 Gait Persons Needed: 1 Gait Assistive Device: None Wheelchair Training Does the Pt Use a Wheelchair?: No Stair Training Stair Training: Handrails/: 2 handrails #of Steps: 8 1 Step (curb) (QC): 6 4 Steps (QC): 6 12 Steps (QC): 9 Stairs: Pattern: Step to Balance Picking up an Object (QC): 6 ADL-Treatment Eating (QC): 6 Oral Hygiene (QC): 6 Shower/Bathe Self (QC): 7 Upper Body Dressing (QC): 6 Lower Body Dressing (QC): 4 (SUP- demonstrates good safety and balance. ) On/Off Footwear (QC): 6 (completes with good balance EOB.) Toileting Hygiene (QC): 3 (min A for thoroughness due to wound.) Toilet Transfer (QC): 6 (IND with walker.) Assessment/Plan Assessment and Plan Assess & Plan/Chief Complaint Assessment: Chemotherapy induced myopathy s/p AMS due to encephalopathy admitted ICU 01/12/20 Severe anemia requiring multiple transfusions Severe thrombocytopenia requiring multiple platelet transfusions AML on chemotherapy [facility] Hyponatremia Neutropenia requiring broad spectrum abx s/p DC Vanc and Zosyn now COVID-19 swab negative HTN DM Obesity CAD previous CABG CRI Port dysfunction needs replaced but cannot safely do so here at [facility] due to severity of platelet level Plan: Supportive care Transfuse prn Consult Dr Thurman appreciated PT OT IRF protocol HTN meds Replace port per [facility] next week Maintain PICC Swing bed evaluation (1) Complication of chemotherapy (2) Diabetes mellitus (3) Hypertension (4) Volume overload (5) BMI 40.0-44.9, adult (6) History of lymphoma Status: Acute (7) Pancytopenia Status: Acute (8) anemia (9) Syncope Status: Acute (10) Symptomatic anemia Status: Acute (11) Fatigue Status: Acute (12) AML (acute myeloid leukemia) Status: Acute MONTSERRAT HUANG DO Jan 21, 2020 06:31
[2020-01-21 06:54] LABS: RED CELL DISTRIBUTION WIDTH 15.6 % (10.0-14.5)
[2020-01-21 07:03] LABS: WHITE BLOOD COUNT 0.8 10^3/uL (4.3-11.0)
[2020-01-21 07:15] LABS: MEAN PLATELET VOLUME 11.2 FL (7.4-10.4)
[2020-01-21 08:00] VITALS: BP 144/73
--- NOTE | 2020-01-21 08:55 | Occupational Ther Daily Note ---
OT Current Status-Daily Note Subjective [id number]: Pt seen in bed this am, pt covering her eyes. Pt states she feels okay this mornin, no pain. Pt states yesterday post-group had immense aches in her legs (c/o this day before as well). Pt educated on listening and feeling body to understand energy level. Pt agrees to OT tx session. [id number]: Pt seen in recliner chair with hand on head and posture slouched, pt states frustration due to staying in hospital additional days. Pt agrees to OT tx session. Pt denies pain, states fatigue. Mental Status/Objective Patient Orientation: Normal For Age Attachments: Oxygen (2L at night) ADL-Treatment Therapy Code Descriptions/Definitions Functional [place] Measure: 0=Not Assessed/NA 4=Minimal Assistance 1=Total Assistance 5=Supervision or Setup 2=Maximal Assistance 6=Modified [place] 3=Moderate Assistance 7=Complete IndependenceSCALE: Activities may be completed with or without assistive devices. 2-Emxkgikkjr-agwgyts completes the activity by him/herself with no assistance from a helper. 5-Set-up or Clean-up Assistance-helper sets up or cleans up; patient completes activity. [place] assists only prior to or following the activity. 4-Supervision or Touching Assistance-helper provides verbal cues and/or touching/steadying and/or contact guard assistance as patient completes activity. Assistance may be provided throughout the activity or intermittently. 3-Partial/Moderate Assistance-helper does LESS THAN HALF the effort. [place] lifts, holds or supports trunk or limbs, but provides less than half the effort. 2-Substantial/Maximal Assistance-helper does MORE THAN HALF the effort. [place] lifts or holds trunk or limbs and provides more than half the effort. 8-Trrscjofb-rejmmw does ALL the effort. Patient does none of the effort to complete the activity. Or, the assistance of 2 or more helpers is required for the patient to complete the activity. If activity was not attempted, code reason: 7-Patient Refused. 9-Not Applicable-not attempted and the patient did not perform the activity before the current illness, exacerbation or injury. 10-Not Attempted due to Environmental Limitations-(lack of equipment, weather restraints, etc.). 88-Not Attempted due to Medical Conditions or Safety Concerns. Eating (QC): 6 Oral Hygiene (QC): 6 Bathing Location: L Arm, R Arm, L Upper Leg, R Upper Leg, L Lower Leg (including foot), R Lower Leg (including foot), Chest, Abdomen, Buttocks, Perineal Area Shower/Bathe Self (QC): 5 (s/u for sponge bath. Pt completes with IND EOB.) Upper Body Dressing (QC): 6 Lower Body Dressing (QC): 6 (completes with IND and good balance.) On/Off Footwear: 6 (completes with safety EOB.) Toileting Hygiene (QC): 6 (Pt completes bottom hygiene with IND during showering.) Toilet Transfer (QC): 6 (completes with IND with use of 2WW) Other Treatment [id number]: Pt completes ADLs EOB with IND-s/u for sponge bathing. Pt demonstrates good dynamic sitting/ standing balance throughout, good safety. pt educated on monitoring energy throughout. Pt agrees. Pt acknowledges she does not monitor energy but pushes self regularly. Pt educated on activity during group and pushing self too hard during times of decreased energy and taking a more active role in monitoring self, appearance of being strong though hard on body. Pt agrees. Pt completes UE theraband ex with min cues for 1/5 exercises. Pt completes 15 reps bilaterally with red theraband, pt again educated on not counting at home but reading body's energy/ strength level and pushing a bit more. Pt agrees, though continues counting. Pt encouraged to complete UE theraband HEP 2x daily. Pt left in recliner with PT present for tx session. [id number]: Pt stands with SBA, ambulates without AD to therapy gym. Pt places hand on items and wall multiple times while ambulating to gym, pt denies lightheadedness/ dizziness but states fatigue. Pt's walker gathered for am bulation back to room. Pt completes UE strengthening/ coordination task with 1# weights donned bilaterally for ~15 min with multiple breaks for fatigue. Pt states generalized weakness. Pt requests back to room, utilizes bathroom with IND. Daughter in room. Pt returns to recliner, all needs met. Pt states she desires to have longer rest break and OT to return for added minutes post-lunch. Education OT Patient Education: Energy conservation, Exercise program, Home exercise pr ogram, Progress toward Goal/Update tx plan, Purpose of tx/functional activities, Safety issues Teaching Recipient: Patient Teaching Methods: Demonstration, Discussion Response to Teaching: Verbalize Understanding, Return Demonstration OT [place] [employer] [place] Goals [place] Goals Time Frame: Feb 01, 2020 Eating (QC): 6 Oral Hygiene (QC): 6 Toileting Hygiene (QC): 6 Shower/Bathe Self (QC): 6 Upper Body Dressing (QC): 6 Lower Body Dressing (QC): 6 On/Off Footwear (QC): 6 Additional Goals: 1-Demonstrate ADL Tasks, 2-Verbalize Understanding, 3- ImproveStrength/Chiara 1=Demonstrate adherence to instructed precautions during ADL tasks. 2=Patient will verbalize/demonstrate understanding of assistive devices/modifications for ADL. 3=Patient will improve strength/tolerance for activity to enable patient to perform ADL's. OT Education/Plan Problem List/Assessment Assessment: Decreased Activ Tolerance, Impaired I ADL's, Impaired Self-Care Skills Discharge Recommendations Plan/Recommendations: Continue POC Therapy Discharge Recommendati: Intermittent Supervision, Home & Family Treatment Plan/Plan of Care Treatment,Training & Education: Yes Patient would benefit from OT for education, treatment and training to promote independence in ADL's, mobility, safety and/or upper extremity function for ADL's. Plan of Care: ADL Retraining, Caregiver Training, Functional Mobility, Group Exercise/Act as Ind, UE Funct Exercise/Act Treatment Duration: Feb 01, 2020 Frequency: At least 5 of 7 days/Wk (IRF) Estimated Hrs Per Day: 1.5 hours per day Agreement: Yes Rehab Potential: Good Time/GCodes Start Time: 08:00 (1030) Stop Time: 08:45 (1100) Total Time Billed (hr/min): 75 (45+30= 75) Billed Treatment Time [id number]: 1, ADL 2 (30), EX (15)= 45 [id number]: 1, EX (20), ADL (10)= 30 Total: 75 MARIAELENA URIBE OTR Jan 21, 2020 08:55
--- NOTE | 2020-01-21 09:21 | Physical Therapy Daily Note ---
PT Daily Note-Current Subjective Patient in recliner pre tx, agrees to PT, no complaints of pain. Appearance Patient in recliner post tx with nurse call, phone, tray, all needs met. Mental Status Patient Orientation: Person, Place, Situation Transfers SCALE: Activities may be completed with or without assistive devices. 9-Xhomcsgark-ckpirfr completes the activity by him/herself with no assistance from a helper. 5-Set-up or Clean-up Assistance-helper sets up or cleans up; patient completes activity. [place] assists only prior to or following the activity. 4-Supervision or Touching Assistance-helper provides verbal cues and/or touchin g/steadying and/or contact guard assistance as patient completes activity. Assistance may be provided throughout the activity or intermittently. 3-Partial/Moderate Assistance-helper does LESS THAN HALF the effort. [place] lifts, holds or supports trunk or limbs, but provides less than half the effort. 2-Substantial/Maximal Assistance-helper does MORE THAN HALF the effort. [place] lifts or holds trunk or limbs and provides more than half the effort. 9-Frbyksnjr-tygrra does ALL the effort. Patient does none of the effort to complete the activity. Or, the assistance of 2 or more helpers is required for the patient to complete the activity. If activity was not attempted, code reason: 7-Patient Refused. 9-Not Applicable-not attempted and the patient did not perform the activity before the current illness, exacerbation or injury. 10-Not Attempted due to Environmental Limitations-(lack of equipment, weather restraints, etc.). 88-Not Attempted due to Medical Conditions or Safety Concerns. Sit to Stand (QC): 6 Chair/Zpm-gp-Baxcm Xfer(QC): 6 Weight Bearing Full Weight Bearing Full Weight Bearing Gait Training Distance: 100'x4 Walk 10 feet (QC): 6 Walk 50 ft with 2 Turns(QC): 6 Gait Assistive Device: None Patient ambulates slow but steady, fatigues quickly today, less endurance Exercises NuStep Minutes: 15 NuStep Workload: 4 Treatments transfers, ambulation, functional strengthening Assessment Current Status: Poor Progress worse endurance today, fatigues quickly, needs frequent rest breaks PT Non Profit Job Titles Goals Non Profit Job Titles Goals PT Non Profit Job Titles Goals Time Frame: Jan 30, 2020 Roll Left & Right (QC): 6 Sit to Lying (QC): 6 Lying-Sitting on Side/Bed(QC): 6 Sit to Stand (QC): 6 Chair/Aml-lk-Lnnpz Xfer(QC): 6 Toilet Transfer (QC): 6 Car Transfer (QC): 6 Does the Patient Walk: Yes Walk 10 feet (QC): 6 Walk 50ft with 2 Turns (QC): 6 Walk 150 ft (QC): 6 Walking 10ft on Uneven Surface: 6 1 Step (curb) (QC): 6 4 Steps (QC): 6 12 Steps (QC): 6 Picking up an Object (QC): 6 Does the Pt use WC or Scooter?: No Wheel 50 feet with 2 turns (QC: 9 Type: N/A Wheel 150 feet: 9 Type: N/A PT Plan Problem List Problem List: Activity Tolerance, Functional Strength, Safety, Balance, Gait, Transfer, Bed Mobility Treatment/Plan Treatment Plan: Continue Plan of Care Treatment Plan: Bed Mobility, Education, Functional Activity Chiara, Functional Strength, Group Therapy, Gait, Safety, Therapeutic Exercise, Transfers Treatment Duration: Jan 30, 2020 Frequency: At least 5 of 7 days/Wk (IRF) Estimated Hrs Per Day: 1.5 hours per day Patient and/or Family Agrees t: Yes Safety Risks/Education Patient Education: Gait Training, Transfer Techniques, Correct Positioning, Safety Issues Teaching Recipient: Patient Teaching Methods: Demonstration, Discussion Response to Teaching: Reinforcement Needed Time/GCodes Time In: 0845 Time Out: 929 Total Billed Treatment Time: 45 Total Billed Treatment 1 visit EX 15' GT 30' RASTA WEBSTER PT Jan 21, 2020 09:21
[2020-01-21] MEDS: POSACONAZOLE 100 MG TABLET PO SCH (09:44)
[2020-01-21] MEDS: VITAMIN D3 10 MCG (400 UNITS) TABLET PO SCH (09:45)
[2020-01-21] MEDS: ACYCLOVIR 400 MG TABLET (ZOVIRAX) PO SCH ×2 (09:45→20:54)
[2020-01-21] MEDS: ALPRAZolam 0.5 MG (XANAX) TAB PO PRN ×2 (09:45→20:54)
[2020-01-21] MEDS: VENCLEXTA 100 MG PO SCH (09:45)
[2020-01-21] MEDS: CARVEDILOL 6.25 MG (COREG) TAB PO SCH ×2 (09:46→20:54)
[2020-01-21] MEDS: CYANOCOBALAMIN 1,000 MCG (VITAMIN B-12) TABLET PO SCH (09:46)
[2020-01-21] MEDS: amLODIPine 5 MG (NORVASC) TAB PO SCH (09:46)
[2020-01-21] MEDS: ALLOPURINOL 300 MG (ZYLOPRIM) TAB PO SCH (09:46)
[2020-01-21] MEDS: GABAPENTIN 300 MG (NEURONTIN) CAP PO SCH ×2 (09:46→20:54)
[2020-01-21] MEDS: NEO/POLY/BAC (NEOSPORIN) OINT 15 GM TUBE TOP SCH ×2 (09:47→21:03)
[2020-01-21] MEDS: ZINC OXIDE 40% (Butt Paste MAX/Desitin) 57 gm TOP SCH ×2 (09:49→21:02)
[2020-01-21] MEDS: DOCUSATE SODIUM 100 MG (COLACE) CAP PO SCH ×2 (09:49→21:02)
[2020-01-21] MEDS: SENNA W/DOCUSATE (SENOKOT S) TABLET PO SCH ×2 (09:49→21:02)
[2020-01-21] MEDS: polyethylene glycoL POWDER 17 GM (MIRALAX) PACK PO SCH ×2 (09:49→21:02)
--- NOTE | 2020-01-21 11:42 | Progress Note - Surgery ---
Subjective Time Seen by a Provider: 10:57 Subjective/Events-last exam Pt seen and examined, no complaints. Review of Systems General: Malaise Pulmonary: No Dyspnea, No Cough Cardiovascular: No: Chest Pain, Palpitations Focused Exam Lactate Level 01/20/20 17:00: Lactic Acid Level 1.44 Objective Exam Vital Signs Date Time Temp Pulse Resp B/P (MAP) Pulse Ox O2 Delivery O2 Flow Rate FiO2 01/21/20 06:47 Nasal Cannula 2.00 01/21/20 05:42 37.4 80 18 125/74 (91) 100 Nasal Cannula 2.00 01/20/20 23:45 37.6 89 18 124/71 100 Nasal Cannula 2.00 01/20/20 22:10 37.6 90 20 125/72 100 Nasal Cannula 2.00 01/20/20 21:55 37.4 88 22 119/71 100 Nasal Cannula 2.00 01/20/20 21:32 37.4 88 22 119/71 100 Nasal Cannula 2.00 01/20/20 20:10 Nasal Cannula 2.00 01/20/20 18:46 Nasal Cannula 2.00 01/20/20 18:28 36.8 98 18 88/54 100 Nasal Cannula 2.00 01/20/20 17:50 38.0 97 19 111/70 (84) 95 Nasal Cannula 4.00 01/20/20 14:55 37.6 93 18 151/73 100 Nasal Cannula 2.00 01/20/20 14:30 37.6 115 18 145/59 100 Nasal Cannula 2.00 01/20/20 12:08 36.6 71 18 123/59 100 Room Air 01/20/20 11:57 36.1 77 18 115/68 100 Room Air I & O 01/21/20 07:00 Intake Total 2735 ml Balance 2735 ml Capillary Refill : Less Than 3 Seconds General Appearance: No Apparent Distress, Chronically ill, Obese HEENT: PERRL/EOMI Respiratory: Chest Non Tender, Lungs Clear, No Accessory Muscle Use, No Respiratory Distress, Decreased Breath Sounds Cardiovascular: Regular Rate, Rhythm, No Murmur Gastrointestinal: normal bowel sounds, non tender, soft, no organomegaly Extremity: No Calf Tenderness, No Pedal Edema Neurologic/Psychiatric: Motor Weakness (generalized all extremities) Results Lab Laboratory Tests 01/20/20 15:35: White Blood Count 0.2*L, Red Blood Count 1.90L, Hemoglobin 5.8*L, Hematocrit 17*L, Mean Corpuscular Volume 89, Mean Corpuscular Hemoglobin 31, Mean Corpuscular Hemoglobin Concent 34, Red Cell Distribution Width 15.8H, Platelet Count 7*L, Mean Platelet Volume 01/20/20 17:00: Lactic Acid Level 1.44 01/20/20 17:01: Glucometer 287H 01/20/20 20:36: Glucometer 292H 01/21/20 05:13: Glucometer 121H 01/21/20 06:25: White Blood Count 0.8*L, Red Blood Count 2.22L, Hemoglobin 7.0L, Hematocrit 20*L , Mean Corpuscular Volume 90, Mean Corpuscular Hemoglobin 32, Mean Corpuscular Hemoglobin Concent 35, Red Cell Distribution Width 15.6H, Platelet Count 9*L, Mean Platelet Volume 11.2H Assessment/Plan Assessment/Plan Assessment/Plan Venous Insufficiency AML Pancytopenia with Severe Thrombocytopenia Malfunctioning Henny-cath Unfortunately her Plateletes only came up to 9 after transfusion; Hematology and Anesthesia say that it is too risky at this time to do any procedure and I agree. She is stable and has a PICC line; hopefully when she goes up to [facility] they will be able to offer her something more. I will sign off. Clinical Quality Measures DVT/VTE Risk/Contraindication: Risk Factor Score Per Nursin RFS Level Per Nursing on Admit: 4+=Very High Contraindications-Pharm: Other *list below* Other: low platelets XIMENA ESPINO DO Jan 21, 2020 11:42
--- NOTE | 2020-01-21 14:05 | NUR ---
pt family concerned about pt being cold and asked to have cbc redone. Notified of family request, new orders received to obtain cbc. CBC obtain and was notified of results. No new orders at this time.
--- NOTE | 2020-01-21 14:11 | NUR ---
Swing Bed Note: Dr. Zhang asked that swing bed authorization be requested d/t patient continues to need daily transfusions. Benefits and coverage explored through her [employer] insurance. Swing bed/Skilled coverage is as follows; Days 1-20 $0 co-pay/fully covered. Days 21-100 $178.00 per day. This does require prior authorization. Clinical information for prior auth submitted (fax [phone]) with a pending auth number of [id number] and request to access this benefit beginning tomorrow 01/22/20. Awaiting determination.
--- NOTE | 2020-01-21 14:35 | Physical Therapy Daily Note ---
PT Daily Note-Current Subjective Patient in bed pre tx, agrees reluctantly to PT, has no pain but states she is very tired. Appearance Patient in bed post tx with nurse call, phone, tray, all needs met. Mental Status Patient Orientation: Normal For Age Transfers SCALE: Activities may be completed with or without assistive devices. 2-Vrxcmesfgm-zjwcjev completes the activity by him/herself with no assistance from a helper. 5-Set-up or Clean-up Assistance-helper sets up or cleans up; patient completes activity. [place] assists only prior to or following the activity. 4-Supervision or Touching Assistance-helper provides verbal cues and/or touching/steadying and/or contact guard assistance as patient completes activity. Assistance may be provided throughout the activity or intermittently. 3-Partial/Moderate Assistance-helper does LESS THAN HALF the effort. [place] lifts, holds or supports trunk or limbs, but provides less than half the effort. 2-Substantial/Maximal Assistance-helper does MORE THAN HALF the effort. [place] lifts or holds trunk or limbs and provides more than half the effort. 3-Vrekyjbul-busrqt does ALL the effort. Patient does none of the effort to complete the activity. Or, the assistance of 2 or more helpers is required for the patient to complete the activity. If activity was not attempted, code reason: 7-Patient Refused. 9-Not Applicable-not attempted and the patient did not perform the activity before the current illness, exacerbation or injury. 10-Not Attempted due to Environmental Limitations-(lack of equipment, weather restraints, etc.). 88-Not Attempted due to Medical Conditions or Safety Concerns. Roll Left & Right (QC): 6 Sit to Lying (QC): 6 Lying to Sitting/Side of Bed(Q: 6 Sit to Stand (QC): 6 Chair/Lwj-lp-Gmqie Xfer(QC): 6 Patient used the restroom at the beginning of tx, no assist needed Weight Bearing Full Weight Bearing Full Weight Bearing Gait Training Distance: 60'x4 Walk 10 feet (QC): 6 Walk 50 ft with 2 Turns(QC): 6 Gait Assistive Device: None slow but steady ambulation, rest breaks needed due to fatigue Exercises NuStep Minutes: 15 NuStep Workload: 3 (less resitance due to fatigue) Treatments toileting, bed mobility and transfers, ambulation, functional strengthening Assessment Current Status: Poor Progress more fatigue PT Hairspring Vibrator Goals Hairspring Vibrator Goals PT [facility] Goals Time Frame: Jan 30, 2020 Roll Left & Right (QC): 6 Sit to Lying (QC): 6 Lying-Sitting on Side/Bed(QC): 6 Sit to Stand (QC): 6 Chair/Vvm-ao-Pjizu Xfer(QC): 6 Toilet Transfer (QC): 6 Car Transfer (QC): 6 Does the Patient Walk: Yes Walk 10 feet (QC): 6 Walk 50ft with 2 Turns (QC): 6 Walk 150 ft (QC): 6 Walking 10ft on Uneven Surface: 6 1 Step (curb) (QC): 6 4 Steps (QC): 6 12 Steps (QC): 6 Picking up an Object (QC): 6 Does the Pt use WC or Scooter?: No Wheel 50 feet with 2 turns (QC: 9 Type: N/A Wheel 150 feet: 9 Type: N/A PT Plan Problem List Problem List: Activity Tolerance, Functional Strength, Safety, Balance, Gait, Transfer, Bed Mobility Treatment/Plan Treatment Plan: Continue Plan of Care Treatment Plan: Bed Mobility, Education, Functional Activity Chiara, Functional Strength, Group Therapy, Gait, Safety, Therapeutic Exercise, Transfers Treatment Duration: Jan 30, 2020 Frequency: At least 5 of 7 days/Wk (IRF) Estimated Hrs Per Day: 1.5 hours per day Patient and/or Family Agrees t: Yes Safety Risks/Education Patient Education: Gait Training, Transfer Techniques, Correct Positioning, Safety Issues Teaching Recipient: Patient Teaching Methods: Demonstration, Discussion Response to Teaching: Reinforcement Needed Time/GCodes Time In: 1350 Time Out: 1435 Total Billed Treatment Time: 45 Total Billed Treatment 1 visit EX 15' FA 30' RASTA WEBSTER PT Jan 21, 2020 14:35
--- NOTE | 2020-01-21 15:09 | Occupational Ther Daily Note ---
OT Current Status-Daily Note Subjective Pt. reports pain in bottom. Asks OT to look. Appearance Pt. in bed on her side. States that her bottom is sore. Mental Status/Objective Patient Orientation: Person, Place, Time, Situation ADL-Treatment Therapy Code Descriptions/Definitions Functional [place] Measure: 0=Not Assessed/NA 4=Minimal Assistance 1=Total Assistance 5=Supervision or Setup 2=Maximal Assistance 6=Modified [place] 3=Moderate Assistance 7=Complete IndependenceSCALE: Activities may be completed with or without assistive devices. 5-Vrebqzgzfx-fqxpmic completes the activity by him/herself with no assistance from a helper. 5-Set-up or Clean-up Assistance-helper sets up or cleans up; patient completes activity. [place] assists only prior to or following the activity. 4-Supervision or Touching Assistance-helper provides verbal cues and/or touching/steadying and/or contact guard assistance as patient completes activit y. Assistance may be provided throughout the activity or intermittently. 3-Partial/Moderate Assistance-helper does LESS THAN HALF the effort. [place] lifts, holds or supports trunk or limbs, but provides less than half the effort. 2-Substantial/Maximal Assistance-helper does MORE THAN HALF the effort. [place] lifts or holds trunk or limbs and provides more than half the effort. 9-Wycmdntmw-rjvglu does ALL the effort. Patient does none of the effort to complete the activity. Or, the assistance of 2 or more helpers is required for the patient to complete the activity. If activity was not attempted, code reason: 7-Patient Refused. 9-Not Applicable-not attempted and the patient did not perform the activity before the current illness, exacerbation or injury. 10-Not Attempted due to Environmental Limitations-(lack of equipment, weather restraints, etc.). 88-Not Attempted due to Medical Conditions or Safety Concerns. Lower Body Dressing (QC): 4 Other Treatment Pt. transferred supine-sit with SBA. Stood with SBA and pulled down pants. Nursing came into room and assessed bottom area with OT. Nursing documented wound area and went to consult physician. Pt. sat down and pulled pants off further, so that she could lay down without them on. Pt. transferred sit-supine with SBA. Pt. on side and all needs were met. Education OT Patient Education: Correct positioning, Modified ADL techniques, Progress toward Goal/Update tx plan, Purpose of tx/functional activities, Reviewed precautions, Rehab process, Transfer techniques Teaching Recipient: Patient Teaching Methods: Demonstration, Discussion Response to Teaching: Verbalize Understanding, Return Demonstration OT Editor Map Goals Editor Map Goals Time Frame: Feb 01, 2020 Eating (QC): 6 Oral Hygiene (QC): 6 Toileting Hygiene (QC): 6 Shower/Bathe Self (QC): 6 Upper Body Dressing (QC): 6 Lower Body Dressing (QC): 6 On/Off Footwear (QC): 6 Additional Goals: 1-Demonstrate ADL Tasks, 2-Verbalize Understanding, 3- ImproveStrength/Chiara 1=Demonstrate adherence to instructed precautions during ADL tasks. 2=Patient will verbalize/demonstrate understanding of assistive devices/modifications for ADL. 3=Patient will improve strength/tolerance for activity to enable patient to perform ADL's. OT Education/Plan Problem List/Assessment Assessment: Decreased Activ Tolerance Discharge Recommendations Plan/Recommendations: Continue POC Therapy Discharge Recommendati: Home & Family Treatment Plan/Plan of Care Treatment,Training & Education: Yes Patient would benefit from OT for education, treatment and training to promote independence in ADL's, mobility, safety and/or upper extremity function for ADL's. Plan of Care: ADL Retraining, Caregiver Training, Functional Mobility, Group Exercise/Act as Ind, UE Funct Exercise/Act Treatment Duration: Feb 01, 2020 Frequency: At least 5 of 7 days/Wk (IRF) Estimated Hrs Per Day: 1.5 hours per day Agreement: Yes Rehab Potential: Good Time/GCodes Start Time: 14:35 Stop Time: 14:50 Total Time Billed (hr/min): 15 Billed Treatment Time 1, ADL JILLIAN WISDOM OT Jan 21, 2020 15:09
[2020-01-21 16:00] VITALS: BP 117/65
--- NOTE | 2020-01-21 17:00 | NUR ---
notified tana wound nurse of wound on pts bottom, he requested check with dr. zhang about wound physician consult. This RN Notified Dr. Zhang, new orders given for consult. Dr. Omalley assessed wound and advised pt to eat a high protein diet, and have blood sugar control. Also to be transferred to low air mattress bed and continue to apply butt paste to wound.
--- NOTE | 2020-01-21 17:07 | Wound Care Assessment ---
Wound Care Assessment Date Seen by Provider: Jan 21, 2020 Time Seen by Provider: 16:30 Chief Complaint Sacral ulcer. HPI The patient is a 69 year old female with very complex recent history, involving exacerbation of acute myelogenous leukemia, anemia, thrombocytopenia, hypotension, hyperglycemia, obesity, chemotherapy induced myopathy with diminished mobility. Very unusual presentation of sacral pressure injury with large area of violacious skin changes and a smaller, well-demarcated, lenticular, central area of full-thickness liquifactive necrosis. Smoking Status: Never a Smoker Recreational Drug Use: No Alcohol Use: Denies Use Exam Vital Signs Date Time Temp Pulse Resp B/P (MAP) Pulse Ox O2 Delivery O2 Flow Rate FiO2 01/21/20 06:47 Nasal Cannula 2.00 01/21/20 05:42 37.4 80 18 125/74 (91) 100 Capillary Refill : Less Than 3 Seconds Results Laboratory Tests 01/20/20 17:00: Lactic Acid Level 1.44 01/20/20 17:01: Glucometer 287H 01/20/20 20:36: Glucometer 292H 01/21/20 05:13: Glucometer 121H 01/21/20 06:25: White Blood Count 0.8*L, Red Blood Count 2.22L, Hemoglobin 7.0L, Hematocrit 20*L , Mean Corpuscular Volume 90, Mean Corpuscular Hemoglobin 32, Mean Corpuscular Hemoglobin Concent 35, Red Cell Distribution Width 15.6H, Platelet Count 9*L, Mean Platelet Volume 11.2H 01/21/20 11:34: Glucometer 271H 01/21/20 15:37: Glucometer 280H BETTY LEE MD Jan 21, 2020 17:06
--- NOTE | 2020-01-21 17:14 | Progress Note ---
Standard Progress Note Progress Notes/Assess & Plan Date Seen by a Provider: Jan 21, 2020 Time Seen by a Provider: 17:10 Progress/Assessment & Plan 69-year-old female with therapy induced secondary AML diagnosed recently. She was started on chemotherapy with Vidaza and Venetoclax regimen approximately 3.5 weeks ago. She is taking Venetoclax 100 mg daily because of concurrent antifungal therapy as well as chronic kidney disease. She has developed significant cytopenias and is transfusion dependent for platelets and packed red blood cells. She was admitted to the hospital with a near passing out spell at home. [place] cultures were negative but she was on broad-spectrum antibiotics because of grade 4 neutropenia. This has been discontinued. She is requiring platelet transfusion almost daily and two units of PRBCs yesterday. She is scheduled for a repeat bone marrow evaluation and office visit at [facility] next week. She is undergoing rehabilitation because of generalized weakness and significantly diminished performance status. Discussed case with Dr. Zhang and planning to move patient to swing bed status for continued physical therapy as well as transfusion support because of her labile condition. Continue transfusion support as needed. Patient did not show any significant bump in platelet count after transfusion yesterday and most likely is developing alloimmunization. Monitor CBC daily. Will follow patient with you. Focused Exam Lactate Level 01/20/20 17:00: Lactic Acid Level 1.44 WILVER ESTRELLA Jan 21, 2020 17:14
[2020-01-21 17:26] LABS: MEAN PLATELET VOLUME 11.2 FL (7.4-10.4); RED CELL DISTRIBUTION WIDTH 15.3 % (10.0-14.5)
[2020-01-21 17:32] LABS: WHITE BLOOD COUNT 1.1 10^3/uL (4.3-11.0)
[2020-01-21 17:43] LABS: HEMOGLOBIN 6.5 G/DL (11.5-16.0)
[2020-01-21] MEDS: SIMvastatin 10 MG (ZOCOR) TAB PO SCH (20:54)
--- NOTE | 2020-01-22 02:24 | NUR ---
Patient got up to use the restroom and was extremely weak and unbalanced. O2 sat was 86% on room air, blood sugar was 130, and temp was 38.6. Patient assisted to bed and O2 was put on. O2 sat at 95% on [address] Zhang notified and she recommended letting Dr. Thurman know.
[2020-01-22] MEDS: ACETAMINOPHEN 325 MG TABLET PO PRN (02:28)
--- NOTE | 2020-01-22 02:33 | NUR ---
Contacted Dr. Thurman and informed him of patient's status. New orders received for blood cultures x 2, UA with C and S, chest x-ray, and 1 unit of blood to be given when temp is down. Dr. Thurman also requested RN ask Dr. Zhang if she wanted to start a broad spectrum antibiotic. Dr. Zahng notified and received orders for Cefepime 1 gm IV every 12 hours and Vancomycin 1 gm IV every 12 hours.
[2020-01-22] MEDS ORDERED: CEFEPIME INJECTION 1,000 MG in WATER (STERILE) FOR INJECTION 10 ML IV SCH ×2 (02:45→03:00)
[2020-01-22] MEDS ORDERED: VANCOMYCIN INJECTION 1,000 MG in NS (IVPB) 250 ML IV SCH ×2 (02:45→03:00)
[2020-01-22] MEDS ORDERED: NS IV 500 ML 500 ML IV SCH (02:45)
[2020-01-22] MEDS ORDERED: VANCOMYCIN 1000 MG/VIAL ONE (04:47)
[2020-01-22] MEDS ORDERED: NS (IVPB) 250 ML ONE (04:55)
[2020-01-22] MEDS ORDERED: WATER (STERILE) FOR INJECTION 20 ML ONE (04:55)
[2020-01-22] MEDS: inSUlin ASPART (NovoLOG) 1 UNIT/0.01 ML (CHARGE PER UNIT) SC SCH (05:41)
[2020-01-22 05:50] VITALS: BP 151/67
[2020-01-22 06:00] LABS: BILIRUBIN,URINE NEGATIVE (NEGATIVE); CLARITY,URINE CLEAR; COLOR,URINE YELLOW; GLUCOSE, URINE (UA) 1+ (NEGATIVE); KETONES,URINE NEGATIVE (NEGATIVE); LEUKOCYTE ESTERASE ,URINE NEGATIVE (NEGATIVE); NITRITE,URINE NEGATIVE (NEGATIVE); PH,URINE 6.5 (5-9); PROTEIN,URINE 1+ (NEGATIVE)
--- NOTE | 2020-01-22 06:08 | Diagnostic Imaging Report ---
INDICATION: Fever, coronary artery disease. COMPARISON: 01/13/2020. FINDINGS: Single view of the chest demonstrates stable cardiac enlargement. The lungs remain clear. PICC line is stable. There is no pneumothorax. Sternal wires are midline. IMPRESSION: No acute cardiopulmonary findings. Stable cardiac enlargement. Dictated by: Dictated on workstation # [id number]
[2020-01-22 06:12] LABS: BACTERIA,URINE TRACE /HPF; RBC,URINE RARE /HPF; WBC,URINE RARE /HPF
--- NOTE | 2020-01-22 06:18 | Discharge Summary ---
Diagnosis/Chief Complaint Date of Admission Jan 16, 2020 at 13:55 Date of Discharge Discharge Date: Jan 22, 2020 Discharge Diagnosis Assessment: Neutropenia fever requiring transfer to 4th floor inpatient status Chemotherapy induced myopathy s/p AMS due to encephalopathy admitted ICU 01/12/20 Severe anemia requiring multiple transfusions Severe thrombocytopenia requiring multiple platelet transfusions AML on chemotherapy [facility] Hyponatremia Neutropenia requiring broad spectrum abx s/p DC Vanc and Zosyn now COVID-19 swab negative HTN DM Obesity CAD previous CABG CRI Port dysfunction needs replaced but cannot safely do so here at [facility] due to severity of platelet level Plan: Supportive care Transfuse prn Consult Dr Thurman appreciated PT OT IRF protocol HTN meds Replace port per [facility] next week Maintain PICC IV abx empiric (1) Complication of chemotherapy (2) Diabetes mellitus (3) Hypertension (4) Volume overload (5) BMI 40.0-44.9, adult (6) History of lymphoma Status: Acute (7) Pancytopenia Status: Acute (8) anemia (9) Syncope Status: Acute (10) Symptomatic anemia Status: Acute (11) Fatigue Status: Acute (12) AML (acute myeloid leukemia) Status: Acute Discharge Summary Discharge Physical Examination Allergies: Coded Allergies: midazolam (Unverified Allergy, Unknown, MAKE PT HYPER AND ANXIOUS, 05/28/14) Vitals & I&Os Vital Signs Date Time Temp Pulse Resp B/P (MAP) Pulse Ox O2 Delivery O2 Flow Rate FiO2 01/22/20 05:50 36.8 97 20 151/67 (95) 95 Nasal Cannula 2.00 General Appearance: Alert, Oriented X3, Cooperative Respiratory: Clear to Auscultation Cardiovascular: Regular Rate Psych/Mental Status: Mental Status NL Hospital Course Was the Problem List Reviewed?: Yes Hospital course: patient had a lengthy course after admitted form chemotherapy induced myopathy after syncope and AMS ICU stay requiring multiple transfusions of platelets due to critical level due to AML dx. Dr Thurman followed along during the IRF stay and provided his expertise. Patient had no decompensation during her course in IRF but at 0230 on 01/22/20 patient had fever and hypoxia but CXR was negative it was assessed the patient needed transfer to 4th floor for empiric IV abx and close monitoring to prevent overwhelming infection and everyone was in agreement with the plan. Labs (last 24 hrs) Laboratory Tests 01/16/20 16:24: Glucometer 207H 01/16/20 20:12: Glucometer 191H 01/17/20 01:07: Glucometer 223H 01/17/20 06:15: Glucometer 203H 01/17/20 06:30: White Blood Count 0.6*L, Red Blood Count 2.57L, Hemoglobin 8.0L, Hematocrit 23L, Mean Corpuscular Volume 89, Mean Corpuscular Hemoglobin 31, Mean Corpuscular Hemoglobin Concent 35, Red Cell Distribution Width 16.0H, Platelet Count 4*L, Mean Platelet Volume , Neutrophils (%) (Auto) , Lymphocytes (%) (Auto) , Monocytes (%) (Auto) , Eosinophils (%) (Auto) , Basophils (%) (Auto) , Neutrophils # (Auto) , Lymphocytes # (Auto) , Monocytes # (Auto) , Eosinophils # (Auto) , Basophils # (Auto) , Sodium Level 136, Potassium Level 3.8, Chloride Level 101, Carbon Dioxide Level 26, Anion Gap 9, Blood Urea Nitrogen 28H, Creatinine 1.37H, Estimat Glomerular Filtration Rate 38, BUN/Creatinine Ratio 20, Glucose Level 181H, Calcium Level 8.7, Corrected Calcium 9.6, Total Bilirubin 0.3, Aspartate Amino Transf (AST/SGOT) 12, Alanine Aminotransferase (ALT/SGPT) 42, Alkaline Phosphatase 87, Total Protein 5.5L, Albumin 2.9L 01/17/20 10:38: Glucometer 326H 01/17/20 16:14: Glucometer 282H 01/17/20 20:36: Glucometer 258H 01/18/20 00:46: Glucometer 217H 01/18/20 05:55: Glucometer 154H 01/18/20 06:45: White Blood Count 0.5*L, Red Blood Count 2.43L, Hemoglobin 7.4L, Hematocrit 21L, Mean Corpuscular Volume 88, Mean Corpuscular Hemoglobin 30, Mean Corpuscular Hemoglobin Concent 35, Red Cell Distribution Width 16.3H, Platelet Count 6*L, Mean Platelet Volume , Neutrophils (%) (Auto) , Lymphocytes (%) (Auto) , Monocytes (%) (Auto) , Eosinophils (%) (Auto) , Basophils (%) (Auto) , Neutrophils # (Auto) , Lymphocytes # (Auto) , Monocytes # (Auto) , Eosinophils # (Auto) , Basophils # (Auto) , Sodium Level 138, Potassium Level 4.1, Chloride Level 102, Carbon Dioxide Level 28, Anion Gap 8, Blood Urea Nitrogen 25H, Creatinine 1.18, Estimat Glomerular Filtration Rate 46, BUN/Creatinine Ratio 21, Glucose Level 141H, Calcium Level 9.0, Corrected Calcium 9.8, Total Bilirubin 0.6, Aspartate Amino Transf (AST/SGOT) 10, Alanine Aminotransferase (ALT/SGPT) 31, Alkaline Phosphatase 63, Total Protein 5.7L, Albumin 3.0L 01/18/20 10:48: Glucometer 428*H 01/18/20 10:50: Glucometer 437*H 01/18/20 16:09: Glucometer 237H 01/18/20 20:16: Glucometer 319H 01/19/20 05:39: Glucometer 113H 01/19/20 06:42: White Blood Count 0.6*L, Red Blood Count 2.02L, Hemoglobin 6.2*L, Hematocrit 18*L, Mean Corpuscular Volume 89, Mean Corpuscular Hemoglobin 31, Mean Corpuscu lar Hemoglobin Concent 34, Red Cell Distribution Width 16.0H, Platelet Count 7*L , Mean Platelet Volume , Neutrophils (%) (Auto) , Lymphocytes (%) (Auto) , Monocytes (%) (Auto) , Eosinophils (%) (Auto) , Basophils (%) (Auto) , Neutrophils # (Auto) , Lymphocytes # (Auto) , Monocytes # (Auto) , Eosinophils # (Auto) , Basophils # (Auto) , Sodium Level 138, Potassium Level 4.3, Chloride Level 100, Carbon Dioxide Level 28, Anion Gap 10, Blood Urea Nitrogen 26H, Creatinine 1.15, Estimat Glomerular Filtration Rate 47, BUN/Creatinine Ratio 23, Glucose Level 125H, Calcium Level 9.1, Corrected Calcium 9.9, Total Bilirubin 0.6, Aspartate Amino Transf (AST/SGOT) 12, Alanine Aminotransferase (ALT/SGPT) 27, Alkaline Phosphatase 66, Total Protein 5.8L, Albumin 3.0L 01/19/20 10:53: Glucometer 394H 01/19/20 15:31: Glucometer 319H 01/19/20 20:33: Glucometer 315H 01/20/20 00:20: White Blood Count 0.5*L, Red Blood Count 2.35L, Hemoglobin 7.4L, Hematocrit 21L, Mean Corpuscular Volume 89, Mean Corpuscular Hemoglobin 32, Mean Corpuscular Hemoglobin Concent 35, Red Cell Distribution Width 15.7H, Platelet Count 8*L, Mean Platelet Volume 10.3 01/20/20 05:27: Glucometer 38*L 01/20/20 05:30: Glucometer 84 01/20/20 07:40: White Blood Count 0.7*L, Red Blood Count 2.31L, Hemoglobin 7.2L, Hematocrit 20*L , Mean Corpuscular Volume 87, Mean Corpuscular Hemoglobin 31, Mean Corpuscular Hemoglobin Concent 36, Red Cell Distribution Width 16.0H, Platelet Count 6*L, Mean Platelet Volume 01/20/20 11:21: Glucometer 253H 01/20/20 15:35: White Blood Count 0.2*L, Red Blood Count 1.90L, Hemoglobin 5.8*L, Hematocrit 17*L, Mean Corpuscular Volume 89, Mean Corpuscular Hemoglobin 31, Mean Corpuscular Hemoglobin Concent 34, Red Cell Distribution Width 15.8H, Platelet Count 7*L, Mean Platelet Volume 01/20/20 17:00: Lactic Acid Level 1.44 01/20/20 17:01: Glucometer 287H 01/20/20 20:36: Glucometer 292H 01/21/20 05:13: Glucometer 121H 01/21/20 06:25: White Blood Count 0.8*L, Red Blood Count 2.22L, Hemoglobin 7.0L, Hematocrit 20*L , Mean Corpuscular Volume 90, Mean Corpuscular Hemoglobin 32, Mean Corpuscular Hemoglobin Concent 35, Red Cell Distribution Width 15.6H, Platelet Count 9*L, Mean Platelet Volume 11.2H 01/21/20 11:34: Glucometer 271H 01/21/20 15:37: Glucometer 280H 01/21/20 17:10: White Blood Count 1.1*L, Red Blood Count 2.11L, Hemoglobin 6.5*L, Hematocrit 19*L, Mean Corpuscular Volume 90, Mean Corpuscular Hemoglobin 31, Mean Corpuscular Hemoglobin Concent 34, Red Cell Distribution Width 15.3H, Platelet Count 10*L, Mean Platelet Volume 11.2H 01/21/20 20:16: Glucometer 326H 01/22/20 02:09: Glucometer 130H 01/22/20 05:35: Urine Color YELLOW, Urine Clarity CLEAR, Urine pH 6.5, Urine Specific Rena Lara 1.010L, Urine Protein 1+H, Urine Glucose (UA) 1+H, Urine Ketones NEGATIVE, Urine Nitrite NEGATIVE, Urine Bilirubin NEGATIVE, Urine Urobilinogen 0.2, Urine Leukocyte Esterase NEGATIVE, Urine RBC (Auto) 1+H, Urine RBC RARE, Urine WBC RARE, Urine Squamous Epithelial Cells 2-5, Urine Crystals NONE, Urine Bacteria TRACE, Urine Casts NONE, Urine Mucus NEGATIVE, Urine Culture Indicated NO Pending Labs Laboratory Tests 01/16/20 16:24: Glucometer 207 01/16/20 20:12: Glucometer 191 01/17/20 01:07: Glucometer 223 01/17/20 06:15: Glucometer 203 01/17/20 06:30: White Blood Count 0.6, Red Blood Count 2.57, Hemoglobin 8.0, Hematocrit 23, Mean Corpuscular Volume 89, Mean Corpuscular Hemoglobin 31, Mean Corpuscular Hemoglobin Concent 35, Red Cell Distribution Width 16.0, Platelet Count 4, Mean Platelet Volume , Neutrophils (%) (Auto) , Lymphocytes (%) (Auto) , Monocytes (%) (Auto) , Eosinophils (%) (Auto) , Basophils (%) (Auto) , Neutrophils # (Auto) , Lymphocytes # (Auto) , Monocytes # (Auto) , Eosinophils # (Auto) , Basophils # (Auto) , Sodium Level 136, Potassium Level 3.8, Chloride Level 101, Carbon Dioxide Level 26, Anion Gap 9, Blood Urea Nitrogen 28, Creatinine 1.37, Estimat Glomerular Filtration Rate 38, BUN/Creatinine Ratio 20, Glucose Level 181, Calcium Level 8.7, Corrected Calcium 9.6, Total Bilirubin 0.3, Aspartate Amino Transf (AST/SGOT) 12, Alanine Aminotransferase (ALT/SGPT) 42, Alkaline Phosphatase 87, Total Protein 5.5, Albumin 2.9 01/17/20 10:38: Glucometer 326 01/17/20 16:14: Glucometer 282 01/17/20 20:36: Glucometer 258 01/18/20 00:46: Glucometer 217 01/18/20 05:55: Glucometer 154 01/18/20 06:45: White Blood Count 0.5, Red Blood Count 2.43, Hemoglobin 7.4, Hematocrit 21, Mean Corpuscular Volume 88, Mean Corpuscular Hemoglobin 30, Mean Corpuscular Hemoglobin Concent 35, Red Cell Distribution Width 16.3, Platelet Count 6, Mean Platelet Volume , Neutrophils (%) (Auto) , Lymphocytes (%) (Auto) , Monocytes (%) (Auto) , Eosinophils (%) (Auto) , Basophils (%) (Auto) , Neutrophils # (Auto) , Lymphocytes # (Auto) , Monocytes # (Auto) , Eosinophils # (Auto) , Bas ophils # (Auto) , Sodium Level 138, Potassium Level 4.1, Chloride Level 102, Carbon Dioxide Level 28, Anion Gap 8, Blood Urea Nitrogen 25, Creatinine 1.18, Estimat Glomerular Filtration Rate 46, BUN/Creatinine Ratio 21, Glucose Level 141, Calcium Level 9.0, Corrected Calcium 9.8, Total Bilirubin 0.6, Aspartate Amino Transf (AST/SGOT) 10, Alanine Aminotransferase (ALT/SGPT) 31, Alkaline Phosphatase 63, Total Protein 5.7, Albumin 3.0 01/18/20 10:48: Glucometer 428 01/18/20 10:50: Glucometer 437 01/18/20 16:09: Glucometer 237 01/18/20 20:16: Glucometer 319 01/19/20 05:39: Glucometer 113 01/19/20 06:42: White Blood Count 0.6, Red Blood Count 2.02, Hemoglobin 6.2, Hematocrit 18, Mean Corpuscular Volume 89, Mean Corpuscular Hemoglobin 31, Mean Corpuscular Hemoglobin Concent 34, Red Cell Distribution Width 16.0, Platelet Count 7, Mean Platelet Volume , Neutrophils (%) (Auto) , Lymphocytes (%) (Auto) , Monocytes (%) (Auto) , Eosinophils (%) (Auto) , Basophils (%) (Auto) , Neutrophils # (Auto) , Lymphocytes # (Auto) , Monocytes # (Auto) , Eosinophils # (Auto) , Basophils # (Auto) , Sodium Level 138, Potassium Level 4.3, Chloride Level 100, Carbon Dioxide Level 28, Anion Gap 10, Blood Urea Nitrogen 26, Creatinine 1.15, Estimat Glomerular Filtration Rate 47, BUN/Creatinine Ratio 23, Glucose Level 125, Calcium Level 9.1, Corrected Calcium 9.9, Total Bilirubin 0.6, Aspartate Amino Transf (AST/SGOT) 12, Alanine Aminotransferase (ALT/SGPT) 27, Alkaline Phosphatase 66, Total Protein 5.8, Albumin 3.0 01/19/20 10:53: Glucometer 394 01/19/20 15:31: Glucometer 319 01/19/20 20:33: Glucometer 315 01/20/20 00:20: White Blood Count 0.5, Red Blood Count 2.35, Hemoglobin 7.4, Hematocrit 21, Mean Corpuscular Volume 89, Mean Corpuscular Hemoglobin 32, Mean Corpuscular Hemoglobin Concent 35, Red Cell Distribution Width 15.7, Platelet Count 8, Mean Platelet Volume 10.3 01/20/20 05:27: Glucometer 38 01/20/20 05:30: Glucometer 84 01/20/20 07:40: White Blood Count 0.7, Red Blood Count 2.31, Hemoglobin 7.2, Hematocrit 20, Mean Corpuscular Volume 87, Mean Corpuscular Hemoglobin 31, Mean Corpuscular Hemoglobin Concent 36, Red Cell Distribution Width 16.0, Platelet Count 6, Mean Platelet Volume 01/20/20 11:21: Glucometer 253 01/20/20 15:35: White Blood Count 0.2, Red Blood Count 1.90, Hemoglobin 5.8, Hematocrit 17, Mean Corpuscular Volume 89, Mean Corpuscular Hemoglobin 31, Mean Corpuscular Hemoglobin Concent 34, Red Cell Distribution Width 15.8, Platelet Count 7, Mean Platelet Volume 01/20/20 17:00: Lactic Acid Level 1.44 01/20/20 17:01: Glucometer 287 01/20/20 20:36: Glucometer 292 01/21/20 05:13: Glucometer 121 01/21/20 06:25: White Blood Count 0.8, Red Blood Count 2.22, Hemoglobin 7.0, Hematocrit 20, Mean Corpuscular Volume 90, Mean Corpuscular Hemoglobin 32, Mean Corpuscular Hemoglob in Concent 35, Red Cell Distribution Width 15.6, Platelet Count 9, Mean Platelet Volume 11.2 01/21/20 11:34: Glucometer 271 01/21/20 15:37: Glucometer 280 01/21/20 17:10: White Blood Count 1.1, Red Blood Count 2.11, Hemoglobin 6.5, Hematocrit 19, Mean Corpuscular Volume 90, Mean Corpuscular Hemoglobin 31, Mean Corpuscular Hemoglobin Concent 34, Red Cell Distribution Width 15.3, Platelet Count 10, Mean Platelet Volume 11.2 01/21/20 20:16: Glucometer 326 01/22/20 02:09: Glucometer 130 01/22/20 05:35: Urine Color YELLOW, Urine Clarity CLEAR, Urine pH 6.5, Urine Specific Rena Lara 1.010, Urine Protein 1+, Urine Glucose (UA) 1+, Urine Ketones NEGATIVE, Urine Nitrite NEGATIVE, Urine Bilirubin NEGATIVE, Urine Urobilinogen 0.2, Urine Leukocyte Esterase NEGATIVE, Urine RBC (Auto) 1+, Urine RBC RARE, Urine WBC RARE, Urine Squamous Epithelial Cells 2-5, Urine Crystals NONE, Urine Bacteria TRACE, Urine Casts NONE, Urine Mucus NEGATIVE, Urine Culture Indicated NO Discharge Home Medications: Active Scripts Active Reported Novolog Flexpen (Insulin Aspart) 300 Units/3 Ml Solution Units SC PER SLIDING SCALE Lantus Solostar (Insulin Glargine,Hum.rec.anlog) 100 Unit/1 Ml Insuln.pen 24 Units SC BID Xanax (Alprazolam) 0.5 Mg Tablet 0.5 Mg PO TID PRN Cefuroxime (Cefuroxime Axetil) 250 Mg Tablet 250 Mg PO BID Zofran (Ondansetron HCl) 8 Mg Tablet 8 Mg PO Q8H PRN Venclexta (Venetoclax) 100 Mg Tablet 100 Mg PO DAILY TAKE WITH FOOD Vitamin D3 (Vitamin D) 10 Mcg Tablet 1,000 Units PO DAILY Vitamin B-12 (Cyanocobalamin (Vitamin B-12)) 1,000 Mcg Tablet 1,000 Mcg PO DAILY Citalopram HBr (Citalopram Hydrobromide) 20 Mg Tablet 20 Mg PO DAILY Isosorbide Mononitrate 20 Mg Tablet 30 Mg PO DAILY Carvedilol 6.25 Mg Tablet 6.25 Mg PO BID Acyclovir 400 Mg Tablet 400 Mg PO BID Posaconazole 100 Mg Tablet.dr 300 Mg PO DAILY TAKE WITH FOOD TAKES 3 (100MG) TABS Allopurinol 300 Mg Tablet 300 Mg PO DAILY Simvastatin 10 Mg Tablet 10 Mg PO HS Gabapentin 300 Mg/6 Ml Solution 300 Mg PO BID Instructions to patient/family Please see electronic discharge instructions given to patient. Diagnosis/Problems Diagnosis/Problems (1) Complication of chemotherapy (2) Diabetes mellitus (3) Hypertension (4) Volume overload (5) BMI 40.0-44.9, adult (6) History of lymphoma Status: Acute (7) Pancytopenia Status: Acute (8) anemia (9) Syncope Status: Acute (10) Symptomatic anemia Status: Acute (11) Fatigue Status: Acute (12) AML (acute myeloid leukemia) Status: Acute Clinical Quality Measures DVT/VTE Risk/Contraindication: Risk Factor Score Per Nursin RFS Level Per Nursing on Admit: 4+=Very High Contraindications-Pharm: Other *list below* Other: low platelets MONTSERRAT HUANG DO Jan 22, 2020 06:18
[2020-01-22] MEDS: ISOSORBIDE MONONITRATE 30 MG (IMDUR) TAB PO SCH (06:33)
[2020-01-22] MEDS: CATHETER FLUSH 10 ML SYR IV SCH (06:33)
--- NOTE | 2020-01-22 07:04 | NUR ---
ORDERS TO MOVE PATIENT TO [address] HUANG D/T NEUTROPENIC FEVER.
--- NOTE | 2020-01-22 07:25 | NUR ---
PATIENT TRANSFERRED TO [facility] VIA [facility] BY [facility] AND VENKATESH BULLT.
--- NOTE | 2020-01-22 10:18 | NUR ---
CM/SS PATIENT CARE CONFERENCE Visited with patient , 01/21/20 a.m. regarding discharge arrangements that were tentative based on her malfunctioning port-a-cath and proposed replacement plan. After ore tester and all consulting physicians assessed patient, it was determined her condition was not stable enough for the procedure. Patient was later transferred from ARU to acute Medical services due to change in condition.
--- NOTE | 2020-01-22 10:58 | Therapy Team Discharge Summary ---
Therapy Discharge Summary Discharge Recommendations Date of Discharge Jan 22, 2020 at 07:26 Occupational Therapy Pt admits from [facility] with chemo induced myopathy. Pt had fall 6/2 and was sev erely anemic, limited by wound/ pain on bottom and energy/ medical status/ chemo throughout sessions. Pt and OT work towards higher fx IND with fx strength/ endurance training, ADL activities, energy conservation/ monitoring, and safety within elijah. Pt admitting QC scores as followed: eating 6, oral hygiene 4, showering 3, UB 5, LB 4, footwear 5, toileting 4. Pt d/c's to acute for medical management with IND all activities other than showering with s/u. Pt demonstrates good safety awareness, though requires assist to monitor energy. D/c rehab OT at this time. Pt plans to d/c with daughter upon d/c from hospital. 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 2=Patient will verbalize/demonstrate understanding of assistive devices/modifications for ADL. 3=Patient will improve strength/tolerance for activity to enable patient to perform ADL's. MARIAELENA URIBE OTR Jan 22, 2020 10:58
--- NOTE | 2020-01-22 11:16 | Therapy Team Discharge Summary ---
Therapy Discharge Summary Discharge Recommendations Date of Discharge Jan 22, 2020 at 07:26 Physical Therapy Patient came to rehab with AMS/severe anemia. Upon evaluation patient performed bed mobility and transfers with independence, car transfer independent, ambulated 250' with a rolling walker with independence (including 50' with at least 2 turns of 90 degrees and 10' over an uneven surface, and went up and down 1 step using a rolling walker with independence. Patient has been performing bed mobility and transfer training, balance and endurance training, functional strengthening, stair training, gait training, and education. Patient has worse endurance and was only ambulating about 60-100' but still independently without an assistive device before being transferred to the medical floor due to medial issues. Patient was independent with bed mobility and transfers also. Patient will be discharged from PT at this time. Occupational Therapy Decreased Activ Tolerance PT Retirement Goals Retirement Goals PT Enrollment Advisor Goals Time Frame: Jan 30, 2020 Roll Left to Right (QC): 6 Sit to Lying (QC): 6 Lying-Sitting on Side/Bed(QC): 6 Sit to Stand (QC): 6 Chair/Qow-hx-Dbfpn Xfer(QC): 6 Car Transfer (QC): 6 Does the Patient Walk: Yes Walk 10 feet (QC): 6 Walk 10ft-Uneven Surface(QC): 6 Walk 50ft with 2 Turns (QC): 6 Walk 150 ft (QC): 6 Does the Pt use WC or Scooter?: No Wheel 50 feet with 2 turns (QC: 9 1 Step (curb) (QC): 6 4 Steps (QC): 6 12 Steps (QC): 6 Picking up an Object (QC): 6 OT Enrollment Advisor Goals Enrollment Advisor Goals Time Frame: Feb 01, 2020 Eating (FIM): 6 Eating (QC): 6 Oral Hygiene (QC): 6 Shower/Bathe Self (QC): 6 Upper Body Dressing (QC): 6 Lower Body Dressing (QC): 6 On/Off Footwear (QC): 6 Toileting(FIM): 6 Toileting Hygiene (QC): 6 Toilet/Commode Transfer (QC): 6 Additional Goals: 1-Demonstrate ADL Tasks, 2-Verbalize Understanding, 3- ImproveStrength/Chiara 1=Demonstrate adherence to instructed precautions during ADL tasks. 2=Patient will verbalize/demonstrate understanding of assistive devices/modifications for ADL. 3=Patient will improve strength/tolerance for activity to enable patient to perform ADL's. RASTA WEBSTER PT Jan 22, 2020 11:16
== END 2020-01-22 07:26 | disposition short-term general hospital (02) | DRG 92 ==
PROVIDERS: ADMIT Internal Medicine; ATTEND Internal Medicine
DX: G72.0 Drug-induced myopathy (principal); D61.818 Other pancytopenia; C92.00 Acute myeloblastic leukemia, not having achieved remission; I42.9 Cardiomyopathy, unspecified; Z68.41 Body mass index [BMI] 40.0-44.9, adult; T82.594A Other mechanical complication of infusion catheter, initial encounter; E66.9 Obesity, unspecified; L89.159 Pressure ulcer of sacral region, unspecified stage; I25.10 Atherosclerotic heart disease of native coronary artery without angina pectoris; I12.9 Hypertensive chronic kidney disease with stage 1 through stage 4 chronic kidney disease, or unspecified chronic kidney disease; N18.9 Chronic kidney disease, unspecified; E78.00 Pure hypercholesterolemia, unspecified; K21.9 Gastro-esophageal reflux disease without esophagitis; E11.9 Type 2 diabetes mellitus without complications; F41.9 Anxiety disorder, unspecified; F32.9 Major depressive disorder, single episode, unspecified; I87.2 Venous insufficiency (chronic) (peripheral); D70.9 Neutropenia, unspecified; R50.81 Fever presenting with conditions classified elsewhere; T45.1X5A Adverse effect of antineoplastic and immunosuppressive drugs, initial encounter; Z79.4 Long term (current) use of insulin; Z90.49 Acquired absence of other specified parts of digestive tract; Z90.710 Acquired absence of both cervix and uterus; Z95.1 Presence of aortocoronary bypass graft; Z95.5 Presence of coronary angioplasty implant and graft
CPT/HCPCS: 36415; 71045; 80053; 81000; 82962; 83605; 85025; 85027; 86850; 86900; 86901; 86920; 87040; 87077; 94760

== ENCOUNTER 2020-01-22 07:08 | Inpatient (IN) | payer MEDICARE, MEDICAID ==
[2020-01-22] VITALS (8 sets, daily range): BP systolic 100–138; BP diastolic 62–71
[2020-01-22] MEDS ORDERED: VANCOMYCIN 500 MG/NS 100 ML IV NR ×2 (07:29)
--- OUTSIDE RECORDS SUMMARY | 2020-01-22 07:30 | XMS REPORT | Continuity of Care Document ---
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 01/03/2020 DELORES, WILVER N Ot E66.9 OBESITY, UNSPECIFIED 01/03/2020 DELORES, BOBAN N Ot I12.9 HYPERTENSIVE CHRONIC KIDNEY DISEASE W ST 01/03/2020 DELORES, BOBAN N Ot I25.10 ATHSCL HEART DISEASE OF [place] CORONARY 01/03/2020 DELORESWILVER N Ot N18.3 CHRONIC [...] 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 01/03/2020 DELORES, BOBAN N Ot E66.9 OBESITY, UNSPECIFIED 01/03/2020 DELORES, BOBAN N Ot I12.9 HYPERTENSIVE CHRONIC KIDNEY DISEASE W ST 01/03/2020 DELORESWILVER N Ot I25.10 ATHSCL HEART DISEASE OF [place] CORONARY 01/03/2020 WILVER ESTRELLA Ot N18.3 CHRONIC [...] 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 01/04/2020 WILVER ESTRELLA Ot E66.9 OBESITY, UNSPECIFIED 01/04/2020 WILVER ESTRELLA Ot I12.9 HYPERTENSIVE CHRONIC KIDNEY DISEASE W ST 01/04/2020 WILVER ESTRELLA Ot I25.10 ATHSCL HEART DISEASE OF [place] CORONARY 01/04/2020 WILVER ESTRELLA Ot N18.3 CHRONIC KIDNEY DISEASE, STAGE 3 (MODERAT 01/04/2020 WILVER ESTRELLA Ot Z85.71 PERSONAL HISTORY OF [place] LYMPHOMA 01/04/2020 IRAJ DE LA TORRE MD, Ot C85.90 NON-[place] LYMPHOMA, UNSPECIFIED, UNSPE 01/04/2020 IRAJ DE LA TORRE MD Ot D61.818 OTHER PANCYTOPENIA 01/04/2020 IRAJ DE LA TORRE MD Ot 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 01/04/2020 IRAJ DE LA TORRE MD Ot E78.00 PURE HYPERCHOLESTEROLEMIA, UNSPECIFIED 01/04/2020 IRAJ DE LA TORRE MD Ot F32 .9 MAJOR DEPRESSIVE DISORDER, SINGLE EPISOD 01/04/2020 IRAJ DE LA TORRE MD Ot F41 .9 ANXIETY DISORDER, UNSPECIFIED 01/04/2020 IRAJ DE LA TORRE MD Ot I12 .9 HYPERTENSIVE CHRONIC KIDNEY DISEASE W ST 01/04/2020 IRAJ DE LA TORRE MD Ot I25.10 ATHSCL HEART DISEASE OF [place] CORONARY 01/04/2020 IRAJ DE LA TORRE MD Ot I42 .9 CARDIOMYOPATHY, UNSPECIFIED 01/04/2020 IRAJ DE LA TORRE MD Ot K21 .9 GASTRO-ESOPHAGEAL REFLUX DISEASE WITHOUT 01/04/2020 IRAJ DE LA TORRE MD Ot N18 .9 CHRONIC KIDNEY DISEASE, UNSPECIFIED 01/04/2020 IRAJ DE LA TORRE MD Ot R53 .1 WEAKNESS 01/04/2020 IRAJ DE LA TORRE MD, Ot 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 01/04/2020 IRAJ DE LA TORRE MD, Ot Z80 .1 FAMILY HISTORY OF MALIG NEOPLASM OF [place] 01/04/2020 IRAJ DE LA TORRE MD, Ot Z88 .8 ALLERGY STATUS TO OT DRUG/MEDS/BIOL SUB 01/04/2020 IRAJ DE LA TORRE MD Ot Z90.710 ACQUIRED ABSENCE OF BOTH CERVIX AND UTER 01/04/2020 IRAJ DE LA TORRE MD Ot Z90.89 ACQUIRED ABSENCE OF OTHER ORGANS 01/04/2020 IRAJ DE LA TORRE MD Ot Z95 .1 PRESENCE OF AORTOCORONARY BYPASS GRAFT 01/04/2020 IRAJ DE LA TORRE MD Ot C85.90 NON-[place] LYMPHOMA, UNSPECIFIED, UNSPE 01/04/2020 IRAJ DE LA TORRE MD Ot D61.818 OTHER PANCYTOPENIA 01/04/2020 IRAJ DE LA TORRE MD Ot 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 01/04/2020 IRAJ DE LA TORRE MD Ot E78.00 PURE HYPERCHOLESTEROLEMIA, UNSPECIFIED 01/04/2020 IRAJ DE LA TORRE MD Ot F32 .9 MAJOR DEPRESSIVE DISORDER, SINGLE EPISOD 01/04/2020 IRAJ DE LA TORRE MD Ot F41 .9 ANXIETY DISORDER, UNSPECIFIED 01/04/2020 IRAJ DE LA TORRE MD Ot I12 .9 HYPERTENSIVE CHRONIC KIDNEY DISEASE W ST 01/04/2020 IRAJ DE LA TORRE MD Ot I25.10 ATHSCL HEART DISEASE OF [place] CORONARY 01/04/2020 IRAJ DE LA TORRE MD, Ot I42 .9 CARDIOMYOPATHY, UNSPECIFIED 01/04/2020 IRAJ DE LA TORRE MD, Ot K21 .9 GASTRO-ESOPHAGEAL REFLUX DISEASE WITHOUT 01/04/2020 IRAJ DE LA TORRE MD, Ot N18 .9 CHRONIC KIDNEY DISEASE, UNSPECIFIED 01/04/2020 IRAJ DE LA TORRE MD, Ot R53 .1 WEAKNESS 01/04/2020 IRAJ DE LA TORRE MD, Ot 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 01/04/2020 IRAJ DE LA TORRE MD, Ot Z80 .1 FAMILY HISTORY OF MALIG NEOPLASM OF [place] 01/04/2020 IRAJ DE LA TORRE MD, Ot Z88 .8 ALLERGY STATUS TO [facility] DRUG/MEDS/BIOL SUB 01/04/2020 IRAJ DE LA TORRE MD, Ot Z90.710 ACQUIRED ABSENCE OF BOTH CERVIX AND UTER 01/04/2020 IRAJ DE LA TORRE MD, Ot Z90.89 ACQUIRED ABSENCE OF OTHER ORGANS 01/04/2020 IRAJ DE LA TORRE MD, Ot Z95 .1 PRESENCE OF AORTOCORONARY BYPASS GRAFT 01/13/2020 SALO MARIE MD Ot A41.9 SEPSIS, UNSPECIFIED ORGANISM 01/13/2020 SALO MARIE MD Ot C85.90 NON-[place] LYMPHOMA, UNSPECIFIED, UNSPE 01/13/2020 SALO MARIE MD Ot C92.00 ACUTE MYELOBLASTIC LEUKEMIA, NOT HAVING 01/13/2020 SALO MARIE MD, Ot D61.818 OTHER PANCYTOPENIA 01/13/2020 SALO MARIE [...] MD Ot I25.10 ATHSCL HEART DISEASE OF [place] CORONARY 01/13/2020 SALO MARIE MD Ot I42.9 CARDIOMYOPATHY, UNSPECIFIED 01/13/2020 SALO MARIE MD Ot I50.9 HEART FAILURE, UNSPECIFIED 01/13/2020 SALO MARIE MD Ot K21.9 GASTRO-ESOPHAGEAL REFLUX DISEASE WITHOUT 01/13/2020 SALO MARIE MD Ot N17.9 ACUTE KIDNEY FAILURE, UNSPECIFIED 01/13/2020 SALO MARIE MD Ot R09.02 HYPOXEMIA 01/13/2020 SALO MARIE MD, Ot Z68.41 BODY MASS INDEX (BMI) 40.0-44.9, ADULT 01/13/2020 SALO MARIE MD Ot Z79.4 CUSTODIAL (CURRENT) USE OF INSULIN 01/13/2020 SALO MARIE MD Ot 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 01/13/2020 SALO MARIE MD [...] MD Ot I25.10 ATHSCL HEART DISEASE OF [place] CORONARY 01/13/2020 SALO MARIE MD Ot I42.9 CARDIOMYOPATHY, UNSPECIFIED 01/13/2020 SALO MARIE MD, Ot I50.9 HEART FAILURE, UNSPECIFIED 01/13/2020 SALO MARIE MD, Ot K21.9 GASTRO-ESOPHAGEAL REFLUX DISEASE WITHOUT 01/13/2020 SALO MARIE MD Ot N17.9 ACUTE KIDNEY FAILURE, UNSPECIFIED 01/13/2020 SALO MARIE MD Ot R09.02 HYPOXEMIA 01/13/2020 SALO MARIE MD Ot Z68.41 BODY MASS INDEX (BMI) 40.0-44.9, ADULT 01/13/2020 SALO MARIE MD Ot 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 01/13/2020 SALO MARIE MD Ot Z79.899 OTHER CUSTODIAL (CURRENT) DRUG THERAPY 01/13/2020 SALO MARIE MD [...] MARIE MD Ot D61.818 OTHER PANCYTOPENIA 01/14/2020 SALO MARIE MD Ot E11.9 TYPE 2 DIABETES MELLITUS WITHOUT COMPLIC 01/14/2020 SALO MARIE MD Ot E66.9 OBESITY, UNSPECIFIED 01/14/2020 SALO MARIE MD Ot E78.00 PURE HYPERCHOLESTEROLEMIA, UNSPECIFIED 01/14/2020 SALO MARIE MD Ot E87.1 HYPO-OSMOLALITY AND HYPONATREMIA 01/14/2020 SALO MARIE MD Ot E87.2 ACIDOSIS 01/14/2020 SALO MARIE MD Ot F32.9 MAJOR DEPRESSIVE DISORDER, SINGLE EPISOD 01/14/2020 SALO MARIE MD Ot F41.9 ANXIETY DISORDER, UNSPECIFIED 01/14/2020 SALO MARIE MD Ot I11.0 HYPERTENSIVE HEART DISEASE WITH HEART FA 01/14/2020 SALO MARIE MD Ot I25.10 ATHSCL HEART DISEASE OF [place] CORONARY 01/14/2020 SALO MARIE MD Ot I42.9 CARDIOMYOPATHY, UNSPECIFIED 01/14/2020 SALO MARIE MD Ot I50.9 HEART FAILURE, UNSPECIFIED 01/14/2020 SALO MARIE MD Ot K21.9 GASTRO-ESOPHAGEAL REFLUX DISEASE WITHOUT 01/14/2020 SALO MARIE MD Ot N17.9 ACUTE KIDNEY FAILURE, UNSPECIFIED 01/14/2020 SALO MARIE MD Ot R09.02 HYPOXEMIA 01/14/2020 SALO MARIE MD Ot Z68.41 BODY MASS INDEX (BMI) 40.0-44.9, ADULT 01/14/2020 SALO MARIE MD Ot Z79.4 CUSTODIAL (CURRENT) USE OF INSULIN 01/14/2020 SALO MARIE MD Ot 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 01/14/2020 SALO MARIE MD Ot Z95.1 PRESENCE OF AORTOCORONARY BYPASS GRAFT 01/14/2020 SALO MARIE MD Ot Z95.5 PRESENCE OF CORONARY ANGIOPLASTY IMPLANT 01/15/2020 SALO MARIE MD Ot A41.9 SEPSIS, UNSPECIFIED ORGANISM 01/15/2020 SALO MARIE MD Ot C85.90 NON-[place] LYMPHOMA, UNSPECIFIED, UNSPE 01/15/2020 SALO MARIE MD, Ot C92.00 ACUTE MYELOBLASTIC [...] MD Ot I25.10 ATHSCL HEART DISEASE OF [place] CORONARY 01/15/2020 SALO MARIE MD Ot I42.9 CARDIOMYOPATHY, UNSPECIFIED 01/15/2020 SALO MARIE MD Ot I50.9 HEART FAILURE, UNSPECIFIED 01/15/2020 SALO MARIE MD Ot K21.9 GASTRO-ESOPHAGEAL REFLUX DISEASE WITHOUT 01/15/2020 SALO MARIE MD Ot N17.9 ACUTE KIDNEY FAILURE, UNSPECIFIED 01/15/2020 SALO MARIE MD Ot R09.02 HYPOXEMIA 01/15/2020 SALO MARIE MD Ot Z68.41 BODY MASS INDEX (BMI) 40.0-44.9, ADULT 01/15/2020 SALO MARIE MD Ot Z79.4 CUSTODIAL (CURRENT) USE OF INSULIN 01/15/2020 SALO MARIE MD Ot Z79.899 OTHER CUSTODIAL (CURRENT) DRUG THERAPY 01/15/2020 SALO MARIE MD Ot Z95.1 PRESENCE OF AORTOCORONARY BYPASS GRAFT 01/15/2020 SALO MARIE MD Ot Z95.5 PRESENCE OF [...] MD Ot I25.10 ATHSCL HEART DISEASE OF [place] CORONARY 01/15/2020 SALO MARIE MD Ot I42.9 CARDIOMYOPATHY, UNSPECIFIED 01/15/2020 SALO MARIE MD Ot I50.9 HEART FAILURE, UNSPECIFIED 01/15/2020 SALO MARIE MD Ot K21.9 GASTRO-ESOPHAGEAL REFLUX DISEASE WITHOUT 01/15/2020 SALO MARIE MD Ot N17.9 ACUTE KIDNEY FAILURE, UNSPECIFIED 01/15/2020 SALO MARIE MD Ot R09.02 HYPOXEMIA 01/15/2020 SALO MARIE MD Ot Z68.41 BODY MASS INDEX (BMI) 40.0-44.9, ADULT 01/15/2020 SALO MARIE MD Ot 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 01/15/2020 SALO MARIE MD Ot Z79.899 OTHER CUSTODIAL (CURRENT) DRUG THERAPY 01/15/2020 SALO MARIE MD Ot Z95.1 PRESENCE OF AORTOCORONARY BYPASS GRAFT 01/15/2020 SALO MARIE MD Ot Z95.5 PRESENCE OF CORONARY ANGIOPLASTY IMPLANT 01/16/2020 SALO MARIE MD Ot A41.9 SEPSIS, UNSPECIFIED ORGANISM 01/16/2020 SALO MARIE MD Ot C85.90 NON-[place] LYMPHOMA, UNSPECIFIED, UNSPE 01/16/2020 SALO MARIE MD Ot C92.00 ACUTE MYELOBLASTIC LEUKEMIA, NOT HAVING 01/16/2020 SALO MARIE MD Ot D61.818 OTHER PANCYTOPENIA 01/16/2020 SALO MARIE MD Ot D69.6 THROMBOCYTOPENIA, UNSPECIFIED 01/16/2020 SALO MARIE MD Ot E11.9 TYPE 2 DIABETES MELLITUS WITHOUT COMPLIC 01/16/2020 SALO MARIE MD Ot E66.9 OBESITY, UNSPECIFIED 01/16/2020 SALO MARIE MD Ot E78.00 PURE HYPERCHOLESTEROLEMIA, UNSPECIFIED 01/16/2020 SALO MARIE MD Ot E86.0 DEHYDRATION 01/16/2020 SALO MARIE MD Ot E87.1 HYPO-OSMOLALITY AND HYPONATREMIA 01/16/2020 SALO MARIE MD Ot E87.2 ACIDOSIS 01/16/2020 SALO MARIE MD Ot F32.9 MAJOR DEPRESSIVE DISORDER, SINGLE EPISOD 01/16/2020 SALO MARIE MD Ot F41.9 ANXIETY DISORDER, UNSPECIFIED 01/16/2020 SALO MARIE MD Ot I11.0 HYPERTENSIVE HEART DISEASE WITH HEART FA 01/16/2020 SALO MARIE MD Ot I25.10 ATHSCL HEART DISEASE OF [place] CORONARY 01/16/2020 SALO MARIE MD Ot I42.9 CARDIOMYOPATHY, UNSPECIFIED 01/16/2020 SALO MARIE MD Ot I50.9 HEART FAILURE, UNSPECIFIED 01/16/2020 SALO MARIE MD Ot K21.9 GASTRO-ESOPHAGEAL REFLUX DISEASE WITHOUT 01/16/2020 SALO MARIE MD Ot N17.9 ACUTE KIDNEY FAILURE, UNSPECIFIED 01/16/2020 SALO MARIE MD Ot R09.02 HYPOXEMIA 01/16/2020 SALO MARIE MD, Ot Z20.828 CONTACT W AND EXPOSURE TO OTH VIRAL COMM 01/16/2020 SALO MARIE MD, Ot Z68.41 BODY MASS INDEX (BMI) 40.0-44.9, ADULT 01/16/2020 SALO MARIE MD, Ot Z79.4 CUSTODIAL (CURRENT) USE OF INSULIN 01/16/2020 SALO MARIE MD, Ot 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 Results Test [...] 7-25 CREATININE 1.45 mg/dL 0.50-0.99 eGFR NON-AFR. [place] 37 mL/min/1.73m2 > OR = 60 eGFR [...] 23:05 TROPONIN I FS < 0.30 <0.30 [facility] - 09/09/19 08:09 GLUCOSE 275 mg/dL 65-99 UREA NITROGEN (BUN) 28 mg/dL 7-25 CREATININE 1.56 mg/dL 0.50-0.99 eGFR NON-AFR. [place] 34 mL/min/1.73m2 > OR = 60 eGFR [...] NRG Blood type T Indirect antibody screen [facility] - 01/03/20 19:05 WRISTBAND NUMBER [id number] NRG ABO+Rh group BP NRG Blood group antibody screen NEGATIVE NR G Capillary blood glucose measurement by g lucometer (mass/volume) - 01/03/20 21:08 Capillary blood glucose measurement by glucometer (mas s/volume) 134 mg/dL 70-110 Whole blood hemoglobin and hematocrit [facility] - 01/04/20 01:14 Venous blood hemoglobin measurement [...] NRG Blood type T Indirect antibody screen [facility] - 01/11/20 20:15 WRISTBAND NUMBER [id number] NRG ABO+Rh group BP NRG Blood group [...] NRG Blood type T Indirect antibody screen pa [facility] - 01/11/20 20:15 WRISTBAND NUMBER [id number] NRG ABO+Rh group BP NRG Blood group antibody screen NEGATIVE NR G Bacterial blood culture - 01/11/20 20:57 Bacterial blood culture NG NRG Bacterial blood culture - 06/01/20 21:12 Bacterial blood culture NG NRG Complete [...] Streptococcus pneumoniae antigen detection Negativ e NRG RESPIRATORY VIRUS PANEL - 01/12/20 05:35 Serum ragweed IgE antibody assay Not Detected Not Detected Serum or plasma aripiprazole measurement (mass/volume) Footnote Not Detected PARAINFLU 3 PCR Footnote Not Detected METAPNEUMO PCR Not Detected Not Detecte d Adenovirus detection, CSF, PCR Footnote Not Detected INFLUENZA A PCR Not Detected Not Detect ed INFLUENZA B PCR Not Detected Not Detect ed Capillary blood glucose measurement by g lucometer [...] Automated blood platelet mean volume measurement [employer]ECT 7.4- 10.4 Automated blood neutrophils/100 leukocytes TNP [...] by glucometer (mas s/volume) 279 mg/dL 70-110 Complete blood count (CBC) with automate d white blood cell (WBC) differential - 01/15/20 05:50 Blood leukocytes automated count (number/volume) 0.8 10*3/uL 4.3-11.0 Blood erythrocytes automated count (number/volume) 2.61 10*6/uL 4.35-5.85 Venous blood hemoglobin measurement (mass/volume) 8.0 g/dL 11.5-16.0 Blood hematocrit (volume fraction) 23 % 35-52 Automated erythrocyte mean corpuscular volume 89 [ foz_us] 80-99 Automated erythrocyte mean corpuscular h emoglobin (mass per erythrocyte) 31 pg 25-34 Automated erythrocyte mean corpuscular h emoglobin concentration measurement (mass/volume) 35 g/dL 32-36 Automated erythrocyte distribution width ratio 16. 4 % 10.0- 14.5 Automated blood platelet count (count/volume) 10 1 0*3/uL 130-400 Comprehensive metabolic panel - 01/15/20 05:50 Serum or plasma sodium measurement (moles/volume) 138 mmol/L 135-145 Serum or plasma potassium measurement (moles/volume) 4.1 mmol/L 3.6-5.0 Serum or plasma chloride measurement (moles/volume) 108 mmol/L 98-107 Carbon dioxide 24 mmol/L 21-32 Serum or plasma anion gap determination (moles/volume) 6 mmol/L 5-14 Serum or plasma urea nitrogen measurement (mass/volume ) 21 mg/dL 7-18 Serum or plasma creatinine measurement (mass/volume) 1.21 mg/dL 0.60-1.30 Serum or plasma urea nitrogen/creatinine mass ratio 17 NRG Serum or plasma creatinine measurement w ith calculation of estimated glomerular filtration rate 44 NRG Serum or plasma glucose measurement (mass/volume) 58 mg/dL 70-105 Serum or plasma calcium measurement (mass/volume) 8.4 mg/dL 8.5-10.1 Serum or plasma total bilirubin measurement (mass/volu me) 0.4 mg/dL 0.1-1.0 Serum or plasma alkaline phosphatase lachelle surement (enzymatic activity/volume) 51 U/L 40-136 Serum or plasma aspartate aminotransfera se measurement (enzymatic activity/volume) 21 U/L 5-34 Serum or plasma alanine aminotransferase measurement (enzymatic activity/volume) 80 U/L 0-55 Serum or plasma protein measurement (mass/volume) 5.4 g/dL 6.4-8.2 Serum or plasma albumin measurement (mass/volume) 2.7 g/dL 3.2-4.5 CALCIUM CORRECTED 9.4 mg/dL 8.5-10.1 Manual absolute plasma cell count - 12/29 05:50 Blood monocytes/100 leukocytes 15 % NRG Manual blood segmented neutrophils/100 leukocytes 10 % NRG Manual blood lymphocytes/100 leukocytes 55 % NRG Manual blood lymphocytes variant/100 leukocytes 10 % NRG Blood polychromasia detection by light microscopy SLIGHT NRG Blood anisocytosis detection by light microscopy M ODERATE NRG Manual blood metamyelocytes/100 leukocytes 10 % NRG Blood platelet adequacy detection by light microscopy 10 NRG Capillary blood glucose measurement by g lucometer (mass/volume) - 01/15/20 09:00 Capillary blood glucose measurement by glucometer (mas s/volume) 241 mg/dL 70-110 Capillary blood glucose measurement by g lucometer (mass/volume) - 01/15/20 11:16 Capillary blood glucose measurement by glucometer (mas s/volume) 308 mg/dL 70-110 PLATELET PHERESIS LR - 01/15/20 12:52 PLATELET PHERESIS LR TRANSFUS ED 01/16/20 1201 NRG Blood type T Indirect antibody screen [facility] - 01/15/20 12:52 WRISTBAND NUMBER [id number] NRG ABO+Rh group BP NRG Blood group antibody screen NEGATIVE NR G Capillary blood glucose measurement by g lucometer (mass/volume) - 01/15/20 15:27 Capillary blood glucose measurement by glucometer (mas s/volume) 227 mg/dL 70-110 Capillary blood glucose measurement by g lucometer (mass/volume) - 01/15/20 20:31 Capillary blood glucose measurement by glucometer (mas s/volume) 147 mg/dL 70-110 Complete blood count (CBC) with automate d white blood cell (WBC) differential - 01/16/20 04:55 Blood leukocytes automated count (number/volume) 0.7 10*3/uL 4.3-11.0 Blood erythrocytes automated count (number/volume) 2.40 10*6/uL 4.35-5.85 Venous blood hemoglobin measurement (mass/volume) 7.1 g/dL 11.5-16.0 Blood hematocrit (volume fraction) 21 % 35-52 Automated erythrocyte mean corpuscular volume 89 [ foz_us] 80-99 Automated erythrocyte mean corpuscular h emoglobin (mass per erythrocyte) 30 pg 25-34 Automated erythrocyte mean corpuscular h emoglobin concentration measurement (mass/volume) 33 g/dL 32-36 Automated erythrocyte distribution width ratio 16. 6 % 10.0- 14.5 Automated blood platelet count (count/volume) 6 10 *3/uL 130- 400 Automated blood platelet mean volume measurement [employer] 7.4- 10.4 Automated blood neutrophils/100 leukocytes TNP [...] Automated blood basophil count (count/volume) TNP 0.0-0.1 Whole blood basic metabolic panel - 01/29 04:55 Serum or plasma sodium measurement (moles/volume) 137 mmol/L 135-145 Serum or plasma potassium measurement (moles/volume) 4.3 mmol/L 3.6-5.0 Serum or plasma chloride measurement (moles/volume) 105 mmol/L 98-107 Carbon dioxide 23 mmol/L 21-32 Serum or plasma anion gap determination (moles/volume) 9 mmol/L 5-14 Serum or plasma urea nitrogen measurement (mass/volume ) 23 mg/dL 7-18 Serum or plasma creatinine measurement (mass/volume) 1.32 mg/dL 0.60-1.30 Serum or plasma urea nitrogen/creatinine mass ratio 17 NRG Serum or plasma creatinine measurement w ith calculation of estimated glomerular filtration rate 40 NRG Serum or plasma glucose measurement (mass/volume) 155 mg/dL 70-105 Serum or plasma calcium measurement (mass/volume) 8.6 mg/dL 8.5-10.1 Capillary blood glucose measurement by g lucometer (mass/volume) - 01/16/20 10:28 Capillary blood glucose measurement by glucometer (mas s/volume) 346 mg/dL 70-110 Capillary blood glucose measurement by g lucometer (mass/volume) - 01/16/20 16:24 Capillary blood glucose measurement by glucometer (mas s/volume) 207 mg/dL 70-110 Capillary blood glucose measurement by g lucometer (mass/volume) - 01/16/20 20:12 Capillary blood glucose measurement by glucometer (mas s/volume) 191 mg/dL 70-110 Capillary blood glucose measurement by g lucometer (mass/volume) - 01/17/20 01:07 Capillary blood glucose measurement by glucometer (mas s/volume) 223 mg/dL 70-110 Capillary blood glucose measurement by g lucometer (mass/volume) - 01/17/20 06:15 Capillary blood glucose measurement by glucometer (mas s/volume) 203 mg/dL 70-110 Complete blood count (CBC) with automate d white blood cell (WBC) differential - 01/17/20 06:30 Blood leukocytes automated count (number/volume) 0.6 10*3/uL 4.3-11.0 Blood erythrocytes automated count (number/volume) 2.57 10*6/uL 4.35-5.85 Venous blood hemoglobin measurement (mass/volume) 8.0 g/dL 11.5-16.0 Blood hematocrit (volume fraction) 23 % 35-52 Automated erythrocyte mean corpuscular volume 89 [ foz_us] 80-99 Automated erythrocyte mean corpuscular h emoglobin (mass per erythrocyte) 31 pg 25-34 Automated erythrocyte mean corpuscular h emoglobin concentration measurement (mass/volume) 35 g/dL 32-36 Automated erythrocyte distribution width ratio 16. 0 % 10.0- 14.5 Automated blood platelet count (count/volume) 4 10 *3/uL 130- 400 Automated blood platelet mean volume measurement [employer] 7.4- 10.4 Automated blood neutrophils/100 leukocytes TNP [...] (count/volume) TNP 0.0-0.1 Comprehensive metabolic panel - 01/17/20 06:30 Serum or plasma sodium measurement (moles/volume) 136 mmol/L 135-145 Serum or plasma potassium measurement (moles/volume) 3.8 mmol/L 3.6-5.0 Serum or plasma chloride measurement (moles/volume) 101 mmol/L 98-107 Carbon dioxide 26 mmol/L 21-32 Serum or plasma anion gap determination (moles/volume) 9 mmol/L 5-14 Serum or plasma urea nitrogen measurement (mass/volume ) 28 mg/dL 7-18 Serum or plasma creatinine measurement (mass/volume) 1.37 mg/dL 0.60-1.30 Serum or plasma urea nitrogen/creatinine mass ratio 20 NRG Serum or plasma creatinine measurement w ith calculation of estimated glomerular filtration rate 38 NRG Serum or plasma glucose measurement (mass/volume) 181 mg/dL 70-105 Serum or plasma calcium measurement (mass/volume) 8.7 mg/dL 8.5-10.1 Serum or plasma total bilirubin measurement (mass/volu me) 0.3 mg/dL 0.1-1.0 Serum or plasma alkaline phosphatase lachelle surement (enzymatic activity/volume) 87 U/L 40-136 Serum or plasma aspartate aminotransfera se measurement (enzymatic activity/volume) 12 U/L 5-34 Serum or plasma alanine aminotransferase measurement (enzymatic activity/volume) 42 U/L 0-55 Serum or plasma protein measurement (mass/volume) 5.5 g/dL 6.4-8.2 Serum or plasma albumin measurement (mass/volume) 2.9 g/dL 3.2-4.5 CALCIUM CORRECTED 9.6 mg/dL 8.5-10.1 PLATELET PHERESIS LR - 01/17/20 07:08 PLATELET PHERESIS LR TRANSFUS ED 01/18/20 0820 NRG Capillary blood glucose measurement by g lucometer (mass/volume) - 01/17/20 10:38 Capillary blood glucose measurement by glucometer (mas s/volume) 326 mg/dL 70-110 Capillary blood glucose measurement by g lucometer (mass/volume) - 01/17/20 16:14 Capillary blood glucose measurement by glucometer (mas s/volume) 282 mg/dL 70-110 Capillary blood glucose measurement by g lucometer (mass/volume) - 01/17/20 20:36 Capillary blood glucose measurement by glucometer (mas s/volume) 258 mg/dL 70-110 Capillary blood glucose measurement by g lucometer (mass/volume) - 01/18/20 00:46 Capillary blood glucose measurement by glucometer (mas s/volume) 217 mg/dL 70-110 Capillary blood glucose measurement by g lucometer (mass/volume) - 01/18/20 05:55 Capillary blood glucose measurement by glucometer (mas s/volume) 154 mg/dL 70-110 Complete blood count (CBC) with automate d white blood cell (WBC) differential - 01/18/20 06:45 Blood leukocytes automated count (number/volume) 0.5 10*3/uL 4.3-11.0 Blood erythrocytes automated count (number/volume) 2.43 10*6/uL 4.35-5.85 Venous blood hemoglobin measurement (mass/volume) 7.4 g/dL 11.5-16.0 Blood hematocrit (volume fraction) 21 % 35-52 Automated erythrocyte mean corpuscular volume 88 [ foz_us] 80-99 Automated erythrocyte mean corpuscular h emoglobin (mass per erythrocyte) 30 pg 25-34 Automated erythrocyte mean corpuscular h emoglobin concentration measurement (mass/volume) 35 g/dL 32-36 Automated erythrocyte distribution width ratio 16. 3 % 10.0- 14.5 Automated blood platelet count (count/volume) 6 10 *3/uL 130- 400 Automated blood platelet mean volume measurement [employer] 7.4- 10.4 Automated blood neutrophils/100 leukocytes TNP [...] (count/volume) TNP 0.0-0.1 Comprehensive metabolic panel - 01/18/20 06:45 Serum or plasma sodium measurement (moles/volume) 138 mmol/L 135-145 Serum or plasma potassium measurement (moles/volume) 4.1 mmol/L 3.6-5.0 Serum or plasma chloride measurement (moles/volume) 102 mmol/L 98-107 Carbon dioxide 28 mmol/L 21-32 Serum or plasma anion gap determination (moles/volume) 8 mmol/L 5-14 Serum or plasma urea nitrogen measurement (mass/volume ) 25 mg/dL 7-18 Serum or plasma creatinine measurement (mass/volume) 1.18 mg/dL 0.60-1.30 Serum or plasma urea nitrogen/creatinine mass ratio 21 NRG Serum or plasma creatinine measurement w ith calculation of estimated glomerular filtration rate 46 NRG Serum or plasma glucose measurement (mass/volume) 141 mg/dL 70-105 Serum or plasma calcium measurement (mass/volume) 9.0 mg/dL 8.5-10.1 Serum or plasma total bilirubin measurement (mass/volu me) 0.6 mg/dL 0.1-1.0 Serum or plasma alkaline phosphatase lachelle surement (enzymatic activity/volume) 63 U/L 40-136 Serum or plasma aspartate aminotransfera se measurement (enzymatic activity/volume) 10 U/L 5-34 Serum or plasma alanine aminotransferase measurement (enzymatic activity/volume) 31 U/L 0-55 Serum or plasma protein measurement (mass/volume) 5.7 g/dL 6.4-8.2 Serum or plasma albumin measurement (mass/volume) 3.0 g/dL 3.2-4.5 CALCIUM CORRECTED 9.8 mg/dL 8.5-10.1 Capillary blood glucose measurement by g lucometer (mass/volume) - 01/18/20 10:48 Capillary blood glucose measurement by glucometer (mas s/volume) 428 mg/dL 70-110 Capillary blood glucose measurement by g lucometer (mass/volume) - 01/18/20 10:50 Capillary blood glucose measurement by glucometer (mas s/volume) 437 mg/dL 70-110 Capillary blood glucose measurement by g lucometer (mass/volume) - 01/18/20 16:09 Capillary blood glucose measurement by glucometer (mas s/volume) 237 mg/dL 70-110 Capillary blood glucose measurement by g lucometer (mass/volume) - 01/18/20 20:16 Capillary blood glucose measurement by glucometer (mas s/volume) 319 mg/dL 70-110 Capillary blood glucose measurement by g lucometer (mass/volume) - 01/19/20 05:39 Capillary blood glucose measurement by glucometer (mas s/volume) 113 mg/dL 70-110 Complete blood count (CBC) with automate d white blood cell (WBC) differential - 01/19/20 06:42 Blood leukocytes automated count (number/volume) 0.6 10*3/uL 4.3-11.0 Blood erythrocytes automated count (number/volume) 2.02 10*6/uL 4.35-5.85 Venous blood hemoglobin measurement (mass/volume) 6.2 g/dL 11.5-16.0 Blood hematocrit (volume fraction) 18 % 35-52 Automated erythrocyte mean corpuscular volume 89 [ foz_us] 80-99 Automated erythrocyte mean corpuscular h emoglobin (mass per erythrocyte) 31 pg 25-34 Automated erythrocyte mean corpuscular h emoglobin concentration measurement (mass/volume) 34 g/dL 32-36 Automated erythrocyte distribution width ratio 16. 0 % 10.0- 14.5 Automated blood platelet count (count/volume) 7 10 *3/uL 130- 400 Automated blood platelet mean volume measurement [employer] 7.4- 10.4 Automated blood neutrophils/100 leukocytes TNP [...] (count/volume) TNP 0.0-0.1 Comprehensive metabolic panel - 01/19/20 06:42 Serum or plasma sodium measurement (moles/volume) 138 mmol/L 135-145 Serum or plasma potassium measurement (moles/volume) 4.3 mmol/L 3.6-5.0 Serum or plasma chloride measurement (moles/volume) 100 mmol/L 98-107 Carbon dioxide 28 mmol/L 21-32 Serum or plasma anion gap determination (moles/volume) 10 mmol/L 5-14 Serum or plasma urea nitrogen measurement (mass/volume ) 26 mg/dL 7-18 Serum or plasma creatinine measurement (mass/volume) 1.15 mg/dL 0.60-1.30 Serum or plasma urea nitrogen/creatinine mass ratio 23 NRG Serum or plasma creatinine measurement w ith calculation of estimated glomerular filtration rate 47 NRG Serum or plasma glucose measurement (mass/volume) 125 mg/dL 70-105 Serum or plasma calcium measurement (mass/volume) 9.1 mg/dL 8.5-10.1 Serum or plasma total bilirubin measurement (mass/volu me) 0.6 mg/dL 0.1-1.0 Serum or plasma alkaline phosphatase lachelle surement (enzymatic activity/volume) 66 U/L 40-136 Serum or plasma aspartate aminotransfera se measurement (enzymatic activity/volume) 12 U/L 5-34 Serum or plasma alanine aminotransferase measurement (enzymatic activity/volume) 27 U/L 0-55 Serum or plasma protein measurement (mass/volume) 5.8 g/dL 6.4-8.2 Serum or plasma albumin measurement (mass/volume) 3.0 g/dL 3.2-4.5 CALCIUM CORRECTED 9.9 mg/dL 8.5-10.1 PLATELET PHERESIS LR - 01/19/20 07:51 PLATELET PHERESIS LR TRANSFUS ED 01/19/20 1416 NRG RED CELLS LEUKO REDUCED AS1 - 01/19/20 0 7:51 RED CELLS LEUKO REDUCED AS1 T RANSFUSED 01/20/20 1806 NRG Blood type T Indirect antibody screen pa dilshad - 01/19/20 07:51 WRISTBAND NUMBER [id number] NRG ABO+Rh group BP NRG Blood group antibody screen NEGATIVE NR G Capillary blood glucose measurement by g lucometer (mass/volume) - 01/19/20 10:53 Capillary blood glucose measurement by glucometer (mas s/volume) 394 mg/dL 70-110 Capillary blood glucose measurement by g lucometer (mass/volume) - 01/19/20 15:31 Capillary blood glucose measurement by glucometer (mas s/volume) 319 mg/dL 70-110 Capillary blood glucose measurement by g lucometer (mass/volume) - 01/19/20 20:33 Capillary blood glucose measurement by glucometer (mas s/volume) 315 mg/dL 70-110 Automated blood complete blood count ([employer]) panel - 01/20/20 00:20 Blood leukocytes automated count (number/volume) 0.5 10*3/uL 4.3-11.0 Blood erythrocytes automated count (number/volume) 2.35 10*6/uL 4.35-5.85 Venous blood hemoglobin measurement (mass/volume) 7.4 g/dL 11.5-16.0 Blood hematocrit (volume fraction) 21 % 35-52 Automated erythrocyte mean corpuscular volume 89 [ foz_us] 80-99 Automated erythrocyte mean corpuscular h emoglobin (mass per erythrocyte) 32 pg 25-34 Automated erythrocyte mean corpuscular h emoglobin concentration measurement (mass/volume) 35 g/dL 32-36 Automated erythrocyte distribution width ratio 15. 7 % 10.0- 14.5 Automated blood platelet count (count/volume) 8 10 *3/uL 130- 400 Automated blood platelet mean volume measurement 10.3 [foz_us] 7.4-10.4 Capillary blood glucose measurement by g lucometer (mass/volume) - 01/20/20 05:27 Capillary blood glucose measurement by glucometer (mas s/volume) 38 mg/dL 70-110 Capillary blood glucose measurement by g lucometer (mass/volume) - 01/20/20 05:30 Capillary blood glucose measurement by glucometer (mas s/volume) 84 mg/dL 70-110 Automated blood complete blood count ([employer]) panel - 01/20/20 07:40 Blood leukocytes automated count (number/volume) 0.7 10*3/uL 4.3-11.0 Blood erythrocytes automated count (number/volume) 2.31 10*6/uL 4.35-5.85 Venous blood hemoglobin measurement (mass/volume) 7.2 g/dL 11.5-16.0 Blood hematocrit (volume fraction) 20 % 35-52 Automated erythrocyte mean corpuscular volume 87 [ foz_us] 80-99 Automated erythrocyte mean corpuscular h emoglobin (mass per erythrocyte) 31 pg 25-34 Automated erythrocyte mean corpuscular h emoglobin concentration measurement (mass/volume) 36 g/dL 32-36 Automated erythrocyte distribution width ratio 16. 0 % 10.0- 14.5 Automated blood platelet count (count/volume) 6 10 *3/uL 130- 400 Automated blood platelet mean volume measurement [employer] 7.4- 10.4 Capillary blood glucose measurement by g lucometer (mass/volume) - 01/20/20 11:21 Capillary blood glucose measurement by glucometer (mas s/volume) 253 mg/dL 70-110 Automated blood complete blood count (he mogram) panel - 01/20/20 15:35 Blood leukocytes automated count (number/volume) 0.2 10*3/uL 4.3-11.0 Blood erythrocytes automated count (number/volume) 1.90 10*6/uL 4.35-5.85 Venous blood hemoglobin measurement (mass/volume) 5.8 g/dL 11.5-16.0 Blood hematocrit (volume fraction) 17 % 35-52 Automated erythrocyte mean corpuscular volume 89 [ foz_us] 80-99 Automated erythrocyte mean corpuscular h emoglobin (mass per erythrocyte) 31 pg 25-34 Automated erythrocyte mean corpuscular h emoglobin concentration measurement (mass/volume) 34 g/dL 32-36 Automated erythrocyte distribution width ratio 15. 8 % 10.0- 14.5 Automated blood platelet count (count/volume) 7 10 *3/uL 130- 400 Automated blood platelet mean volume measurement [employer] 7.4- 10.4 Blood leukocytes automated count (number /volume) - 01/20/20 15:35 Blood leukocytes automated count (number/volume) 0 .2 10*3 4.3-11.0 RED CELLS LEUKO REDUCED AS1 - 01/20/20 1 5:35 RED CELLS LEUKO REDUCED AS1 R SUHAIL NRG Blood type T Indirect antibody screen pa dilshad - 01/20/20 15:35 WRISTBAND NUMBER [id number] NRG ABO+Rh group BP NRG Blood group antibody screen NEGATIVE NR G TRANSFUSION REACTION BB TESTS - 01/20/20 15:35 ABO+Rh group [id number] NRG ABO+Rh group OK NRG ABO+Rh group NORMAL NRG Blood leukocytes automated count (number/volume) DECREASED >50% NRG Patient symptomsSpost transfusion reaction FEVER NRG AppearanceSpost transfusion reaction NEGATIVE NRG Appearance NEGATIVE NRG Direct antiglobulin test.poly specific reagentSpos NEGATIVE NRG Direct antiglobulin test.poly specific reagent NOT INDICATED NRG Direct antiglobulin test.IgG specific reagent NOT INDICATED NRG Direct antiglobulin test.complement C3 specific re NOT INDICATED NRG Blood lactic acid measurement (moles/vol ume) - 01/20/20 17:00 Blood lactic acid measurement (moles/volume) 1.44 mmol/L 0.50-2.00 Capillary blood glucose measurement by g lucometer (mass/volume) - 01/20/20 17:01 Capillary blood glucose measurement by glucometer (mas s/volume) 287 mg/dL 70-110 Capillary blood glucose measurement by g lucometer (mass/volume) - 01/20/20 20:36 Capillary blood glucose measurement by glucometer (mas s/volume) 292 mg/dL 70-110 Capillary blood glucose measurement by g lucometer (mass/volume) - 01/21/20 05:13 Capillary blood glucose measurement by glucometer (mas s/volume) 121 mg/dL 70-110 Automated blood complete blood count (he mogram) panel - 01/21/20 06:25 Blood leukocytes automated count (number/volume) 0.8 10*3/uL 4.3-11.0 Blood erythrocytes automated count (number/volume) 2.22 10*6/uL 4.35-5.85 Venous blood hemoglobin measurement (mass/volume) 7.0 g/dL 11.5-16.0 Blood hematocrit (volume fraction) 20 % 35-52 Automated erythrocyte mean corpuscular volume 90 [ foz_us] 80-99 Automated erythrocyte mean corpuscular h emoglobin (mass per erythrocyte) 32 pg 25-34 Automated erythrocyte mean corpuscular h emoglobin concentration measurement (mass/volume) 35 g/dL 32-36 Automated erythrocyte distribution width ratio 15. 6 % 10.0- 14.5 Automated blood platelet count (count/volume) 9 10 *3/uL 130- 400 Automated blood platelet mean volume measurement 11.2 [foz_us] 7.4-10.4 Capillary blood glucose measurement by g lucometer (mass/volume) - 01/21/20 11:34 Capillary blood glucose measurement by glucometer (mas s/volume) 271 mg/dL 70-110 Capillary blood glucose measurement by g lucometer (mass/volume) - 01/21/20 15:37 Capillary blood glucose measurement by glucometer (mas s/volume) 280 mg/dL 70-110 Automated blood complete blood count (he mogram) panel - 01/21/20 17:10 Blood leukocytes automated count (number/volume) 1.1 10*3/uL 4.3-11.0 Blood erythrocytes automated count (number/volume) 2.11 10*6/uL 4.35-5.85 Venous blood hemoglobin measurement (mass/volume) 6.5 g/dL 11.5-16.0 Blood hematocrit (volume fraction) 19 % 35-52 Automated erythrocyte mean corpuscular volume 90 [ foz_us] 80-99 Automated erythrocyte mean corpuscular h emoglobin (mass per erythrocyte) 31 pg 25-34 Automated erythrocyte mean corpuscular h emoglobin concentration measurement (mass/volume) 34 g/dL 32-36 Automated erythrocyte distribution width ratio 15. 3 % 10.0- 14.5 Automated blood platelet count (count/volume) 10 1 0*3/uL 130-400 Automated blood platelet mean volume measurement 11.2 [foz_us] 7.4-10.4 Capillary blood glucose measurement by g lucometer (mass/volume) - 01/21/20 20:16 Capillary blood glucose measurement by glucometer (mas s/volume) 326 mg/dL 70-110 Capillary blood glucose measurement by g lucometer (mass/volume) - 01/22/20 02:09 Capillary blood glucose measurement by glucometer (mas s/volume) 130 mg/dL 70-110 Capillary blood glucose measurement by g lucometer (mass/volume) - 01/22/20 05:25 Capillary blood glucose measurement by glucometer (mas s/volume) 128 mg/dL 70-110 Complete urinalysis with reflex to cultu re - 01/22/20 05:35 Urine color determination YELLOW NRG Urine clarity determination CLEAR NR G Urine pH measurement by test strip 6.5 5-9 Specific gravity of urine by test strip 1.010 1.016-1.022 Urine protein assay by test strip, semi-quantitative 1+ NEGATIVE Urine glucose detection by automated test strip 1+ NEGATIVE Erythrocytes detection in urine sediment by light micr oscopy 1+ NEGATIVE Urine ketones detection by automated test strip NE GATIVE NEGATIVE Urine nitrite detection by test strip NEGATIVE NEGATIVE Urine total bilirubin detection by test strip NEGA TIVE NEGATIVE Urine urobilinogen measurement by automated test strip (mass/volume) 0.2 mg/dL < = 1.0 Urine leukocyte esterase detection by dipstick NEG ATIVE NEGATIVE Automated urine sediment erythrocyte cou nt by microscopy (number/high power field) RARE NRG Automated urine sediment leukocyte count by microscopy (number/high power field) RARE NRG Bacteria detection in urine sediment by light microsco py TRACE NRG Squamous epithelial cells detection in u rine sediment by light microscopy 2-5 NRG Crystals detection in urine sediment by light microsco py NONE NRG Casts detection in urine sediment by light microscopy NONE NRG Mucus detection in urine sediment by light microscopy NEGATIVE NRG Complete urinalysis with reflex to culture NO NRG Encounters ACCT No. Visit Date/Time Discharge Status Pt. Type Provider Facility Loc./Unit Complaint [id number] 09/13/2019 11:50:00 09/13/2019 23:59: 59 CLS Outpatient SHANON STAPLETON [facility] [id number] 09/24/2019 08:30:00 Document Registration [id number] 09/09/2019 08:15:00 Document Registration [id number] 06/08/2019 08:00:00 Document Registration [id number] 01/28/2019 10:20:00 Document Registration [id number] 11/19/2018 13:30:00 Document Registration [id number] 10/08/2018 10:15:00 Document Registration [id number] 01/11/2020 17:40:00 13:35:00 DIS Outpatient CYNTHIA NAVARRO, SALO [facility] 4TH PANCYTOPENIA,SY MPTOMATIC ANEMIA,SYNCOPE,AML [id number] 01/11/2020 13:24:00 23:59:59 CLS Outpatient WILVER ESTRELLA [facility] ONC [id number] 01/11/2020 08:25:00 23:59:59 CLS Outpatient WILVER ESTRELLA [facility] LAB FS ACUTE MYELOCYTIC LEUKEM IA [id number] 01/03/2020 15:51:00 12:00:00 DIS Inpatient IRAJ DE LA TORRE MD [facility] 4TH ANEMIC [id number] 11/28/2019 07:53:00 020 10:17:00 DIS Emergency TAYLORVENTOYA VELA DO [facility] ER FS CHEST PAIN [id number] 10/19/2019 10:20:00 020 23:59:59 CLS Outpatient KIT CORDERO MD [facility] LAB FS 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 [id number] 06/26/2019 20:51:00 019 00:03:00 DIS Emergency ASHLEY HESS MD [facility] ER FS CP [id number] 06/01/2015 13:01:00 23:59:59 CLS Outpatient SHAIKH MELANIE, SHEREE [facility] RAD RENAL INSUFFICIENCY STA GE 3 [id number] 12/28/2014 09:19:00 015 23:59:59 CLS Outpatient KIT CORDERO MD [facility] RAD HODGKINS LYMPHOMA [id number] 05/28/2014 10:50:00 014 11:58:00 DIS Outpatient JOSE RUFFIN MD [facility] CARD LUMBAR SPONDOLOYSIS [id number] 04/27/2014 15:10:00 014 23:59:59 CLS Outpatient JOSE RUFFIN MD [facility] RAD THORACIC SPINE PAIN,TEN DERNESS TO PALPATION OER HI [id number] 01/16/2020 13:55:[address] Inpatient MONTSERRAT HUANG DO [facility] [place] IRF CHEMOTHERAPY NEUROPATHY [id number] 09/29/2018 10:42:07 9 23:59:59 DIS Outpatient KIT CORDERO [facility] RAD hodgins lymphoma
--- NOTE | 2020-01-22 07:33 | NUR ---
VANCOMYCIN DOSING SCR 1.15; ADJ BW 69; CRCL ~ 51; VANC 1 GM GIVEN AT 0508 - GIVE AN ADDITIONAL 500 MG THEN VANC 1500 Q24H CHECK TROUGH LEVEL 01/23 AT 0600 HOLD DOSE AND CONTACT PHARMACY IF LEVEL IS GREATER THAN 20 Addendum: 01/24/20 at 0720 by MARIANGEL LUCAS [facility] Vanco Trough - 18.3, no changes indicated.
[2020-01-22] MEDS ORDERED: LACTULOSE SYRUP 10GM/15ML (ENULOSE) 30ML UDC PO PRN (07:45)
[2020-01-22] MEDS ORDERED: guaiFENesin/CODEINE (ROBITUSSIN AC) 10ML UDC PO PRN (07:45)
[2020-01-22] MEDS ORDERED: PATIENT MAY USE OWN MED,SINGLE MED PO SCH (07:45)
[2020-01-22] MEDS ORDERED: CALCIUM CARBONATE 500 MG (TUMS) TAB.CHEW PO PRN (07:45)
[2020-01-22] MEDS ORDERED: DOCUSATE SODIUM 100 MG (COLACE) CAP PO PRN (07:45)
[2020-01-22] MEDS ORDERED: cloNIDine 0.1 MG (CATAPRES) TAB PO PRN (07:45)
[2020-01-22] MEDS ORDERED: VANCOMYCIN INJECTION 1,000 MG in NS (IVPB) 250 ML IV SCH (07:45)
[2020-01-22] MEDS ORDERED: ONDANSETRON 4 MG (ZOFRAN) ORAL DISSOLVE TAB PO PRN (07:45)
[2020-01-22] MEDS ORDERED: RT-ALBUTEROL SULF 2.5 MG/3 ML PRE-MIX VIAL INH PRN (07:45)
[2020-01-22] MEDS ORDERED: HYDROcodone/APAP 5 MG/325 MG (LORTAB) TAB PO PRN (07:45)
[2020-01-22] MEDS ORDERED: BISACODYL 10 MG SUPP (DULCOLAX) PR PRN (07:45)
[2020-01-22] MEDS ORDERED: NS IV 500 ML 500 ML IV SCH (07:45)
[2020-01-22] MEDS ORDERED: LOPERAMIDE 2 MG (IMODIUM) TABLET PO PRN (07:45)
[2020-01-22] MEDS ORDERED: ONDANSETRON 4 MG/2 ML (SDV) Z0FRAN IVP PRN (07:45)
[2020-01-22] MEDS ORDERED: FLEET ENEMA ADULT 1 EA BTL PR PRN (07:45)
--- NOTE | 2020-01-22 08:00 | NUR ---
LORI IRELAND admitted to room 406-1, with an admitting diagnosis of neutropenic Fever, on 01/22/20 from ARU, accompanied by staff.LORI IRELAND introduced to surroundings, call light, bed controls, phone, TV, temperature control, lights, meal times, smoking policy, visitor policy, side rail policy, bathrooms and showers. Patient Rights given to patient in the handbook. LORI IRELAND verbalizes understanding that [facility] is not responsible for the loss or damage to any personal effects or valuables that are kept in the patients posession during their hospitalization. LORI IRELAND verbalizes understanding of Interdisciplinary Patient Education. Patient and/or family were informed about the Rapid Response Team and its purpose.
[2020-01-22 08:19] LABS: ALBUMIN 3.1 GM/DL (3.2-4.5)
[2020-01-22 08:21] LABS: CALCIUM 8.8 MG/DL (8.5-10.1)
[2020-01-22 08:23] LABS: BILIRUBIN,TOTAL 0.8 MG/DL (0.1-1.0)
[2020-01-22 08:25] LABS: CREATININE SERUM 1.51 MG/DL (0.60-1.30)
[2020-01-22] MEDS ORDERED: NS IV 500 ML 500 ML ONE (09:21)
[2020-01-22] MEDS: ACYCLOVIR 400 MG TABLET (ZOVIRAX) PO SCH ×2 (10:17→21:22)
[2020-01-22] MEDS: ALLOPURINOL 300 MG (ZYLOPRIM) TAB PO SCH (10:18)
[2020-01-22] MEDS: amLODIPine 5 MG (NORVASC) TAB PO SCH (10:18)
[2020-01-22] MEDS: CYANOCOBALAMIN 1,000 MCG (VITAMIN B-12) TABLET PO SCH (10:18)
[2020-01-22] MEDS: VITAMIN D3 10 MCG (400 UNITS) TABLET PO SCH (10:18)
[2020-01-22] MEDS: CARVEDILOL 6.25 MG (COREG) TAB PO SCH ×2 (10:18→21:22)
[2020-01-22] MEDS: GABAPENTIN 300 MG (NEURONTIN) CAP PO SCH ×2 (10:18→21:21)
[2020-01-22] MEDS: polyethylene glycoL POWDER 17 GM (MIRALAX) PACK PO SCH ×2 (10:19→21:24)
[2020-01-22] MEDS: SENNA W/DOCUSATE (SENOKOT S) TABLET PO SCH ×2 (10:19→21:24)
[2020-01-22] MEDS: NEO/POLY/BAC (NEOSPORIN) OINT 15 GM TUBE TOP SCH ×2 (10:20→21:24)
--- NOTE | 2020-01-22 10:41 | History & Physical ---
History of Present Illness HPI/Chief Complaint CC: Neutropenic fever HPI: This is a 69yoWF who was transferred to 4th floor as a precautionary move due to fever in neutropenic AML patient on chemotherapy. Patient is maintained on Vanc and Cefepime empirically and will be monitored closely for decompensation. Daughter is at the bedside. IRF notes: Hospital course: patient had a lengthy course after admitted form chemotherapy induced myopathy after syncope and AMS ICU stay requiring multiple transfusions of platelets due to critical level due to AML dx. Dr Thurman followed along during the IRF stay and provided his expertise. Patient had no decompensation during her course in IRF but at 0230 on 01/22/20 patient had fever and hypoxia but CXR was negative it was assessed the patient needed transfer to 4th floor for empiric IV abx and close monitoring to prevent overwhelming infection and everyone was in agreement with the plan. Assessment: Neutropenia fever requiring transfer to 4th floor inpatient status Chemotherapy induced myopathy s/p AMS due to encephalopathy admitted ICU 01/12/20 Severe anemia requiring multiple transfusions Severe thrombocytopenia requiring multiple platelet transfusions AML on chemotherapy [facility] Hyponatremia Neutropenia requiring broad spectrum abx s/p DC Vanc and Zosyn now COVID-19 swab negative HTN DM Obesity CAD previous CABG CRI Port dysfunction needs replaced but cannot safely do so here at [facility] due to severity of platelet level Plan: Supportive care Transfuse prn Consult Dr Thurman appreciated PT OT IRF protocol HTN meds Replace port per [facility] next week Maintain PICC IV abx empiric (1) Complication of chemotherapy (2) Diabetes mellitus (3) Hypertension (4) Volume overload (5) BMI 40.0-44.9, adult (6) History of lymphoma Status: Acute (7) Pancytopenia Status: Acute (8) anemia (9) Syncope Status: Acute (10) Symptomatic anemia Status: Acute (11) Fatigue Status: Acute (12) AML (acute myeloid leukemia) Status: Acute Discharge Summary Discharge Physical Examination Allergies: Coded Allergies: midazolam (Unverified Allergy, Unknown, MAKE PT HYPER AND ANXIOUS, 05/28/14) Vitals & I&Os Vital Signs Date Time Temp Pulse Resp B/P (MAP) Pulse Ox O2 Delivery O2 Flow Rate FiO2 01/22/20 05:50 36.8 97 20 151/67 (95) 95 Nasal Cannula 2.00 General Appearance: Alert, Oriented X3, Cooperative Respiratory: Clear to Auscultation Cardiovascular: Regular Rate Psych/Mental Status: Mental Status NL Hospital Course Was the Problem List Reviewed?: Yes Hospital course: patient had a lengthy course after admitted form chemotherapy induced myopathy after syncope and AMS ICU stay requiring multiple transfusions of platelets due to critical level due to AML dx. Dr Thurman followed along during the IRF stay and provided his expertise. Patient had no decompensation during her course in IRF but at 0230 on 01/22/20 patient had fever and hypoxia but CXR was negative it was assessed the patient needed transfer to 4th floor for empiric IV abx and close monitoring to prevent overwhelming infection and everyone was in agreement with the plan. Source: patient Exam Limitations: no limitations Date Seen 01/22/20 Time Seen by a Provider: 10:45 Attending Physician Maribel Zhang DO [facility] [place] Referring Physician Date of Admission Jan 22, 2020 at 07:08 Home Medications & Allergies Home Medications Reviewed patient Home Medication Reconciliation performed by pharmacy medication reconciliations nuclear fuel processing technician and/or nursing. Patients Allergies have been reviewed. Allergies Allergies Coded Allergies midazolam (Unverified Allergy, Unknown, MAKE PT HYPER AND ANXIOUS, 05/28/14) Past Bbdwvnk-Rlgder-Rhxqvr Hx Past Med/Social Hx: Reviewed Nursing Past Med/Soc Hx, Reviewed and Corrections made Patient Social History Marrital Status: single Employed/Student: retired Alcohol Use: Denies Use Smoking Status: Never a Smoker 2nd Hand Smoke Exposure: No Recent Hopitalizations: No Immunizations Up To Date Date of Pneumonia Vaccine: Mar 12, 2019 Seasonal Allergies Seasonal Allergies: No Past Medical History Surgeries: Appendectomy, Cardiac, CABG, Coronary Stent, Gallbladder, Hysterectomy, Orthopedic Cardiac: Cardiomyopathy, Coronary Artery Disease, High Cholesterol, Hypertension Gastrointestinal: Gastroesophageal Reflux Musculoskeletal: Degenerate Disk Disease Endocrine: Diabetes, Insulin dep HEENT: Cataract Cancer: Leukemia, Lymphoma Did You Recieve Any Treatments: Yes What Type of Treatment Did You: Chemotherapy Psychosocial: Anxiety, Depression History of Blood Disorders: No Adverse Reaction to Blood [place]: No Family History Cardiovascular disease 19 FATHER 19 MOTHER G8 BROTHER Diabetes mellitus 19 FATHER G8 BROTHER Hypertension 19 FATHER 19 MOTHER Neoplasm G8 BROTHER (lung cancer- from) Heart Disease, Cancer, Diabetes, Hypertension Review of Systems Constitutional: see HPI EENTM: no symptoms reported Respiratory: no symptoms reported Cardiovascular: no symptoms reported Gastrointestinal: no symptoms reported Genitourinary: no symptoms reported Musculoskeletal: no symptoms reported Skin: no symptoms reported Psychiatric/Neurological: Depressed All Other Systems Reviewed Negative Unless Noted: Yes Physical Exam Physical Exam Vital Signs Vital Signs - First Documented 01/22/20 07:45 Temp 36.4 Pulse 78 Resp 16 B/P (MAP) 113/68 (83) Pulse Ox 95 O2 Delivery Nasal Cannula O2 Flow Rate 2.00 Capillary Refill : Height, Weight, BMI Height: 5'1.00" Weight: 245lbs. oz. 111.385794rw; 43.67 BMI Method: General Appearance: No Apparent Distress, WD/WN, Anxious, Chronically ill, Obese Eyes: Bilateral Eye Normal Inspection, Bilateral Eye PERRL HEENT: PERRL/EOMI, Normal ENT Inspection, Pharynx Normal Neck: Full Range of Motion, Normal Inspection, Non Tender, Supple, Carotid Bruit Respiratory: Chest Non Tender, Lungs Clear, No Accessory Muscle Use, No Respiratory Distress, Decreased Breath Sounds Cardiovascular: Regular Rate, Rhythm, No Edema, No Gallop, No JVD, No Murmur, Normal Peripheral Pulses Gastrointestinal: Normal Bowel Sounds, No Organomegaly, No Pulsatile Mass, Non Tender, Soft Back: Normal Inspection, No CVA Tenderness, No Vertebral Tenderness Extremity: Normal Capillary Refill, Normal Inspection, Normal Range of Motion, Non Tender, No Calf Tenderness, No Pedal Edema Neurologic/Psychiatric: Alert, Oriented x3, No Motor/Sensory Deficits, Normal Mood/Affect Skin: Normal Color, Warm/Dry Lymphatic: No Adenopathy Results Results/Procedures Labs Laboratory Tests 01/22/20 08:02 Patient resulted labs reviewed. Assessment/Plan Admission Diagnosis Assessment: Neutropenic fever placed on 4th floor as precaution and placed on Vanc and Cefepime in meantime AML Severe thrombocytopenia requiring daily platelet transfusions Severe anemia requiring transfusions every other day Chemotherapy induced myopathy Poor motivation Obesity NHL 2015 CRI Plan: IV abx O2 Supportive care Admission Status: Inpatient Order (span 2 midnights) Reason for Inpatient Admission: neutropenic fever Diagnosis/Problems Diagnosis/Problems (1) Neutropenic fever (2) Complication of chemotherapy (3) History of lymphoma Status: Acute (4) anemia (5) BMI 40.0-44.9, adult (6) Hypertension (7) Pancytopenia Status: Acute (8) Diabetes mellitus (9) AML (acute myeloid leukemia) Status: Acute (10) Symptomatic anemia Status: Acute (11) Syncope Status: Acute (12) Fatigue Status: Acute Clinical Quality Measures DVT/VTE Risk/Contraindication: Risk Factor Score Per Nursin Contraindications-Pharm: Other *list below* Other: low platelets MARIBEL ZHANG DO Jan 22, 2020 10:41
[2020-01-22] MEDS: inSUlin ASPART (NovoLOG) 1 UNIT/0.01 ML (CHARGE PER UNIT) SC SCH ×3 (11:19→21:22)
--- NOTE | 2020-01-22 14:20 | NUR ---
to bedside per RN request for picc eval. unable to flush red or purple port. no blood return with aspiration. rn notified. dr pelaez notified. orders rec'd.
[2020-01-22] MEDS ORDERED: ALTEPLASE 2 MG (CATHFLO) IV ONE (14:30)
[2020-01-22] MEDS ORDERED: WATER (STERILE) FOR INJECTION 10 ML ONE (14:40)
--- NOTE | 2020-01-22 14:50 | NUR ---
able to administer cathflo to red port with minimal resistance. more difficult to administer to purple port.
[2020-01-22] MEDS: POSACONAZOLE 100 MG PO SCH (15:04)
[2020-01-22] MEDS: CATHETER FLUSH 10 ML SYR IV SCH ×2 (15:04→21:23)
--- NOTE | 2020-01-22 15:25 | NUR ---
able to aspirate blood from red port. flushed with 20ml ns. unable to aspirate from purple port. will cont to monitor, recheck in 90 minutes.
[2020-01-22 15:28] LABS: HEMATOCRIT 22 % (35-52); HEMOGLOBIN 7.6 G/DL (11.5-16.0); MEAN CORPUSCULAR HEMOGLOBIN 31 PG (25-34); MEAN CORPUSCULAR HGB CONC 34 G/DL (32-36); MEAN CORPUSCULAR VOLUME 90 FL (80-99); RED CELL DISTRIBUTION WIDTH 15.7 % (10.0-14.5)
[2020-01-22 15:33] LABS: WHITE BLOOD COUNT 0.9 10^3/uL (4.3-11.0)
[2020-01-22 15:34] LABS: PLATELET COUNT 10 10^3/uL (130-400)
--- NOTE | 2020-01-22 16:42 | Progress Note ---
Standard Progress Note Progress Notes/Assess & Plan Date Seen by a Provider: Jan 22, 2020 Time Seen by a Provider: 16:35 Progress/Assessment & Plan 69-year-old female with recent diagnosis of therapy induced secondary AML. She was started on treatment with Vidaza and Venetoclax regimen approximately 3.5 weeks ago and is continuing on Venetoclax 100 mg daily. Patient was in rehabilitation because of deconditioning and has pancytopenia because of her disease and treatment. She is transfusion dependent for PRBCs and platelets. Last night she spiked a temperature of 38.6C. Pancultures were obtained and she was started on broad-spectrum antibiotics and moved to acute care unit for further management. I have discussed the case with Dr. Zamora at [facility] today who agreed with the treatment plan. It was recommended to hold Venetoclax because of the significant cytopenia and orders were written for this. Continue transfusion support to maintain hemoglobin more than 7 g/dL and platelets more than 10,000. FOBT and stools for C. difficile was positive today. Patient has been started on oral vancomycin. Continue current care and will follow patient with you. I met with patient's daughter earlier today and discussed her condition. WILVER ESTRELLA Jan 22, 2020 16:42
--- NOTE | 2020-01-22 16:45 | NUR ---
purple lumen patent. able to draw blood et flush at this time.
[2020-01-22] MEDS: CEFEPIME INJECTION 1,000 MG in WATER (STERILE) FOR INJECTION 10 ML IV SCH (18:35)
[2020-01-22] MEDS: VANCOMYCIN 50 MG/ML ORAL SOLN 150 ML PO SCH ×2 (18:35→21:23)
[2020-01-22] MEDS: ACETAMINOPHEN 325 MG TABLET PO PRN (18:47)
[2020-01-22] MEDS: SIMvastatin 10 MG (ZOCOR) TAB PO SCH (21:22)
[2020-01-22] MEDS: ALPRAZolam 0.5 MG (XANAX) TAB PO PRN (21:22)
[2020-01-23] VITALS: BP 132/61
[2020-01-23 04:00] VITALS: BP 131/60
[2020-01-23] MEDS: CEFEPIME INJECTION 1,000 MG in WATER (STERILE) FOR INJECTION 10 ML IV SCH ×2 (04:20→17:12)
[2020-01-23] MEDS: ISOSORBIDE MONONITRATE 30 MG (IMDUR) TAB PO SCH (06:22)
[2020-01-23] MEDS: VANCOMYCIN 1500 MG/NS 500 ML IVPB IV SCH ×2 (06:23)
[2020-01-23] MEDS: inSUlin ASPART (NovoLOG) 1 UNIT/0.01 ML (CHARGE PER UNIT) SC SCH ×4 (06:24→21:22)
[2020-01-23] MEDS: CATHETER FLUSH 10 ML SYR IV SCH ×3 (06:24→21:23)
[2020-01-23 06:36] LABS: HEMATOCRIT 21 % (35-52); HEMOGLOBIN 7.3 G/DL (11.5-16.0); MEAN CORPUSCULAR HEMOGLOBIN 31 PG (25-34); MEAN CORPUSCULAR HGB CONC 35 G/DL (32-36); MEAN CORPUSCULAR VOLUME 89 FL (80-99); RED CELL DISTRIBUTION WIDTH 15.3 % (10.0-14.5)
[2020-01-23 06:44] LABS: PLATELET COUNT 12 10^3/uL (130-400); WHITE BLOOD COUNT 0.9 10^3/uL (4.3-11.0)
[2020-01-23 06:47] LABS: ALBUMIN 3.1 GM/DL (3.2-4.5); POTASSIUM 4.2 MMOL/L (3.6-5.0)
[2020-01-23 06:48] LABS: CALCIUM 8.7 MG/DL (8.5-10.1)
[2020-01-23 06:49] LABS: TOTAL PROTEIN 6.2 GM/DL (6.4-8.2)
[2020-01-23 06:51] LABS: BILIRUBIN,TOTAL 0.7 MG/DL (0.1-1.0)
[2020-01-23 06:53] LABS: CREATININE SERUM 1.42 MG/DL (0.60-1.30)
--- NOTE | 2020-01-23 07:50 | NUR ---
DR ESTRELLA NOTIFIED OF PTS CRITICAL LABS THIS AM (WBC, PLATELETS) ALONG WITH 7.3 HGB. NO NEW ORDERS
[2020-01-23 07:58] VITALS: BP 134/62
--- NOTE | 2020-01-23 08:19 | Progress Note - Hospitalist ---
Subjective HPI/CC On Admission Date Seen by Provider: Jan 23, 2020 Time Seen by Provider: 10:00 CC: Neutropenic fever HPI: This is a 69yoWF who was transferred to 4th floor as a precautionary move due to fever in neutropenic AML patient on chemotherapy. Patient is maintained on Vanc and Cefepime empirically and will be monitored closely for decompensation. Daughter is at the bedside. IRF notes: Hospital course: patient had a lengthy course after admitted form chemotherapy induced myopathy after syncope and AMS ICU stay requiring multiple transfusions of platelets due to critical level due to AML dx. Dr Thurman followed along during the IRF stay and provided his expertise. Patient had no decompensation during her course in IRF but at 0230 on 01/22/20 patient had fever and hypoxia but CXR was negative it was assessed the patient needed transfer to 4th floor for empiric IV abx and close monitoring to prevent overwhelming infection and everyone was in agreement with the plan. Assessment: Neutropenia fever requiring transfer to 4th floor inpatient status Chemotherapy induced myopathy s/p AMS due to encephalopathy admitted ICU 01/12/20 Severe anemia requiring multiple transfusions Severe thrombocytopenia requiring multiple platelet transfusions AML on chemotherapy [facility] Hyponatremia Neutropenia requiring broad spectrum abx s/p DC Vanc and Zosyn now COVID-19 swab negative HTN DM Obesity CAD previous CABG CRI Port dysfunction needs replaced but cannot safely do so here at [facility] due to severity of platelet level Plan: Supportive care Transfuse prn Consult Dr Thurman appreciated PT OT IRF protocol HTN meds Replace port per [facility] next week Maintain PICC IV abx empiric (1) Complication of chemotherapy (2) Diabetes mellitus (3) Hypertension (4) Volume overload (5) BMI 40.0-44.9, adult (6) History of lymphoma Status: Acute (7) Pancytopenia Status: Acute (8) anemia (9) Syncope Status: Acute (10) Symptomatic anemia Status: Acute (11) Fatigue Status: Acute (12) AML (acute myeloid leukemia) Status: Acute Discharge Summary Discharge Physical Examination Allergies: Coded Allergies: midazolam (Unverified Allergy, Unknown, MAKE PT HYPER AND ANXIOUS, 05/28/14) Vitals & I&Os Vital Signs Date Time Temp Pulse Resp B/P (MAP) Pulse Ox O2 Delivery O2 Flow Rate FiO2 01/22/20 05:50 36.8 97 20 151/67 (95) 95 Nasal Cannula 2.00 General Appearance: Alert, Oriented X3, Cooperative Respiratory: Clear to Auscultation Cardiovascular: Regular Rate Psych/Mental Status: Mental Status NL Hospital Course Was the Problem List Reviewed?: Yes Hospital course: patient had a lengthy course after admitted form chemotherapy induced myopathy after syncope and AMS ICU stay requiring multiple transfusions of platelets due to critical level due to AML dx. Dr Thurman followed along during the IRF stay and provided his expertise. Patient had no decompensation during her course in IRF but at 0230 on 01/22/20 patient had fever and hypoxia but CXR was negative it was assessed the patient needed transfer to 4th floor for empiric IV abx and close monitoring to prevent overwhelming infection and everyone was in agreement with the plan. Subjective/Events-last exam Patient doing well C diff colitis dx yesterday and Vanc PO started Platelets noted at 12k Hgb and wbc noted Daughter at the bedside PT OT ordered No diarrhea since yesterday Broad spectrum abx maintained O2 maintained No pain reported Updated on the plan for DC Saturday am early then go to appt at [facility] Oncology at 1000am Review of Systems General: Fatigue Pulmonary: Dyspnea Gastrointestinal: Diarrhea Neurological: Weakness Objective Exam Vital Signs Vital Signs Date Time Temp Pulse Resp B/P (MAP) Pulse Ox O2 Delivery O2 Flow Rate FiO2 01/23/20 20:06 91 Nasal Cannula 2.00 28 01/23/20 19:19 36.9 68 20 135/61 (85) Capillary Refill : Less Than 3 Seconds General Appearance: No Apparent Distress, WD/WN, Chronically ill, Obese Respiratory: Chest Non Tender, Lungs Clear, No Accessory Muscle Use, No Respiratory Distress, Decreased Breath Sounds Cardiovascular: Regular Rate, Rhythm, No Edema, No Gallop, No JVD, No Murmur, Normal Peripheral Pulses Neurologic/Psychiatric: Alert, Oriented x3, No Motor/Sensory Deficits, Depressed Affect Results/Procedures Lab Laboratory Tests 01/23/20 06:21 Patient resulted labs reviewed. Assessment/Plan Assessment and Plan Assess & Plan/Chief Complaint Assessment: Neutropenic fever placed on 4th floor as precaution and placed on Vanc and Cefepime in meantime Acute c diff colitis placed on Vanc PO AML Severe thrombocytopenia requiring daily platelet transfusions Severe anemia requiring transfusions every other day Chemotherapy induced myopathy Poor motivation Obesity NHL 2014 CRI Plan: IV abx Vanc PO O2 Supportive care Diagnosis/Problems Diagnosis/Problems (1) Neutropenic fever (2) Complication of chemotherapy (3) History of lymphoma Status: Acute (4) anemia (5) BMI 40.0-44.9, adult (6) Hypertension (7) Pancytopenia Status: Acute (8) Diabetes mellitus (9) AML (acute myeloid leukemia) Status: Acute (10) Symptomatic anemia Status: Acute (11) Syncope Status: Acute (12) Fatigue Status: Acute (13) C. difficile colitis Clinical Quality Measures DVT/VTE Risk/Contraindication: Risk Factor Score Per Nursin Contraindications-Pharm: Other *list below* Other: low platelets MONTSERRAT HUANG DO Jan 23, 2020 08:19
[2020-01-23] MEDS: POSACONAZOLE 100 MG PO SCH (09:19)
[2020-01-23] MEDS: ACYCLOVIR 400 MG TABLET (ZOVIRAX) PO SCH ×2 (09:20→21:21)
[2020-01-23] MEDS: VITAMIN D3 10 MCG (400 UNITS) TABLET PO SCH (09:20)
[2020-01-23] MEDS: GABAPENTIN 300 MG (NEURONTIN) CAP PO SCH ×2 (09:20→21:21)
[2020-01-23] MEDS: CARVEDILOL 6.25 MG (COREG) TAB PO SCH ×2 (09:20→21:21)
[2020-01-23] MEDS: CYANOCOBALAMIN 1,000 MCG (VITAMIN B-12) TABLET PO SCH (09:20)
[2020-01-23] MEDS: amLODIPine 5 MG (NORVASC) TAB PO SCH (09:21)
[2020-01-23] MEDS: ALLOPURINOL 300 MG (ZYLOPRIM) TAB PO SCH (09:21)
[2020-01-23] MEDS: NEO/POLY/BAC (NEOSPORIN) OINT 15 GM TUBE TOP SCH ×2 (09:22→21:22)
[2020-01-23] MEDS: SENNA W/DOCUSATE (SENOKOT S) TABLET PO SCH ×2 (09:23→21:21)
[2020-01-23] MEDS: polyethylene glycoL POWDER 17 GM (MIRALAX) PACK PO SCH ×2 (09:23→21:21)
[2020-01-23] MEDS: ALPRAZolam 0.5 MG (XANAX) TAB PO PRN ×2 (09:30→21:21)
[2020-01-23] MEDS: VANCOMYCIN 50 MG/ML ORAL SOLN 150 ML PO SCH ×4 (09:31→21:21)
--- NOTE | 2020-01-23 11:54 | Physical Therapy Evaluation ---
PT Evaluation-General Medical Diagnosis Admission Date Jan 22, 2020 at 07:08 Medical Diagnosis: pneumonia/fever Onset Date: Jan 22, 2020 Therapy Diagnosis Therapy Diagnosis: debility/weakness Height/Weight Height (Feet): 5 Height (Inches): 1.00 Weight (Pounds): 245 Precautions Precautions/Isolations: Contact Isolation, Protective Isolation Referral Physician: Leatha Reason for Referral: Evaluation/Treatment Medical History Pertinent Medical History: CABG, CAD, DM, HTN Additional Medical History obesity Current History transfer from [facility] secondary to fever neutropenic AMS Reviewed History: Yes Social History Home: Single Level Current Living Status: Children Prior Prior Level of Function SCALE: Activities may be completed with or without assistive devices. 4-Tmpzbikmjo-luopzpx completes the activity by him/herself with no assistance from a helper. 5-Set-up or Clean-up Assistance-helper sets up or cleans up; patient completes activity. [place] assists only prior to or following the activity. 4-Supervision or Touching Assistance-helper provides verbal cues and/or touching/steadying and/or contact guard assistance as patient completes activity. Assistance may be provided throughout the activity or intermittently. 3-Partial/Moderate Assistance-helper does LESS THAN HALF the effort. [place] lifts, holds or supports trunk or limbs, but provides less than half the effort. 2-Substantial/Maximal Assistance-helper does MORE THAN HALF the effort. [place] lifts or holds trunk or limbs and provides more than half the effort. 5-Cisruhaxo-xuwnxm does ALL the effort. Patient does none of the effort to complete the activity. Or, the assistance of 2 or more helpers is required for the patient to complete the activity. If activity was not attempted, code reason: 7-Patient Refused. 9-Not Applicable-not attempted and the patient did not perform the activity before the current illness, exacerbation or injury. 10-Not Attempted due to Environmental Limitations-(lack of equipment, weather restraints, etc.). 88-Not Attempted due to Medical Conditions or Safety Concerns. Bed Mobility: 6 Transfers (B,C,W/C): 6 Gait: 6 Stairs: 6 Indoor Mobility (Ambulation): Independent Stairs: Independent Prior Devices Use: None PT Evaluation-Current Subjective Agrees to PT. Pain Numeric Pain Scale: 0-No Pain Location: No Pain Reported Objective Patient Orientation: Normal For Age Attachments: Oxygen ROM/Strength ROM Lower Extremities bilateral LE WFL Strength Lower Extremities 4/5 grossly bilateral LE Integumentary/Posture Integumentary refer to nursing notes Bowel Incontinence: No Bladder Incontinence: No Posture WFL Neuromuscular (Tone, Coordination, Reflexes) grossly intact Sensory Vision: Wears Glasses Hearing: Functional Sensation Right Lower Extremit: Intact Sensation Left Lower Extremity: Intact Transfers Roll Left to Right (QC): 5 Sit to Lying (QC): 5 Lying to Sitting/Side of Bed(Q: 5 Sit to Stand (QC): 5 Chair/Stj-wt-Osbmn Xfer(QC): 5 Gait Does the Patient Walk?: Yes Mode of Locomotion: Walk Anticipated Mode of Locomotion: Walk Walk 10 feet (QC): 5 Walk 50 ft with 2 Turns(QC): 5 Walk 150 ft (QC): 88 Gait Assistive Device: FWW Balance Sitting Static: Normal Sitting Dynamic: Normal Standing Static: Normal Standing Dynamic: Normal Assessment/Needs 69 y.o. female, will benefit from skilled PT to address functional strength and mobility to improve current LOF to safely return to home with family at maximum LOF. 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 Goals PT M[facility] Goals Time Frame: Feb 06, 2020 Roll Left & Right (QC): 6 Sit to Lying (QC): 6 Lying-Sitting on Side/Bed(QC): 6 Sit to Stand (QC): 6 Chair/Xfl-om-Cydwg Xfer(QC): 6 Toilet Transfer (QC): 6 Car Transfer (QC): 6 Does the Patient Walk: Yes Walk 10 feet (QC): 6 Walk 50ft with 2 Turns (QC): 6 Walk 150 ft (QC): 6 PT Plan Problem List Problem List: Activity Tolerance, Functional Strength Treatment/Plan Treatment Plan: Continue Plan of Care Treatment Plan: Bed Mobility, Education, Functional Activity Chiara, Functional Strength, Gait, Safety, Therapeutic Exercise, Transfers Treatment Duration: Feb 06, 2020 Frequency: 6 times per week Estimated Hrs Per Day: .25 hour per day Time/GCodes Time In: 1240 Time Out: 1250 Total Billed Treatment Time: 10 Total Billed Treatment 1 visit EVLowC 10 min ARELIS POWERS PT Jan 23, 2020 11:54
[2020-01-23 11:56] VITALS: BP 121/58
--- NOTE | 2020-01-23 12:31 | Progress Note ---
Standard Progress Note Progress Notes/Assess & Plan Date Seen by a Provider: Jan 23, 2020 Time Seen by a Provider: 12:22 Progress/Assessment & Plan 69-year-old female with recent diagnosis of therapy induced secondary AML. She was started on treatment with Vidaza and Venetoclax regimen approximately 3.5 weeks ago and was continuing on Venetoclax 100 mg daily until 01/21/2020. Patient was in rehabilitation because of deconditioning and has pancytopenia because of her disease and treatment. She is transfusion dependent for PRBCs and platelets. Transferred to acute care because of neutropenic fever yesterday. Pancultures were obtained and on on broad-spectrum antibiotics. Cdiff positive and started on oral vancomycin. Patient is feeling better today and denied any diarrhea. Will start patient on probiotics bid. Dr. Zamora at [facility]ukemia[facility] services aware of patients condition. Labs noted today and Hb and plts stable and doesn't need transfusion. Continue transfusion support to maintain hemoglobin more than 7 g/dL and platelets more than 10,000. Undergoing PT for strengthening and ambulation. Continue current care and will follow patient with you. Patients daughter in room and answered all questions. WILVER ESTRELLA Jan 23, 2020 12:31
[2020-01-23] MEDS ORDERED: CHOLESTYRAMINE 4 GM (QUESTRAN LITE, PREVALITE) PKT PO PRN (14:00)
--- NOTE | 2020-01-23 14:16 | NUR ---
PT HAD LOOSE STOOL AROUND 1300. DR ESTRELLA NOTIFIED AND HE ORDERED QUESTRAN LIT BID PRN. PT AND DAUGHTER NOTIFIED.
[2020-01-23 15:30] VITALS: BP 131/63
[2020-01-23 19:19] VITALS: BP 135/61
[2020-01-23] MEDS: SIMvastatin 10 MG (ZOCOR) TAB PO SCH (21:21)
[2020-01-24] VITALS (12 sets, daily range): BP systolic 115–184; BP diastolic 56–95
[2020-01-24] MEDS: CEFEPIME INJECTION 1,000 MG in WATER (STERILE) FOR INJECTION 10 ML IV SCH ×2 (05:37→19:46)
[2020-01-24] MEDS: CATHETER FLUSH 10 ML SYR IV SCH ×3 (05:37→22:00)
[2020-01-24] MEDS ORDERED: TROUGH ORDER-PHARMACY XX NR (06:00)
--- NOTE | 2020-01-24 06:11 | Progress Note - Hospitalist ---
Subjective HPI/CC On Admission Date Seen by Provider: Jan 24, 2020 Time Seen by Provider: 09:00 CC: Neutropenic fever HPI: This is a 69yoWF who was transferred to 4th floor as a precautionary move due to fever in neutropenic AML patient on chemotherapy. Patient is maintained on Vanc and Cefepime empirically and will be monitored closely for decompensation. Daughter is at the bedside. IRF notes: Hospital course: patient had a lengthy course after admitted form chemotherapy induced myopathy after syncope and AMS ICU stay requiring multiple transfusions of platelets due to critical level due to AML dx. Dr Thurman followed along during the IRF stay and provided his expertise. Patient had no decompensation during her course in IRF but at 0230 on 01/22/20 patient had fever and hypoxia but CXR was negative it was assessed the patient needed transfer to 4th floor for empiric IV abx and close monitoring to prevent overwhelming infection and everyone was in agreement with the plan. Assessment: Neutropenia fever requiring transfer to 4th floor inpatient status Chemotherapy induced myopathy s/p AMS due to encephalopathy admitted ICU 01/12/20 Severe anemia requiring multiple transfusions Severe thrombocytopenia requiring multiple platelet transfusions AML on chemotherapy [facility] Hyponatremia Neutropenia requiring broad spectrum abx s/p DC Vanc and Zosyn now COVID-19 swab negative HTN DM Obesity CAD previous CABG CRI Port dysfunction needs replaced but cannot safely do so here at [facility] due to severity of platelet level Plan: Supportive care Transfuse prn Consult Dr Thurman appreciated PT OT IRF protocol HTN meds Replace port per [facility] next week Maintain PICC IV abx empiric (1) Complication of chemotherapy (2) Diabetes mellitus (3) Hypertension (4) Volume overload (5) BMI 40.0-44.9, adult (6) History of lymphoma Status: Acute (7) Pancytopenia Status: Acute (8) anemia (9) Syncope Status: Acute (10) Symptomatic anemia Status: Acute (11) Fatigue Status: Acute (12) AML (acute myeloid leukemia) Status: Acute Discharge Summary Discharge Physical Examination Allergies: Coded Allergies: midazolam (Unverified Allergy, Unknown, MAKE PT HYPER AND ANXIOUS, 05/28/14) Vitals & I&Os Vital Signs Date Time Temp Pulse Resp B/P (MAP) Pulse Ox O2 Delivery O2 Flow Rate FiO2 01/22/20 05:50 36.8 97 20 151/67 (95) 95 Nasal Cannula 2.00 General Appearance: Alert, Oriented X3, Cooperative Respiratory: Clear to Auscultation Cardiovascular: Regular Rate Psych/Mental Status: Mental Status NL Hospital Course Was the Problem List Reviewed?: Yes Hospital course: patient had a lengthy course after admitted form chemotherapy induced myopathy after syncope and AMS ICU stay requiring multiple transfusions of platelets due to critical level due to AML dx. Dr Thurman followed along during the IRF stay and provided his expertise. Patient had no decompensation during her course in IRF but at 0230 on 01/22/20 patient had fever and hypoxia but CXR was negative it was assessed the patient needed transfer to 4th floor for empiric IV abx and close monitoring to prevent overwhelming infection and everyone was in agreement with the plan. Subjective/Events-last exam Patient about the same Platelets 7k and Dr Thurman ordered platelets No pain reported O2 maintained No falls No loose stools Vanc PO tolerated well Will decrease IV abx tomorrow PT OT ordered Review of Systems General: Fatigue Neurological: Weakness Objective Exam Vital Signs Vital Signs Date Time Temp Pulse Resp B/P (MAP) Pulse Ox O2 Delivery O2 Flow Rate FiO2 01/24/20 14:00 37.1 88 30 115/56 98 Nasal Cannula 4.00 01/23/20 20:06 28 Capillary Refill : Less Than 3 Seconds General Appearance: No Apparent Distress, WD/WN, Chronically ill, Obese Respiratory: Chest Non Tender, Lungs Clear, Normal Breath Sounds, No Accessory Muscle Use, No Respiratory Distress Cardiovascular: Regular Rate, Rhythm, No Edema, No Gallop, No JVD, No Murmur, Normal Peripheral Pulses Neurologic/Psychiatric: Alert, Oriented x3, No Motor/Sensory Deficits, Depressed Affect Results/Procedures Lab Laboratory Tests 01/24/20 06:25 Patient resulted labs reviewed. Assessment/Plan Assessment and Plan Assess & Plan/Chief Complaint Assessment: Neutropenic fever placed on 4th floor as precaution and placed on Vanc and Cefepime in meantime Acute c diff colitis placed on Vanc PO AML Severe thrombocytopenia requiring daily platelet transfusions Severe anemia requiring transfusions every other day Chemotherapy induced myopathy Poor motivation Obesity NHL 2015 CRI Plan: IV abx Vanc PO O2 Supportive care Diagnosis/Problems Diagnosis/Problems (1) Neutropenic fever (2) Complication of chemotherapy (3) History of lymphoma Status: Acute (4) anemia (5) BMI 40.0-44.9, adult (6) Hypertension (7) Pancytopenia Status: Acute (8) Diabetes mellitus (9) AML (acute myeloid leukemia) Status: Acute (10) Symptomatic anemia Status: Acute (11) Syncope Status: Acute (12) Fatigue Status: Acute (13) C. difficile colitis Clinical Quality Measures DVT/VTE Risk/Contraindication: Risk Factor Score Per Nursin Contraindications-Pharm: Other *list below* Other: low platelets MONTSERRAT HUANG DO Jan 24, 2020 06:11
[2020-01-24 06:34] LABS: BASOPHILS % (AUTO) 4 % (0-10); EOSINOPHILS % (AUTO) 0 % (0-10); LYMPHOCYTES # (AUTO) 0.5 X 10^3 (1.0-4.0); LYMPHOCYTES % (AUTO) 67 % (12-44); MEAN CORPUSCULAR HEMOGLOBIN 31 PG (25-34); MEAN CORPUSCULAR HGB CONC 34 G/DL (32-36); MEAN CORPUSCULAR VOLUME 89 FL (80-99); MONOCYTES # (AUTO) 0.1 X 10^3 (0.0-1.0); MONOCYTES % (AUTO) 16 % (0-12); NEUTROPHILS # (AUTO) 0.1 X 10^3 (1.8-7.8); NEUTROPHILS % (AUTO) 13 % (42-75); RED CELL DISTRIBUTION WIDTH 15.3 % (10.0-14.5)
[2020-01-24 06:43] LABS: WHITE BLOOD COUNT 0.7 10^3/uL (4.3-11.0)
[2020-01-24 06:44] LABS: HEMATOCRIT 19 % (35-52); HEMOGLOBIN 6.5 G/DL (11.5-16.0); PLATELET COUNT 7 10^3/uL (130-400)
[2020-01-24] MEDS ORDERED: NS IV 500 ML 500 ML IV SCH ×2 (07:00→20:30)
[2020-01-24] MEDS: ISOSORBIDE MONONITRATE 30 MG (IMDUR) TAB PO SCH (07:23)
[2020-01-24] MEDS: inSUlin ASPART (NovoLOG) 1 UNIT/0.01 ML (CHARGE PER UNIT) SC SCH ×4 (07:24→21:48)
[2020-01-24] MEDS: VANCOMYCIN 1500 MG/NS 500 ML IVPB IV SCH ×2 (07:25)
--- NOTE | 2020-01-24 07:32 | NUR ---
DAUGHTER, FABIENNE, NOTIFIED PER HER REQUEST, THAT PT WAS GOING TO BE GETTING 1 UNIT OF PLATELETS AND 1 U OF BLOOD TODAY.
[2020-01-24] MEDS: CARVEDILOL 6.25 MG (COREG) TAB PO SCH ×2 (08:53→21:00)
[2020-01-24] MEDS: VITAMIN D3 10 MCG (400 UNITS) TABLET PO SCH (08:53)
[2020-01-24] MEDS: ACYCLOVIR 400 MG TABLET (ZOVIRAX) PO SCH ×2 (08:53→21:52)
[2020-01-24] MEDS: amLODIPine 5 MG (NORVASC) TAB PO SCH (08:53)
[2020-01-24] MEDS: GABAPENTIN 300 MG (NEURONTIN) CAP PO SCH ×2 (08:53→21:53)
[2020-01-24] MEDS: ALPRAZolam 0.5 MG (XANAX) TAB PO PRN ×2 (08:53→21:50)
[2020-01-24] MEDS: POSACONAZOLE 100 MG PO SCH (08:53)
[2020-01-24] MEDS: CYANOCOBALAMIN 1,000 MCG (VITAMIN B-12) TABLET PO SCH (08:53)
[2020-01-24] MEDS: ALLOPURINOL 300 MG (ZYLOPRIM) TAB PO SCH (08:53)
[2020-01-24] MEDS: NEO/POLY/BAC (NEOSPORIN) OINT 15 GM TUBE TOP SCH ×2 (08:54→21:00)
[2020-01-24] MEDS: SENNA W/DOCUSATE (SENOKOT S) TABLET PO SCH ×2 (08:55→21:00)
[2020-01-24] MEDS: polyethylene glycoL POWDER 17 GM (MIRALAX) PACK PO SCH ×2 (08:55→21:00)
[2020-01-24] MEDS ORDERED: NS IV 500 ML 500 ML ONE (08:57)
[2020-01-24] MEDS: VANCOMYCIN 50 MG/ML ORAL SOLN 150 ML PO SCH ×4 (09:03→21:00)
[2020-01-24] MEDS ORDERED: ACETAMINOPHEN 500 MG TAB (TYLENOL) ONE (11:42)
[2020-01-24] MEDS ORDERED: ACETAMINOPHEN 500 MG TAB (TYLENOL) PO STA (11:44)
[2020-01-24] MEDS ORDERED: diphenhydrAMINE 50 MG/ML INJ (BENADRYL) IVP ONE (11:45)
[2020-01-24 19:45] LABS: HEMOGLOBIN 6.7 G/DL (11.5-16.0)
[2020-01-24] MEDS: ACETAMINOPHEN 325 MG TABLET PO PRN (21:51)
[2020-01-24] MEDS: MELATONIN 3 MG TABLET PO PRN (21:53)
[2020-01-24] MEDS: SIMvastatin 10 MG (ZOCOR) TAB PO SCH (21:54)
[2020-01-24] MEDS: diphenhydrAMINE 25 MG TAB (BENADRYL) PO PRN (21:54)
[2020-01-25] VITALS (10 sets, daily range): BP systolic 122–183; BP diastolic 58–84
[2020-01-25] MEDS: CEFEPIME INJECTION 1,000 MG in WATER (STERILE) FOR INJECTION 10 ML IV SCH ×2 (05:00→18:52)
[2020-01-25] MEDS: ISOSORBIDE MONONITRATE 30 MG (IMDUR) TAB PO SCH (05:09)
[2020-01-25] MEDS: CATHETER FLUSH 10 ML SYR IV SCH ×3 (05:10→22:34)
[2020-01-25] MEDS: VANCOMYCIN 1500 MG/NS 500 ML IVPB IV SCH ×2 (05:10)
[2020-01-25] MEDS: inSUlin ASPART (NovoLOG) 1 UNIT/0.01 ML (CHARGE PER UNIT) SC SCH ×4 (05:10→22:26)
[2020-01-25 06:33] LABS: BASOPHILS # (AUTO) 0.1 10^3/uL (0.0-0.1); BASOPHILS % (AUTO) 8 % (0-10); EOSINOPHILS % (AUTO) 0 % (0-10); HEMATOCRIT 24 % (35-52); HEMOGLOBIN 8.2 G/DL (11.5-16.0); LYMPHOCYTES # (AUTO) 0.3 X 10^3 (1.0-4.0); LYMPHOCYTES % (AUTO) 43 % (12-44); MEAN CORPUSCULAR HEMOGLOBIN 30 PG (25-34); MEAN CORPUSCULAR HGB CONC 34 G/DL (32-36); MEAN CORPUSCULAR VOLUME 89 FL (80-99); MONOCYTES # (AUTO) 0.3 X 10^3 (0.0-1.0); MONOCYTES % (AUTO) 49 % (0-12); NEUTROPHILS % (AUTO) 0 % (42-75); RED CELL DISTRIBUTION WIDTH 15.6 % (10.0-14.5)
[2020-01-25 06:35] LABS: WHITE BLOOD COUNT 0.6 10^3/uL (4.3-11.0)
[2020-01-25 06:36] LABS: PLATELET COUNT 8 10^3/uL (130-400)
--- NOTE | 2020-01-25 06:36 | Progress Note - Hospitalist ---
Subjective HPI/CC On Admission Date Seen by Provider: Jan 25, 2020 Time Seen by Provider: 10:00 CC: Neutropenic fever HPI: This is a 69yoWF who was transferred to 4th floor as a precautionary move due to fever in neutropenic AML patient on chemotherapy. Patient is maintained on Vanc and Cefepime empirically and will be monitored closely for decompensation. Daughter is at the bedside. IRF notes: Hospital course: patient had a lengthy course after admitted form chemotherapy induced myopathy after syncope and AMS ICU stay requiring multiple transfusions of platelets due to critical level due to AML dx. Dr Thurman followed along during the IRF stay and provided his expertise. Patient had no decompensation during her course in IRF but at 0230 on 01/22/20 patient had fever and hypoxia but CXR was negative it was assessed the patient needed transfer to 4th floor for empiric IV abx and close monitoring to prevent overwhelming infection and everyone was in agreement with the plan. Assessment: Neutropenia fever requiring transfer to 4th floor inpatient status Chemotherapy induced myopathy s/p AMS due to encephalopathy admitted ICU 01/12/20 Severe anemia requiring multiple transfusions Severe thrombocytopenia requiring multiple platelet transfusions AML on chemotherapy [facility] Hyponatremia Neutropenia requiring broad spectrum abx s/p DC Vanc and Zosyn now COVID-19 swab negative HTN DM Obesity CAD previous CABG CRI Port dysfunction needs replaced but cannot safely do so here at [facility] due to severity of platelet level Plan: Supportive care Transfuse prn Consult Dr Thurman appreciated PT OT IRF protocol HTN meds Replace port per [facility] next week Maintain PICC IV abx empiric (1) Complication of chemotherapy (2) Diabetes mellitus (3) Hypertension (4) Volume overload (5) BMI 40.0-44.9, adult (6) History of lymphoma Status: Acute (7) Pancytopenia Status: Acute (8) anemia (9) Syncope Status: Acute (10) Symptomatic anemia Status: Acute (11) Fatigue Status: Acute (12) AML (acute myeloid leukemia) Status: Acute Discharge Summary Discharge Physical Examination Allergies: Coded Allergies: midazolam (Unverified Allergy, Unknown, MAKE PT HYPER AND ANXIOUS, 05/28/14) Vitals & I&Os Vital Signs Date Time Temp Pulse Resp B/P (MAP) Pulse Ox O2 Delivery O2 Flow Rate FiO2 01/22/20 05:50 36.8 97 20 151/67 (95) 95 Nasal Cannula 2.00 General Appearance: Alert, Oriented X3, Cooperative Respiratory: Clear to Auscultation Cardiovascular: Regular Rate Psych/Mental Status: Mental Status NL Hospital Course Was the Problem List Reviewed?: Yes Hospital course: patient had a lengthy course after admitted form chemotherapy induced myopathy after syncope and AMS ICU stay requiring multiple transfusions of platelets due to critical level due to AML dx. Dr Thurman followed along during the IRF stay and provided his expertise. Patient had no decompensation during her course in IRF but at 0230 on 01/22/20 patient had fever and hypoxia but CXR was negative it was assessed the patient needed transfer to 4th floor for empiric IV abx and close monitoring to prevent overwhelming infection and everyone was in agreement with the plan. Subjective/Events-last exam Pt about the same Oxygen will be needed with portable from [facility] [place] in order to be transported up to Spoke with Dr. Thurman, will plan on discharging her early Saturday morning to go to the appointment Daughter very fearful of another syncopal episode Will DC Vancomycin today and Zosyn tomorrow Receiving one unit of platelets due to platelet count of 8,000, Hgb 8.2 and WC 0.6 Review of Systems General: Fatigue Objective Exam Vital Signs Vital Signs Date Time Temp Pulse Resp B/P (MAP) Pulse Ox O2 Delivery O2 Flow Rate FiO2 01/26/20 04:38 37.2 89 23 152/79 (103) 94 Nasal Cannula 3.00 01/25/20 15:10 32 Capillary Refill : Less Than 3 Seconds General Appearance: No Apparent Distress, WD/WN, Chronically ill, Obese Respiratory: Lungs Clear Cardiovascular: Regular Rate, Rhythm Neurologic/Psychiatric: Alert, Oriented x3, Depressed Affect Results/Procedures Lab Laboratory Tests 01/26/20 05:20 Patient resulted labs reviewed. Assessment/Plan Assessment and Plan Assess & Plan/Chief Complaint Assessment: Neutropenic fever placed on 4th floor as precaution and placed on Vanc and Cefepime in meantime now DC both abx since no confirmed bacterial infection except c diff Acute c diff colitis placed on Vanc PO AML Severe thrombocytopenia requiring daily platelet transfusions Severe anemia requiring transfusions every other day Chemotherapy induced myopathy Poor motivation Obesity NHL 2014 CRI Plan: IV abx DC Vanc PO O2 Supportive care DC Wed am at 0600 for appt 1000 Diagnosis/Problems Diagnosis/Problems (1) Neutropenic fever (2) Complication of chemotherapy (3) History of lymphoma Status: Acute (4) anemia (5) BMI 40.0-44.9, adult (6) Hypertension (7) Pancytopenia Status: Acute (8) Diabetes mellitus (9) AML (acute myeloid leukemia) Status: Acute (10) Symptomatic anemia Status: Acute (11) Syncope Status: Acute (12) Fatigue Status: Acute (13) C. difficile colitis Clinical Quality Measures DVT/VTE Risk/Contraindication: Risk Factor Score Per Nursin Contraindications-Pharm: Other *list below* Other: low platelets MONTSERRAT HUANG DO Jan 25, 2020 06:36
[2020-01-25 07:00] LABS: ALBUMIN 2.7 GM/DL (3.2-4.5); BILIRUBIN,TOTAL 0.5 MG/DL (0.1-1.0); CALCIUM 8.2 MG/DL (8.5-10.1); CREATININE SERUM 1.57 MG/DL (0.60-1.30); POTASSIUM 4.1 MMOL/L (3.6-5.0); TOTAL PROTEIN 5.8 GM/DL (6.4-8.2)
[2020-01-25] MEDS ORDERED: ACETAMINOPHEN 500 MG TAB (TYLENOL) PO NR (07:00)
[2020-01-25] MEDS: diphenhydrAMINE 25 MG TAB (BENADRYL) PO PRN (07:48)
--- NOTE | 2020-01-25 07:48 | NUR ---
labs have been reported to dr franklyn mata recieved for 1 unit of platelets.. daughter made aware.. also voiced concern about taking her home tomorrow . she would rather pt be dismissed sat am and sent up to [facility] to her appointment
[2020-01-25] MEDS ORDERED: NS IV 500 ML 500 ML ONE (07:49)
[2020-01-25] MEDS: polyethylene glycoL POWDER 17 GM (MIRALAX) PACK PO SCH ×2 (09:17→20:00)
[2020-01-25] MEDS: SENNA W/DOCUSATE (SENOKOT S) TABLET PO SCH ×2 (09:17→20:00)
[2020-01-25] MEDS: ALLOPURINOL 300 MG (ZYLOPRIM) TAB PO SCH (09:18)
[2020-01-25] MEDS: amLODIPine 5 MG (NORVASC) TAB PO SCH (09:18)
[2020-01-25] MEDS: CARVEDILOL 6.25 MG (COREG) TAB PO SCH ×2 (09:18→22:25)
[2020-01-25] MEDS: ALPRAZolam 0.5 MG (XANAX) TAB PO PRN ×2 (09:18→22:33)
[2020-01-25] MEDS: ACYCLOVIR 400 MG TABLET (ZOVIRAX) PO SCH ×2 (09:18→22:25)
[2020-01-25] MEDS: GABAPENTIN 300 MG (NEURONTIN) CAP PO SCH ×2 (09:18→22:26)
[2020-01-25] MEDS: POSACONAZOLE 100 MG PO SCH (09:19)
[2020-01-25] MEDS: VITAMIN D3 10 MCG (400 UNITS) TABLET PO SCH (09:38)
[2020-01-25] MEDS: VANCOMYCIN 50 MG/ML ORAL SOLN 150 ML PO SCH ×4 (09:38→22:25)
[2020-01-25] MEDS: NEO/POLY/BAC (NEOSPORIN) OINT 15 GM TUBE TOP SCH ×2 (09:38→22:34)
[2020-01-25] MEDS: CYANOCOBALAMIN 1,000 MCG (VITAMIN B-12) TABLET PO SCH (09:38)
--- NOTE | 2020-01-25 10:21 | Occ Therapy Progress Note ---
Therapy Progress Note 1, Visit Pt seen from [id number] (5 min) to attempt OT eval/ treat. Pt seen in bed, a sleep, easily wakes. pt states fatigue and requests later time. Pt's daughter present, states pt required additional medication this am that made pt more drowsy. OT to follow up at later time. MARIAELENA URIBE OTR Jan 25, 2020 10:21
--- NOTE | 2020-01-25 10:30 | Physical Therapy Progress Note ---
Therapy Progress Note Patient and family declined PT secondary to not feeling well x 2 days and patient is "chilling". PT will attempt in a.m. 1 ref ([id number]) ARELIS POWERS PT Jan 25, 2020 10:29
--- NOTE | 2020-01-25 13:25 | Occ Therapy Progress Note ---
Therapy Progress Note OT attempted to see 2x this morning- pt asleep/ fatigued each time. Attempt to see after lunch ([id number]), pt upright in recliner chair. Pt states she feels "tired," and that "(she) didn't know it would be this hard... getting sick." Pt denies OT eval/ treat at this time. Pt and OT discuss d/c date (Saturday), pt states she remembers her UE theraband ex (theraband placed on table and discussion of energy conservation and energy monitoring still being applied. Pt now on 3L 02, discussion of diaphragmatic breathing exercises and pt states she remembers. Pt states she has been getting up/ toileting with SBA and states does that when she has increased energy. D/c OT at this time; pt able to continue UE exercises/ endurance training and energy conservation without skilled assist. All needs met in room. 1, visit MARIAELENA URIBE OTR Jan 25, 2020 13:25
--- NOTE | 2020-01-25 16:49 | Progress Note ---
Standard Progress Note Progress Notes/Assess & Plan Date Seen by a Provider: Jan 25, 2020 Time Seen by a Provider: 16:45 Progress/Assessment & Plan 69-year-old female with recent diagnosis of therapy induced secondary AML. She was started on treatment with Vidaza and Venetoclax regimen approximately 3.5 weeks ago and was continuing on Venetoclax 100 mg daily until 01/21/2020. Patient was in rehabilitation because of deconditioning and has pancytopenia because of her disease and treatment. She is transfusion dependent for PRBCs and platelets. Transferred to acute care because of neutropenic fever. Pancultures negative and IV vancomycin discontinued today. Cdiff positive and on oral vancomycin. No diarrhea. Labs noted today and will give 1 unit platelets. Continue transfusion support to maintain hemoglobin more than 7 g/dL and platelets more than 10,000. Undergoing PT for strengthening and ambulation. Has appointment at on Saturday01/27/2020 for bone marrow biopsy and visit. WILVER ESTRELLA Jan 25, 2020 16:49
[2020-01-25] MEDS: SIMvastatin 10 MG (ZOCOR) TAB PO SCH (22:26)
[2020-01-25] MEDS: MELATONIN 3 MG TABLET PO PRN (22:26)
[2020-01-26] VITALS (7 sets, daily range): BP systolic 128–174; BP diastolic 67–82
[2020-01-26] MEDS: CATHETER FLUSH 10 ML SYR IV SCH ×3 (05:30→21:38)
[2020-01-26] MEDS: inSUlin ASPART (NovoLOG) 1 UNIT/0.01 ML (CHARGE PER UNIT) SC SCH ×4 (05:32→21:37)
[2020-01-26 05:53] LABS: BASOPHILS % (AUTO) 6 % (0-10); EOSINOPHILS % (AUTO) 0 % (0-10); HEMATOCRIT 24 % (35-52); HEMOGLOBIN 7.9 G/DL (11.5-16.0); LYMPHOCYTES # (AUTO) 0.3 X 10^3 (1.0-4.0); LYMPHOCYTES % (AUTO) 50 % (12-44); MEAN CORPUSCULAR HGB CONC 33 G/DL (32-36); MEAN CORPUSCULAR VOLUME 89 FL (80-99); MEAN PLATELET VOLUME 10.5 FL (7.4-10.4); MONOCYTES # (AUTO) 0.3 X 10^3 (0.0-1.0); MONOCYTES % (AUTO) 39 % (0-12); NEUTROPHILS % (AUTO) 5 % (42-75); RED CELL DISTRIBUTION WIDTH 15.6 % (10.0-14.5)
[2020-01-26 05:57] LABS: MEAN CORPUSCULAR HEMOGLOBIN 29 PG (25-34); PLATELET COUNT 13 10^3/uL (130-400); WHITE BLOOD COUNT 0.6 10^3/uL (4.3-11.0)
[2020-01-26 06:10] LABS: CALCIUM 9.1 MG/DL (8.5-10.1); CREATININE SERUM 1.51 MG/DL (0.60-1.30); POTASSIUM 4.3 MMOL/L (3.6-5.0)
[2020-01-26] MEDS: ISOSORBIDE MONONITRATE 30 MG (IMDUR) TAB PO SCH (06:20)
--- NOTE | 2020-01-26 07:10 | Progress Note - Hospitalist ---
Subjective HPI/CC On Admission Date Seen by Provider: Jan 26, 2020 Time Seen by Provider: 10:00 CC: Neutropenic fever HPI: This is a 69yoWF who was transferred to 4th floor as a precautionary move due to fever in neutropenic AML patient on chemotherapy. Patient is maintained on Vanc and Cefepime empirically and will be monitored closely for decompensation. Daughter is at the bedside. IRF notes: Hospital course: patient had a lengthy course after admitted form chemotherapy induced myopathy after syncope and AMS ICU stay requiring multiple transfusions of platelets due to critical level due to AML dx. Dr Thurman followed along during the IRF stay and provided his expertise. Patient had no decompensation during her course in IRF but at 0230 on 01/22/20 patient had fever and hypoxia but CXR was negative it was assessed the patient needed transfer to 4th floor for empiric IV abx and close monitoring to prevent overwhelming infection and everyone was in agreement with the plan. Assessment: Neutropenia fever requiring transfer to 4th floor inpatient status Chemotherapy induced myopathy s/p AMS due to encephalopathy admitted ICU 01/12/20 Severe anemia requiring multiple transfusions Severe thrombocytopenia requiring multiple platelet transfusions AML on chemotherapy KU Hyponatremia Neutropenia requiring broad spectrum abx s/p DC Vanc and Zosyn now COVID-19 swab negative HTN DM Obesity CAD previous CABG CRI Port dysfunction needs replaced but cannot safely do so here at [facility] due to severity of platelet level Plan: Supportive care Transfuse prn Consult Dr Thurman appreciated PT OT IRF protocol HTN meds Replace port per KU next week Maintain PICC IV abx empiric (1) Complication of chemotherapy (2) Diabetes mellitus (3) Hypertension (4) Volume overload (5) BMI 40.0-44.9, adult (6) History of lymphoma Status: Acute (7) Pancytopenia Status: Acute (8) anemia (9) Syncope Status: Acute (10) Symptomatic anemia Status: Acute (11) Fatigue Status: Acute (12) AML (acute myeloid leukemia) Status: Acute Discharge Summary Discharge Physical Examination Allergies: Coded Allergies: midazolam (Unverified Allergy, Unknown, MAKE PT HYPER AND ANXIOUS, 05/28/14) Vitals & I&Os Vital Signs Date Time Temp Pulse Resp B/P (MAP) Pulse Ox O2 Delivery O2 Flow Rate FiO2 01/22/20 05:50 36.8 97 20 151/67 (95) 95 Nasal Cannula 2.00 General Appearance: Alert, Oriented X3, Cooperative Respiratory: Clear to Auscultation Cardiovascular: Regular Rate Psych/Mental Status: Mental Status NL Hospital Course Was the Problem List Reviewed?: Yes Hospital course: patient had a lengthy course after admitted form chemotherapy induced myopathy after syncope and AMS ICU stay requiring multiple transfusions of platelets due to critical level due to AML dx. Dr Thurman followed along during the IRF stay and provided his expertise. Patient had no decompensation during her course in IRF but at 0230 on 01/22/20 patient had fever and hypoxia but CXR was negative it was assessed the patient needed transfer to 4th floor for empiric IV abx and close monitoring to prevent overwhelming infection and everyone was in agreement with the plan. Subjective/Events-last exam Daughter needs order for commode [facility] will be ordered Home O2 evaluation will also be performed I did reach out to Dr. Omalley who will see the Pt since it is a pretty significant decubitus ulcer WBC 0.6, Hgb 7.9, PLT 12,000, Creatinine 1.5 Will be ready for discharge to tomorrow at 6:00 in the morning to prepare for their appointment at 10:00 Having some hematomas on her arm where they attempted to start the IV a cold pack is being applied Pt has such severely low platelets the hematomas in the soft tissue are profound Vancomycin will be given at discharge relabeled for use Review of Systems General: Fatigue Pulmonary: Dyspnea Objective Exam Vital Signs Vital Signs Date Time Temp Pulse Resp B/P (MAP) Pulse Ox O2 Delivery O2 Flow Rate FiO2 01/26/20 16:00 36.4 67 18 142/71 (94) 100 Nasal Cannula 2.00 01/25/20 15:10 32 Capillary Refill : Less Than 3 Seconds General Appearance: No Apparent Distress, WD/WN, Chronically ill, Obese Respiratory: Lungs Clear Cardiovascular: Regular Rate, Rhythm Neurologic/Psychiatric: Alert, Oriented x3, designated broker II-XII Norm as Tested, Depre ssed Affect Skin: Rash (arms from previous IV sites) Results/Procedures Lab Laboratory Tests 01/26/20 05:20 Patient resulted labs reviewed. Assessment/Plan Assessment and Plan Assess & Plan/Chief Complaint Assessment: Neutropenic fever placed on 4th floor as precaution and placed on Vanc and Cefe pime in meantime now DC both abx since no confirmed bacterial infection except c diff Acute c diff colitis placed on Vanc PO AML Severe thrombocytopenia requiring daily platelet transfusions Severe anemia requiring transfusions every other day Chemotherapy induced myopathy Poor motivation Obesity NHL 2015 CRI Plan: IV abx DC Vanc PO O2 continuous 2L/min ordered Supportive care DC Wed am at 0600 for KU appt 1000 Diagnosis/Problems Diagnosis/Problems (1) Neutropenic fever (2) Complication of chemotherapy (3) History of lymphoma Status: Acute (4) anemia (5) BMI 40.0-44.9, adult (6) Hypertension (7) Pancytopenia Status: Acute (8) Diabetes mellitus (9) AML (acute myeloid leukemia) Status: Acute (10) Symptomatic anemia Status: Acute (11) Syncope Status: Acute (12) Fatigue Status: Acute (13) C. difficile colitis Clinical Quality Measures DVT/VTE Risk/Contraindication: Risk Factor Score Per Nursin Contraindications-Pharm: Other *list below* Other: low platelets MONTSERRAT HUANG DO Jan 26, 2020 07:10
[2020-01-26] MEDS: POSACONAZOLE 100 MG PO SCH (08:51)
[2020-01-26] MEDS: ALLOPURINOL 300 MG (ZYLOPRIM) TAB PO SCH (08:52)
[2020-01-26] MEDS: amLODIPine 5 MG (NORVASC) TAB PO SCH (08:52)
[2020-01-26] MEDS: VANCOMYCIN 50 MG/ML ORAL SOLN 150 ML PO SCH ×4 (08:52→21:35)
[2020-01-26] MEDS: GABAPENTIN 300 MG (NEURONTIN) CAP PO SCH ×2 (08:52→21:37)
[2020-01-26] MEDS: SENNA W/DOCUSATE (SENOKOT S) TABLET PO SCH ×3 (08:52→21:32)
[2020-01-26] MEDS: ACYCLOVIR 400 MG TABLET (ZOVIRAX) PO SCH ×2 (08:52→21:37)
[2020-01-26] MEDS: CARVEDILOL 6.25 MG (COREG) TAB PO SCH ×2 (08:53→21:37)
[2020-01-26] MEDS: CYANOCOBALAMIN 1,000 MCG (VITAMIN B-12) TABLET PO SCH (08:53)
[2020-01-26] MEDS: polyethylene glycoL POWDER 17 GM (MIRALAX) PACK PO SCH ×3 (08:53→21:32)
[2020-01-26] MEDS: VITAMIN D3 10 MCG (400 UNITS) TABLET PO SCH (08:53)
[2020-01-26] MEDS: ALPRAZolam 0.5 MG (XANAX) TAB PO PRN ×2 (09:04→21:37)
[2020-01-26] MEDS: NEO/POLY/BAC (NEOSPORIN) OINT 15 GM TUBE TOP SCH ×2 (09:05→21:38)
--- NOTE | 2020-01-26 10:04 | Physical Therapy Daily Note ---
PT Daily Note-Current Subjective Patient agrees to PT. She reports she is feeling better today. Mental Status Patient Orientation: Normal For Age Attachments: Oxygen Transfers SCALE: Activities may be completed with or without assistive devices. 6-Hkykjwiiic-bgepzar completes the activity by him/herself with no assistance from a helper. 5-Set-up or Clean-up Assistance-helper sets up or cleans up; patient completes activity. [place] assists only prior to or following the activity. 4-Supervision or Touching Assistance-helper provides verbal cues and/or touching/steadying and/or contact guard assistance as patient completes activity. Assistance may be provided throughout the activity or intermittently. 3-Partial/Moderate Assistance-helper does LESS THAN HALF the effort. [place] lifts, holds or supports trunk or limbs, but provides less than half the effort. 2-Substantial/Maximal Assistance-helper does MORE THAN HALF the effort. [place] lifts or holds trunk or limbs and provides more than half the effort. 6-Tqgehsmtj-cqchwg does ALL the effort. Patient does none of the effort to complete the activity. Or, the assistance of 2 or more helpers is required for the patient to complete the activity. If activity was not attempted, code reason: 7-Patient Refused. 9-Not Applicable-not attempted and the patient did not perform the activity before the current illness, exacerbation or injury. 10-Not Attempted due to Environmental Limitations-(lack of equipment, weather restraints, etc.). 88-Not Attempted due to Medical Conditions or Safety Concerns. Sit to Stand (QC): 6 Gait Training Does the Patient Walk?: Yes Distance: 275' Walk 10 feet (QC): 6 Walk 50 ft with 2 Turns(QC): 6 Walk 150 ft (QC): 6 Gait Assistive Device: FWW safe and functional Assessment Patient remains up in recliner with needs met. PT Nursing Home Goals Manager Food Beverage Goals PT Manager Food Beverage Goals Time Frame: Feb 06, 2020 Roll Left & Right (QC): 6 Sit to Lying (QC): 6 Lying-Sitting on Side/Bed(QC): 6 Sit to Stand (QC): 6 Chair/Whl-mv-Tcjdj Xfer(QC): 6 Toilet Transfer (QC): 6 Car Transfer (QC): 6 Does the Patient Walk: Yes Walk 10 feet (QC): 6 Walk 50ft with 2 Turns (QC): 6 Walk 150 ft (QC): 6 PT Plan Treatment/Plan Treatment Plan: Continue Plan of Care Treatment Plan: Bed Mobility, Education, Functional Activity Chiara, Functional Strength, Gait, Safety, Therapeutic Exercise, Transfers Treatment Duration: Feb 06, 2020 Frequency: 6 times per week Estimated Hrs Per Day: .25 hour per day Time/GCodes Time In: 943 Time Out: 957 Total Billed Treatment Time: 14 Total Billed Treatment 1 visit FA 14 min ARELIS POWERS PT Jan 26, 2020 10:04
[2020-01-26] MEDS ORDERED: INSU100I10 SC (10:47)
[2020-01-26] MEDS ORDERED: ALPR0.5T PO (10:47)
[2020-01-26] MEDS ORDERED: AMLO5TAB9 PO (10:47)
[2020-01-26] MEDS ORDERED: HYDR-83 PO (10:47)
[2020-01-26] MEDS ORDERED: VANC50SO PO (10:47)
--- NOTE | 2020-01-26 10:49 | D/C HH Face to Face Order ---
D/C Face to Face Orders Reconcile Patient Problems Problems Reviewed?: Yes Instructions for Patient Home Health Patient Instructions/FollowUp: [facility] 1 week [facility] tomorrow Physician to follow Patient: [facility] Discharge Diet for Home: ADA Diet Patient Problems: AML Low platelets Decubitus ulcer Goals for Patient: Recover Patient Data-Allergies,Ht & Wt Patient Allergies: Coded Allergies: midazolam (Unverified Allergy, Unknown, MAKE PT HYPER AND ANXIOUS, 05/28/14) Height (Feet): 5 Height (Inches): 1.00 Weight (Pounds): 245 Home Health Need/Face to Face Date of Face to Face: Jan 26, 2020 Clinical Findings: Generalized weakness and fatigue, Immune-compromised, Instability, Muscle weakness, Pain with ambulation, Shortness of breath, Unsteady gait, Non-healing wound I have seen Pt hxsg-if-sjsq: Yes Discharged To: Home Diagnosis/Conditions: AML Low platelets Decubitus ulcer Patient is Homebound due to: [place] fall risk due to instabilty, Muscle weakness, Pain w/ambulation, Shortness of breath/distress Homebound Status Due to the above stated illness, injury or surgical procedure (medical condition or diagnosis) and associated clinical findings, the patient is homebound because of his/her inability to leave home except with aid of a supportive device and/or person AND leaving the home requires a considerable and taxing effort or is medically contraindicated. Pt req the following assistanc: Walker Home Health Nursing Orders Home Health Services Order: Nursing Services, Mammographer-Evaluate & Treat, Physical Therapy-Evaluate & Treat, Wound Care-Eval/Treat Certify Stmt I certify that this patient is under my care and that I, a nurse practitioner or a physician; a per diem physical therapist assistant working with me, had a face to face encounter that -oleksandr leonid the physician face to face encounter requirements with this patient as dated. MONTSERRAT HUANG DO Jan 26, 2020 10:49
--- NOTE | 2020-01-26 11:08 | NUR ---
RD ASSESSMENT PMHx: cardiomyopathy; CAD; HTN; hypercholesterolemia; GERD; DM; CA(leukemia; lymphoma) PT INTERACTION: Pt was awake and pleasant during nutrition follow-up. Pt states current appetite is "not good." Not ave PO intake 48% meals, per chart review. Pt states no issues with nausea, vomiting, constipation, or diarrhea since last assessment. Note last BM was 01/23, and pt currently on bowel regimen of senna BID; and miralax BID, per chart review. Note presence of wound (coccyx/sacrum), per chart review. ABNORMAL NUTRITION-RELATED LAB VALUES LOW: Na 132 HIGH: BUN 36; cr 1.51 Est. kcal needs: 7559-5483 kcal | 15-18 kcal/kg Est. Pro needs: 104-125 g Pro | 1.0-1.2 g Pro/kg PES STATEMENT: Inadequate oral intake (NI-2.1) related to loss of appetite as evidenced by pt interview | avg PO intake 48% of meals Inadequate protein intake (NI-5.6.1) related to increased protein needs as evidenced by presence of wound (coccyx/sacrum) INTERVENTION: Continue with current diet order of CHO 60g/m 0snack diet. Add Ensure HP (keerthi) to meals TID. Provides 160 kcal and 16 g Pro per serving, for perceived benefit to wound healing. Will continue to follow and reassess as pt needs, intake, and status change. MONITOR/EVALUATE: PO Intake; Plan of Care; Hydration Status; Weight Status; Lab Values Lisandra Campa, MS, RD, LD
--- NOTE | 2020-01-26 14:53 | NUR ---
pt was placed on room air for 30 minutes. pts o2 saturation was 82% after 30 minutes of room air. pt was then placed on 2L NC and pts o2 saturation came up to 95%. Addendum: 01/26/20 at 1454 by GABY LOPEZ RT Amended: Links added.
--- NOTE | 2020-01-26 15:38 | NUR ---
Afte rpt's release from Hematolgy[facility]cer Service she will be returning home with family assistance.She will need continuous oxygen and requires the assistance of one with most transfers from bed and will need a bedside commode due to extreme fatigue and weakness. Arrangements completed for referral to [facility] for intermediate, Physical Therapy,Occupational Therapy and Wound Care. She has a front wheel walker to aid in transfers.
--- NOTE | 2020-01-26 16:00 | NUR ---
PER DR. HUANG, MIDLINE TO STAY INTACT UPON DISCHARGE IN AM.
--- NOTE | 2020-01-26 17:21 | Progress Note ---
Standard Progress Note Progress Notes/Assess & Plan Date Seen by a Provider: Jan 26, 2020 Time Seen by a Provider: 17:17 Progress/Assessment & Plan 69-year-old female with recent diagnosis of therapy induced secondary AML. She was started on treatment with Vidaza and Venetoclax regimen approximately 3.5 weeks ago and was continuing on Venetoclax 100 mg daily until 01/21/2020. Patient was in rehabilitation because of deconditioning and has pancytopenia because of her disease and treatment. She is transfusion dependent for PRBCs and platelets. Transferred to acute care because of neutropenic fever. Pancultures negative and IV antibiotics discontinued today. Cdiff positive and on oral vancomycin. Continue for total 10 days. No diarrhea. Labs stable today AM. Will repeat CBC this evening and transfuse as needed tonight as she is being d/c'd tomorrow AM to go to for bone marrow biopsy and visit. Check outpatient labs on Saturday and visit with labs on Saturday at [facility]. WILVER ESTRELLA Jan 26, 2020 17:21
[2020-01-26 18:21] LABS: BASOPHILS % (AUTO) 5 % (0-10); EOSINOPHILS % (AUTO) 0 % (0-10); HEMATOCRIT 25 % (35-52); HEMOGLOBIN 8.4 G/DL (11.5-16.0); LYMPHOCYTES # (AUTO) 0.3 X 10^3 (1.0-4.0); LYMPHOCYTES % (AUTO) 60 % (12-44); MEAN CORPUSCULAR HEMOGLOBIN 30 PG (25-34); MEAN CORPUSCULAR HGB CONC 34 G/DL (32-36); MEAN CORPUSCULAR VOLUME 89 FL (80-99); MEAN PLATELET VOLUME 12.2 FL (7.4-10.4); MONOCYTES # (AUTO) 0.2 X 10^3 (0.0-1.0); MONOCYTES % (AUTO) 35 % (0-12); NEUTROPHILS % (AUTO) 0 % (42-75)
[2020-01-26 18:44] LABS: PLATELET COUNT 15 10^3/uL (130-400); WHITE BLOOD COUNT 0.6 10^3/uL (4.3-11.0)
--- NOTE | 2020-01-26 18:50 | NUR ---
DR. ESTRELLA CALLED WITH RESULTS OF 406'S BLOOD WORK REQUESTED.
[2020-01-26] MEDS: SIMvastatin 10 MG (ZOCOR) TAB PO SCH (21:37)
[2020-01-27] VITALS: BP 159/71
[2020-01-27 04:00] VITALS: BP 138/78
[2020-01-27] MEDS: inSUlin ASPART (NovoLOG) 1 UNIT/0.01 ML (CHARGE PER UNIT) SC SCH (05:57)
[2020-01-27] MEDS: ISOSORBIDE MONONITRATE 30 MG (IMDUR) TAB PO SCH (05:58)
[2020-01-27] MEDS: CATHETER FLUSH 10 ML SYR IV SCH (06:04)
[2020-01-27 06:25] VITALS: BP 181/73
--- NOTE | 2020-01-27 06:53 | Discharge Summary ---
Discharge Summary Hospital Course Was the Problem List Reviewed?: Yes Problems/Dx: (1) Neutropenic fever (2) Complication of chemotherapy (3) History of lymphoma Status: Acute (4) anemia (5) BMI 40.0-44.9, adult (6) Hypertension (7) Pancytopenia Status: Acute (8) Diabetes mellitus (9) AML (acute myeloid leukemia) Status: Acute (10) Symptomatic anemia Status: Acute (11) Syncope Status: Acute (12) Fatigue Status: Acute (13) C. difficile colitis Hospital Course Date of Admission: Jan 22, 2020 at 07:08 Admission Diagnosis : Family Physician/Provider: Nina Bhat Vice President Financial Date of Discharge: 01/27/20 Discharge Diagnosis: Neutropenic fever, c diff colitis, AML Hospital Course: Patient had a lengthy course after transferred from [facility] due to fever with neutropenia so she was pancultured and placed on broad spectrum abx and ultimately dx with c diff colitis prompting Vanc PO treatment. Patient received blood transfusions and platelet transfusions every day under Dr Thurman instructions and chemo pills were held for 3 days. Patient was able to DC to [facility] in stable condition. Labs and Pending Lab Test: Laboratory Tests 01/26/20 10:55: Glucometer 118H 01/26/20 11:25: Lab Scanned Report Transfusion Reaction Form 01/26/20 15:46: Glucometer 284H 01/26/20 18:08: White Blood Count 0.6*L, Red Blood Count 2.81L, Hemoglobin 8.4L, Hematocrit 25L, Mean Corpuscular Volume 89, Mean Corpuscular Hemoglobin 30, Mean Corpuscular Hemoglobin Concent 34, Red Cell Distribution Width 15.0H, Platelet Count 15*L, Mean Platelet Volume 12.2H, Neutrophils (%) (Auto) 0L, Lymphocytes (%) (Auto) 60H, Monocytes (%) (Auto) 35H, Eosinophils (%) (Auto) 0, Basophils (%) (Auto) 5, Neutrophils # (Auto) 0.0L, Lymphocytes # (Auto) 0.3L, Monocytes # (Auto) 0.2, Eosinophils # (Auto) 0.0, Basophils # (Auto) 0.0 01/26/20 20:46: Glucometer 258H 01/27/20 05:57: Glucometer 94 Microbiology 01/22/20 C. difficile GDH Antigen & Toxins - Final, Complete Home Meds Active Hydrocodone-Acetamin 5-325 mg (Hydrocodone/Acetaminophen) 1 Each Tablet 1 Tab PO Q4H PRN Amlodipine Besylate 5 Mg Tablet 5 Mg PO DAILY Firvanq (Vancomycin HCl) 50 Mg/1 Ml Soln.recon 0 Mg PO QID 7 Days Lantus Solostar (Insulin Glargine,Hum.rec.anlog) 100 Unit/1 Ml Insuln.pen 10 Units SC BID 7 Days Xanax (Alprazolam) 0.5 Mg Tablet 0.5 Mg PO TID PRN Reported Novolog Flexpen (Insulin Aspart) 300 Units/3 Ml Solution Units SC PER SLIDING SCALE Zofran (Ondansetron HCl) 8 Mg Tablet 8 Mg PO Q8H PRN Vitamin D3 (Vitamin D) 10 Mcg Tablet 1,000 Units PO DAILY Vitamin B-12 (Cyanocobalamin (Vitamin B-12)) 1,000 Mcg Tablet 1,000 Mcg PO DAILY Citalopram HBr (Citalopram Hydrobromide) 20 Mg Tablet 20 Mg PO DAILY Isosorbide Mononitrate 20 Mg Tablet 30 Mg PO DAILY Carvedilol 6.25 Mg Tablet 6.25 Mg PO BID Acyclovir 400 Mg Tablet 400 Mg PO BID Allopurinol 300 Mg Tablet 300 Mg PO DAILY Simvastatin 10 Mg Tablet 10 Mg PO HS Gabapentin 300 Mg/6 Ml Solution 300 Mg PO BID Assessment/Pt Instructions [facility] 1 week KU appt on day of DC Discharge Planning: <30 minutes discharge planning Discharge Instructions Discharge Diet: ADA Diet Discharge Physical Examination Vital Signs Vital Signs Date Time Temp Pulse Resp B/P (MAP) Pulse Ox O2 Delivery O2 Flow Rate FiO2 01/27/20 04:00 36.3 67 20 138/78 (98) 94 Nasal Cannula 2.00 01/25/20 15:10 32 General Appearance: No Apparent Distress, WD/WN, Chronically ill, Obese Respiratory: Lungs Clear Cardiovascular: Regular Rate, Rhythm Allergies: Coded Allergies: midazolam (Unverified Allergy, Unknown, MAKE PT HYPER AND ANXIOUS, 05/12 02/22) Discharge Summary Date of Admission Jan 22, 2020 at 07:08 Date of Discharge Discharge Date: Jan 27, 2020 Admission Diagnosis Assessment: Neutropenic fever placed on 4th floor as precaution and placed on Vanc and Cefepime in meantime AML Severe thrombocytopenia requiring daily platelet transfusions Severe anemia requiring transfusions every other day Chemotherapy induced myopathy Poor motivation Obesity NHL 2014 CRI Plan: IV abx O2 Supportive care Discharge Diagnosis Assessment: Neutropenic fever placed on 4th floor as precaution and placed on Vanc and Cefepime in meantime now DC both abx since no confirmed bacterial infection except c diff Acute c diff colitis placed on Vanc PO AML Severe thrombocytopenia requiring daily platelet transfusions Severe anemia requiring transfusions every other day Chemotherapy induced myopathy Poor motivation Obesity NHL 2014 CRI Plan: IV abx DC Vanc PO O2 continuous 2L/min ordered Supportive care DC Wed am at 0600 for [facility]U appt 1000 (1) Neutropenic fever (2) Complication of chemotherapy (3) History of lymphoma Status: Acute (4) anemia (5) BMI 40.0-44.9, adult (6) Hypertension (7) Pancytopenia Status: Acute (8) Diabetes mellitus (9) AML (acute myeloid leukemia) Status: Acute (10) Symptomatic anemia Status: Acute (11) Syncope Status: Acute (12) Fatigue Status: Acute (13) C. difficile colitis Clinical Quality Measures DVT/VTE Risk/Contraindication: Risk Factor Score Per Nursin Contraindications-Pharm: Other *list below* Other: low platelets MONTSERRAT HUANG DO Jan 27, 2020 06:53
[2020-01-28] MEDS ORDERED: COLL30OI TP (19:21)
== END 2020-01-27 06:25 | disposition home health service (06) | DRG 809 ==
LOC: 4TH 07:08
PROVIDERS: ADMIT Internal Medicine; ATTEND Internal Medicine
DX: D70.9 Neutropenia, unspecified (principal); C92.00 Acute myeloblastic leukemia, not having achieved remission; G72.0 Drug-induced myopathy; A04.72 Enterocolitis due to Clostridium difficile, not specified as recurrent; E87.1 Hypo-osmolality and hyponatremia; Z68.41 Body mass index [BMI] 40.0-44.9, adult; R50.81 Fever presenting with conditions classified elsewhere; T45.1X5A Adverse effect of antineoplastic and immunosuppressive drugs, initial encounter; I12.9 Hypertensive chronic kidney disease with stage 1 through stage 4 chronic kidney disease, or unspecified chronic kidney disease; N18.9 Chronic kidney disease, unspecified; I25.10 Atherosclerotic heart disease of native coronary artery without angina pectoris; E11.9 Type 2 diabetes mellitus without complications; E66.9 Obesity, unspecified; D61.810 Antineoplastic chemotherapy induced pancytopenia; Z95.1 Presence of aortocoronary bypass graft; Z79.4 Long term (current) use of insulin
CPT/HCPCS: 36415; 80048; 80053; 80202; 82274; 82962; 85014; 85018; 85025; 85027; 86850; 86900; 86901; 86920; 87324; 87449; 94760; 94761

== ENCOUNTER 2020-01-28 15:52 | Emergency (ER) | payer MEDICARE, MEDICAID ==
[~2020-01-28] VITALS: Ht 177.8 cm; Wt 108.6 kg
[~2020-01-28 15:52] MED LIST changes: +AMLO5TAB9 PO; +HYDR-83 PO; +VANC50SO PO
--- NOTE | 2020-01-28 16:04 | ED Dyspnea ---
General Stated Complaint: SOA Source of Information: Patient Exam Limitations: No Limitations History of Present Illness Date Seen by Provider: Jan 28, 2020 Time Seen by Provider: 16:02 Initial Comments To ER with shortness of breath since this morning. Denies fevers denies cough. Reports general weakness.Was just discharged from [facility] yesterday and went to for bone marrow biopsy. Timing/Duration: Other (12 hours) Severity: Moderate Prior Episodes/Possible Cause: No Prior Episodes Allergies and Home Medications Allergies Coded Allergies: midazolam (Unverified Allergy, Unknown, MAKE PT HYPER AND ANXIOUS, 05/28/14) Home Medications Acyclovir 400 Mg Tablet, 400 MG PO BID, (Reported) Allopurinol 300 Mg Tablet, 300 MG PO DAILY, (Reported) Alprazolam 0.5 Mg Tablet, 0.5 MG PO TID PRN for ANXIETY Prescribed by: MONTSERRAT HUANG on 01/26/201046 Amlodipine Besylate 5 Mg Tablet, 5 MG PO DAILY Prescribed by: MONTSERRAT HUANG on 01/26/201046 Carvedilol 6.25 Mg Tablet, 6.25 MG PO BID, (Reported) Citalopram Hydrobromide 20 Mg Tablet, 20 MG PO DAILY, (Reported) Collagenase 30 Gm Oint..gm., 1 GM TP DAILY Prescribed by: LUIS JO on 01/28/201920 Cyanocobalamin (Vitamin B-12) 1,000 Mcg Tablet, 1,000 MCG PO DAILY, (Reported) Gabapentin 300 Mg/6 Ml Solution, 300 MG PO BID, (Reported) Hydrocodone/Acetaminophen 1 Each Tablet, 1 TAB PO Q4H PRN for PAIN-MODERATE (5- 7) Prescribed by: MONTSERRAT HUANG on 01/26/20 104 Insulin Aspart 300 Units/3 Ml Solution, UNITS SC PER SLIDING SCALE, (Reported) Insulin Glargine,Hum.rec.anlog 100 Unit/1 Ml Insuln.pen, 10 UNITS SC BID Prescribed by: MONTSERRAT HUANG on 01/26/20 104 Isosorbide Mononitrate 20 Mg Tablet, 30 MG PO DAILY, (Reported) Ondansetron HCl 8 Mg Tablet, 8 MG PO Q8H PRN for NAUSEA-1ST LINE, (Reported) Simvastatin 10 Mg Tablet, 10 MG PO HS, (Reported) Vancomycin HCl 50 Mg/1 Ml Soln.recon, 0 MG PO QID Prescribed by: MONTSERRAT HUANG on 01/26/20 1047 Vitamin D 10 Mcg Tablet, 1,000 UNITS PO DAILY, (Reported) Patient Home Medication List Home Medication List Reviewed: Yes Review of Systems Review of Systems Constitutional: see HPI; No chills, No fever; weakness EENTM: see HPI Respiratory: see HPI, dyspnea on exertion, short of breath Cardiovascular: no symptoms reported Genitourinary: no symptoms reported Musculoskeletal: no symptoms reported Skin: no symptoms reported Psychiatric/Neurological: No Symptoms Reported Endocrine: No Symptoms Reported Past Krfwsdq-Gqifzh-Rdlhbn Hx Patient Social History 2nd Hand Smoke Exposure: No Recent Foreign Travel: No Contact w/Someone Who Travel: No Recent Hopitalizations: No Immunizations Up To Date Date of Pneumonia Vaccine: Mar 12, 2019 Seasonal Allergies Seasonal Allergies: No Past Medical History Surgeries: Yes (heel spur; bartholin cyst; carpal tunnel; hernia; cataract; back) Appendectomy, Cardiac, CABG, Coronary Stent, Gallbladder, Hysterectomy, Orthopedic Respiratory: No Cardiac: Yes (chf; quadruple bypass) Cardiomyopathy, Coronary Artery Disease, High Cholesterol, Hypertension Neurological: No Genitourinary: Yes (CHRONIC KIDNEY DX; UTI) Gastrointestinal: Yes Gastroesophageal Reflux Musculoskeletal: Yes Degenerate Disk Disease Endocrine: Yes Diabetes, Insulin dep HEENT: No (CATARACTS REMOVED; WEARS GLASSES) Cataract Cancer: Yes Leukemia, Lymphoma Did You Recieve Any Treatments: Yes What Type of Treatment Did You: Chemotherapy Psychosocial: Yes Anxiety, Depression Integumentary: No Blood Disorders: No Adverse Reaction/Blood Tranf: No Family Medical History Cardiovascular disease 19 FATHER 19 MOTHER G8 BROTHER Diabetes mellitus 19 FATHER G8 BROTHER Hypertension 19 FATHER 19 MOTHER Neoplasm G8 BROTHER (lung cancer- from) Heart Disease, Cancer, Diabetes, Hypertension Physical Exam Vital Signs Vital Signs - First Documented 01/28/20 16:14 Temp 37.1 Pulse 100 Resp 18 B/P (MAP) 200/93 (128) Pulse Ox 100 O2 Delivery Room Air O2 Flow Rate 2.00 Capillary Refill : Height, Weight, BMI Height: 5'1.00" Weight: 245lbs. oz. 111.370178tt; 43.67 BMI Method: General Appearance: No Apparent Distress, WD/WN, Obese, Other (no distress oxygen saturation 99% on her baseline 2 L heart rate 102) Neck: Full Range of Motion, Normal Inspection Respiratory: No Accessory Muscle Use Cardiovascular: Regular Rate, Rhythm, Systolic Murmur Gastrointestinal: Non Tender, Soft Extremity: Pedal Edema, Other (Two areas of thrombophlebitis at left forearm at site of previous IV. ) Neurologic/Psychiatric: Alert, Oriented x3 Skin: Normal Color, Warm/Dry, Other (there is an unstageable pressure ulcer to the coccyx with about a nickel-sized area of necrotic skin. I'll give a prescription for Santyl to help with debridement.) Focused Exam Lactate Level 01/28/20 16:11: Lactic Acid Level 0.67 Lactic Acid Level Laboratory Tests Test 01/28/20 16:11 Lactic Acid Level 0.67 MMOL/L (0.50-2.00) Progress/Results/Core Measures Results/Orders Lab Results Laboratory Tests Test 01/28/20 16:11 01/28/20 17:04 Range/Units White Blood Count 0.6 *L 4.3-11.0 10^3/uL Red Blood Count 2.89 L 4.35-5.85 10^6/uL Hemoglobin 8.7 L 11.5-16.0 G/DL Hematocrit 26 L 35-52 % Mean Corpuscular Volume 89 80-99 FL Mean Corpuscular Hemoglobin 30 25-34 PG Mean Corpuscular Hemoglobin Concent 34 32-36 G/DL Red Cell Distribution Width 14.9 H 10.0-14.5 % Platelet Count 15 *L 130-400 10^3/uL Mean Platelet Volume 10.9 H 7.4-10.4 FL Neutrophils (%) (Auto) 19 L 42-75 % Lymphocytes (%) (Auto) 61 H 12-44 % Monocytes (%) (Auto) 12 0-12 % Eosinophils (%) (Auto) 0 0-10 % Basophils (%) (Auto) 7 0-10 % Neutrophils # (Auto) 0.1 L 1.8-7.8 X 10^3 Lymphocytes # (Auto) 0.4 L 1.0-4.0 X 10^3 Monocytes # (Auto) 0.1 0.0-1.0 X 10^3 Eosinophils # (Auto) 0.0 0.0-0.3 10^3/uL Basophils # (Auto) 0.0 0.0-0.1 10^3/uL Prothrombin Time 15.3 H 12.2-14.7 SEC INR Comment 1.2 0.8-1.4 Activated Partial Thromboplast Time 31 24-35 SEC D-Dimer 3.77 H 0.00-0.49 UG/ML Sodium Level 134 L 135-145 MMOL/L Potassium Level 4.3 3.6-5.0 MMOL/L Chloride Level 98 98-107 MMOL/L Carbon Dioxide Level 28 21-32 MMOL/L Anion Gap 8 5-14 MMOL/L Blood Urea Nitrogen 32 H 7-18 MG/DL Creatinine 1.16 0.60-1.30 MG/DL Estimat Glomerular Filtration Rate 47 BUN/Creatinine Ratio 28 Glucose Level 262 H 70-105 MG/DL Lactic Acid Level 0.67 0.50-2.00 MMOL/L Calcium Level 9.2 8.5-10.1 MG/DL Corrected Calcium 9.8 8.5-10.1 MG/DL Magnesium Level 1.5 L 1.6-2.4 MG/DL Total Bilirubin 0.7 0.1-1.0 MG/DL Aspartate Amino Transf (AST/SGOT) 16 5-34 U/L Alanine Aminotransferase (ALT/SGPT) 31 0-55 U/L Alkaline Phosphatase 87 40-136 U/L Myoglobin 74.5 10.0-92.0 NG/ML Troponin I < 0.028 <0.028 NG/ML C-Reactive Protein High Sensitivity 16.88 H 0.00-0.50 MG/DL B-Type Natriuretic Peptide 444.1 H <100.0 PG/ML Total Protein 6.7 6.4-8.2 GM/DL Albumin 3.2 3.2-4.5 GM/DL Procalcitonin 1.70 H <0.10 NG/ML My Orders Orders - LUIS JO [employer] Cbc With Automated Diff (01/28/20 15:54) Magnesium (01/28/20 15:54) Chest 1 View, Ap/Pa Only (01/28/20 15:54) Ekg Tracing (01/28/20 15:54) Comprehensive Metabolic Panel (01/28/20 15:54) Myoglobin Serum (01/28/20 15:54) Protime With Inr (01/28/20 15:54) Partial Thromboplastin Time (01/28/20 15:54) O2 (01/28/20 15:54) Monitor-Rhythm Ecg Trace Only (01/28/20 15:54) Lipid Panel (01/29/20 06:00) Ed Iv/Invasive Line Start (01/28/20 15:54) BNP (01/28/20 15:54) Troponin I (01/28/20 15:54) Hs C Reactive Protein (01/28/20 15:54) Procalcitonin (Pct) (01/28/20 15:54) Blood Culture (01/28/20 15:56) Lactic Acid Analyzer (01/28/20 15:56) Metoprolol Tartrate Injection (Lopressor (01/28/20 16:15) Clonidine Tablet (Catapres Tablet) (01/28/20 16:15) Metoprolol Tartrate Injection (Lopressor (01/28/20 16:16) Clonidine Tablet (Catapres Tablet) (01/28/20 16:16) Coronavirus Sars-Cov-2 So 2018 (01/28/20 16:51) Magnesium 1 Gm/100 Ml Ivpb (Magnesium Polo (01/28/20 17:00) Magnesium Oxide Tablet (Mag Ox Tablet) (01/28/20 17:00) Fibrin Degradation Products (01/28/20 16:11) Ct Angio Chest W (01/28/20 17:22) Iohexol Injection (Omnipaque 350 Mg/Ml 1 (01/28/20 17:30) Received Contrast (Hold Metformin- Contr (01/28/20 17:30) Sodium Chloride Flush (Catheter Flush Sy (01/28/20 17:30) Ns (Ivpb) (Sodium Chloride 0.9% Ivpb Bag (01/28/20 17:30) Labetalol Injection (Normodyne Injection (01/28/20 19:00) Medications Given in ED Current Medications Medications Dose Ordered Sig/Matthew Route Start Time Stop Time Status Last Admin Dose Admin Clonidine HCl 0.1 mg ONCE ONCE PO 01/28/20 16:15 01/28/20 16:16 DC 01/28/20 16:20 0.1 MG Iohexol 100 ml ONCE ONCE IV 01/28/20 17:30 01/28/20 17:31 DC 01/28/20 17:55 84 ML Labetalol HCl 10 mg ONCE ONCE IV 01/28/20 19:00 01/28/20 19:01 DC 01/28/20 19:05 10 MG Magnesium Oxide 400 mg ONCE ONCE PO 01/28/20 17:00 01/28/20 17:01 DC 01/28/20 17:07 400 MG Magnesium Sulfate/ Dextrose 100 ml @ 100 mls/hr ONCE ONCE IV 01/28/20 17:00 01/28/20 17:59 DC 01/28/20 17:11 100 MLS/HR Metoprolol Tartrate 5 mg ONCE ONCE IV 01/28/20 16:15 01/28/20 16:16 DC 01/28/20 16:21 5 MG Sodium Chloride 10 ml NEEDED PRN IV 01/28/20 17:30 01/28/20 17:55 10 ML Sodium Chloride 100 ml ONCE ONCE IV 01/28/20 17:30 01/28/20 17:31 DC 01/28/20 17:55 80 ML Vital Signs/I&O 01/28/20 01/28/20 16:14 16:14 Temp 37.1 Pulse 100 Resp 18 B/P (MAP) 200/93 (128) Pulse Ox 100 99 O2 Delivery Room Air Nasal Cannula O2 Flow Rate 2.00 2.00 Diagnostic Imaging Diagonstic Imaging: Xray Comments NAME: LORI IRELAND [employer] REC#: [id number] PT STATUS: REG ER : 1950 PHYSICIAN: LUIS JO [employer] ADMIT DATE: 01/28/20/ER Draft Date of Exam:01/28/20 CHEST 1 VIEW, AP/PA ONLY HISTORY: Difficulty breathing. TECHNIQUE: Single frontal view of the chest. COMPARISON: 01/22/2020. FINDINGS: There is mild cardiomegaly with mild central vascular congestion. Sternotomy wires and post-CABG changes are seen. No focal airspace consolidation is seen. The tip of the right PICC line projects over the cavoatrial junction. Another linear density overlying the right chest may represent a second line, in stable position. No pleural effusion or pneumothorax is seen. IMPRESSION: 1. Mild cardiomegaly with mild central vascular congestion. No focal airspace consolidation is seen. Dictated on workstation # [id number] Dict: 01/28/20 1655 Trans: 01/28/20 1703 AS6 [id number] Interpreted by: ANU GREENWOOD MD Electronically signed by: NAME: LORI IRELAND [employer] REC#: [id number] PT STATUS: REG ER : 1950 PHYSICIAN: LUIS JO [employer] ADMIT DATE: 01/28/20/ER Draft Date of Exam:01/28/20 CT ANGIO CHEST W PROCEDURE: CT angiography of the chest with contrast. TECHNIQUE: Multiple contiguous axial images were obtained through the chest after uneventful bolus administration of intravenous contrast. 3D reconstructed CTA MIP acquisitions were also performed. Auto Exposure Controls were utilized during the CT exam to meet ALARA standards for radiation dose reduction. INDICATION: Respiratory distress. FINDINGS: There is cardiomegaly. There is coronary atherosclerosis. There are postoperative changes from CABG surgery. There is no aortic aneurysm or dissection. There are no pulmonary emboli, although visualization of peripheral branches is compromised by motion artifact. Some dependent basilar atelectasis. There are no effusions or pneumothoraces. IMPRESSION: Coronary atherosclerosis. There are no pulmonary emboli. There is minimal basilar atelectasis. Dictated on workstation # [id number] Dict: 01/28/20 1806 Trans: 01/28/20 1813 [facility] [id number] Interpreted by: STACI IBARRA MD Electronically signed by: Departure Communication (Admissions) Spoke with Dr. Huang, would like patient transferred to [facility]. Spoke with [facility] they do not feel that she needs admission to their hospital or any hospital. Patient would not be a candidate for bone marrow transplant, they would recommend another cycle of chemotherapy. I spoke with Dr. Garber, patient has blood work scheduled for tomorrow, he will see her on Saturday with bone marrow biopsy results to discuss plan. He states the elevated pro-calcitonin is likely commercial representative of the k nown C. difficile infection and he would not recommend any antibiotics at this time as she is without fever or other symptom and shortness of breath. Spoke with the daughter who will be in route to pickle processor the patient. I discussed this with the patient and she is agreeable, states that she would very much like to go home. Her blood pressure is 140/66 and she is no longer short of breath. Impression Primary Impression: Pancytopenia Additional Impression: Dyspnea Disposition: 01 HOME, SELF-CARE Condition: Stable Departure-Patient Inst. Decision time for Depature: 19:17 Referrals: [facility] (PCP) Primary Care Physician SHANON STAPLETON APRN (Family) Primary Care Physician BETTY LEE MD Patient Instructions: Acute Myeloid Leukemia (AML), High Blood Pressure (DC) Add. Discharge Instructions: 1. Apply Santyl ointment to a 4 x 4 pad of gauze and then apply directly to the wound on your buttocks. Call Dr. Maguire from wound care on Saturday to make an appointment to be seen. Scripts Collagenase (Santyl) 30 Gm Oint..gm. 1 GM TP DAILY for 10 Days, #1 TUBE Prov: LUIS JO APRN 01/28/20 LUIS JO APRN Jan 28, 2020 16:04
[2020-01-28] MEDS ORDERED: meTOprolol 5 MG/5 ML (LOPRESSOR) VIAL IV ONE (16:15)
[2020-01-28] MEDS ORDERED: cloNIDine 0.1 MG (CATAPRES) TAB PO ONE (16:15)
[2020-01-28] MEDS ORDERED: cloNIDine 0.1 MG (CATAPRES) TAB ONE (16:16)
[2020-01-28] MEDS ORDERED: meTOprolol 5 MG/5 ML (LOPRESSOR) VIAL ONE (16:16)
[2020-01-28 16:23] LABS: BASOPHILS % (AUTO) 7 % (0-10); EOSINOPHILS % (AUTO) 0 % (0-10); HEMATOCRIT 26 % (35-52); HEMOGLOBIN 8.7 G/DL (11.5-16.0); LYMPHOCYTES # (AUTO) 0.4 X 10^3 (1.0-4.0); LYMPHOCYTES % (AUTO) 61 % (12-44); MEAN CORPUSCULAR HEMOGLOBIN 30 PG (25-34); MEAN CORPUSCULAR HGB CONC 34 G/DL (32-36); MEAN CORPUSCULAR VOLUME 89 FL (80-99); MEAN PLATELET VOLUME 10.9 FL (7.4-10.4); MONOCYTES # (AUTO) 0.1 X 10^3 (0.0-1.0); MONOCYTES % (AUTO) 12 % (0-12); NEUTROPHILS # (AUTO) 0.1 X 10^3 (1.8-7.8); NEUTROPHILS % (AUTO) 19 % (42-75); RED CELL DISTRIBUTION WIDTH 14.9 % (10.0-14.5)
[2020-01-28 16:27] LABS: PLATELET COUNT 15 10^3/uL (130-400); WHITE BLOOD COUNT 0.6 10^3/uL (4.3-11.0)
[2020-01-28 16:42] LABS: ALBUMIN 3.2 GM/DL (3.2-4.5); POTASSIUM 4.3 MMOL/L (3.6-5.0)
[2020-01-28 16:43] LABS: CALCIUM 9.2 MG/DL (8.5-10.1)
[2020-01-28 16:45] LABS: TOTAL PROTEIN 6.7 GM/DL (6.4-8.2)
[2020-01-28 16:46] LABS: BILIRUBIN,TOTAL 0.7 MG/DL (0.1-1.0)
[2020-01-28 16:48] LABS: CREATININE SERUM 1.16 MG/DL (0.60-1.30)
[2020-01-28 16:51] LABS: MAGNESIUM 1.5 MG/DL (1.6-2.4)
[2020-01-28] MEDS ORDERED: MAGNESIUM 1 GM/100 ML IVPB 100 ML IV ONE (17:00)
[2020-01-28] MEDS ORDERED: MAGNESIUM OXIDE (MAG-OX)400 MG TAB PO ONE (17:00)
--- NOTE | 2020-01-28 17:00 | NUR ---
DAUGHTER CALLED AND TALKED WITH Jerry JO APRN. LUIS TALKED WITH DAUGHTER ABOUT TRANSFER
--- NOTE | 2020-01-28 17:04 | Diagnostic Imaging Report ---
HISTORY: Difficulty breathing. TECHNIQUE: Single frontal view of the chest. COMPARISON: 01/22/2020. FINDINGS: There is mild cardiomegaly with mild central vascular congestion. Sternotomy wires and post-CABG changes are seen. No focal airspace consolidation is seen. The tip of the right PICC line projects over the cavoatrial junction. Another linear density overlying the right chest may represent a second line, in stable position. No pleural effusion or pneumothorax is seen. IMPRESSION: 1. Mild cardiomegaly with mild central vascular congestion. No focal airspace consolidation is seen. Dictated by: Dictated on workstation # [id number]
[2020-01-28 17:18] LABS: FIBRIN DEGRADATION PRODUCTS 3.77 UG/ML (0.00-0.49); INR 1.2 (0.8-1.4); PROTHROMBIN TIME PATIENT 15.3 SEC (12.2-14.7)
[2020-01-28] MEDS ORDERED: IOHEXOL 350 MG/ML 100 ML (OMNIPAQUE 350) VIAL IV ONE (17:30)
[2020-01-28] MEDS ORDERED: NS 100 ML (IVPB) BAG IV ONE (17:30)
[2020-01-28] MEDS ORDERED: CATHETER FLUSH 10 ML SYR IV PRN (17:30)
[2020-01-28] MEDS ORDERED: HOLD METFORMIN - RECEIVED CONTRAST 20 ML VIAL IV SCH (17:30)
--- NOTE | 2020-01-28 18:13 | Diagnostic Imaging Report ---
PROCEDURE: CT angiography of the chest with contrast. TECHNIQUE: Multiple contiguous axial images were obtained through the chest after uneventful bolus administration of intravenous contrast. 3D reconstructed CTA MIP acquisitions were also performed. Auto Exposure Controls were utilized during the CT exam to meet ALARA standards for radiation dose reduction. INDICATION: Respiratory distress. FINDINGS: There is cardiomegaly. There is coronary atherosclerosis. There are postoperative changes from CABG surgery. There is no aortic aneurysm or dissection. There are no pulmonary emboli, although visualization of peripheral branches is compromised by motion artifact. Some dependent basilar atelectasis. There are no effusions or pneumothoraces. IMPRESSION: Coronary atherosclerosis. There are no pulmonary emboli. There is minimal basilar atelectasis. Dictated by: Dictated on workstation # [id number]
--- NOTE | 2020-01-28 18:58 | NUR ---
REPORT TO JOHN PAUL
[2020-01-28] MEDS ORDERED: LABETALOL HCL 20 MG/4 ML VIAL IV ONE (19:00)
[2020-01-28] MEDS ORDERED: COLL30OI TP (19:21)
[2020-01-28 19:50] VITALS: BP 140/58
--- OUTSIDE RECORDS SUMMARY | 2020-01-28 20:39 | XMS REPORT | Continuity of Care Document ---
Author Organization Unknown Address Unknown Phone Unavailable Allergies Active Description Code Type Severity Reaction Onset Reported/Identified Relationship to Patient Clinical Status Yes midazolam [id number] Drug Allergy Unknown MAKE PT HYPER A [...] Ot I25.1 0 ATHSCL HEART DISEASE OF [place] CORONARY 06/27/2019 ASHLEY HESS MD Ot R07.9 [...] Ot I25.1 0 ATHSCL HEART DISEASE OF [place] CORONARY 06/29/2019 ASHLEY HESS MD Ot R07.9 [...] Ot I25.1 0 ATHSCL HEART DISEASE OF [place] CORONARY 07/23/2019 ASHLEY HESS MD Ot R07.9 [...] CHRONIC KIDNEY DISEASE, STAGE 3 (MODERAT 10/21/2019 RIED CORDERO MDSIM Ot 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.] 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 01/04/2020 WILVER ESTRELLA Ot E66.9 OBESITY, UNSPECIFIED 01/04/2020 WILVER ESTRELLA Ot I12.9 HYPERTENSIVE CHRONIC KIDNEY DISEASE W ST 01/04/2020 WILVER ESTRELLA Ot I25.10 ATHSCL HEART DISEASE OF [place] CORONARY 01/04/2020 WILVER ESTRELLA Ot N18.3 CHRONIC KIDNEY DISEASE, STAGE 3 (MODERAT 01/04/2020 WILVER ESTRELLA Ot Z85.71 PERSONAL HISTORY OF [place] LYMPHOMA 01/04/2020 IRAJ DE LA TORRE MD, Ot C85.90 NON-[place] LYMPHOMA, UNSPECIFIED, UNSPE 01/04/2020 IRAJ DE LA TORRE MD Ot D61.818 OTHER PANCYTOPENIA 01/04/2020 IRAJ DE LA TORRE MD Ot 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 01/04/2020 IRAJ DE LA TORRE MD Ot [...] MD Ot I25.10 ATHSCL HEART DISEASE OF [place] CORONARY 01/04/2020 IRAJ DE LA TORRE MD Ot I42 .9 CARDIOMYOPATHY, UNSPECIFIED 01/04/2020 IRAJ DE LA TORRE MD Ot K21 .9 GASTRO-ESOPHAGEAL REFLUX DISEASE WITHOUT 01/04/2020 IRAJ DE LA TORRE MD Ot N18 .9 CHRONIC KIDNEY DISEASE, UNSPECIFIED 01/04/2020 IRAJ DE LA TORRE MD Ot R53 .1 WEAKNESS 01/04/2020 IRAJ DE LA TORRE MD, Ot Z79.899 OTHER ELECTRIC LINEMAN (CURRENT) DRUG THERAPY 01/04/2020 IRAJ DE LA [...] 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 01/04/2020 IRAJ DE LA TORRE MD Ot [...] MD Ot I25.10 ATHSCL HEART DISEASE OF [place] CORONARY 01/04/2020 IRAJ DE LA TORRE MD, Ot I42 .9 CARDIOMYOPATHY, UNSPECIFIED 01/04/2020 IRAJ DE LA TORRE MD, Ot K21 .9 GASTRO-ESOPHAGEAL REFLUX DISEASE WITHOUT 01/04/2020 IRAJ DE LA TORRE MD, Ot N18 .9 CHRONIC KIDNEY DISEASE, UNSPECIFIED 01/04/2020 IRAJ DE LA TORRE MD, Ot R53 .1 WEAKNESS 01/04/2020 IRAJ DE LA TORRE MD, Ot Z79.899 OTHER ELECTRIC LINEMAN (CURRENT) DRUG THERAPY 01/04/2020 IRAJ DE LA TORRE MD, Ot Z80 .1 FAMILY HISTORY OF MALIG NEOPLASM OF [place] 01/04/2020 IRAJ DE LA TORRE MD, Ot Z88 .8 ALLERGY STATUS TO [facility] DRUG/MEDS/BIOL SUB 01/04/2020 IRAJ DE LA TORRE [...] MD Ot I25.10 ATHSCL HEART DISEASE OF [place] CORONARY 01/13/2020 SALO MARIE MD Ot I42.9 CARDIOMYOPATHY, UNSPECIFIED 01/13/2020 SALO MARIE MD Ot I50.9 HEART FAILURE, UNSPECIFIED 01/13/2020 SALO MARIE MD Ot K21.9 GASTRO-ESOPHAGEAL REFLUX DISEASE WITHOUT 01/13/2020 SALO MARIE MD Ot N17.9 ACUTE KIDNEY FAILURE, UNSPECIFIED 01/13/2020 SALO MARIE MD Ot R09.02 HYPOXEMIA 01/13/2020 SALO MARIE MD, Ot Z68.41 BODY MASS INDEX (BMI) 40.0-44.9, ADULT 01/13/2020 SALO MARIE MD Ot Z79.4 LONG-TERM (CURRENT) USE OF INSULIN 01/13/2020 SALO MARIE MD Ot Z79.899 OTHER ELECTRIC LINEMAN (CURRENT) DRUG THERAPY 01/13/2020 SALO MARIE MD [...] MD Ot I25.10 ATHSCL HEART DISEASE OF [place] CORONARY 01/13/2020 SALO MARIE MD Ot I42.9 CARDIOMYOPATHY, UNSPECIFIED 01/13/2020 SALO MARIE MD, Ot I50.9 HEART FAILURE, UNSPECIFIED 01/13/2020 SALO MARIE MD, Ot K21.9 GASTRO-ESOPHAGEAL REFLUX DISEASE WITHOUT 01/13/2020 SALO MARIE MD Ot N17.9 ACUTE KIDNEY FAILURE, UNSPECIFIED 01/13/2020 SALO MARIE MD Ot R09.02 HYPOXEMIA 01/13/2020 SALO MARIE MD Ot Z68.41 BODY MASS INDEX (BMI) 40.0-44.9, ADULT 01/13/2020 SALO MARIE MD Ot Z79.4 ELECTRIC LINEMAN (CURRENT) USE OF INSULIN 01/13/2020 SALO MARIE MD Ot Z79.899 OTHER LONG-TERM (CURRENT) DRUG THERAPY 01/13/2020 SALO MARIE MD Ot Z95.1 PRESENCE OF AORTOCORONARY BYPASS GRAFT 01/13/2020 ASLO MARIE MD Ot Z95.5 PRESENCE OF CORONARY ANGIOPLASTY IMPLANT 01/14/2020 SALO MARIE MD Ot A41.9 SEPSIS, UNSPECIFIED ORGANISM 01/14/2020 SALO MARIE MD Ot C85.90 NON-[place] LYMPHOMA, UNSPECIFIED, UNSPE 01/14/2020 SALO MARIE MD, Ot C92.00 ACUTE MYELOBLASTIC LEUKEMIA, NOT HAVING 01/14/2020 SALO MARIE MD Ot D61.818 OTHER PANCYTOPENIA 01/14/2020 SALO MARIE MD Ot E11.9 TYPE 2 DIABETES MELLITUS WITHOUT COMPLIC 01/14/2020 SALO MRAIE MD Ot E66.9 OBESITY, UNSPECIFIED 01/14/2020 SALO [...] MD Ot I25.10 ATHSCL HEART DISEASE OF [place] CORONARY 01/14/2020 SALO MARIE MD Ot I42.9 CARDIOMYOPATHY, UNSPECIFIED 01/14/2020 SALO MARIE MD Ot I50.9 HEART FAILURE, UNSPECIFIED 01/14/2020 SALO MARIE MD Ot K21.9 GASTRO-ESOPHAGEAL REFLUX DISEASE WITHOUT 01/14/2020 SALO MARIE MD Ot N17.9 ACUTE KIDNEY FAILURE, UNSPECIFIED 01/14/2020 SALO MARIE MD Ot R09.02 HYPOXEMIA 01/14/2020 SALO MARIE MD Ot Z68.41 BODY MASS INDEX (BMI) 40.0-44.9, ADULT 01/14/2020 SALO MARIE MD Ot Z79.4 LONG-TERM (CURRENT) USE OF INSULIN 01/14/2020 SALO MARIE MD Ot Z79.899 OTHER ELECTRIC LINEMAN (CURRENT) DRUG THERAPY 01/14/2020 SALO MARIE MD [...] MD Ot I25.10 ATHSCL HEART DISEASE OF [place] CORONARY 01/15/2020 SALO MARIE MD Ot I42.9 CARDIOMYOPATHY, UNSPECIFIED 01/15/2020 SALO MARIE MD Ot I50.9 HEART FAILURE, UNSPECIFIED 01/15/2020 SALO MARIE MD Ot K21.9 GASTRO-ESOPHAGEAL REFLUX DISEASE WITHOUT 01/15/2020 SALO MARIE MD Ot N17.9 ACUTE KIDNEY FAILURE, UNSPECIFIED 01/15/2020 SALO MARIE MD Ot R09.02 HYPOXEMIA 01/15/2020 SALO MARIE MD Ot Z68.41 BODY MASS INDEX (BMI) 40.0-44.9, ADULT 01/15/2020 SALO MARIE MD Ot Z79.4 LONG-TERM (CURRENT) USE OF INSULIN 01/15/2020 SALO MARIE MD Ot Z79.899 OTHER LONG-TERM (CURRENT) DRUG THERAPY 01/15/2020 SALO MARIE MD [...] MD Ot I25.10 ATHSCL HEART DISEASE OF [place] CORONARY 01/15/2020 SALO MARIE MD Ot I42.9 CARDIOMYOPATHY, UNSPECIFIED 01/15/2020 SALO MARIE MD Ot I50.9 HEART FAILURE, UNSPECIFIED 01/15/2020 SALO MARIE MD Ot K21.9 GASTRO-ESOPHAGEAL REFLUX DISEASE WITHOUT 01/15/2020 SALO MARIE MD Ot N17.9 ACUTE KIDNEY FAILURE, UNSPECIFIED 01/15/2020 SALO MARIE MD Ot R09.02 HYPOXEMIA 01/15/2020 SALO MARIE MD Ot Z68.41 BODY MASS INDEX (BMI) 40.0-44.9, ADULT 01/15/2020 SALO MARIE MD Ot Z79.4 ELECTRIC LINEMAN (CURRENT) USE OF INSULIN 01/15/2020 SALO MARIE MD Ot Z79.899 OTHER LONG-TERM (CURRENT) DRUG THERAPY 01/15/2020 SALO MARIE MD [...] Ot F41.9 ANXIETY DISORDER, UNSPECIFIED 01/16/2020 SALO MAREI MD Ot I11.0 HYPERTENSIVE HEART DISEASE WITH HEART FA 01/16/2020 SALO MARIE MD Ot I25.10 ATHSCL HEART DISEASE OF [place] CORONARY 01/16/2020 SALO MARIE MD Ot I42.9 [...] ADULT 01/16/2020 SALO MARIE MD, Ot Z79.4 LONG-TERM (CURRENT) USE OF INSULIN 01/16/2020 SALO MARIE MD, Ot Z79.899 OTHER ELECTRIC LINEMAN (CURRENT) DRUG THERAPY 01/16/2020 SALO MARIE MD, Ot Z95.1 PRESENCE OF AORTOCORONARY BYPASS GRAFT 01/16/2020 SALO MARIE MD, Ot Z95.5 PRESENCE OF CORONARY ANGIOPLASTY IMPLANT 01/17/2020 WILVER ESTRELLA Ot C92.00 ACUTE MYELOBLASTIC LEUKEMIA, NOT HAVING 01/22/2020 HUANG DO, MONTSERRAT Ot C92.00 ACUTE MYELOBLASTIC LEUKEMIA, NOT HAVING 01/22/2020 HUANG DO, MONTSERRAT Ot D61.81 8 OTHER PANCYTOPENIA 01/22/2020 HUANG DO, MONTSERRAT Ot D70.9 NEUTROPENIA, UNSPECIFIED 01/22/2020 HUANG DO, MONTSERRAT Ot E11.9 TYPE 2 DIABETES MELLITUS WITHOUT COMPLIC 01/22/2020 HUANG DO, MONTSERRAT Ot E66.9 OBESITY, UNSPECIFIED 01/22/2020 HUANG DO, MONTSERRAT Ot E78.00 PURE HYPERCHOLESTEROLEMIA, UNSPECIFIED 01/22/2020 HUANG DO, MONTSERRAT Ot F32.9 MAJOR DEPRESSIVE DISORDER, SINGLE EPISOD 01/22/2020 HUANG DO, MONTSERRAT Ot F41.9 ANXIETY DISORDER, UNSPECIFIED 01/22/2020 HUANG DO, MONTSERRAT Ot 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 01/22/2020 HUANG DO, MONTSERRAT Ot I12.9 HYPERTENSIVE CHRONIC KIDNEY DISEASE W ST 01/22/2020 HUANG DO, MONTSERRAT Ot I25.10 ATHSCL HEART DISEASE OF [place] CORONARY 01/22/2020 HUANG DO, MONTSERRAT Ot I42.9 CARDIOMYOPATHY, UNSPECIFIED 01/22/2020 HUANG DO, MONTSERRAT Ot I87.2 VENOUS INSUFFICIENCY (CHRONIC) (PERIPHER 01/22/2020 HUANG DO, MONTSERRAT Ot K21.9 GASTRO-ESOPHAGEAL REFLUX DISEASE WITHOUT 01/22/2020 HUANG DO, MONTSERRAT Ot L89.15 9 PRESSURE ULCER OF [place], UNSPECI 01/22/2020 HUANG DO, MONTSERRAT Ot N18.9 CHRONIC KIDNEY DISEASE, UNSPECIFIED 01/22/2020 HUANG DO, MONTSERRAT Ot R50.81 FEVER PRESENTING WITH CONDITIONS CLASSIF 01/22/2020 HUANG DO, MONTSERRAT Ot T45.1X 5A ADVERSE EFFECT OF ANTINEOPLASTIC AND IMM 01/22/2020 HUANG DO, MONTSERRAT Ot T82.59 4A [facility] COM[facility] OF INFUSION CATHETER, INITIAL 01/22/2020 HUANG DO, MONTSERRAT Ot Z68.41 BODY MASS INDEX (BMI) 40.0-44.9, ADULT 01/22/2020 HUANG DO, MONTSERRAT Ot Z79.4 ELECTRIC LINEMAN (CURRENT) USE OF INSULIN 01/22/2020 HUANG DO, MONTSERRAT Ot Z90.49 ACQUIRED ABSENCE OF OTHER SPECIFIED PART 01/22/2020 HUANG DO, MONTSERRAT Ot Z90.71 0 ACQUIRED ABSENCE OF BOTH CERVIX AND UTER 01/22/2020 HUANG DO, MONTSERRAT Ot Z95.1 PRESENCE OF AORTOCORONARY BYPASS GRAFT 01/22/2020 HUANG DO, MONTSERRAT Ot Z95.5 PRESENCE OF CORONARY ANGIOPLASTY IMPLANT 01/27/2020 HUANG DO, MONTSERRAT Ot A04.72 ENTEROCOLITIS D/T CLOSTRIDIUM DIFFICILE, 01/27/2020 HUANG DO, MONTSERRAT Ot C92.00 ACUTE MYELOBLASTIC LEUKEMIA, NOT HAVING 01/27/2020 HUANG DO, MONTSERRAT Ot D61.81 0 ANTINEOPLASTIC CHEMOTHERAPY INDUCED PANC 01/27/2020 HUANG DO, MONTSERRAT Ot D70.9 NEUTROPENIA, UNSPECIFIED 01/27/2020 HUANG DO, MONTSERRAT Ot E11.9 TYPE 2 DIABETES MELLITUS WITHOUT COMPLIC 01/27/2020 HUANG DO, MONTSERRAT Ot E66.9 OBESITY, UNSPECIFIED 01/27/2020 HUANG DO, MONTSERRAT Ot E87.1 HYPO-OSMOLALITY AND HYPONATREMIA 01/27/2020 HUANG DO, MONTSERRAT Ot 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 01/27/2020 HUANG DO, MONTSERRAT Ot I12.9 HYPERTENSIVE CHRONIC KIDNEY DISEASE W ST 01/27/2020 HUANG DO, MONTSERRAT Ot I25.10 ATHSCL HEART DISEASE OF [place] CORONARY 01/27/2020 HUANG DO, MONTSERRAT Ot N18.9 CHRONIC KIDNEY DISEASE, UNSPECIFIED 01/27/2020 HUANG DO, MONTSERRAT Ot R50.81 FEVER PRESENTING WITH CONDITIONS CLASSIF 01/27/2020 MONTSERRAT HUANG DO Ot T45.1X 5A ADVERSE EFFECT OF ANTINEOPLASTIC AND IMM 01/27/2020 MONTSERRAT HUANG DO Ot Z68.41 BODY MASS INDEX (BMI) 40.0-44.9, ADULT 01/27/2020 MONTSERRAT HUANG DO Ot Z95.1 PRESENCE OF AORTOCORONARY BYPASS GRAFT Procedures There is no data. Results Test [...] 7-25 CREATININE 1.45 mg/dL 0.50-0.99 eGFR NON-AFR. TAJIK 37 mL/min/1.73m2 > OR = 60 eGFR [...] 7-25 CREATININE 1.56 mg/dL 0.50-0.99 eGFR NON-AFR. TAJIK 34 mL/min/1.73m2 > OR = 60 eGFR [...] NRG Blood type T Indirect antibody screen [facility] - 01/03/20 19:05 WRISTBAND NUMBER [id number] NRG ABO+Rh group BP NRG Blood group antibody screen NEGATIVE NR G Capillary blood glucose measurement by g lucometer (mass/volume) - 01/03/20 21:08 Capillary blood glucose measurement by glucometer (mas s/volume) 134 mg/dL 70-110 Whole blood hemoglobin and hematocrit [facility] - 01/04/20 01:14 Venous blood hemoglobin [...] NRG Blood type T Indirect antibody screen [facility] - 01/11/20 20:15 WRISTBAND NUMBER [id number] NRG ABO+Rh group BP NRG Blood group [...] NRG Blood type T Indirect antibody screen [facility] - 01/11/20 20:15 WRISTBAND NUMBER [id number] NRG ABO+Rh group BP NRG Blood group [...] Urine Legionella pneumophila antigen assay Negativ e [facility] Streptococcus pneumoniae antigen detecti on - 01/12/20 05:35 Streptococcus pneumoniae antigen detection Negativ e [facility] RESPIRATORY VIRUS PANEL - 01/12/20 05:35 Serum [...] Automated blood platelet mean volume measurement T [employer] EMISSIONS INSPECTOR 7.4- 10.4 Automated blood neutrophils/100 leukocytes TNP [...] pa dilshad - 01/15/20 12:52 WRISTBAND NUMBER [id number] NRG ABO+Rh group BP NRG Blood group [...] Automated blood platelet mean volume measurement T [employer]IC[employer] EMISSIONS INSPECTOR 7.4- 10.4 Automated blood neutrophils/100 leukocytes TNP [...] Automated blood platelet mean volume measurement T [employer]OR VEHICLE EMISSIONS INSPECTOR 7.4- 10.4 Automated blood neutrophils/100 leukocytes TNP [...] Automated blood platelet mean volume measurement T [employer]OR VEHICLE EMISSIONS INSPECTOR 7.4- 10.4 Automated blood neutrophils/100 leukocytes TNP [...] Automated blood platelet mean volume measurement T MOTOR VEHICLE EMISSIONS INSPECTOR 7.4- 10.4 Automated blood neutrophils/100 leukocytes TNP [...] pa dilshad - 01/19/20 07:51 WRISTBAND NUMBER [id number] NRG ABO+Rh group BP NRG Blood group [...] blood count (he mogram) panel - 01/20/20 00:20 Blood leukocytes automated [...] mg/dL 70-110 Automated blood complete blood count ( mogram) panel - 01/20/20 07:40 Blood leukocytes automated [...] Automated blood platelet mean volume measurement T [employer] EMISSIONS INSPECTOR 7.4- 10.4 Capillary blood glucose measurement by [...] Automated blood platelet mean volume measurement T [employer] EMISSIONS INSPECTOR 7.4- 10.4 Blood leukocytes automated count (number /volume) - 01/20/20 15:35 Blood leukocytes automated count (number/volume) 0 .2 10*3 4.3-11.0 RED CELLS LEUKO REDUCED AS1 - 01/20/20 1 5:35 RED CELLS LEUKO REDUCED AS1 N OT AVAILABLE NRG Blood type T Indirect antibody screen pa dilshad - 01/20/20 15:35 WRISTBAND NUMBER [id number] NRG ABO+Rh group BP NRG Blood group antibody screen NEGATIVE NR G TRANSFUSION REACTION BB TESTS - 01/20/20 15:35 ABO+Rh group [id number] NRG ABO+Rh group [place] NRG ABO+Rh group [...] mg/dL 70-110 Automated blood complete blood count ([employer] mogram) panel - 01/21/20 06:25 Blood leukocytes [...] mg/dL 70-110 Automated blood complete blood count ( mogram) panel - 01/21/20 17:10 Blood leukocytes [...] by glucometer (mas s/volume) 130 mg/dL 70-110 Bacterial blood culture - 01/22/20 03:53 Bacterial blood culture NG NRG Bacterial blood culture - 01/22/20 04:20 QUANTITY OF GROWTH Isolated NRG Bacterial blood culture [id number] NRG SUSCEPTIBILITY SUSCEPTIBILITY TO FOLLOW NRG Capillary blood glucose measurement by g [...] urinalysis with reflex to culture NO NRG Comprehensive metabolic panel - 01/22/20 08:02 Serum or plasma sodium measurement (moles/volume) 134 mmol/L 135-145 Serum or plasma potassium measurement (moles/volume) 4.0 mmol/L 3.6-5.0 Serum or plasma chloride measurement (moles/volume) 97 mmol/L 98-107 Carbon dioxide 26 mmol/L 21-32 Serum or plasma anion gap determination (moles/volume) 11 mmol/L 5-14 Serum or plasma urea nitrogen measurement (mass/volume ) 36 mg/dL 7-18 Serum or plasma creatinine measurement (mass/volume) 1.51 mg/dL 0.60-1.30 Serum or plasma urea nitrogen/creatinine mass ratio 24 NRG Serum or plasma creatinine measurement w ith calculation of estimated glomerular filtration rate 34 NRG Serum or plasma glucose measurement (mass/volume) 94 mg/dL 70-105 Serum or plasma calcium measurement (mass/volume) 8.8 mg/dL 8.5-10.1 Serum or plasma total bilirubin measurement (mass/volu me) 0.8 mg/dL 0.1-1.0 Serum or plasma alkaline phosphatase lachelle surement (enzymatic activity/volume) 65 U/L 40-136 Serum or plasma aspartate aminotransfera se measurement (enzymatic activity/volume) 37 U/L 5-34 Serum or plasma alanine aminotransferase measurement (enzymatic activity/volume) 35 U/L 0-55 Serum or plasma protein measurement (mass/volume) 6.0 g/dL 6.4-8.2 Serum or plasma albumin measurement (mass/volume) 3.1 g/dL 3.2-4.5 CALCIUM CORRECTED 9.5 mg/dL 8.5-10.1 PLATELET PHERESIS LR - 01/22/20 08:02 PLATELET PHERESIS LR TRANSFUS ED 01/25/20 0759 NRG RED CELLS LEUKO REDUCED AS1 - 01/22/20 0 8:02 RED CELLS LEUKO REDUCED AS1 T RANSFUSED 01/24/20 [id number] NRG Blood type T Indirect antibody screen pa dilshad - 01/22/20 08:02 WRISTBAND NUMBER [id number] NRG ABO+Rh group BP NRG Blood group antibody screen NEGATIVE NR G Capillary blood glucose measurement by g lucometer (mass/volume) - 01/22/20 11:12 Capillary blood glucose measurement by glucometer (mas s/volume) 101 mg/dL 70-110 OCCULT BLOOD STOOL - 01/22/20 13:55 Stool gastrointestinal hemoglobin detection POSITI VE NEGATIVE C DIFFICILE AG + TOXIN A/B. - 01/22/20 1 3:55 CALL POSITIVES (F1 HELP) CALLED TO DANNI ROSE AT 1534, 01-22-20/KD NRG SPECIAL CONTACT SPECIAL CONTACT PRECAUTIONS NEEDED NRG RESULTS POSITIVE FOR ANTIGEN AND TOXIN A/B NRG Complete blood count (CBC) with automate d white blood cell (WBC) differential - 01/22/20 15:20 Blood leukocytes automated count (number/volume) 0.9 10*3/uL 4.3-11.0 Blood erythrocytes automated count (number/volume) 2.47 10*6/uL 4.35-5.85 Venous blood hemoglobin measurement (mass/volume) 7.6 g/dL 11.5-16.0 Blood hematocrit (volume fraction) 22 % 35-52 Automated erythrocyte mean corpuscular volume 90 [ foz_us] 80-99 Automated erythrocyte mean corpuscular h emoglobin (mass per erythrocyte) 31 pg 25-34 Automated erythrocyte mean corpuscular h emoglobin concentration measurement (mass/volume) 34 g/dL 32-36 Automated erythrocyte distribution width ratio 15. 7 % 10.0- 14.5 Automated blood platelet count (count/volume) 10 1 0*3/uL 130-400 Automated blood platelet mean volume measurement T [employer] EMISSIONS INSPECTOR 7.4- 10.4 Automated blood neutrophils/100 leukocytes TNP [...] Automated blood basophil count (count/volume) TNP 0.0-0.1 Capillary blood glucose measurement by g lucometer (mass/volume) - 01/22/20 16:00 Capillary blood glucose measurement by glucometer (mas s/volume) 321 mg/dL 70-110 Capillary blood glucose measurement by g lucometer (mass/volume) - 01/22/20 20:59 Capillary blood glucose measurement by glucometer (mas s/volume) 441 mg/dL 70-110 Capillary blood glucose measurement by g lucometer (mass/volume) - 01/23/20 04:20 Capillary blood glucose measurement by glucometer (mas s/volume) 167 mg/dL 70-110 Capillary blood glucose measurement by g lucometer (mass/volume) - 01/23/20 05:48 Capillary blood glucose measurement by glucometer (mas s/volume) 149 mg/dL 70-110 Complete blood count (CBC) with automate d white blood cell (WBC) differential - 01/23/20 06:21 Blood leukocytes automated count (number/volume) 0.9 10*3/uL 4.3-11.0 Blood erythrocytes automated count (number/volume) 2.35 10*6/uL 4.35-5.85 Venous blood hemoglobin measurement (mass/volume) 7.3 g/dL 11.5-16.0 Blood hematocrit (volume fraction) 21 % 35-52 Automated erythrocyte mean corpuscular volume 89 [ foz_us] 80-99 Automated erythrocyte mean corpuscular h emoglobin (mass per erythrocyte) 31 pg 25-34 Automated erythrocyte mean corpuscular h emoglobin concentration measurement (mass/volume) 35 g/dL 32-36 Automated erythrocyte distribution width ratio 15. 3 % 10.0- 14.5 Automated blood platelet count (count/volume) 12 1 0*3/uL 130-400 Automated blood platelet mean volume measurement T [employer] EMISSIONS INSPECTOR 7.4- 10.4 Automated blood neutrophils/100 leukocytes TNP [...] (count/volume) TNP 0.0-0.1 Comprehensive metabolic panel - 01/23/20 06:21 Serum or plasma sodium measurement (moles/volume) 132 mmol/L 135-145 Serum or plasma potassium measurement (moles/volume) 4.2 mmol/L 3.6-5.0 Serum or plasma chloride measurement (moles/volume) 96 mmol/L 98-107 Carbon dioxide 27 mmol/L 21-32 Serum or plasma anion gap determination (moles/volume) 9 mmol/L 5-14 Serum or plasma urea nitrogen measurement (mass/volume ) 37 mg/dL 7-18 Serum or plasma creatinine measurement (mass/volume) 1.42 mg/dL 0.60-1.30 Serum or plasma urea nitrogen/creatinine mass ratio 26 NRG Serum or plasma creatinine measurement w ith calculation of estimated glomerular filtration rate 37 NRG Serum or plasma glucose measurement (mass/volume) 127 mg/dL 70-105 Serum or plasma calcium measurement (mass/volume) 8.7 mg/dL 8.5-10.1 Serum or plasma total bilirubin measurement (mass/volu me) 0.7 mg/dL 0.1-1.0 Serum or plasma alkaline phosphatase lachelle surement (enzymatic activity/volume) 69 U/L 40-136 Serum or plasma aspartate aminotransfera se measurement (enzymatic activity/volume) 33 U/L 5-34 Serum or plasma alanine aminotransferase measurement (enzymatic activity/volume) 35 U/L 0-55 Serum or plasma protein measurement (mass/volume) 6.2 g/dL 6.4-8.2 Serum or plasma albumin measurement (mass/volume) 3.1 g/dL 3.2-4.5 CALCIUM CORRECTED 9.4 mg/dL 8.5-10.1 Capillary blood glucose measurement by g lucometer (mass/volume) - 01/23/20 11:05 Capillary blood glucose measurement by glucometer (mas s/volume) 128 mg/dL 70-110 Capillary blood glucose measurement by g lucometer (mass/volume) - 01/23/20 15:32 Capillary blood glucose measurement by glucometer (mas s/volume) 266 mg/dL 70-110 Capillary blood glucose measurement by g lucometer (mass/volume) - 01/23/20 20:39 Capillary blood glucose measurement by glucometer (mas s/volume) 114 mg/dL 70-110 Capillary blood glucose measurement by g lucometer (mass/volume) - 01/24/20 03:14 Capillary blood glucose measurement by glucometer (mas s/volume) 78 mg/dL 70-110 Capillary blood glucose measurement by g lucometer (mass/volume) - 01/24/20 05:39 Capillary blood glucose measurement by glucometer (mas s/volume) 190 mg/dL 70-110 Complete blood count (CBC) with automate d white blood cell (WBC) differential - 01/24/20 06:25 Blood leukocytes automated count (number/volume) 0.7 10*3/uL 4.3-11.0 Blood erythrocytes automated count (number/volume) 2.12 10*6/uL 4.35-5.85 Venous blood hemoglobin measurement (mass/volume) [...] Automated blood platelet mean volume measurement T [employer] EMISSIONS INSPECTOR 7.4- 10.4 Automated blood neutrophils/100 leukocytes 13 % 42-75 Automated blood lymphocytes/100 leukocytes 67 % 12-44 Blood monocytes/100 leukocytes 16 % 0-12 Automated blood eosinophils/100 leukocytes 0 % 0-10 Automated blood basophils/100 leukocytes 4 % 0-10 Blood neutrophils automated count (number/volume) 0.1 10*3 1.8-7.8 Blood lymphocytes automated count (number/volume) 0.5 10*3 1.0-4.0 Blood monocytes automated count (number/volume) 0. 1 10*3 0.0-1.0 Automated eosinophil count 0.0 10*3/uL 0 .0-0.3 Automated blood basophil count (count/volume) 0.0 10*3/uL 0.0-0.1 Vancomycin trough - 01/24/20 06:25 Vancomycin trough 18.3 ug/mL 10.0-20.0 Capillary blood glucose measurement by g lucometer (mass/volume) - 01/24/20 11:23 Capillary blood glucose measurement by glucometer (mas s/volume) 286 mg/dL 70-110 Capillary blood glucose measurement by g lucometer (mass/volume) - 01/24/20 15:43 Capillary blood glucose measurement by glucometer (mas s/volume) 331 mg/dL 70-110 Whole blood hemoglobin and hematocrit pa dilshad - 01/24/20 19:30 Venous blood hemoglobin measurement (mass/volume) 6.7 g/dL 11.5-16.0 Blood hematocrit (volume fraction) 20 % 35-52 Capillary blood glucose measurement by g lucometer (mass/volume) - 01/24/20 20:43 Capillary blood glucose measurement by glucometer (mas s/volume) 399 mg/dL 70-110 Capillary blood glucose measurement by g lucometer (mass/volume) - 01/25/20 04:58 Capillary blood glucose measurement by glucometer (mas s/volume) 212 mg/dL 70-110 Complete blood count (CBC) with automate d white blood cell (WBC) differential - 01/25/20 05:00 Blood leukocytes automated count (number/volume) 0.6 10*3/uL 4.3-11.0 Blood erythrocytes automated count (number/volume) 2.75 10*6/uL 4.35-5.85 Venous blood hemoglobin measurement (mass/volume) 8.2 g/dL 11.5-16.0 Blood hematocrit (volume fraction) 24 % 35-52 Automated erythrocyte mean corpuscular volume 89 [ foz_us] 80-99 Automated erythrocyte mean corpuscular h emoglobin (mass per erythrocyte) 30 pg 25-34 Automated erythrocyte mean corpuscular h emoglobin concentration measurement (mass/volume) 34 g/dL 32-36 Automated erythrocyte distribution width ratio 15. 6 % 10.0- 14.5 Automated blood platelet count (count/volume) 8 10 *3/uL 130- 400 Automated blood platelet mean volume measurement T [employer] INS[employer]OR 7.4- 10.4 Automated blood neutrophils/100 leukocytes 0 % 42-75 Automated blood lymphocytes/100 leukocytes 43 % 12-44 Blood monocytes/100 leukocytes 49 % 0-12 Automated blood eosinophils/100 leukocytes 0 % 0-10 Automated blood basophils/100 leukocytes 8 % 0-10 Blood neutrophils automated count (number/volume) 0.0 10*3 1.8-7.8 Blood lymphocytes automated count (number/volume) 0.3 10*3 1.0-4.0 Blood monocytes automated count (number/volume) 0. 3 10*3 0.0-1.0 Automated eosinophil count 0.0 10*3/uL 0 .0-0.3 Automated blood basophil count (count/volume) 0.1 10*3/uL 0.0-0.1 Comprehensive metabolic panel - 01/25/20 05:00 Serum or plasma sodium measurement (moles/volume) 132 mmol/L 135-145 Serum or plasma potassium measurement (moles/volume) 4.1 mmol/L 3.6-5.0 Serum or plasma chloride measurement (moles/volume) 100 mmol/L 98-107 Carbon dioxide 21 mmol/L 21-32 Serum or plasma anion gap determination (moles/volume) 11 mmol/L 5-14 Serum or plasma urea nitrogen measurement (mass/volume ) 35 mg/dL 7-18 Serum or plasma creatinine measurement (mass/volume) 1.57 mg/dL 0.60-1.30 Serum or plasma urea nitrogen/creatinine mass ratio 22 NRG Serum or plasma creatinine measurement w ith calculation of estimated glomerular filtration rate 33 NRG Serum or plasma glucose measurement (mass/volume) 174 mg/dL 70-105 Serum or plasma calcium measurement (mass/volume) 8.2 mg/dL 8.5-10.1 Serum or plasma total bilirubin measurement (mass/volu me) 0.5 mg/dL 0.1-1.0 Serum or plasma alkaline phosphatase lachelle surement (enzymatic activity/volume) 93 U/L 40-136 Serum or plasma aspartate aminotransfera se measurement (enzymatic activity/volume) 26 U/L 5-34 Serum or plasma alanine aminotransferase measurement (enzymatic activity/volume) 34 U/L 0-55 Serum or plasma protein measurement (mass/volume) 5.8 g/dL 6.4-8.2 Serum or plasma albumin measurement (mass/volume) 2.7 g/dL 3.2-4.5 CALCIUM CORRECTED 9.2 mg/dL 8.5-10.1 Capillary blood glucose measurement by g lucometer (mass/volume) - 01/25/20 11:26 Capillary blood glucose measurement by glucometer (mas s/volume) 284 mg/dL 70-110 Capillary blood glucose measurement by g lucometer (mass/volume) - 01/25/20 15:39 Capillary blood glucose measurement by glucometer (mas s/volume) 297 mg/dL 70-110 Capillary blood glucose measurement by g lucometer (mass/volume) - 01/25/20 20:49 Capillary blood glucose measurement by glucometer (mas s/volume) 273 mg/dL 70-110 Complete blood count (CBC) with automate d white blood cell (WBC) differential - 01/26/20 05:20 Blood leukocytes automated count (number/volume) 0.6 10*3/uL 4.3-11.0 Blood erythrocytes automated count (number/volume) 2.68 10*6/uL 4.35-5.85 Venous blood hemoglobin measurement (mass/volume) 7.9 g/dL 11.5-16.0 Blood hematocrit (volume fraction) 24 % 35-52 Automated erythrocyte mean corpuscular volume 89 [ foz_us] 80-99 Automated erythrocyte mean corpuscular h emoglobin (mass per erythrocyte) 29 pg 25-34 Automated erythrocyte mean corpuscular h emoglobin concentration measurement (mass/volume) 33 g/dL 32-36 Automated erythrocyte distribution width ratio 15. 6 % 10.0- 14.5 Automated blood platelet count (count/volume) 13 1 0*3/uL 130-400 Automated blood platelet mean volume measurement 10.5 [foz_us] 7.4-10.4 Automated blood neutrophils/100 leukocytes 5 % 42-75 Automated blood lymphocytes/100 leukocytes 50 % 12-44 Blood monocytes/100 leukocytes 39 % 0-12 Automated blood eosinophils/100 leukocytes 0 % 0-10 Automated blood basophils/100 leukocytes 6 % 0-10 Blood neutrophils automated count (number/volume) 0.0 10*3 1.8-7.8 Blood lymphocytes automated count (number/volume) 0.3 10*3 1.0-4.0 Blood monocytes automated count (number/volume) 0. 3 10*3 0.0-1.0 Automated eosinophil count 0.0 10*3/uL 0 .0-0.3 Automated blood basophil count (count/volume) 0.0 10*3/uL 0.0-0.1 Whole blood basic metabolic panel - 01/10 01/29 05:20 Serum or plasma sodium measurement (moles/volume) 132 mmol/L 135-145 Serum or plasma potassium measurement (moles/volume) 4.3 mmol/L 3.6-5.0 Serum or plasma chloride measurement (moles/volume) 98 mmol/L 98-107 Carbon dioxide 24 mmol/L 21-32 Serum or plasma anion gap determination (moles/volume) 10 mmol/L 5-14 Serum or plasma urea nitrogen measurement (mass/volume ) 36 mg/dL 7-18 Serum or plasma creatinine measurement (mass/volume) 1.51 mg/dL 0.60-1.30 Serum or plasma urea nitrogen/creatinine mass ratio 24 NRG Serum or plasma creatinine measurement w ith calculation of estimated glomerular filtration rate 34 NRG Serum or plasma glucose measurement (mass/volume) 80 mg/dL 70-105 Serum or plasma calcium measurement (mass/volume) 9.1 mg/dL 8.5-10.1 Capillary blood glucose measurement by g lucometer (mass/volume) - 01/26/20 05:26 Capillary blood glucose measurement by glucometer (mas s/volume) 97 mg/dL 70-110 Capillary blood glucose measurement by g lucometer (mass/volume) - 01/26/20 10:55 Capillary blood glucose measurement by glucometer (mas s/volume) 118 mg/dL 70-110 Capillary blood glucose measurement by g lucometer (mass/volume) - 01/26/20 15:46 Capillary blood glucose measurement by glucometer (mas s/volume) 284 mg/dL 70-110 Complete blood count (CBC) with automate d white blood cell (WBC) differential - 01/26/20 18:08 Blood leukocytes automated count (number/volume) 0.6 10*3/uL 4.3-11.0 Blood erythrocytes automated count (number/volume) 2.81 10*6/uL 4.35-5.85 Venous blood hemoglobin measurement (mass/volume) 8.4 g/dL 11.5-16.0 Blood hematocrit (volume fraction) 25 % 35-52 Automated erythrocyte mean corpuscular volume 89 [ foz_us] 80-99 Automated erythrocyte mean corpuscular h emoglobin (mass per erythrocyte) 30 pg 25-34 Automated erythrocyte mean corpuscular h emoglobin concentration measurement (mass/volume) 34 g/dL 32-36 Automated erythrocyte distribution width ratio 15. 0 % 10.0- 14.5 Automated blood platelet count (count/volume) 15 1 0*3/uL 130-400 Automated blood platelet mean volume measurement 12.2 [foz_us] 7.4-10.4 Automated blood neutrophils/100 leukocytes 0 % 42-75 Automated blood lymphocytes/100 leukocytes 60 % 12-44 Blood monocytes/100 leukocytes 35 % 0-12 Automated blood eosinophils/100 leukocytes 0 % 0-10 Automated blood basophils/100 leukocytes 5 % 0-10 Blood neutrophils automated count (number/volume) 0.0 10*3 1.8-7.8 Blood lymphocytes automated count (number/volume) 0.3 10*3 1.0-4.0 Blood monocytes automated count (number/volume) 0. 2 10*3 0.0-1.0 Automated eosinophil count 0.0 10*3/uL 0 .0-0.3 Automated blood basophil count (count/volume) 0.0 10*3/uL 0.0-0.1 Capillary blood glucose measurement by g lucometer (mass/volume) - 01/26/20 20:46 Capillary blood glucose measurement by glucometer (mas s/volume) 258 mg/dL 70-110 Capillary blood glucose measurement by g lucometer (mass/volume) - 01/27/20 05:57 Capillary blood glucose measurement by glucometer (mas s/volume) 94 mg/dL 70-110 Complete blood count (CBC) with automate d white blood cell (WBC) differential - 01/28/20 16:11 Blood leukocytes automated count (number/volume) 0.6 10*3/uL 4.3-11.0 Blood erythrocytes automated count (number/volume) 2.89 10*6/uL 4.35-5.85 Venous blood hemoglobin measurement (mass/volume) 8.7 g/dL 11.5-16.0 Blood hematocrit (volume fraction) 26 % 35-52 Automated erythrocyte mean corpuscular volume 89 [ foz_us] 80-99 Automated erythrocyte mean corpuscular h emoglobin (mass per erythrocyte) 30 pg 25-34 Automated erythrocyte mean corpuscular h emoglobin concentration measurement (mass/volume) 34 g/dL 32-36 Automated erythrocyte distribution width ratio 14. 9 % 10.0- 14.5 Automated blood platelet count (count/volume) 15 1 0*3/uL 130-400 Automated blood platelet mean volume measurement 10.9 [foz_us] 7.4-10.4 Automated blood neutrophils/100 leukocytes 19 % 42-75 Automated blood lymphocytes/100 leukocytes 61 % 12-44 Blood monocytes/100 leukocytes 12 % 0-12 Automated blood eosinophils/100 leukocytes 0 % 0-10 Automated blood basophils/100 leukocytes 7 % 0-10 Blood neutrophils automated count (number/volume) 0.1 10*3 1.8-7.8 Blood lymphocytes automated count (number/volume) 0.4 10*3 1.0-4.0 Blood monocytes automated count (number/volume) 0. 1 10*3 0.0-1.0 Automated eosinophil count 0.0 10*3/uL 0 .0-0.3 Automated blood basophil count (count/volume) 0.0 10*3/uL 0.0-0.1 Comprehensive metabolic panel - 01/28/20 16:11 Serum or plasma sodium measurement (moles/volume) 134 mmol/L 135-145 Serum or plasma potassium measurement (moles/volume) 4.3 mmol/L 3.6-5.0 Serum or plasma chloride measurement (moles/volume) 98 mmol/L 98-107 Carbon dioxide 28 mmol/L 21-32 Serum or plasma anion gap determination (moles/volume) 8 mmol/L 5-14 Serum or plasma urea nitrogen measurement (mass/volume ) 32 mg/dL 7-18 Serum or plasma creatinine measurement (mass/volume) 1.16 mg/dL 0.60-1.30 Serum or plasma urea nitrogen/creatinine mass ratio 28 NRG Serum or plasma creatinine measurement w ith calculation of estimated glomerular filtration rate 47 NRG Serum or plasma glucose measurement (mass/volume) 262 mg/dL 70-105 Serum or plasma calcium measurement (mass/volume) 9.2 mg/dL 8.5-10.1 Serum or plasma total bilirubin measurement (mass/volu me) 0.7 mg/dL 0.1-1.0 Serum or plasma alkaline phosphatase lachelle surement (enzymatic activity/volume) 87 U/L 40-136 Serum or plasma aspartate aminotransfera se measurement (enzymatic activity/volume) 16 U/L 5-34 Serum or plasma alanine aminotransferase measurement (enzymatic activity/volume) 31 U/L 0-55 Serum or plasma protein measurement (mass/volume) 6.7 g/dL 6.4-8.2 Serum or plasma albumin measurement (mass/volume) 3.2 g/dL 3.2-4.5 CALCIUM CORRECTED 9.8 mg/dL 8.5-10.1 Blood lactic acid measurement (moles/vol ume) - 01/28/20 16:11 Blood lactic acid measurement (moles/volume) 0.67 mmol/L 0.50-2.00 Magnesium - 01/28/20 16:11 Magnesium 1.5 mg/dL 1.6-2.4 PROCALCITONIN (PCT) - 01/28/20 16:11 PROCALCITONIN (PCT) 1.70 ng/mL <0.10 Myoglobin, serum - 01/28/20 16:11 Myoglobin, serum 74.5 ng/mL 10.0-92.0 Serum or plasma troponin i.cardiac measu rement (mass/volume) - 01/28/20 16:11 Serum or plasma troponin i.cardiac measurement (mass/v olume) < ng/mL <0.028 Serum or plasma C reactive protein measu rement (mass/volume) - 01/28/20 16:11 Serum or plasma C reactive protein measurement (mass/v olume) 16.88 mg/dL 0.00-0.50 PT panel in platelet poor plasma by coag ulation assay - 01/28/20 16:11 Prothrombin time (PT) in platelet poor plasma by coagu lation assay 15.3 s 12.2-14.7 INR in platelet poor plasma or blood by coagulation as say 1.2 0.8-1.4 Activated partial thromboplastin time (a PTT) in platelet poor plasma bycoagulation assay - 01/28/20 16:11 Activated partial thromboplastin time (a PTT) in platelet poor plasma bycoagulation assay 31 s 24-35 Fibrin D-dimer FEU measurement in platel et poor plasma (mass/volume) - 01/28/20 16:11 Fibrin D-dimer FEU measurement in platelet poor plasma (mass/volume) 3.77 ug/mL 0.00-0.49 Serum or plasma lithium measurement (mol es/volume) - 01/28/20 16:11 BNP PT 444.1 pg/mL <100.0 Encounters ACCT No. Visit Date/Time Discharge Status Pt. Type Provider Facility Loc./Unit Complaint [id number] 09/13/2019 11:50:00 09/13/2019 23:59: 59 CLS Outpatient SHANON STAPLETON [facility] [id number] 09/24/2019 08:30:00 Document Registration [id number] 09/09/2019 08:15:00 Document Registration [id number] 06/08/2019 08:00:00 Document Registration [id number] 01/28/2019 10:20:00 Document Registration [id number] 11/19/2018 13:30:00 Document Registration [id number] 10/08/2018 10:15:00 Document Registration [id number] 01/22/2020 07:08:00 06:25:00 DIS Inpatient MONTSERRAT HUANG DO, [facility] 4TH PNEUMONIC FEVER [id number] 01/16/2020 13:55:00 07:26:00 DIS Outpatient MONTSERRAT HUANG DO [facility] IRF CHEMOTHERAPY NEUROPATHY [id number] 01/11/2020 17:40:00 13:35:00 DIS Outpatient CYNTHIA NAVARRO, SALO [facility] 4TH PANCYTOPENIA,SY MPTOMATIC ANEMIA,SYNCOPE,AML [id number] 01/11/2020 13:24:00 23:59:59 CLS Outpatient WILVER ESTRELLA [facility] ONC [id number] 01/11/2020 08:25:00 23:59:59 CLS Outpatient WILVER ESTRELLA [facility] LAB FS ACUTE MYELOCYTIC LEUKEM [place] [id number] 01/03/2020 15:51:00 12:00:00 DIS Inpatient IRAJ DE LA TORRE MD [facility] 4TH ANEMIC [id number] 11/28/2019 07:53:00 10:17:00 DIS Emergency TOYA AVALOS DO [facility] ER FS CHEST PAIN [id number] 10/19/2019 10:20:00 23:59:59 CLS Outpatient KIT CORDERO MD [facility] LAB FS 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 [id number] 06/26/2019 20:51:00 019 00:03:00 DIS Emergency ASHLEY HESS MD [facility] ER FS CP [id number] 06/01/2015 13:01:00 23:59:59 CLS Outpatient SHEREE SANTANA MD [facility] RAD RENAL INSUFFICIENCY STA GE 3 [id number] 12/28/2014 09:19:00 23:59:59 CLS Outpatient KIT CORDERO MD [facility] RAD HODGKINS LYMPHOMA [id number] 05/28/2014 10:50:00 014 11:58:00 DIS Outpatient JOSE RUFFIN MD [facility] CARD LUMBAR SPONDOLOYSIS [id number] 04/27/2014 15:10:00 014 23:59:59 CLS Outpatient JOSE RUFFIN MD [facility] RAD THORACIC SPINE PAIN,TEN DERNESS TO PALPATION R [place] [id number] 01/28/2020 16:28:00 Document Registration [id number] 09/29/2018 10:42:07 9 23:59:59 DIS Outpatient KIT CORDERO [facility] ASHLEY RAD hodgins lymphoma
== END 2020-01-28 20:05 | disposition home or self-care (01) ==
LOC: EDUNIT# 15:52 → ER 15:53
DX: D61.818 Other pancytopenia (principal); R06.00 Dyspnea, unspecified; E78.00 Pure hypercholesterolemia, unspecified; I25.10 Atherosclerotic heart disease of native coronary artery without angina pectoris; I13.10 Hypertensive heart and chronic kidney disease without heart failure, with stage 1 through stage 4 chronic kidney disease, or unspecified chronic kidney disease; I42.9 Cardiomyopathy, unspecified; N18.9 Chronic kidney disease, unspecified; E11.22 Type 2 diabetes mellitus with diabetic chronic kidney disease; K21.9 Gastro-esophageal reflux disease without esophagitis; F41.9 Anxiety disorder, unspecified; F32.9 Major depressive disorder, single episode, unspecified; Z20.828 Contact with and (suspected) exposure to other viral communicable diseases; Z88.8 Allergy status to other drugs, medicaments and biological substances; Z79.4 Long term (current) use of insulin; Z95.1 Presence of aortocoronary bypass graft; Z95.5 Presence of coronary angioplasty implant and graft; Z85.6 Personal history of leukemia; Z85.72 Personal history of non-Hodgkin lymphomas; Z82.49 Family history of ischemic heart disease and other diseases of the circulatory system; Z80.1 Family history of malignant neoplasm of trachea, bronchus and lung
CPT/HCPCS: 71045; 71275; 80053; 83605; 83735; 83874; 83880; 84145; 84484; 85025; 85027; 85379; 85610; 85730; 86141; 87040; 93005; 93041; 99284; U0002; 36415; 87635

== ENCOUNTER 2020-01-30 19:17 | Emergency (ER) | payer MEDICARE, MEDICAID ==
[~2020-01-30] VITALS: Ht 154 cm; Wt 108.0 kg
[~2020-01-30 19:17] MED LIST changes: +COLL30OI TP
--- NOTE | 2020-01-30 19:33 | ED General ---
General Stated Complaint: FEVER/URINARY PROBLEMS Source of Information: Patient Exam Limitations: No Limitations History of Present Illness Date Seen by Provider: Jan 30, 2020 Time Seen by Provider: 19:20 Initial Comments The patient is a pleasant obese 69-year-old female who presents for evaluation of fever and urinary complaints. She states that she's been taking Tylenol for the fever and had one a few hours ago. She reports that she is having some urinary urgency and some dysuria as well. She has a history of leukemia but is not currently being treated. She denies abdominal pain, back or flank pain, ches t pain or shortness of breath, cough, headache, neck pain, dizziness or syncope. She does report some fatigue and generalized weakness. The patient recently had C. difficile and after treatment is no longer having any symptoms. She also is being treated for chronic decubitus ulcer and had a recent biopsy. She is currently being treated with vancomycin. Timing/Duration: 1-2 Days Severity: Moderate Associated Systoms: Fever/Chills Allergies and Home Medications Allergies Coded Allergies: midazolam (Unverified Allergy, Unknown, MAKE PT HYPER AND ANXIOUS, 05/28/14) Home Medications Acyclovir 400 Mg Tablet, 400 MG PO BID, (Reported) Allopurinol 300 Mg Tablet, 300 MG PO DAILY, (Reported) Alprazolam 0.5 Mg Tablet, 0.5 MG PO TID PRN for ANXIETY Prescribed by: MONTSERRAT HUANG on 01/26/20 104 Amlodipine Besylate 5 Mg Tablet, 5 MG PO DAILY Prescribed by: MONTSERRAT HUANG on 01/26/20 104 Carvedilol 6.25 Mg Tablet, 6.25 MG PO BID, (Reported) Citalopram Hydrobromide 20 Mg Tablet, 20 MG PO DAILY, (Reported) Collagenase 30 Gm Oint..gm., 1 GM TP DAILY Prescribed by: LUIS JO on 01/28/201920 Cyanocobalamin (Vitamin B-12) 1,000 Mcg Tablet, 1,000 MCG PO DAILY, (Reported) Gabapentin 300 Mg/6 Ml Solution, 300 MG PO BID, (Reported) Hydrocodone/Acetaminophen 1 Each Tablet, 1 TAB PO Q4H PRN for PAIN-MODERATE (5- 7) Prescribed by: MONTSERRAT HUANG on 01/26/20 104 Insulin Aspart 300 Units/3 Ml Solution, UNITS SC PER SLIDING SCALE, (Reported) Insulin Glargine,Hum.rec.anlog 100 Unit/1 Ml Insuln.pen, 10 UNITS SC BID Prescribed by: MONTSERRAT HUANG on 01/26/20 1047 Isosorbide Mononitrate 20 Mg Tablet, 30 MG PO DAILY, (Reported) Ondansetron HCl 8 Mg Tablet, 8 MG PO Q8H PRN for NAUSEA-1ST LINE, (Reported) Simvastatin 10 Mg Tablet, 10 MG PO HS, (Reported) Vancomycin HCl 50 Mg/1 Ml Soln.recon, 0 MG PO QID Prescribed by: MONTSERRAT HUANG on 01/26/20 1047 Vitamin D 10 Mcg Tablet, 1,000 UNITS PO DAILY, (Reported) Patient Home Medication List Home Medication List Reviewed: Yes Review of Systems Review of Systems Constitutional: fever, malaise, weakness EENTM: no symptoms reported Respiratory: no symptoms reported Cardiovascular: no symptoms reported Gastrointestinal: no symptoms reported Genitourinary: no symptoms reported Musculoskeletal: no symptoms reported Skin: no symptoms reported Psychiatric/Neurological: No Symptoms Reported Hematologic/Lymphatic: No Symptoms Reported Immunological/Allergic: no symptoms reported All Other Systems Reviewed Negative Unless Noted: Yes Past Yuuggwe-Dgyvev-Lpkspj Hx Past Med/Social Hx: Reviewed Nursing Past Med/Soc Hx Patient Social History 2nd Hand Smoke Exposure: No Recent Foreign Travel: No Contact w/Someone Who Travel: No Recent Hopitalizations: No Immunizations Up To Date Date of Pneumonia Vaccine: Mar 12, 2019 Seasonal Allergies Seasonal Allergies: No Past Medical History Surgeries: Yes (heel spur; bartholin cyst; carpal tunnel; hernia; cataract; back) Appendectomy, Cardiac, CABG, Coronary Stent, Gallbladder, Hysterectomy, Orthopedic Respiratory: No Cardiac: Yes (chf; quadruple bypass) Cardiomyopathy, Coronary Artery Disease, High Cholesterol, Hypertension Neurological: No Genitourinary: Yes (CHRONIC KIDNEY DX; UTI) Gastrointestinal: Yes Gastroesophageal Reflux Musculoskeletal: Yes Degenerate Disk Disease Endocrine: Yes Diabetes, Insulin dep HEENT: No (CATARACTS REMOVED; WEARS GLASSES) Cataract Cancer: Yes Leukemia, Lymphoma Did You Recieve Any Treatments: Yes What Type of Treatment Did You: Chemotherapy Psychosocial: Yes Anxiety, Depression Integumentary: No Blood Disorders: No Adverse Reaction/Blood Tranf: No Family Medical History Cardiovascular disease 19 FATHER 19 MOTHER G8 BROTHER Diabetes mellitus 19 FATHER G8 BROTHER Hypertension 19 FATHER 19 MOTHER Neoplasm G8 BROTHER (lung cancer- from) Heart Disease, Cancer, Diabetes, Hypertension Physical Exam Vital Signs Vital Signs - First Documented 01/30/20 19:20 Temp 36.8 Pulse 107 Resp 18 B/P (MAP) 182/72 (108) Pulse Ox 93 O2 Delivery Nasal Cannula O2 Flow Rate 2.00 Capillary Refill : Height, Weight, BMI Height: 5'1.00" Weight: 245lbs. oz. 111.793216ji; 34.00 BMI Method: General Appearance: No Apparent Distress, WD/WN Eyes: Bilateral Eye Normal Inspection, Bilateral Eye PERRL, Bilateral Eye EOMI HEENT: PERRL/EOMI, Pharynx Normal Neck: Normal Inspection, Supple Respiratory: Lungs Clear, Normal Breath Sounds, No Respiratory Distress Cardiovascular: Regular Rate, Rhythm, No Edema, No JVD, Normal Peripheral Pulses Gastrointestinal: Normal Bowel Sounds, Non Tender, Soft Extremity: Normal Capillary Refill, Normal Inspection, Non Tender Neurologic/Psychiatric: Alert, Oriented x3, No Motor/Sensory Deficits, Normal Mood/Affect Focused Exam Lactate Level 01/30/20 19:30: Lactic Acid Level 1.04 Lactic Acid Level Laboratory Tests Test 01/30/20 19:30 Lactic Acid Level 1.04 MMOL/L (0.50-2.00) Progress/Results/Core Measures Suspected Sepsis SIRS Temperature: Pulse: Respiratory Rate: Laboratory Tests 01/30/20 19:59: White Blood Count 0.4*L Blood Pressure / Mean: 01/30/20 19:30: Lactic Acid Level 1.04 Laboratory Tests 01/30/20 19:30: Creatinine 1.08, Total Bilirubin 0.5 01/30/20 19:59: Platelet Count 14*L Results/Orders Lab Results Laboratory Tests Test 01/30/20 19:30 01/30/20 19:59 01/30/20 20:04 Range/Units Sodium Level 130 L 135-145 MMOL/L Potassium Level 3.7 3.6-5.0 MMOL/L Chloride Level 91 L 98-107 MMOL/L Carbon Dioxide Level 26 21-32 MMOL/L Anion Gap 13 5-14 MMOL/L Blood Urea Nitrogen 27 H 7-18 MG/DL Creatinine 1.08 0.60-1.30 MG/DL Estimat Glomerular Filtration Rate 51 BUN/Creatinine Ratio 25 Glucose Level 264 H 70-105 MG/DL Lactic Acid Level 1.04 0.50-2.00 MMOL/L Calcium Level 8.6 8.5-10.1 MG/DL Corrected Calcium 9.8 8.5-10.1 MG/DL Total Bilirubin 0.5 0.1-1.0 MG/DL Aspartate Amino Transf (AST/SGOT) 17 5-34 U/L Alanine Aminotransferase (ALT/SGPT) 26 0-55 U/L Alkaline Phosphatase 76 40-136 U/L Total Protein 6.3 L 6.4-8.2 GM/DL Albumin 2.5 L 3.2-4.5 GM/DL White Blood Count 0.4 *L 4.3-11.0 10^3/uL Red Blood Count 2.21 L 4.35-5.85 10^6/uL Hemoglobin 6.6 *L 11.5-16.0 G/DL Hematocrit 19 *L 35-52 % Mean Corpuscular Volume 85 80-99 FL Mean Corpuscular Hemoglobin 30 25-34 PG Mean Corpuscular Hemoglobin Concent 35 32-36 G/DL Red Cell Distribution Width 14.4 10.0-14.5 % Platelet Count 14 *L 130-400 10^3/uL Mean Platelet Volume 11.6 H 7.4-10.4 FL Neutrophils (%) (Auto) 32 L 42-75 % Lymphocytes (%) (Auto) 61 H 12-44 % Monocytes (%) (Auto) 5 0-12 % Eosinophils (%) (Auto) 0 0-10 % Basophils (%) (Auto) 3 0-10 % Neutrophils # (Auto) 0.1 L 1.8-7.8 X 10^3 Lymphocytes # (Auto) 0.2 L 1.0-4.0 X 10^3 Monocytes # (Auto) 0.0 0.0-1.0 X 10^3 Eosinophils # (Auto) 0.0 0.0-0.3 10^3/uL Basophils # (Auto) 0.0 0.0-0.1 10^3/uL Urine Color YELLOW Urine Clarity CLEAR Urine pH 7.5 5-9 Urine Specific [place] 1.015 L 1.016-1.022 Urine Protein 2+ H NEGATIVE Urine Glucose (UA) 2+ H NEGATIVE Urine Ketones NEGATIVE NEGATIVE Urine Nitrite NEGATIVE NEGATIVE Urine Bilirubin NEGATIVE NEGATIVE Urine Urobilinogen 0.2 < = 1.0 MG/DL Urine Leukocyte Esterase NEGATIVE NEGATIVE Urine RBC (Auto) TRACE-L NEGATIVE Urine RBC NONE /HPF Urine WBC 10-25 H /HPF Urine Squamous Epithelial Cells 10-25 H /HPF Urine Crystals NONE /LPF Urine Bacteria FEW H /HPF Urine Casts PRESENT /LPF Urine Hyaline Casts 0-2 H /LPF Urine Granular Casts 2-5 H /LPF Urine Mucus SMALL H /LPF Urine Culture Indicated YES My Orders Orders - JOHN PAUL WEBBER DO Ua Culture If Indicated (01/30/20 19:18) Cbc With Automated Diff (01/30/20 19:23) Comprehensive Metabolic Panel (01/30/20:) Lactic Acid Analyzer (01/30/20:23) Blood Culture (01/30/20:) Blood Culture (01/30/20 20:14) Ns Iv 1000 Ml (Sodium Chloride 0.9%) (01/30/20 20:15) Urine Culture (01/30/20 20:04) Cefepime Injection (Maxipime Injection) (01/30/20 21:30) Vital Signs/I&O 01/30/20:20 Temp 36.8 Pulse 107 Resp 18 B/P (MAP) 182/72 (108) Pulse Ox 93 O2 Delivery Nasal Cannula O2 Flow Rate 2.00 Capillary Refill : Progress Note : Progress Note @2049 - Patient informed of lab results and plan to admit to which she agrees. Case discussed with Dr. Huang at [facility] who believes of the patient exceeds her level of care and states that her oncologist Dr. Garber is not available. The patient has been admitted to in the past and prefers that facility. Discussed the case with transfer center at this time. They stated they will call back shortly. @2119 - Dr. Jones at accepts the transfer and would like the pt to receive 2g of Cefepime IV here. Departure Impression Primary Impression: Neutropenic fever Additional Impressions: AML (acute myeloid leukemia) Hyponatremia Pancytopenia Disposition: XFER SHT-TRM HOSP Condition: Stable Transfer Transfer Reason: Exceeds level of care Time Spoke to Accepting Phy: 21:[address] Jones at accepts the patient for transfer and would like 2 grams of cefepime to be given. Transfer Time: 21:50 Transfer Facility: [facility] Method of Transfer: EMS Departure-Patient Inst. Referrals: [facility] (PCP) Primary Care Physician SHANON STAPLETON APRN (Family) Primary Care Physician JOHN PAUL WEBBER DO Jan 30, 2020 19:33
[2020-01-30 20:10] LABS: WHITE BLOOD COUNT 0.4 10^3/uL (4.3-11.0)
[2020-01-30 20:11] LABS: HEMATOCRIT 19 % (35-52); HEMOGLOBIN 6.6 G/DL (11.5-16.0); MEAN CORPUSCULAR HEMOGLOBIN 30 PG (25-34); MEAN CORPUSCULAR HGB CONC 35 G/DL (32-36); MEAN CORPUSCULAR VOLUME 85 FL (80-99); MEAN PLATELET VOLUME 11.6 FL (7.4-10.4); PLATELET COUNT 14 10^3/uL (130-400); RED CELL DISTRIBUTION WIDTH 14.4 % (10.0-14.5)
[2020-01-30 20:12] LABS: BASOPHILS % (AUTO) 3 % (0-10); EOSINOPHILS % (AUTO) 0 % (0-10); LYMPHOCYTES # (AUTO) 0.2 X 10^3 (1.0-4.0); LYMPHOCYTES % (AUTO) 61 % (12-44); MONOCYTES % (AUTO) 5 % (0-12); NEUTROPHILS # (AUTO) 0.1 X 10^3 (1.8-7.8); NEUTROPHILS % (AUTO) 32 % (42-75)
[2020-01-30 20:13] LABS: POTASSIUM 3.7 MMOL/L (3.6-5.0)
[2020-01-30 20:14] LABS: ALBUMIN 2.5 GM/DL (3.2-4.5); BILIRUBIN,TOTAL 0.5 MG/DL (0.1-1.0); CALCIUM 8.6 MG/DL (8.5-10.1); CREATININE SERUM 1.08 MG/DL (0.60-1.30); TOTAL PROTEIN 6.3 GM/DL (6.4-8.2)
[2020-01-30] MEDS ORDERED: NS IV 1000 ML 1,000 ML IV SCH (20:15)
[2020-01-30 20:25] LABS: BILIRUBIN,URINE NEGATIVE (NEGATIVE); CLARITY,URINE CLEAR; COLOR,URINE YELLOW; GLUCOSE, URINE (UA) 2+ (NEGATIVE); KETONES,URINE NEGATIVE (NEGATIVE); LEUKOCYTE ESTERASE ,URINE NEGATIVE (NEGATIVE); NITRITE,URINE NEGATIVE (NEGATIVE); PH,URINE 7.5 (5-9); PROTEIN,URINE 2+ (NEGATIVE)
[2020-01-30 20:26] LABS: BACTERIA,URINE FEW /HPF
[2020-01-30 20:27] LABS: HYALINE CASTS, URINE 0-2 /LPF
[2020-01-30] MEDS ORDERED: CEFEPIME INJECTION 2,000 MG in WATER (STERILE) FOR INJECTION 20 ML IV ONE (21:30)
[2020-01-30 22:11] VITALS: BP 163/58
== END 2020-01-30 22:20 | disposition short-term general hospital (02) ==
LOC: EDUNIT# 19:17 → ER FS 19:20
DX: C92.00 Acute myeloblastic leukemia, not having achieved remission (principal); D61.818 Other pancytopenia; R50.81 Fever presenting with conditions classified elsewhere; E87.1 Hypo-osmolality and hyponatremia; E11.22 Type 2 diabetes mellitus with diabetic chronic kidney disease; I13.0 Hypertensive heart and chronic kidney disease with heart failure and stage 1 through stage 4 chronic kidney disease, or unspecified chronic kidney disease; I50.9 Heart failure, unspecified; N18.9 Chronic kidney disease, unspecified; I25.10 Atherosclerotic heart disease of native coronary artery without angina pectoris; E78.00 Pure hypercholesterolemia, unspecified; F41.9 Anxiety disorder, unspecified; F32.9 Major depressive disorder, single episode, unspecified; Z88.8 Allergy status to other drugs, medicaments and biological substances; Z79.4 Long term (current) use of insulin; Z95.1 Presence of aortocoronary bypass graft; Z85.72 Personal history of non-Hodgkin lymphomas; Z95.5 Presence of coronary angioplasty implant and graft; Z80.1 Family history of malignant neoplasm of trachea, bronchus and lung; Z82.49 Family history of ischemic heart disease and other diseases of the circulatory system
CPT/HCPCS: 36415; 80053; 81000; 83605; 85025; 87040; 87077; 87088